=== PATIENT | female | born 1995 | race Two or more races ===

== ENCOUNTER 2023-03-25 12:54 | Outpatient (OUT) | payer OTHER, SELFPAY ==
--- NOTE | 2023-03-25 | US_ITS ---
[address] [address] Patient Name: ALYSSA ROCHA MRN: [id number] date: 1995 Sex: F Assigned Patient Location: US Current Patient Location: US Accession/Order Number: [id number] Exam Date: 03/25/2023 12:57 Report Date: 03/25/2023 16:43 At the request of: TESSA BAUER Procedure: US OB transvaginal EXAMINATION: US OB transvaginal HISTORY: MISSED MENSES COMPARISON: No relevant comparison available. FINDINGS: Transvaginal images Garibay intrauterine gestation Gestational sac: 4.25 cm, 9 weeks 5 days CRL: 3.1 cm, 10 weeks 0 days Yolk sac: 5.1 mm Heart rate: 168 bpm The uterus is normal, anteverted, anteflexed The ovaries are normal. No ovarian corpus luteal cyst Cervix: Closed, 5.3 cm. Clinical age: 9 weeks 4 days Clinical AUDRA: 10/24/2023 Ultrasound age: 10 weeks 0 days Ultrasound AUDRA: 10/21/2023 US/US OB transvaginal IMPRESSION: Viable garibay intrauterine gestation measuring 10 weeks 0 days Electronically authenticated by: MALINDA COLLAZO Date: 03/25/2023 16:43
== END 2023-03-25 12:55 | disposition home or self-care (01) ==
LOC: US 12:54
PROVIDERS: Visit Provider Obstetrics & Gynecology
DX: Z34.91 Encounter for supervision of normal pregnancy, unspecified, first trimester (principal); N92.6 Irregular menstruation, unspecified
CPT/HCPCS: 76817

== ENCOUNTER 2023-04-01 09:34 | Outpatient (OUT) | payer OTHER, SELFPAY ==
[2023-04-01 10:16] LABS: Basophils Absolute Auto 0.1 10^3/uL (0.0-0.1); Basophils Percent Auto 0.8 % (0.2-2.0); Eosinophils Absolute Auto 0.1 10^3/uL (0.0-0.7); Hematocrit 34.6 % (36.0-48.0); Hemoglobin 12.3 g/dL (12.0-16.0); Immature Granulocytes Abs Auto 0.01 10^3/uL (0.00-0.03); Immature Granulocytes Pct Auto 0.2 % (0.0-0.5); Lymphocytes Absolute Auto 1.6 10^3/uL (1.2-3.8); Lymphocytes Percent Auto 25.7 % (20.5-60.0); Mean Corpuscular HGB Conc 35.5 g/dL (29.9-35.2); Mean Corpuscular Hemoglobin 31.9 pg (26.7-34.0); Mean Corpuscular Volume 89.6 fL (81.0-99.0); Mean Platelet Volume 9.4 fL (9.5-13.5); Monocytes Absolute Auto 0.5 10^3/uL (0.3-0.8); Monocytes Percent Auto 8.7 % (1.7-12.0); Neutrophils Absolute Auto 3.8 10^3/uL (1.4-6.5); Neutrophils Percent Auto 62.6 % (43.0-75.0); Platelet Count 247 10^3/uL (150-450); Red Blood Count 3.86 10^6/uL (4.20-5.40); Red Cell Distribution Width 11.8 % (11.0-15.0); White Blood Count 6.1 10^3/uL (4.0-11.0)
[2023-04-01 10:41] LABS: Estimated Average Glucose 103 mg/dL; Glycohemoglobin A1C 5.2 % (4.5-6.2)
[2023-04-01 11:39] LABS: Thyroid Stimulating Hormone 2.009 uIU/mL (0.358-3.740)
[2023-04-01 12:53] LABS: BOX Test Sent Out Y
[2023-04-02 04:11] LABS: HBsAg Screen Negative (Negative); HCV Ab Non Reactive (Non Reactive)
[2023-04-02 06:11] LABS: HIV Ab/p24 Ag Screen Non Reactive (Non Reactive); Rubella Antibodies, IgG 2.01 index (Immune >0.99)
[2023-04-02 10:08] LABS: Rapid Plasma Reagin, Quant Non Reactive titer (NonRea<1:1)
== END 2023-04-01 09:35 | disposition home or self-care (01) ==
LOC: LAB 09:37
PROVIDERS: Visit Provider Obstetrics & Gynecology
DX: Z34.80 Encounter for supervision of other normal pregnancy, unspecified trimester (principal)
CPT/HCPCS: 36415; 83036; 84443; 85025; 86592; 86762; 86803; 86850; 86900; 86901; 87086; 87340; 87389

== ENCOUNTER 2023-05-19 19:13 | Outpatient (REF) | payer OTHER, SELFPAY ==
[2023-05-25 12:08] LABS: Age Gdln ACOG Testing Note (.); IGP, rfx Aptima HPV ASCU Note (.)
== END 2023-05-19 19:14 | disposition home or self-care (01) ==
LOC: LAB 19:13
PROVIDERS: Visit Provider Obstetrics & Gynecology
DX: Z01.419 Encounter for gynecological examination (general) (routine) without abnormal findings (principal)
CPT/HCPCS: G0145

== ENCOUNTER 2023-06-16 13:42 | Outpatient (OUT) | payer OTHER, SELFPAY ==
--- NOTE | 2023-06-16 13:45 | US_ITS ---
[address] [address] Patient Name: ALYSSA ROCHA MRN: [id number] date: 1995 Sex: F Assigned Patient Location: US Current Patient Location: US Accession/Order Number: [id number] Exam Date: 06/16/2023 13:45 Report Date: 06/16/2023 15:32 At the request of: TESSA BAUER Procedure: US OB anatomy EXAMINATION: US OB anatomy, US OB cervical length HISTORY: ANATOMY COMPARISON: Ultrasound OB transvaginal 03/25/2023 TECHNIQUE: Transabdominal sonographic examination was performed for obstetrical and evaluation. FINDINGS: Number: 1 Heart Rate: 145.0 bpm H.B. /min Amniotic Fluid Volume: Subjectively normal Placental Location: ANT/FUNDAL with lower margin 6.1 cm from internal os. Cervix Length: 5.5 cm; closed. ANATOMY: Normal Structures -cerebellum, choroid plexus, cisterna magna, lateral cerebral ventricles, orbits, midline falx, hard palate, four-chamber heart, RVOT, LVOT, stomach, kidneys, bladder, umbilical cord insertion into abdomen, three-vessel cord, cervical spine, thoracic spine, lumbar spine, sacral spine, right upper extremity, left upper extremity, right lower extremity, left lower extremity. SUBOPTIMALLY SEEN: None ABNORMALITIES: None BIOMETRY: BPD: 5.6 cm 23 weeks 0 days ; 94% HC: 20.9 cm 23 weeks 0 days; 92% AC: 17.8 cm 22 weeks 5 days; 81% FL: 3.8 cm 22 weeks 2 days ; 71% EFW:516.1 grams; 94% FL/AC: 21.6 FL/BPD: 68.8 HC/AC: 1.2 GESTATIONAL AGE: Age by EDC: 21 weeks 3 days AUDRA by EDC: 10/24/2023 Age by current US: 22 weeks 5 days AUDRA by current US: 09/25/2023 US/US OB anatomy IMPRESSION: 1. Single live intrauterine with growth detailed above. Electronically authenticated by: GENESIS VILLANUEVA Date: 06/16/2023 15:32
--- NOTE | 2023-06-16 13:45 | US_ITS ---
[address] [address] Patient Name: ALYSSA ROCHA MRN: [id number] date: 1995 Sex: F Assigned Patient Location: US Current Patient Location: US Accession/Order Number: [id number] Exam Date: 06/16/2023 13:45 Report Date: 06/16/2023 15:32 At the request of: TESSA BAUER Procedure: US OB cervical length EXAMINATION: US OB anatomy, US OB cervical length HISTORY: ANATOMY COMPARISON: Ultrasound OB transvaginal 03/25/2023 TECHNIQUE: Transabdominal sonographic examination was performed for obstetrical and evaluation. FINDINGS: Number: 1 Heart Rate: 145.0 bpm H.B. /min Amniotic Fluid Volume: Subjectively normal Placental Location: ANT/FUNDAL with lower margin 6.1 cm from internal os. Cervix Length: 5.5 cm; closed. ANATOMY: Normal Structures -cerebellum, choroid plexus, cisterna magna, lateral cerebral ventricles, orbits, midline falx, hard palate, four-chamber heart, RVOT, LVOT, stomach, kidneys, bladder, umbilical cord insertion into abdomen, three-vessel cord, cervical spine, thoracic spine, lumbar spine, sacral spine, right upper extremity, left upper extremity, right lower extremity, left lower extremity. SUBOPTIMALLY SEEN: None ABNORMALITIES: None BIOMETRY: BPD: 5.6 cm 23 weeks 0 days ; 94% HC: 20.9 cm 23 weeks 0 days; 92% AC: 17.8 cm 22 weeks 5 days; 81% FL: 3.8 cm 22 weeks 2 days ; 71% EFW:516.1 grams; 94% FL/AC: 21.6 FL/BPD: 68.8 HC/AC: 1.2 GESTATIONAL AGE: Age by EDC: 21 weeks 3 days AUDRA by EDC: 10/24/2023 Age by current US: 22 weeks 5 days AUDRA by current US: 09/25/2023 US/US OB cervical length IMPRESSION: 1. Single live intrauterine with growth detailed above. Electronically authenticated by: GENESIS VILLANUEVA Date: 06/16/2023 15:32
== END 2023-06-16 13:43 | disposition home or self-care (01) ==
LOC: US 13:43
PROVIDERS: Visit Provider Obstetrics & Gynecology
DX: Z34.92 Encounter for supervision of normal pregnancy, unspecified, second trimester (principal); Z3A.21 21 weeks gestation of pregnancy
CPT/HCPCS: 76805; 76817

== ENCOUNTER 2023-07-01 11:20 | Emergency (ER) | payer OTHER, SELFPAY ==
[2023-07-01 11:33] VITALS: BP 107/69; PULSE 95; RESP 18; TEMP 36.7; O2SAT 98; BMI 25.3
[2023-07-01 12:00] VITALS: RESP 16; O2SAT 95
--- NOTE | 2023-07-01 12:02 | XR_ITS ---
The [address] [address] Patient Name: ALYSSA ROCHA MRN: [id number] date: 1995 Sex: F Assigned Patient Location: ER Current Patient Location: ER Accession/Order Number: [id number] Exam Date: 07/01/2023 12:05 Report Date: 07/01/2023 12:38 At the request of: WADE MCNAIR Procedure: XR chest 1V EXAM: XR chest 1V at 1222 hours HISTORY: cough with blood for 3 days. COMPARISON: None. TECHNIQUE: AP upright portable chest x-ray FINDINGS: The heart is not enlarged and the vasculature is not distended. No acute infiltrate, effusion or pneumothorax is identified. Nipple jewelry is present. The osseous structures are grossly intact. XR/XR chest 1V IMPRESSION: No acute infiltrate or evidence of cardiac decompensation. Direct comparison with a previous study may be helpful in determining the chronicity of these findings. Electronically authenticated by: TEVIN BAILON Date: 07/01/2023 12:38
--- NOTE | 2023-07-01 12:09 | ED_ITS ---
HPI - URI/Sore Throat General Chief Complaint: Nausea/Vomiting/Diarrhea Stated Complaint: COUGHING UP BLOOD Time Seen by Provider: 07/01/23 12:01 Source: patient Limitations: no limitations History of Present Illness HPI Narrative: this patient is here with upper respiratory type symptoms. She's had it for three days. She said another family member was here last week and tested for a viral infection. She is down the smoking one cigarette a day. She is twenty- three weeks . She's not had any vaginal bleeding or spotting or lower abdominal discomfort today. She has been vaccinated in the past for Covid but not influenza or respiratory syncytial virus. She has used an inhaler in the past when she had bronchitis but she does not have a history of asthma or ongoing use of bronchodilators. She has had running a low-grade fever. She said she just today no slow bit of blood-tinged sputum. Related Data Home Medications Medication Instructions Recorded Confirmed sertraline 25 mg tablet 25 mg PO Q24H 07/01/23 07/01/23 Allergies Allergy/AdvReac Type Severity Reaction Status Date / Time No Known Drug Allergies Allergy Verified 07/01/23 11:33 PFSH [facility] Social History Smoking status: Current every day smoker Exam Narrative Exam Narrative: awake alert pleasant. Vital signs are stable afebrile pulse oximetry is normal there is no respiratory distress. Her voice is normal she's very pleasant hydration status is normal. She does not have a abdominal or pelvic complaints today. Chest examination shows her lungs to be clear with no wheezes rales or rhonchi even with forced exhalation there is minimal wheezing. Skin integument showed normal hydration status with no pallor or evidence of anemia or scleral icterus. Neurological examination she has no neurologic complaints or findings. Chest x-ray was done with the abdomen shielded and is normal Constitutional Vital Signs, click to edit/add: Last Vital Signs Temp 98.0 F 07/01/23 11:33 Pulse 95 H 07/01/23 11:33 Resp 18 07/01/23 11:33 BP 107/69 07/01/23 11:33 Pulse Ox 98 07/01/23 11:33 Course Vital Signs Vital signs: Vital Signs Temperature 98.0 F 07/01/23 11:33 Pulse Rate 95 H 07/01/23 11:33 Respiratory Rate 18 07/01/23 11:33 Blood Pressure 107/69 07/01/23 11:33 Pulse Oximetry 98 07/01/23 11:33 Temperature 98.0 F 07/01/23 11:33 Pulse Rate 95 H 07/01/23 11:33 Respiratory Rate 18 07/01/23 11:33 Blood Pressure 107/69 07/01/23 11:33 Pulse Oximetry 98 07/01/23 11:33 MDM - URI/Sore Throat MDM Narrative Medical decision making narrative: this patient has a respiratory infection after one of her family members had the same. She is otherwise healthy. She's down to one cigarette a day. Chest x-ray and pulse oximetry clinical examination suggests bronchospastic disease. She's not struggling or laboring. I think should be fine as an outpatient. She'll be given albuterol inhaler. And with a holiday coming up she was told that if she doesn't have improvement in symptoms in about four days, she can start an antibiotic Discharge Plan Discharge Chief Complaint: Nausea/Vomiting/Diarrhea Clinical Impression: Acute upper respiratory infection Patient Disposition: Home, Self-Care Time of Disposition Decision: 13:16 Prescriptions / Home Meds: No Action sertraline 25 mg tablet 25 mg PO Q24H Additional Instructions: albuterol inhaler/start Z-Rosendo if symptoms don't improve in four days. Gait is much rest as possible return for any problems Stand Alone Forms: Portal Instructions Referrals: Physician,Non-Staff, MD [Primary Care Provider] - 1 week
[2023-07-01] MEDS: IPRATROPIUM/ALBUTEROL SULFATE 3 ML AMPUL.NEB IH (12:39)
[2023-07-01 12:41] VITALS: O2SAT 99
== END 2023-07-01 14:00 | disposition home or self-care (01) ==
PROVIDERS: Emergency Provider Emergency Medicine Emergency Medical Services
DX: O99.512 Diseases of the respiratory system complicating pregnancy, second trimester (principal); J06.9 Acute upper respiratory infection, unspecified; O99.332 Smoking (tobacco) complicating pregnancy, second trimester; F17.210 Nicotine dependence, cigarettes, uncomplicated; Z3A.23 23 weeks gestation of pregnancy
CPT/HCPCS: 71045; 94640; 99283

== ENCOUNTER 2023-07-08 10:28 | Outpatient (OUT) | payer OTHER, SELFPAY ==
--- OUTSIDE RECORDS SUMMARY | 2023-07-08 10:42 | XMS_ITS | CCD ---
Author Name Unknown Address [address] [place] [address] Organization [facility] Care Team Providers Care Dean Of Admissions Name Role Phone JUANCARLOS, TESSA Admitting Unavailable JUANCARLOS, TESSA Attending Unavailable JUANCARLOS, TESSA Consulting Unavailable REI CALLES Consulting Unavailable JUANCARLOS, TESSA Admitting Unavailable JUANCARLOS, TESSA Attending Unavailable MISC, DOCTOR Referring Unavailable JUANCARLOS, TESSA Consulting Unavailable JUANCARLOS, TESSA Admitting Unavailable JUANCARLOS, TESSA Attending Unavailable JUANCARLOS, TESSA Consulting Unavailable JUANCARLOS, TESSA Admitting Unavailable JUANCARLOS, TESSA Attending Unavailable REQUEST, NONE LISTED Primary Care Unavailable JUANCARLOS, TESSA Consulting Unavailable REI CALLES Consulting Unavailable JUANCARLOS, TESSA Admitting Unavailable JUANCARLOS, TESSA Attending Unavailable JUANCARLOS, TESSA Admitting Unavailable JUANCARLOS, TESSA Attending Unavailable ZOLTAN YUSUF Primary Care Unavailable JUANCARLOS, TESSA Consulting Unavailable JUANCARLOS, TESSA Admitting Unavailable JUANCARLOS, TESSA Attending Unavailable PAM TURNER Consulting Unavailable JUANCARLOS, TESSA Admitting Unavailable JUANCARLOS, TESSA Attending Unavailable REQUEST, NONE LISTED Primary Care Unavailable JUANCARLOS, TESSA Consulting Unavailable JUANCARLOS, TESSA Admitting Unavailable JUANCARLOS, TESSA Attending Unavailable JUANCARLOS, TESSA Consulting Unavailable JUANCARLOS, TESSA Admitting Unavailable JUANCARLOS, TESSA Attending Unavailable PAM TURNER Admitting Unavailable PAM TURNER Attending Unavailable PAM TURNER Consulting Unavailable PAM TURNER Procedure Practitioner Unavailab EVELINE Portillo Consulting Unavailable COLT TREVINO Consulting Unavailable JUANCARLOS, TESSA Admitting Unavailable JUANCARLOS, TESSA Attending Unavailable MELONY HANDLEY Attending Unavailable Problems Active Problems Problem Classification Problem Date Documented Date Episodic/Chronic Diabetes or abnormal glucose tolerance complicating ; childbirth; or the puerperium (1 source) Gestational diabetes mellitus in , unspecified control; Translations: [GESTATIONAL DM PREG UNS CONTROL] Onset: 09-19-2019 Episodic Early or threatened labor (4 sources) False labor before 37 completed weeks of gestation, third trimester; Translations: [FALSE LABR BEFOR 37 WK GEST 3RD TRI] Onset: 09-15-2019 Episodic Mood disorders (1 source) Major depressive disorder, single episode, unspecified; Translations: [MANUELA DEPRESS D/O SINGLE EPIS UNS] Onset: 10-16-2019 Other complications of ; puerperium affecting management of mother (1 source) Onset (spontaneous) of labor after 37 completed weeks of gestation but before 39 completed weeks gestation, with delivery by (planned) section; Translations: [ONSET SPNT LBR 37WK<39WK DEL C SEC] Onset: 10-16-2019 Episodic Other complications of ; puerperium affecting management of mother (1 source) Other mental disorders complicating childbirth; Translations: [OTH MENTAL D/O COMP CHILDBIRTH] Onset: 10-16-2019 Episodic Other and delivery including normal (9 sources) Single live ; Translations: [Encounter for test, result positive] Onset: 03-08-2019 Episodic Other screening for suspected conditions (not mental disorders or infectious disease) (9 sources) Encounter for screening for malignant neoplasm of cervix; Translations: [Encounter for screening for diabetes mellitus] Onset: 05-03-2019 Episodic Other screening for suspected conditions (not mental disorders or infectious disease) (8 sources) Encounter for screening for Streptococcus B; Translations: [Encounter for other specified screening] Onset: 05-30-2019 Previous (3 sources) Maternal care for low transverse scar from previous delivery; Translations: [MAT CARE LW TRANS SCAR PREV C/S DEL] Onset: 10-08-2019 Residual codes; unclassified (1 source) 38 weeks gestation of ; Translations: [38 WEEKS GESTATION OF ] Onset: 10-16-2019 Residual codes; unclassified (1 source) 35 weeks gestation of ; Translations: [35 WEEKS GESTATION OF ] Onset: 09-19-2019 Residual codes; unclassified (1 source) 34 weeks gestation of ; Translations: [34 WEEKS GESTATION OF ] Onset: 09-01-2019 Screening and history of mental health and substance abuse codes (1 source) Personal history of nicotine dependence; Translations: [PERSONAL HISTORY OF NICOTINE DEPEND] Onset: 10-16-2019 Episodic Past or Other Problems Problem Classification Problem Date Documented Date Episodic/Chronic Immunizations and screening for infectious disease (1 source) Encounter for screening for human papillomavirus (HPV); Translations: [ENC SCREENING HUMAN PAPILLOMAVIRUS] Onset: 06-02-2019 Episodic Other complications of (1 source) Other specified related conditions, unspecified trimester; Translations: [OTH SPEC PREG RELATED COND UNS TRI] Onset: 06-02-2019 Episodic Other female genital disorders (1 source) Other specified noninflammatory disorders of vagina; Translations: [OTH SPEC NONINFLAMMATORY D/O VAGINA] Onset: 06-02-2019 Episodic Results Test Name Value Interpretation Reference Range Facility Coding Summaryon 03-05-2021 Coding Summary HTMLBase 64 DgeflvczMHf1iCx+PGhlY WQ+IF7YMTOaJ80lzHSbyL 2TU3tXMH9EIQFPJAONJX8 GFP0btNE5PYvjP5YcopWb HwqzyNIwRH40EPi4POP2d TwbVLfseE2mxUUbW1c3Bc WkZI90uE83XKopTBCxRiG 3LjZpbjsgbWFy P4phKqXfcTBaZmw+PHRhY mxlIHdpZHRoPScxMDAlJy PoeCeaIT3pNu5iCIDaZDF vbGxhcHNlOiBj h6owXJShDPvgEM4mkVdsG 1YamBJ0RBBmb9w5Pv22aI I+BZKrPZD5zWcuSErkf49 3CiGnz0htGQF0 rFQcPPjwJPT4H58yb9G2X JPuKTPuYAD5bIW1jD1lpB rgrfgdM5FbhSLpTiO9JRY 3pFQhqV4vgVyp nuoygG1aEcy+T74HYH8AP SNPNZ1JYte4X6UiFrmijU I+VE37EFEdIK81oMWbbAZ hl7qzrJv9RrHs EVFtSCB1aXenNCwmu2GaW NPtM94bkFZqh7C8CCEscP owoRRtScOeaMC8pI3tOPi vhzsas2syjkia Byfhw6dtpy60rQ51Y98kZ CviMXIgSKK2SSJiBDCqrS xuur1eaQ6eHa6+NQpkv4p xm3awqPk2OoOe YDYbjnBykNmlOTD9z9VtG q84I0BolQnvc3XxGel9yr 53fEBoh1Y3hQG3XEsuNRN xqZ4oCJnbHhE0 GPPwWvUzpR45cOAgUBtvM u2dzEdyjHjkJE5rBYVwiq fyNAPnsE0nWPJvkVGgxTm yRD8sXCZizlna f374CpOaWNQ4GTXocLNjM 2CehU7yNqBlQHEbVBCaG8 RjjGOtDSdbZ382VUmgHmK 7SHHukkZoP9Ob PZPrfGooDkE4w2K1Es3Fc 3JdsjbfHNE8OZhsORN3Pv Q3WzOkKfA3C0JuMgk8DQS fsLybVN8zH3Rg PWBljiziyddrrZC1FLUxC UZoyC30tLDsKExsSy0cn2 W3p706XMQlJCTevL67Kb7 udDogMTBwdCBU rU5uhapld6akcmrlRzTlS TAoVZj9KBz6EJEoxUmyBw YfBZP5LbC4GFC6kDIkjL4 nwDbptyrksZ4c Oyc+Q45mwI5mCSV2SCM2q rtjNYAqdhNtBO72WA57X2 RyPjwvdGFibGU+PGRpdiB boQncQW0fJlYv b7hxw2CfGWskV0RtHRZaQ VxcTva1ZICsMGL1pKB2oO 3vNSAaKYghe6H6uCC5E2G cpmOcxs6cn0wr HBPjAIinU11arQZep8I7K HSpgPA5MMEvfBxtCtCnoA 93Oyc+CHWpkZmgh5YyRyl vm3lgw6kykNf6 MaHyWTRyieYjlGtmFCQ5t 8JoGj48U15wNDfjOPNgMW MvAINdHTFlmExzet3xoT3 wIi8+PGNvbCB3 wBE0eI9eSUHpCiX1RQmkK 337HoZdvRSkUbjas0dsx7 eesSo9ObCuLWRqzaYlhKt oFUL9g4VdXe92 Z70uIBacTPCyTKEkMEVuA SFxfJxtqp1hcY9gXe9+PC 8sv5xtgu08zL57bXJ+PHR qHHE2cLzaCUdp CAJxdD0kNPixUaX9SXZlF aExcO86hDWlZFflKf5saZ jnkFfbAO2uOCBauznij12 7BjVot7jlCAQe nEYiHQgeSWA6Z87ja1I6A KLwFMHyETG5rEY5zJ9oaD lnbjogbGVmdDsgdmVydGl qYFdmCOlnQ851 IHRvcDsnPlBhdGllbnQgT hKmAEe9H7SrHya0DDZqrQ omIO0efLEtWOsqKm3rtYx uyHrxCO6hUTNx pavvv410HbPbi8lyWZXzq ELtVAhjOTQ8N86bq5U6ES JmXIJaAZA0iTW5jB0wnYa nbjogbGVmdDsg arFcbFztNOszWOcnJ469C HRvcDsnPkJpcnRoIERhdG L1PA20EZ07mWPby0S9nSX 3P2BtOMSzjcfc mvdboTC5LXWvQINwdJ58U s3luPghZw7kHCLhMTN6WD MtaRIzR3CbzZ6jRjBlLTY gAOOlM0JhaPKu FXbwX315TWkkZpX2OQTwo oPzK2YgKEHgxXjvSeD7d7 Q9Ay2BO5R3FD65WR90dVM ug0K9mBX4K8Wr YNDnwmysbbktaNI1PMJlM KNghA76Ac0nwBbvXo2dXL LoVHE8ZCWfkSEhD9XcjZ6 yOiAjMDAwMDAw B7VtjUKgOHkxF763HPprT vO5AVWwngZjL3DyPFKdiS raGnF9p0S9Wb1VQPh4LL2 3NJ24hMVki1G7 vFP2V4DdWPSvrnfsgwhup EH9OGIhEKOlsF93Yn0auJ ziUx6gVUDhBUP3HXIoiPF sX7YipL3oVsYt VACuLIBhD9BqwCZmJNljW 949PDfuCaM7ILOivrVwT1 RbJXVpeTuiItX7s7L3Wk4 LDNYwIL30BKI2 aGE3OM21WE31Q9VjIyeze GFibGU+PHRhYmxlIHdpZH RoPScxMDAlJyBzdHlsZT0 lPu3wEBYeTZCi yXzbnBOgNhDjc1dqEHXbT XtaTG5cwGweA2IldZK6IE Pdk0h0Kk02J10sZ5NukGJ +NWTggXY8vUP1 gI0fRaSsYnP2VBudV550K sNcaBTrXntep3akh4hxfI o5DjP9YHLqoxGiqZjgDIQ 5o7OnXa45U04w IHdpZHRoPSIxNSUiIHZhb Zoskb0oxT3pDi7+PGNvbC R5sKC4cP6uPdDpAgT2MRu lW827KdFwdCJs Fltyg2xvy8ohpXj1FhAbJ LAzgxYbnIzxVUD7g1XwBq 26S6VghTgxm6HwQvc7le1 6pLFml4E5bKT8 W3YfUTMtogsyaZIibXkbM O9aJVGkjuboFUMzrK4fZR TdL8v9CzVcFwP8RYomT8T vprT1BESulZIm EQgiPVU3U30hp6A4ZINgX ZZhCHL2dOE6lM4gmCcnmg ogbGVmdDsgdmVydGljYWw bIYpoX223OVCn dHebVFRwxS3qLMUajMWwv WgsRE8oNLXofhqfFu3CRX xTLCBEQVNIQVkgTUFSSUU 8A8IuNxr1QPZl gLeoHJ8izPYpBLopSl4at DwdeHpuGR4cWZIoksoyJB BanC4oMIAchPQliEbgIN5 iZGWaptauv887 PdFeSEP6OWBftUNmH4Hlb J7hAbEuAGIaUCCkV3EajS ZoOAxtP888YUwuXjB8OTR pfdKdF4OuLVXl vJwrJfK8i6R4Gu9mHV8nN X3pIJj1SG19WU50sADup8 P2fIK6U8YtBHEvxrcpqfg faWK0XWPgPBIy eJ40dQYtDCneNv5ct9A4x 553RVKpNFRppE76Aw2scQ lxLRHapOVBxA8jpvwey8h vcjogIzAwMDAw NBb4DMa5PBYbxJlvPsKzJ IY6EhV8MHJ2kKCkqO9alD afznefcT3kHks+MjcgWWV ugnO7Y8KrNpr6 ECOhyEubFY6ktWKzRCzhB k1pbPzzeGitBC0nGSNymu jwTPVihQ4qNZJrpEZyhBo pPR4tWQDzetrc y447UjWtMTH7OYWwrFPgC 9ErmF0nKhEwWGAhBIZsN9 GqpKOgFLrzR531PAfkEwR 2TWJiznCyG8Rr ATQghQolLcJ8h2V3Ee1FS X9MXKX6G1DnTqr2FICyjX ugYG7ehRVlQRzpJq7flBx edJyoPB9xDNNm yditHACsbA2uTFNzxNPll BsxWV9xHFGhzxssc027Is OqPVY1KLWggIRzM2PstE7 yOiAjMDAwMDAw L4GhvLMxCTqeU760QOcjF mW3HYSuuqYnP4BdUEOspL uzMgG6v9N1Sp8CVAdtvJA +MO16wl93A9Ab XabnBci4BQZtVFC3aCD8w M0eTHXyJScux4J5vCJ7I5 QwgiGkeh6je3goZUJkOMx lA41diITul4T4 PFFdfQQ9VDEtdHyqKdJoa G93Oyc+ANKdeVomb5NyNx muu9pcs8xcxPf1KvCyDHQ gdmFsaWduPSJ0 w7KzHs73B23hKZhrMJZsI XSaBBPqMXTnpKghka1ifF 9wIi8+QSMcoJK8hXT8kG0 vPuOeObR5VOfe R869XaLcaYGoZmupc4pzn 2fjfIp1ObRbWQPgsbVnaD kyVJH4m0XbCh62P6TdrXo pn9XuIah2vs39 zVYxk7N6uFP4K2BzBRJgy wrdlYVxrEjfHM3jCYYbne fsLYQctX8oDRFaW5i7YqJ xPmP5AArdC6Zw rxW2FMSasGHuQDVfdMFKi Z2tgkjbq8thekgfTsGvTC StDYf5WBs8PBZcaIezOtW eSYG9IrT2OVT3 oAZqgC1oqQebapbxeY9xY yc+USb4j2haoXEmKF3fzJ Z6QN78EJ47sQJqh9V1sIC 9E2DbNXPfwwfx hzqwxOY6YUHbAPKchB26F l3bgVmlWp8qUIWqQDZ3DM SqwDOtF2JdaZ4nAzLaMNZ bYJUeP7KaeEKv ZYjeX132QUvzWnN9LKFop bJnE6JnLGFakUhsHpP5m0 C7Tm7RTN10QH16HY30hEP bu8I0fYH8A3Eq ZOUsmopifqteeWD5UJQfU LLqhA67Bw5jqKvdRh1rQG LxSUB8LQYvzEUtV4VclH8 yOiAjMDAwMDAw T0CsiESfMYtvX564FDchK bB8KANvcsRvT2DmGUOejF ieEpD0m2H2Wp3FFk06PC8 0EJ82uDZvr8P0 sSG1C6KtOHDxzewigrulo ZE3FDFuOVKywE98Mx0czI fcDq2zVYRaTQB4CBGakRI aQ3IriW6pPfIp BPRrLYBnG4LrzBLqJOslV 609IFhmNuT5TBDcglRbT5 FbOEWjmRxyCuN0y3W4Ai5 IDFnxhhg1D1Wk PjwvdHI+PX42UUPmZM18p QTtgRKqt0xvyZf7MiWgJS FmCTI7lCxaELuhh9NmHDC dE95gqTHax6I8 IGN (more content not included)... [facility] Coding Summary HTMLBase 64 FvkcryenRYl6xUi+PGhlY WQ+RU4PMIMfT56fmZGzcM 2GX4uFIH6LSGJWVTSEUB4 BCS7kaEB6BIpqL9UaynTz HrqqiKFfKD36CRk9XPB0w ZinALbhyH5ycWVqT2d2Mm HwKU44jS50ILnrCIVsPwH 3LjZpbjsgbWFy K8vpYmNmpTZbXsq+PHRhY mxlIHdpZHRoPScxMDAlJy MicNyfOR7kTq3zHOHbNYZ vbGxhcHNlOiBj c9ceJHSzAMvlXO4chGqtU 5QvjGY8OCKpl3v5Lz44yW I+TEJkSVE2rJggQZbke77 9BhVqg5gvBEJ1 oPPrEFliSZR4Q40uj2V3K LGrYUDtEHK4lGI9yZ5deY mwodhkB1RrlNArMkC0PNU 0wDTcrW1nvDqi omhlkV3sIrk+P83NJW5PL JAUYU6UJkx5E8TnPqnjfT I+OS81PASwBA23jYJynUI ew7puuQx6RmFg ZFUbVRT6tEjzPZoyn0PxW FIdS16qvWTbb8I9GCScoJ xkrBQbRfMbbWC7fS0tVVl azaepo2eqxxfg Nkeuy7bpvt88kY85Z41fJ NiqOYZwTPK9VFWuQRCsgY uzay4ivV2yDq5+DAzen6v wo6khcVc4LxIg WOUkrcJgsKxvNTM7o9VxJ r17F5NxaVyri3RkPel5ge 41gAUvd2S5bIB9DQcnFPD smK7oPNcbIcD1 DBRdZuLjeW35mYEcVDcvE c6noBamlDelGX1vHPQzqs goNLYpaS3qYEBhvMHpjOt eIZ2iCDKrxirp w740XnRoOPJ6EEIfhLNmH 3WpoA8hQeJnAEBaNPNkD1 OgqKKuTLeuF366FZrfRlF 0PBPmkfTbV7Kf JCZgrQkqPrF4d6P0Go9Yb 3SfpplgECP9NDtbKTS4Wy S2AcViFeN8C3AuHsc1XBI fnNokRN1dH5Va UPHjkrykqxjtvPL0QGSuH UDivV58dOHiUVgeQl4pg4 J0n481DJOhNKCooM55Hs2 udDogMTBwdCBU fJ1xwtztc4lqwgwpQmOvJ SBgAJw8PIj9XGJncNzkZm XoLUA2HzR2SGQ9uBNswY0 xbJdvcbiclW5s Oyc+Q90nqC7nEFL2ISX9p zvoXOJhoqLlZT03CM59O4 RyPjwvdGFibGU+PGRpdiB fyGkeDR9vUzFb h6fve7EbJJopF5YqSSVpK IkhHpx3AVNvBUO8gPH2sL 5bYAZxXGgcj6W9yXX5I4O jqwDsyx5if9vq BUSrFJbfN25mzDKqx7S4I LDjsIH0UQSlkOmkLiRiaL 93Oyc+KMUqxGanh9JqRwl ki7jxo6mrwKu4 RxMqIVPvfyTgeYhrQNH9k 0YpOn97A40yXEbiJTAzXC DuDIZkQPTpwXgggk7pjX5 wIi8+PGNvbCB3 hTG9sW5hGQZgGdS2EVwvM 152LkWroFNtGfzaf5izh3 kwrSo7PtYtLSXtwqLwkPd gHRW2r2YkVa35 D34eTGziFVCuZRRiNCHsV BIrxNtnsn3cjU3pYz7+PC 7so0ewmr90wM13zBW+PHR tLXS6lLljTUws IJJpjJ7lRIjfWuZ7XFRnF lIzoB75xJFnSMglEb6tvY yqgEohVT8hVNZqfakpq44 1HtYry4odXORx kCEmPPwxRPP6T21lz4U0H GBpBJLzDBZ9wPZ1wC5slA lnbjogbGVmdDsgdmVydGl eHFdbVLtdE558 IHRvcDsnPlBhdGllbnQgT pThDZj1N5MpJbk5AYOrsT moZM3blOGfDJlqNs5kxNn apIxnLA4zOORg oubub740MiDbr1ihPPJdv GRlGTjfYNL2Z97rb0J9ZP MkAHEiSZV5aBV7uJ6ojJb nbjogbGVmdDsg noResVvhKCqmDQqbI683O HRvcDsnPkJpcnRoIERhdG G5LS88QY04lOTaa6R1oZZ 1E1PgSNNiriqo odxlhYX8KGUiRXGfjD59A a1hiMefCt2gOCGcMKX2TL JcyAWgX7UfdN0uEpLuSHX gQUHfH8TgiTJu BSsgK085GVfnUkO1FHPxw mZqT4JbTILkqQfzXkY7g8 L0Mo9BZ6A1UR34KA50lUA se1P1nAH6O9St XAUssxbpejkgyYD8BVGvY RZreE34Sw3plFxpOp3aLV VmRPS2FBPdjFOrE7XqpI6 yOiAjMDAwMDAw J6PvtQOfDKxcN657NBcjJ wT0MXJpqtTdN9XyWCXonC srUpS0t4V0Ws6XFXt3QR6 4FI08nXFaq5L3 kTB8T2JpNMEwkwzerfymn EN4IOLsOJJurL88Dq2otR zcCo7gFLTfEEI5QDLcaHY qZ8FtgK6yQeMh IPIvHHCeI0WkjCTaHWpvV 304RUjfLlV7GDEkzuXrI3 RjNRLdqTsbRoS8d6N2Mr8 LBXSqUP54VKE1 mVM3DA64FK27I4CpTbwof GFibGU+PHRhYmxlIHdpZH RoPScxMDAlJyBzdHlsZT0 fOi1gOBDmMVHl pYzkqZLaOxMii4gwGOBaD RnyMG9anFmiQ4NooDM0RL Fcv1h7Yk84C88lR3PysIO +JUDajVG8uDD9 zO0lRgUoBxB8MVvkQ874M gIivPNvCenjg9sdx1ecnW q8ZfO5EETogtArlIkeXGC 2e0TlZs42H26h IHdpZHRoPSIxNSUiIHZhb Wlxxz0kbC5lJc7+PGNvbC Q1aTD5aN6oBkFpVpK7FQi uR241YiJlbBSa Ppuvv4ggv2jheNg4DsBfO SOipfJznFwkAVF7p8CxCl 99M3DenBvjv4EuDfh1sl7 6uZUyl6X4sQS4 F8UySRRonbwmvXIlzMcfT X4qJCXnhritIIYfjS2lUU IcL0i1KuUeZiS3ZZheI2T bfnL3SYMzwHBf OQjfWTZ1R36ab1S9NAUvW FGkXPX7rEG1tM6zwHbelb ogbGVmdDsgdmVydGljYWw jDDqfN487OWCc aPwjGSOwbQ7aROKnqNWye AtjBE3iSBZdpelsCg6LNH xTLCBEQVNIQVkgTUFSSUU 8H0EfOlj5HXFx cVwkYM7cySCgQUoxRh4ok UnihZziPV2fYVQpxfouYC YqlW3kHYTzvUYiiLsbDV4 iXUZvhfqlg976 UcJvPIC4CVJgaUZzO6Evi A0xWuCcYSLaQZIyT2EzaX KxDQhrQ039UJtyYzL9VKD kluHcD1GfXUAa eUsnFtE3d9R4Ne0cVY1rO L1jHVz7GV31TF19gEUhr7 M3qET3B4XlWPNvyeongtw wtOD4UXRwBSFf wS65kATaFHkzWf8gf4N9c 412UPIfFYWkvN64Ix9agG etKWIhqYQVyF6tzblxu1c vcjogIzAwMDAw BTt0YMd1MTMhhEuaRuZuE NR9DnI4YFW4kLOscP6unX zubzmewC2cZwo+MjcgWWV ppsG1H2RiHwa6 AYZiyWdpCJ2ncPAxQVuuP r8lyFqscOqqMJ4iKWTcsc raERCkgC3sJRJpmDLqwDd vCB1rDXAfocal f271SbYvPRQ9PEVkkJIsF 7IcvB1fVuRnCXOpBDXpB7 PqwJXqFVsfS753YWboZvD 5ENUwjaYiX2Gw GWMmxMbxNuX6m3H3Om0SA D3SYPM3H4EfXzw6PIXyyD phKC3ynDVvYHnrXw7kzBe wkEflYW1xOOKz kfyrDVOqcH6bBSDjuGZdx HmsWL7tFOPzvimhe074Vh PpLEE8ZHFflEXkE3OyzS8 yOiAjMDAwMDAw X9YuiEJvVZoiQ101VUvvU nZ6HIGntaDcM0SzPKEnaF fhEpN2t5O5Zd1RpZXbU3G pQ0c5O9WgLuxi dHI+RA32GRAxQW01dGLdv AOvw1nzaJo9ShPvSNRvHB H6qHqeYWxtr2VmNNHaB33 ggGCwo4Z7SZLe zTyneJAgKzMfxAX4lH6dI Hqtevcun6ihmdayXkpip8 pvms05qH57D71yGZkpUFA oPSIzMCUiIHZh gUknlp1wnW6tXg1+PGNvb JP2tIU1pC2zTjHfMzP3FL slS063RnOpxTTtVhszd8p zy9mlgRc1AtAu MWYmyfBvfYwbLKD2q0ZeZ b45Q30yUSvrHGVaVRQzUF KlNWUngRipwh5kgL0lXq8 +KY2gm5scmo67 eZ27vDX+AQWbVVU5cYpcH FsyCFFzwJ1qXDuuIuO4NC QsDxUjaW99hUMpQTmgZg7 nfOhtqRgmDN5x OOIcedecc721LnTry5goG BAfkRHuMEgcDLR8Y21uu6 I2GLWmZWJdJQS6mCM3zY5 hbGlnbjogbGVm dDsgdmVydGljYWwtYWxpZ 909FPAhrYkiVbQykHDpW4 ualtYALY1xMgxomEP+PHR eTBX9qQmjYNgp ECXbfN3iEUEqM2a4SmJmU uT1ODfwW7RzweF1JCDnfL HyTGOjaEJRmC4rjfxfv9w vcjogIzAwMDAw LHa4IFz8XOQumUimQxEzY KS4XoV4BFU8nDTphR7szN uytmvprS4xZud+RklOOjw vdGQ+PHRkIHN0 fPhoTYjwVGWuxX3wBISkT 8k7QkVzUsB6TMfuX6Itbl V1ZDAgcKTjUIOlyBUMuY6 tghauq6wrxtwk YsAhJXBeZMd9ETk7VUOrw ZihImUmEPC4XiM9ISV8dS KlsI8qwWazvpxojB5lZqa +TVJOOjwvdGQ+ ZGFeFLF4tLvwAUnpIGWrr B0pTNTnW5d2CaOtKcA8ST bfQ3QqpgO1YVUzcTYpOUY svFHWiC0khomo g0mnlnawMaFbIAWiKHi0L Kt4FALogHbeSgRfBUL7Sa S7QJL1nJWdxO6vbZetgil zbX8pTdi+UGF5 NZL0YW06DF38S2NcUzhtk GFibGU+PHRhYmxlIHdpZH RoPScxMDAlJyBzdHlsZT0 bBn0tDWGjMOUh bGx (more content not included)... Normal [facility] ED Clinical Summaryon 2020 ED Clinical Summary [facility] - Emergency Department [address] [place], [place] [id number] ED Clinical Summary PERSON INFORMATION Name: ALYSSA ROCHA Age: 25 Years Sex: FEMALE : 1995 MRN: Acct#: Visit Reason: Skin rash; RASH Arrival: 02/22/2021 08:23:33 Discharge: 02/22/2021 09:27:00 LOS: 000 01:04 Check In: 02/22/2021 08:23:33 Checkout:02/22/2021 09:27:00 Address: [address] [facility] [address] PCP: ZOLTAN YUSUF MD PROVIDER INFORMATION Provider Role Assigned Unassigned Oscar Haley DO ED Provider 02/22/2021 08:26:37 Lisa RN, Cherri ED Nurse 02/22/2021 08:34:22 VITALS INFORMATION Vital Sign Triage Latest Temperature Tympanic Temperature Temporal Artery Pulse Rate 91 bpm 91 bpm O2 Sat 100 % 100 % Respiratory Rate 16 br/min 16 br/min Blood Pressure /69 mmHg /69 mmHg MEDICAL INFORMATION Medications Given: Allergy Information: No Known Medication Allergies PHYSICIAN DOCUMENTATION Patient: ALYSSA ROCHA Age: 25 years Sex: FEMALE : 1995 Associated Diagnoses: Contact dermatitis Author: Oscar Haley DO Basic Information Additional information: Chief Complaint from Nursing Triage Note : Chief Complaint 02/22/2021 8:24 EDT Chief Complaint I have a rash on my neck that is itchy. . History of Present Illness 25-year-old female to the emergency department chief complaint of a rash. Patient states that it began the anterior aspect of her neck. Now spreading to her back of her neck and her ear. Patient states began 2 days ago. No fever no chills no nausea no vomiting. Patient states that she has sensitive skin and she has had an allergic reaction in the past to tide. Patient states that she used a new lotion prior to onset. No throat swelling or tightness no difficulty breathing. No fever no chills no nausea no vomiting. No drainage Review of Systems Constitutional symptoms: Negative except as documented in HPI. Skin symptoms: Rash, pruritus. Eye symptoms: Negative except as documented in HPI. ENMT symptoms: Negative except as documented in HPI. Respiratory symptoms: Negative except as documented in HPI. Cardiovascular symptoms: Negative except as documented in HPI. Gastrointestinal symptoms Genitourinary symptoms: Negative except as documented in HPI. Musculoskeletal symptoms: Negative except as documented in HPI. Neurologic symptoms: Negative except as documented in HPI. Psychiatric symptoms: Negative except as documented in HPI. Health Status Allergies: Allergic Reactions (Selected) No Known Medication Allergies. Medications: (Selected) Prescriptions Prescribed Lidoderm 5% topical film: 1 patch(es), TOP, Daily, 30 patch(es), 0 Refill(s) Documented Medications Documented Zoloft 50 mg oral tablet: 50 mg, 1 tab(s), PO, Daily, 0 Refill(s). Past Medical/ Family/ Social History Medical history: No active or resolved past medical history items have been selected or recorded.. Surgical history: No active procedure history items have been selected or recorded.. Family history: No family history items have been selected or recorded.. Social history: Social & Psychosocial Habits Alcohol 02/22/2021 Alcohol Use: Current Comment: Denies - 02/22/2021 08:Giana Gonzalez RN, Cherri Substance Abuse 02/22/2021 Substance use: Current Type: Marijuana Frequency: 1-2 times per year Tobacco 02/22/2021 Smoking tobacco use: 10 or more cigarettes (1/ Comment: States smokes 1/2 pack per week - 02/22/2021 08:Cherri Duong RN Electronic Cigarette/Vaping 02/22/2021 Electronic Cigarette Use: Use, within last 90 days Type: Nicotine infused Use per Day: States vapes just once in a while, when I don't have cigarettes . . Problem list: Active Problems (1) No Chronic Problems . Physical Examination Vital Signs Vital Signs 02/22/2021 8:24 EDT Temperature Temporal 37.0 DegC Peripheral Pulse Rate 91 bpm Respiratory Rate 16 br/min Systolic Blood Pressure 107 mmHg Diastolic Blood Pressure 69 mmHg SpO2 100 % Oxygen Therapy Room air . Measurements 02/22/2021 8:40 EDT Height/Length Dosing 157.480 cm Weight Dosing 65.770 kg 02/22/2021 8:24 EDT Height/Length Estimated 157.480 cm Weight Estimated 65.770 kg . General: Alert, no acute distress. Skin: Warm, dry, Patient with erythematous slightly raised rash anterior aspect of neck and also behind the left ear. No vesicles no pustules no warmth noted. No drainage no lymphadenopathy or lymphangitis. There is no fluctuance. Head: Normocephalic, atraumatic. Neck: Supple. Eye: Pupils are equal, round and reactive to light, normal conjunctiva. Ears, nose, mouth and throat: Oral mucosa moist. Cardiovascular: Regular rate and rhythm. Respiratory: Lungs are clear to auscultation, respirations are non-labored. Musculoskeletal: No swelling. Neurological: Normal speech observed. Lymphatics: No lymphadenopathy. Reexamin (more content not included)... Normal [facility] ED Note - Physicianon 2020 ED Note - Physician Patient: ALYSSA ROCHA Age: 25 years Sex: FEMALE : 1995 Associated Diagnoses: Contact dermatitis Author: Oscar Haley DO Basic Information Additional information: Chief Complaint from Nursing Triage Note : Chief Complaint 02/22/2021 8:24 EDT Chief Complaint I have a rash on my neck that is itchy. . History of Present Illness 25-year-old female to the emergency department chief complaint of a rash. Patient states that it began the anterior aspect of her neck. Now spreading to her back of her neck and her ear. Patient states began 2 days ago. No fever no chills no nausea no vomiting. Patient states that she has sensitive skin and she has had an allergic reaction in the past to tide. Patient states that she used a new lotion prior to onset. No throat swelling or tightness no difficulty breathing. No fever no chills no nausea no vomiting. No drainage Review of Systems Constitutional symptoms: Negative except as documented in HPI. Skin symptoms: Rash, pruritus. Eye symptoms: Negative except as documented in HPI. ENMT symptoms: Negative except as documented in HPI. Respiratory symptoms: Negative except as documented in HPI. Cardiovascular symptoms: Negative except as documented in HPI. Gastrointestinal symptoms Genitourinary symptoms: Negative except as documented in HPI. Musculoskeletal symptoms: Negative except as documented in HPI. Neurologic symptoms: Negative except as documented in HPI. Psychiatric symptoms: Negative except as documented in HPI. Health Status Allergies: Allergic Reactions (Selected) No Known Medication Allergies. Medications: (Selected) Prescriptions Prescribed Lidoderm 5% topical film: 1 patch(es), TOP, Daily, 30 patch(es), 0 Refill(s) Documented Medications Documented Zoloft 50 mg oral tablet: 50 mg, 1 tab(s), PO, Daily, 0 Refill(s). Past Medical/ Family/ Social History Medical history: No active or resolved past medical history items have been selected or recorded.. Surgical history: No active procedure history items have been selected or recorded.. Family history: No family history items have been selected or recorded.. Social history: Social & Psychosocial Habits Alcohol 02/22/2021 Alcohol Use: Current Comment: Denies - 02/22/2021 08:38 Suzie Gonzalez RN, Cherri Substance Abuse 02/22/2021 Substance use: Current Type: Marijuana Frequency: 1-2 times per year Tobacco 02/22/2021 Smoking tobacco use: 10 or more cigarettes (1/ Comment: States smokes 1/2 pack per week - 02/22/2021 08:38 Cherri Woodall RN Electronic Cigarette/Vaping 02/22/2021 Electronic Cigarette Use: Use, within last 90 days Type: Nicotine infused Use per Day: States vapes just once in a while, when I don't have cigarettes . . Problem list: Active Problems (1) No Chronic Problems . Physical Examination Vital Signs Vital Signs 02/22/2021 8:24 EDT Temperature Temporal 37.0 DegC Peripheral Pulse Rate 91 bpm Respiratory Rate 16 br/min Systolic Blood Pressure 107 mmHg Diastolic Blood Pressure 69 mmHg SpO2 100 % Oxygen Therapy Room air . Measurements 02/22/2021 8:40 EDT Height/Length Dosing 157.480 cm Weight Dosing 65.770 kg 02/22/2021 8:24 EDT Height/Length Estimated 157.480 cm Weight Estimated 65.770 kg . General: Alert, no acute distress. Skin: Warm, dry, Patient with erythematous slightly raised rash anterior aspect of neck and also behind the left ear. No vesicles no pustules no warmth noted. No drainage no lymphadenopathy or lymphangitis. There is no fluctuance. Head: Normocephalic, atraumatic. Neck: Supple. Eye: Pupils are equal, round and reactive to light, normal conjunctiva. Ears, nose, mouth and throat: Oral mucosa moist. Cardiovascular: Regular rate and rhythm. Respiratory: Lungs are clear to auscultation, respirations are non-labored. Musculoskeletal: No swelling. Neurological: Normal speech observed. Lymphatics: No lymphadenopathy. Reexamination/ Reevaluation Discussed with patient rash appears to be secondary to contact dermatitis. Discussed will treat with steroids it does not appear that she needs a shot at this time oral should be adequate. Encouraged also you to use [id number] hydrocortisone and/or Benadryl cream. Patient encouraged to return for any worsening or changes or persistence to symptoms. Impression and Plan Diagnosis Contact dermatitis ([id number] L25.9, Discharge, Medical) Plan Condition: Stable. Disposition: Discharged: Time 02/22/2021 09:03:00, to home. Prescriptions: Launch prescriptions Pharmacy: Medrol 4 mg oral tablet (Prescribe): 1 packet(s), PO, Once, as directed on package labeling, 21 tab(s), 0 Refill(s). Patient was given the following educational materials: Contact Dermatitis, Contact Dermatitis. Follow up with: ZOLTAN YUSUF Within 3 to 5 days Call for follow up appointment Return if symptoms worsen. Counseled: Patient, Regarding diagnosi (more content not included)... [facility] ED Note-Nursingon 02-22-2021 ED Note-Nursing Ambulates to room 7 with steady gait. AAO x3. BARAJAS. Skin warm,dry ,pink. Respirations regular, even. States started having itching around her right nipple and that it spread to her anterior neck and up to her left ear. Denies pain, cough, SOB, lip or tongue swelling. Patchy area over her Erasmo's apple, neck that is slightly reddish, raised. No vesicles seen. Small area behind left ear and outer ear. Awaiting exam. Normal [facility] ED Patient Summaryon 021 ED Patient Summary [facility] - Emergency Department [address] [place] [address] PATIENT DISCHARGE INSTRUCTIONS Patient Information Name: ALYSSA ROCHA Age: 25 Years Date of : 1995 Reason For Visit: Skin rash; RASH Arrival Time: 02/22/2021 08:23:33 Primary Care Physician: PARAMJIT HSU, ZOLTAN Cooley Attending Physician: Oscar Haley DO Comment: Visit Diagnosis: Diagnoses This Visit Contact dermatitis (L25.9) Skin rash ([id number]) Prescription Information: If you have been given a prescription for narcotics, seek immediate medical attention if you have any difficulty breathing or any sudden status changes such as confusion and sleepiness. If you or anyone you know is experiencing suicidal thoughts, mental health, alcohol and/or drug addiction problems; contact the [facility] [place] 08/02 Crisis Hotline -Text 4HMHS as 023679. If you received any narcotics, sedation, or any other medication that causes drowsiness for the next 24 hours, unless otherwise directed: ? Do not drive a car. ? Do not operate machinery such as power tools, lawn mowers, drills, sewing machines, or stoves ? Avoid alcoholic beverages and drugs for allergies, nerves, or sleep ? Do not make important personal or business decisions or sign any legal documents With: Address: When: ZOLTAN YUSUF [address] [place] [id number] Business (1) Within 3 to 5 days Comments: Call for follow up appointment Return if symptoms worsen Medication Information: The exam and treatment you received today in the [facility] Emergency Department were for an urgent problem and are not intended as complete care. It is important for you to follow up with a doctor, nurse practitioner, or physician?s marketing operations assistant for ongoing care. If your symptoms become worse or you do not improve as expected and you are unable to reach your usual health care provider, you should return to the Emergency Department, we are available 24 hours a day. For those patients who have received Radiology results, the interpretation of your X-ray as given to you by our Emergency Department physician is only a preliminary report. The Radiologist will review your films and if there is a change in the diagnosis you will be notified by phone. Please make sure you have provided a working phone number so we can reach you if necessary. In the event that you had a lab culture while you were a patient in the Emergency Department, you will be notified by phone if there is a need to change your antibiotic. Please make sure you have provided a working phone number so we can reach you if necessary. [facility] Emergency Department has provided you with a complete list of medications post discharge. Please inform your field artillery targeting technician/provider of your visit and for further instruction on these medications. Any specific questions regarding your chronic medications and dosages should be discussed with your primary care physician(s) and/or pharmacist. New Medications Printed Prescriptions methylPREDNISolone (Medrol 4 mg oral tablet) 1 packet(s) Oral once. as directed on package labeling. Refills: 0. Medications to Continue That Have Not Changed Other Medications lidocaine topical (Lidoderm 5% topical film) 1 patch(es) Topical every day. Refills: 0. sertraline (Zoloft 50 mg oral tablet) 1 tab(s) Oral every day. Visit Information Allergies: Substance Reaction Symptoms Type Comments No Known Medication Allergies Drug Vital Signs: Vitals and Measurements this Visit (last charted value for your 02/22/2021 visit) Vital Signs This Visit Temperature Temporal: 37.0 DegC Peripheral Pulse Rate: 91 bpm Respiratory Rate: 16 br/min Systolic Blood Pressure: 107 mmHg Diastolic Blood Pressure: 69 mmHg SpO2: 100 % Oxygen Therapy: Room air Measurements This Visit Height/Length Dosin.480 cm Height/Length Estimated: 157.480 cm Weight Dosin.770 kg Weight Estimated: 65.770 kg Problems List: Problem Onset Comments No Problems found Patient Education Contact Dermatitis Dermatitis is redness, soreness, and swelling (inflammation) of the skin. Contact dermatitis is a reaction to certain substances that touch the skin. Many different substances can cause contact dermatitis. There are two types of contact dermatitis: ? Irritant contact dermatitis. This type is caused by something that irritates your skin, such as having dry hands from washing them too often with soap. This type does not require previous exposure to the substance for a reaction to occur. This is the most common type. ? Allergic contact dermatitis. This type is caused by a substance that you are allergic to, such as poison theo. This type occurs when you have been exposed to the substance (allergen) and develop a sensitivity to it. Dermatitis may devel (more content not included)... Normal [facility] CBC AUTO DIFFon 10-09-2019 Basophils (Bld) [#/Vol] 0.1 103/ul Normal 0.0-0.1 [facility] Comment on above: Performed By: #### C BC #### [facility] [address] [place], [place] [address] Ana Paula Emily Basophils/100 WBC (Bld) 0.9 % Normal 0.2-2.0 [facility] Comment on above: Performed By: #### C BC #### [facility] [address] [place], [place] [address] Ana Paula Emily Eosinophils (Bld) [#/Vol] 0.1 103/ul Normal 0.0-0.7 [facility] Comment on above: Performed By: #### C BC #### [facility] [address] [place] [id number] Ana Paula Emily Eosinophils/100 WBC (Bld) 1.4 % Normal 0.9-7.0 [facility] Comment on above: Performed By: #### C BC #### [facility] [address] [place], [place] [phone] Ana Paula Emily Erythrocyte distribution width (RBC) [Ratio] 12.7 % Normal 11.0-15.0 [facility] Comment on above: Performed By: #### C BC #### [facility] [address] [place], [place] [phone] Ana Paula Emily Hematocrit (Bld) [Volume fraction] 31.4 % Critically low 36.0-48.0 [facility] Comment on above: Performed By: #### C BC #### [facility] [address] [place], [place] [phone] Ana Paula Emily Hemoglobin (Bld) [Mass/Vol] 10.1 g/dL Critically low 12.0-16.0 [facility] Comment on above: Performed By: #### C BC #### [facility] [address] [place], [place] [phone] Ana Paula Emily IG # 0.05 10e3/ul Critically high 0.00-0.03 [facility] Comment on above: Performed By: #### C BC #### [facility] [address] [place], [place] [phone] Ana Paula Emily IG % 0.5 % Normal 0.0-0.5 [facility] Comment on above: Performed By: #### C BC #### [facility] [address] [place], [place] [phone] Ana Paula Emily Lymphocytes (Bld) [#/Vol] 2.1 103/ul Normal 1.2-3.8 [facility] Comment on above: Performed By: #### C BC #### [facility] [address] [place] [address] Ana Paula Emily Lymphocytes/100 WBC (Bld) 22.6 % Normal 20.5-60.0 [facility] Comment on above: Performed By: #### C BC #### [facility] [address] [place], [place] [address] Ana Paula Emily MANUAL DIFF REQ NO Normal [facility] Comment on above: Performed By: #### C BC #### [facility] [address] [place], [place] [address] Ana Paula Emily MCH (RBC) [Entitic mass] 29.4 pg Normal 26.7-34.0 [facility] Comment on above: Performed By: #### C BC #### [facility] [address] [place] [id number] Ana Paula Emily MCHC (RBC) [Mass/Vol] 32.2 g/dL Normal 29.9-35.2 [facility] Comment on above: Performed By: #### C BC #### [facility] [address] [place], [place] [phone] Ana Paula Emily MCV (RBC) [Entitic vol] 91.3 fL Normal 81.0-99.0 [facility] Comment on above: Performed By: #### C BC #### [facility] [address] [place] [address] Ana Paula Emily Monocytes (Bld) [#/Vol] 0.8 103/ul Normal 0.3-0.8 [facility] Comment on above: Performed By: #### C BC #### [facility] [address] [place] [address] Ana Paula Emily Monocytes/100 WBC (Bld) 8.4 % Normal 1.7-12.0 [facility] Comment on above: Performed By: #### C BC #### [facility] [address] [place] [phone] Ana Paula Emily Neutrophils (Bld) [#/Vol] 6.1 103/ul Normal 1.4-6.5 [facility] Comment on above: Performed By: #### C BC #### [facility] [address] [place] [address] Ana Paula Emily Neutrophils/100 WBC (Bld) 66.2 % Normal 43.0-75.0 [facility] Comment on above: Performed By: #### C BC #### [facility] [address] [place] [phone] Ana Paula Emily Platelet mean volume (Bld) [Entitic vol] 10.8 fL Normal 9.5-13.5 [facility] Comment on above: Performed By: #### C BC #### [facility] [address] [place] [id number] Ana Paula Emily Platelets (Bld) [#/Vol] 167 103/ul Normal 150-450 [facility] Comment on above: Performed By: #### C BC #### [facility] [address] [place] [address] Ana Paula Emily RBC (Bld) [#/Vol] 3.44 106/ul Critically low 4.20-5.40 Th e [facility] Comment on above: Performed By: #### C BC #### [facility] [address] [place], [place] [phone] Ana Paula Emily WBC (Bld) [#/Vol] 9.2 103/ul Normal 4.0-11.0 The [facility] Comment on above: Performed By: #### C BC #### [facility] [address] [place], [place] [phone] Ana Paula Emily CBC AUTO DIFFon 10-08-2019 Basophils (Bld) [#/Vol] 0.1 103/ul Normal 0.0-0.1 [facility] Comment on above: Performed By: #### C BC #### [facility] [address] [place], [place] [phone] Ana Paula Emily Basophils/100 WBC (Bld) 0.7 % Normal 0.2-2.0 [facility] Comment on above: Performed By: #### C BC #### [facility] [address] [place], [place] [phone] Ana Paula Emily Eosinophils (Bld) [#/Vol] 0.1 103/ul Normal 0.0-0.7 [facility] Comment on above: Performed By: #### C BC #### [facility] [address] [place], [place] [phone] Ana Paula Emily Eosinophils/100 WBC (Bld) 1.3 % Normal 0.9-7.0 [facility] Comment on above: Performed By: #### C BC #### [facility] [address] [place] [address] Ana Paula Emily Erythrocyte distribution width (RBC) [Ratio] 12.5 % Normal 11.0-15.0 [facility] Comment on above: Performed By: #### C BC #### [facility] [address] [place] [address] Ana Paula Emily Hematocrit (Bld) [Volume fraction] 34.8 % Critically low 36.0-48.0 [facility] Comment on above: Performed By: #### C BC #### [facility] [address] [place] [address] Ana Paula Emily Hemoglobin (Bld) [Mass/Vol] 11.2 g/dL Critically low 12.0-16.0 [facility] Comment on above: Performed By: #### C BC #### [facility] [address] [place] [address] Ana Paula Emily IG # 0.06 10e3/ul Critically high 0.00-0.03 [facility] Comment on above: Performed By: #### C BC #### [facility] [address] [place] [address] Ana Paula Emily IG % 0.7 % Critically high 0.0-0.5 [facility] Comment on above: Performed By: #### C BC #### [facility] [address] [place] [address] Ana Paula Emily Lymphocytes (Bld) [#/Vol] 2.0 103/ul Normal 1.2-3.8 [facility] Comment on above: Performed By: #### C BC #### [facility] [address] [place] [address] Ana Paula Emily Lymphocytes/100 WBC (Bld) 23.6 % Normal 20.5-60.0 [facility] Comment on above: Performed By: #### C BC #### [facility] [address] [place] [address] Ana Paulaterry Olsonen MANUAL DIFF REQ NO Normal [facility] Comment on above: Performed By: #### C BC #### [facility] [address] [place] [address] Ana Paula Diaz MCH (RBC) [Entitic mass] 28.7 pg Normal 26.7-34.0 [facility] Comment on above: Performed By: #### C BC #### [facility] [address] [place], [place] [phone] Ana Paula Diaz MCHC (RBC) [Mass/Vol] 32.2 g/dL Normal 29.9-35.2 [facility] Comment on above: Performed By: #### C BC #### [facility] [address] [place], [place] [phone] Ana Paula Diaz MCV (RBC) [Entitic vol] 89.2 fL Normal 81.0-99.0 [facility] Comment on above: Performed By: #### C BC #### [facility] [address] [place], [place] [phone] Ana Paula Emily Monocytes (Bld) [#/Vol] 0.8 103/ul Normal 0.3-0.8 [facility] Comment on above: Performed By: #### C BC #### [facility] [address] [place], [place] [phone] Ana Paula Emily Monocytes/100 WBC (Bld) 8.7 % Normal 1.7-12.0 [facility] Comment on above: Performed By: #### C BC #### [facility] [address] [place], [place] [phone] Ana Paula Emily Neutrophils (Bld) [#/Vol] 5.6 103/ul Normal 1.4-6.5 [facility] Comment on above: Performed By: #### C BC #### [facility] [address] [place], [place] [phone] Ana Paula Emily Neutrophils/100 WBC (Bld) 65.0 % Normal 43.0-75.0 [facility] Comment on above: Performed By: #### C BC #### [facility] [address] [place], [place] [phone] Ana Paula Emily Platelet mean volume (Bld) [Entitic vol] 10.9 fL Normal 9.5-13.5 [facility] Comment on above: Performed By: #### C BC #### [facility] [address] [place] [address] Ana Paula Diaz Platelets (Bld) [#/Vol] 217 103/ul Normal 150-450 [facility] Comment on above: Performed By: #### C BC #### [facility] [address] [place] [address] Ana Paulaterry Diaz RBC (Bld) [#/Vol] 3.90 106/ul Critically low 4.20-5.40 Th e [facility] Comment on above: Performed By: #### C BC #### [facility] [address] [place] [address] Ana Paulaterry Diaz WBC (Bld) [#/Vol] 8.7 103/ul Normal 4.0-11.0 [facility] Comment on above: Performed By: #### C BC #### [facility] [address] [place] [address] Ana Paulaterry Diaz DRUG SCREEN RAPID (URINE)on 10-08-2019 AMP Negative Normal NEGATIVE [facility] Comment on above: Performed By: #### C BC #### [facility] [address] [place] [address] Ana Paula Emily BAR Negative Normal NEGATIVE [facility] Comment on above: Performed By: #### C BC #### [facility] [address] [place] [address] Ana Paula Emily BUP Negative Normal NEGATIVE [facility] Comment on above: Performed By: #### C BC #### [facility] [address] [place] [address] Ana Paula Emily BZO Negative Normal NEGATIVE [facility] Comment on above: Performed By: #### C BC #### [facility] [address] [place] [address] Ana Paula Emily KAY Negative Normal NEGATIVE [facility] Comment on above: Performed By: #### C BC #### [facility] [address] [place] [address] Ana Paula Emily CUT-OFFS SEE BELOW Normal [facility] Comment on above: Result Comment: AMP (Amphetamine): 500ng/mL, BAR (Barbituates): 200 ng/mL, BZO (Benzodiazepines): 150 ng/mL, BUP (Buprenorphine): 10 ng/mL, KAY (Cocaine): 150 ng/mL, mAMP (Methamphetamine): 500 ng/mL, MTD (Methadone): 200 ng/mL, OPI (Opiates): 100 ng/mL or 2000 ng/mL, OXY (Oxycodone): 100 ng/mL, PCP (Phencyclidine): 25 ng/mL, PPX (Propoxyphene): 300 ng/mL, THC (Cannabinoids): 50 ng/mL, TCA (Trycyclic Antidepressants): 300 ng/mL Performed By: #### C BC #### [facility] [address] [place] [address] DRUG CUT HEADER DRUG CLASS TEST SYSTEM CUT-OFF CONCENTRATIONS ARE FOLLOWS: Normal [facility] Comment on above: Performed By: #### C BC #### [facility] [address] [place] [address] Ana Paula Emily mAMP Negative Normal NEGATIVE [facility] Comment on above: Performed By: #### C BC #### [facility] [address] [place] [address] Ana Paula Emily MTD Negative Normal NEGATIVE [facility] Comment on above: Performed By: #### C BC #### [facility] [address] [place] [address] Ana Paula Emily OPI Negative Normal NEGATIVE [facility] Comment on above: Performed By: #### C BC #### [facility] [address] [place] [address] Ana Paula Emily OXY Negative Normal NEGATIVE [facility] Comment on above: Performed By: #### C BC #### [facility] [address] [place] [address] Ana Paula Emily PCP Negative Normal NEGATIVE [facility] Comment on above: Performed By: #### C BC #### [facility] [address] [place] [address] Ana Paula Emily PPX Negative Normal NEGATIVE [facility] Comment on above: Performed By: #### C BC #### [facility] [address] [place] [address] Ana Paula Emily TCA Negative Normal NEGATIVE [facility] Comment on above: Performed By: #### C BC #### [facility] [address] [place] [address] Ana Paula Emily THC Negative Normal NEGATIVE [facility] Comment on above: Performed By: #### C BC #### [facility] [address] [place] [address] Ana Paula Emily TYPE AND SCREENon 10-08-2019 TYPE AND SCREEN Negative Normal [facility] Comment on above: Performed By: #### C BC #### [facility] [address] [place] [address] Ana Paula Emily UA (CLEAN/CATCH) MATURITY CHECKER/MICRO I F IND.on 10-08-2019 Bilirubin [Mass/Vol] Negative Normal NEGATIVE [facility] Comment on above: Performed By: #### C BC #### [facility] [address] [place] [address] Ana Paula Emily BLOOD Negative Normal NEGATIVE [facility] Comment on above: Performed By: #### C BC #### [facility] [address] [place] [address] Ana Paula Emily Clarity (U) CLEAR Normal [facility] Comment on above: Performed By: #### C BC #### [facility] [address] [place] [address] Ana Paula Emily Color (U) LT. YELLOW Normal YELLOW [facility] Comment on above: Performed By: #### C BC #### [facility] [address] [place] [address] Ana Paula Emily Glucose [Mass/Vol] Negative Normal NEGATIVE [facility] Comment on above: Performed By: #### C BC #### [facility] [address] [place] [address] Ana Paula Emily Ketones Ql (U) Negative Normal NEGATIVE [facility] Comment on above: Performed By: #### C BC #### [facility] [address] [place] [address] Ana Paula Emily Nitrite Ql (U) Negative Normal NEGATIVE [facility] Comment on above: Performed By: #### C BC #### [facility] [address] [place] [address] Ana Paulaterry Diaz pH (Bld) 6.5 Normal 5-9 [facility] Comment on above: Performed By: #### C BC #### [facility] [address] [place] [address] Ana Paula Emily Protein [Mass/Vol] Negative Normal [facility] Comment on above: Performed By: #### C BC #### [facility] [address] [place] [address] Ana Paulaterry Diaz SPEC GRAVITY 1.025 Normal 1.005-<=1.025 [facility] Comment on above: Performed By: #### C BC #### [facility] [address] [place] [address] Ana Paula Diaz UR MICRO IND NOT INDICATED Normal [facility] Comment on above: Performed By: #### C BC #### [facility] [address] [place] [address] Ana Paula Diaz Urobilinogen Qn (U) 1.0 EU/dl Normal [facility] Comment on above: Performed By: #### C BC #### [facility] [address] [place] [address] Ana Paulaterry Diaz WBC (Bld) [#/Vol] Negative Normal NEGATIVE [facility] Comment on above: Performed By: #### C BC #### [facility] [address] [place] [address] Ana Paula Diaz GROUP B STREP CULTUREon S. agalactiae Ag Ql (Unsp spec) Culture Observations: Negative for Group B Streptococcus Normal [facility] Comment on above: Performed By: #### C BC #### [facility] [address] [place], [place] [id number] Ana Paula Diaz UA (CLEAN/CATCH) MATURITY CHECKER/MICRO I F IND.on 09-15-2019 Bilirubin [Mass/Vol] Negative Normal NEGATIVE [facility] Comment on above: Performed By: #### C BC #### [facility] [address] [place] [address] Ana Paula Emily BLOOD Negative Normal NEGATIVE [facility] Comment on above: Performed By: #### C BC #### [facility] [address] [place] [address] Ana Paula Emily Clarity (U) SL CLOUDY Normal [facility] Comment on above: Performed By: #### C BC #### [facility] [address] [place] [address] Ana Paula Emily Color (U) YELLOW Normal YELLOW [facility] Comment on above: Performed By: #### C BC #### [facility] [address] [place] [address] Ana Paula Emily Glucose [Mass/Vol] Negative Normal NEGATIVE [facility] Comment on above: Performed By: #### C BC #### [facility] [address] [place] [address] Ana Paula Emily Ketones Ql (U) TRACE Normal NEGATIVE The [facility] Comment on above: Performed By: #### C BC #### [facility] [address] [place] [address] Ana Paula Emily Nitrite Ql (U) Negative Normal NEGATIVE [facility] Comment on above: Performed By: #### C BC #### [facility] [address] [place] [address] Ana Paula Emily pH (Bld) 6.0 Normal 5-9 [facility] Comment on above: Performed By: #### C BC #### [facility] [address] [place] [address] Ana Paula Emily Protein [Mass/Vol] Negative Normal [facility] Comment on above: Performed By: #### C BC #### [facility] [address] [place] [address] Ana Paula Emily SPEC GRAVITY 1.025 Normal 1.005-<=1.025 The [facility] Comment on above: Performed By: #### C BC #### [facility] [address] [place] [address] Ana Paula Emily UR MICRO IND NOT INDICATED Normal [facility] Comment on above: Performed By: #### C BC #### [facility] [address] [place] [address] Ana Paula Emily Urobilinogen Qn (U) 1.0 EU/dl Normal The [facility] Comment on above: Performed By: #### C BC #### [facility] [address] [place] [address] Ana Paula Emily WBC (Bld) [#/Vol] Negative Normal NEGATIVE [facility] Comment on above: Performed By: #### C BC #### [facility] [address] [place] [address] Ana Paula Emily CULTURE URINEon 08-30-2019 CULTURE URINE Culture Observations : No growth Normal [facility] Comment on above: Performed By: #### N BOX #### [facility] [address] [place] [address] Ana Paula Emily UA (CLEAN/CATCH) MATURITY CHECKER/MICRO I F IND.on 08-30-2019 Bilirubin [Mass/Vol] Negative Normal NEGATIVE [facility] Comment on above: Performed By: #### N BOX #### [facility] [address] [place] [address] Ana Paula Emily BLOOD Negative Normal NEGATIVE [facility] Comment on above: Performed By: #### N BOX #### [facility] [address] [place] [address] Ana Paula Emily Clarity (U) CLEAR Normal [facility] Comment on above: Performed By: #### N BOX #### [facility] [address] [place] [address] Ana Paula Emily Color (U) LT. YELLOW Normal YELLOW [facility] Comment on above: Performed By: #### N BOX #### [facility] [address] [place] [address] Ana Paula Emily Glucose [Mass/Vol] Negative Normal NEGATIVE [facility] Comment on above: Performed By: #### N BOX #### [facility] [address] [place] [address] Ana Paula Emily Ketones Ql (U) Negative Normal NEGATIVE The [facility] Comment on above: Performed By: #### N BOX #### [facility] [address] [address] Ana Paula Emily Nitrite Ql (U) Negative Normal NEGATIVE [facility] Comment on above: Performed By: #### N BOX #### [facility] [address] [address] Ana Paula Emily pH (Bld) 6.5 Normal 5-9 [facility] Comment on above: Performed By: #### N BOX #### [facility] [address] [place] [address] Ana Paula Emily Protein [Mass/Vol] Negative Normal [facility] Comment on above: Performed By: #### N BOX #### [facility] [address] [place] [address] Ana Paula Emily SPEC GRAVITY 1.020 Normal 1.005-<=1.025 [facility] Comment on above: Performed By: #### N BOX #### [facility] [address] [place] [address] Ana Paula Emily UR MICRO IND INDICATED Normal [facility] Comment on above: Performed By: #### N BOX #### [facility] [address] [place] [address] Ana Paulaterry Diaz Urobilinogen Qn (U) 1.0 EU/dl Normal [facility] Comment on above: Performed By: #### N BOX #### [facility] [address] [place] [address] Ana Paulaterry Diaz WBC (Bld) [#/Vol] TRACE Normal NEGATIVE [facility] Comment on above: Performed By: #### N BOX #### [facility] [address] [place] [address] Ana Paula Emily URINE MICROSCOPIC ONLYon Bacteria LM.HPF (Urine sed) [#/Area] LARGE Normal NONE SEEN The [facility] Comment on above: Performed By: #### N BOX #### [facility] [address] [place] [address] Ana Paula Emily CAST NONE SEEN Normal NONE SEEN [facility] Comment on above: Performed By: #### N BOX #### [facility] [address] [address] Ana Paula Emily Crystals LM Nom (Urine sed) NONE SEEN Normal NONE SEEN [facility] Comment on above: Performed By: #### N BOX #### [facility] [address] [address] Ana Paula Emily CULTURE INDICATED Normal [facility] Comment on above: Performed By: #### N BOX #### [facility] [address] [address] Ana Paula Emily Epithelial cells LM.HPF (Urine sed) [#/Area] MODERATE Normal [facility] Comment on above: Performed By: #### N BOX #### [facility] [address] [address] Ana Paula Emily MUCOUS NONE SEEN Normal NONE SEEN [facility] Comment on above: Performed By: #### N BOX #### [facility] [address] [address] Ana Paula Emily RBC (U) [#/Vol] NONE SEEN Normal 0-2 [facility] Comment on above: Performed By: #### N BOX #### [facility] [address] [address] Ana Paula Emily WBC (Bld) [#/Vol] 5-10 Normal NONE SEEN The [facility] Comment on above: Performed By: #### N BOX #### [facility] [address] [address] Ana Paula Emily GTT 3 HR PREGon 07-22-2019 Glucose [Mass/Vol] 120 mg/dL Normal [facility] Comment on above: Performed By: #### N BOX #### [facility] [address] [place] [address] Ana Paula Emily Glucose [Mass/Vol] 107 mg/dL Normal [facility] Comment on above: Performed By: #### N BOX #### [facility] [address] [address] Ana Paula Emily Glucose [Mass/Vol] 87 mg/dL Normal 74-106 [facility] Comment on above: Performed By: #### N BOX #### [facility] [address] [place], [place] [address] Ana Paula Diaz Glucose [Mass/Vol] 144 mg/dL Normal [facility] Comment on above: Performed By: #### N BOX #### [facility] [address] [place], [place] [address] Ana Paula Diaz US PREG ANATOMY SINGLEon US PREG ANATOMY SINGLE Patient: ALYSSA ROCHA Exam Date: 05/30/2019 : 1995 Gender:F Ordering : DR TESSA BAUER . Admission #: [id number] Family : Order #: [id number] CLICK HERE TO VIEW EXAM RADIOLOGY REPORT PROCEDURE: ULTRASOUND > 14 WEEKS COMPARISON: None. INDICATIONS: anatomy study Z36.89; 20 weeks TECHNIQUE: Transabdominal sonographic examination for obstetrical and evaluation. Transvaginal sonographic examination for obstetrical and evaluation. FINDINGS: FLUID / PLACENTA: Amniotic fluid volume: Subjectively normal for gestational age. Placental location: Anterior. No previa. Cervix Length: 4.3 cm, closed Heart Rate: 143 H.B./min Number: One ANATOMY: Normal structures: Cerebellum. Choroid plexus. Cisterna magna. Lateral cerebral ventricles. Orbits. Midline falx. Hard palate. 4-chamber heart. RVOT. LVOT. Stomach. Kidneys. Bladder. Umbilical cord insertion into abdomen. 3 vessel cord. Cervical spine. Thoracic spine. Lumbar spine. Sacral spine. Right upper extremity. Left upper extremity. Right lower extremity. Left lower extremity. Suboptimally seen: None. Abnormalities/Other: None. BIOMETRY: BPD: 4.74 cm 20 weeks, 2 days FL/AC: 0.19 1 HC: 18.80 cm 21 weeks, 0 days FL/BPD: 0.72 1 AC: 17.50 cm 22 weeks, 2 days HC/AC: 1.07 1 FL: 3.39 cm 20 weeks, 4 days EFW: 430 g 73% by AUA; 96% by EDC GESTATIONAL AGE: Age by EDC: 20 weeks, 2 days AUDRA by EDC: 2019-10-15 Age by current US: 21 weeks, 0 days AUDRA by current US: 2019-10-10 *Reference: [facility] Practice Guideline for the performance of Obstetric Ultrasound Examinations, April 18, 2007. CONCLUSION: 1. Single live intrauterine with growth detailed above. Dictated by: Rei Calles M.D. on 05/30/2019 at 13:09 Approved by: Rei Calles M.D. on 05/30/2019 at 13:14 [facility] PAP ACOG PANEL 2: 21 to 29on 05-08-2019 Age Gdln ACOG Testing - Normal [facility] Comment on above: Performed By: #### N BOX #### [facility] [address] [address] Ana Paula Diaz COMMENT Comment Normal [facility] Comment on above: Result Comment: Z01. 419 Z11.51 Performed By: #### N BOX #### [facility] [address] [address] Ana Paula Diaz DIAGNOSIS: Comment Normal [facility] Comment on above: Result Comment: NEGA TIVE FOR INTRAEPITHELIAL LESION OR MALIGNANCY. Performed By: #### N BOX #### [facility] [address] [address] Ana Paula Diaz Methodology: Comment [facility] Comment on above: Result Comment: This liquid based SurePath(R) pap test was screened with the assistance of an image guided system. Performed By: #### N BOX #### [facility] [address] [address] Ana Paula Diaz Note: Comment [facility] Comment on above: Result Comment: The Pap smear is a screening test designed to aid in the detection of premalignant and malignant conditions of the uterine cervix. It is not a diagnostic procedure and should not be used as the sole means of detecting cervical cancer. Both false-positive and false-negative reports do occur. . Performed By: #### N BOX #### [facility] [address] [address] Ana Paula Diaz Performed by: Comment Normal [facility] Comment on above: Result Comment: [employer] (ASCP) Performed By: #### N BOX #### [facility] [address] [place] [address] Ana Paula Diaz Reflex Criteria: Comment Normal [facility] Comment on above: Result Comment: The HPV DNA reflex criteria were not met with this specimen result therefore, no HPV testing was performed. . Performed By: #### N BOX #### [facility] [address] [place] [address] Ana Paulaterry Diaz Specimen adequacy: Comment Normal [facility] Comment on above: Result Comment: Sati sfactory for evaluation. Endocervical and/or squamous metaplastic cells (endocervical component) are present. Performed By: #### N BOX #### [facility] [address] [place] [address] Ana Paulaterry Diaz . . Normal [facility] Comment on above: Performed By: #### N BOX #### [facility] [address] [place] [address] Ana Paula Emily CHLAMYDIA/GONOCOCCUS MICHAEL (SW AB/URINE/PAPon 05-05-2019 Chlamydia trachomatis, MICHAEL Negative Normal Negative [facility] Comment on above: Performed By: #### N BOX #### [facility] [address] [place] [address] Ana Paulaterry Diaz Neisseria gonorrhoeae, MICHAEL Negative Normal Negative [facility] Comment on above: Performed By: #### N BOX #### [facility] [address] [place] [address] Ana Paula Diaz VAGINITIS/VAGINOSIS DNA PROB Julito 05-05-2019 Samantha species Negative Normal Negative [facility] Comment on above: Performed By: #### N BOX #### [facility] [address] [place] [address] Ana Paulaterry Diaz Gardnerella vaginalis Negative Normal Negative [facility] Comment on above: Performed By: #### N BOX #### [facility] [address] [place] [address] Ana Paulaterry Diaz Trichomonas vaginalis Negative Normal Negative [facility] Comment on above: Performed By: #### N BOX #### [facility] [address] [place] [address] Ana Paulaterry Diaz HEP B SURFACE ANTIGEN SCREEN on 03-28-2019 HBsAg Screen Negative Normal Negative [facility] Comment on above: Performed By: #### H BSANS #### [facility] [address] [place] [address] Ana Paula Diaz HEPATITIS C VIRUS AB W/ REFL EX QUANTon 03-28-2019 HCV AB <0.1 Normal 0.0-0.9 [facility] Comment on above: Performed By: #### H CVPCRR #### [facility] [address] [place] [address] Ana Paula Diaz Interpretation: Comment Normal [facility] Comment on above: Result Comment: Nega tive Not infected with HCV, unless recent infection is suspected or other evidence exists to indicate HCV infection. Performed By: #### H CVPCRR #### [facility] [address] [place] [address] Ana Paula Diaz HIV 1 AND 2 WITH REFLEXon HIV Screen 4th Generation wRfx Non Reactive Normal Non Reactive [facility] Comment on above: Performed By: #### H IV12 #### [facility] [address] [place] [address] Ana Paula Diaz RPR QUANTon 03-28-2019 Rapid Plasma Reagin, Quant Non Reactive Normal NonRea<1:1 [facility] Comment on above: Performed By: #### R PRQ #### [facility] [address] [place] [address] Ana Paula Diaz RUBELLA AB IGGon 03-28-2019 Rubella Antibodies, IgG 3.01 index Normal Immune >0.99 [facility] Comment on above: Result Comment: Non- immune <0.90 Equivocal 0.90 - 0.99 Immune >0.99 Performed By: #### N BOX #### [facility] [address] [place] [address] Ana Paula Diaz CBC AUTO DIFFon 03-27-2019 Basophils (Bld) [#/Vol] 0.1 103/ul Normal 0.0-0.1 [facility] Comment on above: Performed By: #### C BC #### [facility] [address] [place] [address] Ana Paula Diaz Basophils/100 WBC (Bld) 0.9 % Normal 0.2-2.0 [facility] Comment on above: Performed By: #### C BC #### [facility] [address] [id number] Ana Paula Emily Eosinophils (Bld) [#/Vol] 0.4 103/ul Normal 0.0-0.7 [facility] Comment on above: Performed By: #### C BC #### [facility] [address] [place], [place] [id number] Ana Paula Emily Eosinophils/100 WBC (Bld) 5.8 % Normal 0.9-7.0 [facility] Comment on above: Performed By: #### C BC #### [facility] [address] [place], [place] [phone] Ana Paula Emily Erythrocyte distribution width (RBC) [Ratio] 12.2 % Normal 11.0-15.0 [facility] Comment on above: Performed By: #### C BC #### [facility] [address] [place] [address] Ana Paula Emily Hematocrit (Bld) [Volume fraction] 35.9 % Critically low 36.0-48.0 [facility] Comment on above: Performed By: #### C BC #### [facility] [address] [place], [place] [phone] Ana Paula Emily Hemoglobin (Bld) [Mass/Vol] 12.5 g/dL Normal 12.0-16.0 [facility] Comment on above: Performed By: #### C BC #### [facility] [address] [place] [address] Ana Paula Emily IG # 0.02 10e3/ul Normal 0.00-0.03 [facility] Comment on above: Performed By: #### C BC #### [facility] [address] [place], [place] [phone] Ana Paula Emily IG % 0.3 % Normal 0.0-0.5 [facility] Comment on above: Performed By: #### C BC #### [facility] [address] [place], [place] [phone] Ana Paula Emily Lymphocytes (Bld) [#/Vol] 1.5 103/ul Normal 1.2-3.8 [facility] Comment on above: Performed By: #### C BC #### [facility] [address] [place], [place] [address] Ana Paula Emily Lymphocytes/100 WBC (Bld) 21.6 % Normal 20.5-60.0 [facility] Comment on above: Performed By: #### C BC #### [facility] [address] [place], [place] [address] Ana Paula Emily MANUAL DIFF REQ NO Normal [facility] Comment on above: Performed By: #### C BC #### [facility] [address] [place], [place] [address] Ana Paula Emily MCH (RBC) [Entitic mass] 31.2 pg Normal 26.7-34.0 [facility] Comment on above: Performed By: #### C BC #### [facility] [address] [place] [address] Ana Paula Emily MCHC (RBC) [Mass/Vol] 34.8 g/dL Normal 29.9-35.2 [facility] Comment on above: Performed By: #### C BC #### [facility] [address] [place] [address] Ana Paula Emily MCV (RBC) [Entitic vol] 89.5 fL Normal 81.0-99.0 [facility] Comment on above: Performed By: #### C BC #### [facility] [address] [place] [address] Ana Paula Emily Monocytes (Bld) [#/Vol] 0.5 103/ul Normal 0.3-0.8 [facility] Comment on above: Performed By: #### C BC #### [facility] [address] [place] [address] Ana Paula Emily Monocytes/100 WBC (Bld) 7.5 % Normal 1.7-12.0 [facility] Comment on above: Performed By: #### C BC #### [facility] [address] [place], [place] [address] Ana Paula Emily Neutrophils (Bld) [#/Vol] 4.5 103/ul Normal 1.4-6.5 [facility] Comment on above: Performed By: #### C BC #### [facility] [address] [place], [place] [address] Ana Paulaetrry Diaz Neutrophils/100 WBC (Bld) 63.9 % Normal 43.0-75.0 [facility] Comment on above: Performed By: #### C BC #### [facility] [address] [place] [address] Ana Paulaterry Diaz Platelet mean volume (Bld) [Entitic vol] 9.6 fL Normal 9.5-13.5 [facility] Comment on above: Performed By: #### C BC #### [facility] [address] [place] [phone] Ana Paula Emily Platelets (Bld) [#/Vol] 231 103/ul Normal 150-450 [facility] Comment on above: Performed By: #### C BC #### [facility] [address] [place], [place] [phone] Ana Paula Emily RBC (Bld) [#/Vol] 4.01 106/ul Critically low 4.20-5.40 [facility] Comment on above: Performed By: #### C BC #### [facility] [address] [place] [address] Ana Paula Emily WBC (Bld) [#/Vol] 7.0 103/ul Normal 4.0-11.0 [facility] Comment on above: Performed By: #### C BC #### [facility] [address] [place] [address] Ana Paulaterry Diaz CULTURE URINEon 03-27-2019 CULTURE URINE Culture Observations : Heavy growth of mixed genital leann.No potential pathogens seen. Normal [facility] Comment on above: Performed By: #### N BOX #### [facility] [address] [place] [id number] Ana Paulaterry Diaz GLYCOHEMOGLOBIN A1Con 2018 Glucose [Mass/Vol] 105 mg/dL Normal [facility] Comment on above: Performed By: #### A 1C #### [facility] [address] [place] [address] Ana Paula Emily HbA1c (Bld) [Mass fraction] 5.3 % Normal <=6.0 [facility] Comment on above: Performed By: #### A 1C #### [facility] [address] [place] [address] Ana Paulaterry Diaz POLY BOX TEST PT SEND OUTo n 03-27-2019 SENT TO REF LAB 03/27/19 Normal [facility] Comment on above: Performed By: #### N BOX #### [facility] [address] [place] [address] Aan Paula Emily TYPE AND SCREENon 03-27-2019 TYPE AND SCREEN Negative Normal [facility] Comment on above: Performed By: #### T NS #### [facility] [address] [place] [address] Ana Paula Emily UA RANDOM W/MICROSCOPICon Bacteria LM.HPF (Urine sed) [#/Area] TRACE Normal NONE SEEN [facility] Comment on above: Performed By: #### U AMIC #### [facility] [address] [place] [address] Ana Paula Emily Bilirubin [Mass/Vol] Negative Normal NEGATIVE [facility] Comment on above: Performed By: #### U AMIC #### [facility] [address] [place] [address] Ana Paula Emily BLOOD Negative Normal NEGATIVE [facility] Comment on above: Performed By: #### U AMIC #### [facility] [address] [place] [address] Ana Paula Emily CAST NONE SEEN Normal NONE SEEN [facility] Comment on above: Performed By: #### U AMIC #### [facility] [address] [place] [address] Ana Paula Emily Clarity (U) CLEAR Normal [facility] Comment on above: Performed By: #### U AMIC #### [facility] [address] [place] [address] Ana Paula Emily Color (U) LT. YELLOW Normal YELLOW [facility] Comment on above: Performed By: #### U AMIC #### [facility] [address] [place] [address] Ana Paula Emily Crystals LM Nom (Urine sed) NONE SEEN Normal NONE SEEN [facility] Comment on above: Performed By: #### U AMIC #### [facility] [address] [phone] Ana Paula Emily Epithelial cells LM.HPF (Urine sed) [#/Area] FEW Normal [facility] Comment on above: Performed By: #### U AMIC #### [facility] [address] [phone] Ana Paula Emily Glucose [Mass/Vol] Negative Normal NEGATIVE [facility] Comment on above: Performed By: #### U AMIC #### [facility] [address] [address] Ana Paula Emily Ketones Ql (U) Negative Normal NEGATIVE [facility] [facility] Comment on above: Performed By: #### U AMIC #### [facility] [address] [place] [address] Ana Paula Emily MUCOUS TRACE Normal NONE SEEN The [facility] Comment on above: Performed By: #### U AMIC #### [facility] [address] [place] [address] Ana Paula Emily Nitrite Ql (U) Negative Normal NEGATIVE The [facility] Comment on above: Performed By: #### U AMIC #### [facility] [address] [place], [place] [id number] Ana Paula Emily pH (Bld) 6.0 Normal 5-9 The [facility] Comment on above: Performed By: #### U AMIC #### [facility] [address] [address] Ana Paula Emily Protein [Mass/Vol] Negative Normal The [facility] Comment on above: Performed By: #### U AMIC #### [facility] [address] [id number] Ana Paula Emily RBC (Bld) [#/Vol] NONE SEEN Normal 0-2 The [facility] Comment on above: Performed By: #### U AMIC #### [facility] [address] [id number] Ana Paula Emily SPEC GRAVITY 1.025 Normal 1.005-<=1.025 The [facility] Comment on above: Performed By: #### U AMIC #### [facility] [address] [place], [place] [address] Ana Paula Diaz Urobilinogen Qn (U) 0.2 EU/dl Normal [facility] Comment on above: Performed By: #### U AMIC #### [facility] [address] [place], [place] [address] Ana Paulaterry Olsonen WBC (Bld) [#/Vol] Negative Normal NEGATIVE [facility] Comment on above: Performed By: #### U AMIC #### [facility] [address] [place], [place] [address] Ana Paula Emily WBC (Bld) [#/Vol] 0-2 Normal NONE SEEN The [facility] Comment on above: Performed By: #### U AMIC #### [facility] [address] [place], [place] [address] Ana Paula Diaz US PREG TVon 03-08-2019 US PREG TV Patient: ALYSSA ROCHA Exam Date: 03/08/2019 : 1995 Gender:F Ordering : DR TESSA BAUER . Admission #: [id number] Family : Order #: [id number] CLICK HERE TO VIEW EXAM RADIOLOGY REPORT PROCEDURE: ULTRASOUND TRANSVAGINAL COMPARISON: None. INDICATIONS: Routine care Z34; 8 weeks, 3 days TECHNIQUE: Transvaginal sonographic examination for obstetrical and evaluation. FINDINGS: GESTATIONAL SAC: Present and normal appearing. POLE: Present and normal appearing. YOLK SAC: Present. CARDIAC ACTIVITY: Present. UTERUS: Normal. OVARIES: Right: Normal. Left: Not seen. CERVIX: 4.3 cm in length. Closed. CUL-DE-SAC: Normal. OTHER: None. AGE BY LMP: 8 weeks, 3 days AUDRA BY LMP: October 15, 2019 AGE BY US CRL: 8 weeks, 3 days AUDRA BY US CRL: October 15, 2019 CONCLUSION: 1. Single live intrauterine . Dictated by: Rei Calles M.D. on 03/08/2019 at 09:41 Approved by: Rei Calles M.D. on 03/08/2019 at 09:42 Normal [facility] Encounters Encounter Date Encounter Type Care Provider Facility Start: 06-16-2023 End: 06-16-2023 ambulatory MELONY HANDLEY Not Available Start: 10-13-2019 Patient encounter procedure TESSA FA ZIO Facility:[facility] Start: 10-09-2019 Evaluation and management of inpatie nt TESSA JUANCARLOS Facility:[facility] Start: 10-08-2019 End: 10-10-2019 Evaluation and management of inpatient PAM Anne acility:[facility] Start: 09-19-2019 End: 09-19-2019 Patient encounter procedure TESSA JUANCARLOS Facility:[facility] Start: 09-15-2019 End: 09-15-2019 Patient encounter procedure TESSA JUANCARLOS Facility:[facility] Start: 08-30-2019 End: 08-30-2019 Patient encounter procedure TESSA JUANCARLOS Facility:[facility] Start: 07-22-2019 End: 07-23-2019 Patient encounter procedure TESSA JUANCARLOS Facility:[facility] Start: 06-27-2019 Patient encounter procedure TESSA FA ZIO Facility:[facility] Start: 05-30-2019 End: 05-31-2019 Patient encounter procedure TESSA JUANCARLOS Facility:[facility] Start: 05-03-2019 End: 05-03-2019 Patient encounter procedure TESSA JUANCARLOS Facility:[facility] Start: 03-27-2019 End: 03-28-2019 Patient encounter procedure TESSA JUANCARLOS Facility:[facility] Start: 03-08-2019 End: 03-09-2019 Patient encounter procedure TESSA JUANCARLOS Facility:[facility] Procedures Date Procedure Procedure Detail Performing Clinician Start: 10-08-2019 Extraction of Produc ts of Conception, Low Cervical, Open Approach TESSA JUANCARLOS Payers Date Payer Category Payer Unknown [id number] 2.16.84 [id number] 1995 Unknown [id number] 2.16.84 [id number] 1995 Unknown [id number] 2.16.84 [id number] 1995 Unknown [id number] 2.16.84 [id number] 1995 Unknown [id number] 2.16.84 [id number] 1995 Unknown [id number] 2.16.84 [id number] 1995 Unknown [id number] 2.16.84 [id number] 1995 Unknown [id number] 2.16.84 [id number] 1995 Unknown [id number] 2.16.84 [id number] 1994 Unknown [id number] 2.16.84 [id number] 1994 Unknown [id number] 2.16.84 [id number] 1994 Unknown [id number] 2.16.84 [id number] 1994 Unknown [id number] 2.16.840 .[id number] 1960 Self-pay 1960 Unknown [id number] 1960 Unknown [id number] Clinical Note 02-22-2021 Note Date & Type Note Facility 02-22-2021 Note [employer] Dermatology Contact Dermatitis Dermatitis is redness, soreness, and swelling (inflammation) of the skin. Contact dermatitis is a reaction to certain substances that touch the skin. Many different substances can cause contact dermatitis. There are two types of contact dermatitis: ? Irritant contact dermatitis. This type is caused by something that irritates your skin, such as having dry hands from washing them too often with soap. This type does not require previous exposure to the substance for a reaction to occur. This is the most common type. ? Allergic contact dermatitis. This type is caused by a substance that you are allergic to, such as poison theo. This type occurs when you have been exposed to the substance (allergen) and develop a sensitivity to it. Dermatitis may develop soon after your first exposure to the allergen, or it may not develop until the next time you are exposed and every time thereafter. What are the causes? Irritant contact dermatitis is most commonly caused by exposure to: ? Makeup. ? Soaps. ? Detergents. ? Bleaches. ? Acids. ? Metal salts, such as nickel. Allergic contact dermatitis is most commonly caused by exposure to: ? Poisonous plants. ? Chemicals. ? Jewelry. ? Latex. ? Medicines. ? Preservatives in products, such as clothing. What increases the risk? You are more likely to develop this condition if you have: ? A job that exposes you to irritants or allergens. ? Certain medical conditions, such as asthma or eczema. What are the signs or symptoms? Symptoms of this condition may occur on your body anywhere the irritant has touched you or is touched by you. ? Symptoms include: ? Dryness or flaking. ? Redness. ? Cracks. ? Itching. ? Pain or a burning feeling. ? Blisters. ? Drainage of small amounts of blood or clear fluid from skin cracks. With allergic contact dermatitis, there may also be swelling in areas such as the eyelids, mouth, or genitals. How is this diagnosed? This condition is diagnosed with a medical history and physical exam. ? A patch skin test may be performed to help determine the cause. ? If the condition is related to your job, you may need to see an animal care specialist. How is this treated? This condition is treated by checking for the cause of the reaction and protecting your skin from further contact. Treatment may also include: ? Steroid creams or ointments. Oral steroid medicines may be needed in more severe cases. ? Antibiotic medicines or antibacterial ointments, if a skin infection is present. ? Antihistamine lotion or an antihistamine taken by mouth to ease itching. ? A bandage (dressing). Follow these instructions at home: Skin care ? Moisturize your skin as needed. ? Apply cool compresses to the affected areas. ? Try applying baking soda paste to your skin. Stir water into baking soda until it reaches a paste-like consistency. ? Do not scratch your skin, and avoid friction to the affected area. ? Avoid the use of soaps, perfumes, and dyes. Medicines ? Take or apply ayug-lsq-lfrquty and prescription medicines only as told by your health care provider. ? If you were prescribed an antibiotic medicine, take or apply the antibiotic as told by your health care provider. Do not stop using the antibiotic even if your condition improves. Bathing ? Try taking a bath with: ? Epsom salts. Follow the instructions on the packaging. You can get these at your local pharmacy or grocery store. ? Baking soda. Pour a small amount into the bath as directed by your health care provider. ? Colloidal oatmeal. Follow the instructions on the packaging. You can get this at your local pharmacy or grocery store. ? Bathe less frequently, such as every other day. ? Bathe in lukewarm water. Avoid using hot water. Bandage care ? If you were given a bandage (dressing), change it as told by your health care provider. ? Wash your hands with soap and water before and after you change your dressing. If soap and water are not available, use hand logistics assistant. General instructions ? Avoid the substance that caused your reaction. If you do not know what caused it, keep a journal to try to track what caused it. Write down: ? What you eat. ? What cosmetic products you use. ? What you drink. ? What you wear in the affected area. This includes jewelry. ? Check the affected areas every day for signs of infection. Check for: ? More redness, swelling, or pain. ? More fluid or blood. ? Warmth. ? Pus or a bad smell. ? Keep all follow-up visits as told by your health care provider. This is important. Contact a health care provider if: ? Your condition does not improve with treatment. ? Your condition gets worse. ? You have signs of infection such as swelling, tenderness, redness, soreness, or warmth in the affected area. ? You have a fever. ? You have new symptoms. Get (more content not included)... [facility] Summary Purpose Family History No Family History Records FoundNo Family History Records FoundNo Family History Records Found Advance Directives No Advanced Directives Records FoundNo Advanced Directives Records FoundNo Advanced Directives Records Found Additional Source Comments INFORMATION SOURCE (unrecogn ized section and content) DATE CREATED AUTHOR 10/16/2019 Asia blas DATE CREATED AUTHOR AUTHOR'S ORGANIZ ATION 03/06/2021 [facility] DATE CREATED AUTHOR AUTHOR'S ORGANIZ ATION 06/18/2023 [facility] EPIC FOR RECORDS PERTAINING TO PATIENTS WHO ARE OR HAVE BEEN ENROLLED IN A CHEMICAL DEPENDENCY/SUBSTANCEABUSE PROGRAM, SOME INFORMATION MAY BE OMITTED. This clinical summary was aggregated from multiple sources. Caution should be exercised in using it in the provision of clinical care. This summary normalizes information from multiple sources, and as a consequence, information in this document may materially change the coding, format and clinical context of patient data. In addition, data may be omitted in some cases. CLINICAL DECISIONS SHOULD BE BASED ON THE PRIMARY CLINICAL RECORDS. [facility] provides no warranty or guarantee of the accuracy or completeness of information in this document.
[2023-07-08 11:41] LABS: Basophils Percent Auto 0.3 % (0.2-2.0); Eosinophils Percent Auto 0.3 % (0.9-7.0); Hematocrit 34.3 % (36.0-48.0); Hemoglobin 11.3 g/dL (12.0-16.0); Immature Granulocytes Abs Auto 0.02 10^3/uL (0.00-0.03); Immature Granulocytes Pct Auto 0.3 % (0.0-0.5); Lymphocytes Percent Auto 16.6 % (20.5-60.0); Mean Corpuscular HGB Conc 32.9 g/dL (29.9-35.2); Mean Corpuscular Hemoglobin 31.1 pg (26.7-34.0); Mean Corpuscular Volume 94.5 fL (81.0-99.0); Mean Platelet Volume 9.5 fL (9.5-13.5); Monocytes Absolute Auto 0.3 10^3/uL (0.3-0.8); Monocytes Percent Auto 4.5 % (1.7-12.0); Neutrophils Absolute Auto 4.9 10^3/uL (1.4-6.5); Platelet Count 241 10^3/uL (150-450); Red Blood Count 3.63 10^6/uL (4.20-5.40); Red Cell Distribution Width 12.3 % (11.0-15.0); White Blood Count 6.3 10^3/uL (4.0-11.0)
[2023-07-08 11:49] LABS: Glucose 1 Hour 160 mg/dL
== END 2023-07-08 10:29 | disposition home or self-care (01) ==
LOC: LAB 10:28
PROVIDERS: Visit Provider Obstetrics & Gynecology
DX: Z13.1 Encounter for screening for diabetes mellitus (principal)
CPT/HCPCS: 36415; 82950; 85025

== ENCOUNTER 2023-08-11 09:00 | Observation (INO) | payer OTHER, SELFPAY ==
--- OUTSIDE RECORDS SUMMARY | 2023-08-11 09:06 | XMS_ITS | CCD ---
Author Name Unknown Address [address] [place] [address] Organization [facility] Care Team Providers Care Bicycle Fitter Name Role Phone JUANCARLOS, TESSA Admitting Unavailable [...] TESSA Attending Unavailable PAM TURNER Admitting Unavailable PMA TURNER Attending Unavailable PAM TURNER Consulting Unavailable [...] Coding Summaryon 03-05-2021 Coding Summary HTMLBase 64 WimxnqhwPDr6fFb+PGhlY WQ+DF5CQWKsQ03grIChnV 8AW3kOWQ8LTZJXCOQUMY5 SLE5fsQU0KHcwV4GhcoJn QdxlfXGsUY31BPe3HLA6d UacLGwwcY5rhYOgC2r3Gq OxWP79hW04QSoaJSGbUhA 3LjZpbjsgbWFy X8ntTmHbmPEvDkx+PHRhY mxlIHdpZHRoPScxMDAlJy SkwZaiXW2jMd0oJEOfEJY vbGxhcHNlOiBj y7tcRWCmCPebKR8tgTriX 0ZaqVK9EPOcu3u3Ah25cR I+SYAoVER1rExuASbxw35 5AgCdw0bsHRF9 fNLfDClvEOA4W25vg3F9J NIwJJIiGDN3fZR5wM7cmJ ajozxeZ1TdiMTmKdA5RWP 9jUElmF9tjEvo okbeaD4hRmi+O32TGK4VB PWIBJ5HKmp4Z6KjVdbxhH I+OR71AQJuDS66uXXbtPY bz8nqdZs9ZnTb BTSnCIJ9oGdmBYjwt1XkE IQxX45uzFWsz4X1IAEugR bpyOPcAsLjyON3pH2eFBi jxuxoa0rkcpcy Plcop8picb50kA06S96sF JqoLQClHMI1VZRxFITvfY ykus4ijC5vBr7+NTptk6f gj8dbhSl2JjZz EJFkpcAomJksNVZ5z6GzA w01W2ZqvDqgx7LcHki1hi 06xTWco4B1wIE7IZiqQNX wbW9iSOaeFpU0 JMEuFxHhiM10jQZlICifZ j0djFoxoArpOW1lKYHzhk usBNTczT4aFBCoiIClwTa vQY7yQYZzbbyi i660HiRbLUO4XCUeqRGnK 9LbyH7uNiNrGFWaXZReQ4 AlmTOpNXgcP771FUlkOgD 1WMQlqwSwQ3Wd PDFlgLdhQrV7x6P5Wu0Le 1WfzfifCKJ9VDxhHHT0Yq L1UvNiPfO3A7VbGel0AFR lrNylUL3bE3Yq UAHzxcsideyziYE6KIRsJ MZffA18mAZpZQbvTm4zi9 A9d267TOZoJMHbnP15Px6 udDogMTBwdCBU cD9smhuyz5blfyqzVjYhK WUkLZs1QAi2ARMyjWaaPq PhCIX2YqY1TGM0jKVumO2 fpYumshbyxW5x Oyc+M51vdO0nPLJ6GWL6o fdkELWidoVaOB72LU18K5 RyPjwvdGFibGU+PGRpdiB btInzIY8lNsFt r8bbd9VpUMbqD4PkKGJaL CeyCau1XKRvNSM4oEE5oG 9eJPCgMRgcc3R6hZA3L7B kodZjau6gc7cv MSLyNEjmF65vcDRyf3Y8W CZsmCA5UTCjqIhpTeOnxB 93Oyc+TAVjsEqvx8CkYzy bd7qry7tnsDp9 SxJwPAMpgcFasUqtAUK3b 3CfGn04U16oRYfyNMHwEM QdQCZbTLJakDjnfu0ryE0 wIi8+PGNvbCB3 lPP4nZ4vLPIjGjL0RCkeO 709TySxkMYpUhbtk4lcf2 xfiGa4PkRtWZRofcDujFb yJNX9v1XpHq46 E76iLQkpUSEsVCApSGQoJ UBncMexrr8keL8hLy9+PC 8xr7oywv16dS22fII+PHR iUJW9fFqtJOxr CIUjrU8eWEssCiO0JALnV pAzyS15eETpIGagYs6hiO pqcYhiSP1mQTFxcwgiy45 8MpGic1wqBXHu oYDdHYftAPK3G53ej7C6C NCfSDTlNNX3hQS4iW8jrW lnbjogbGVmdDsgdmVydGl hSJikQAkyP841 IHRvcDsnPlBhdGllbnQgT bLfDVk5C6YgQsg4JXZseP efJY0cfBUoFOqeXh8mcLp ojAlvVV6lYVJx wtxec239ExOqk6jsQWSgy XXyOTmxWTL3U17nr7L2QX VkCPKcIDV2lTR2tC5idVd nbjogbGVmdDsg gyRluPbbXTwnNGpyI805C HRvcDsnPkJpcnRoIERhdG H4HU88AY03qWQja7P4xWE 4E6CnEKKxhegr eqjtzAP7NLQwJEBxmO56K c9ocHteUm2nXWAvOWA1UI QndTDgI1EpyA0xUtQiONM tUXOaW8NtyDOs ZSbzK489IOdlJxZ1DIZhn tLuR7LzILQhbKoqDmS5y5 L0Aq7TB2C4QZ03WQ17mJA xy7T0nBV9N2Il CMZzrjcldpsuiBS0WPKdL OReaS35Il3xkRsxQe0nBU XlOES1SABliEPmG4LpmR4 yOiAjMDAwMDAw Y3GfbPCjLFhmL139XUlsO zC0YYYmdaWnD1LcRJZgkE pzOyN1q2H0Uf4PVFo5TT6 1CN40fVUsh9U3 bOD5T5SdWKDeydhuxhvxy OD1SEAoBSTnrK52Ws0abO phLf3oTMJrBOG5RMXjxHG oW4KehR0zFkQm FLVzBFDwX2AimEStFIaiT 420IPuhXaO4WZIkcvPwW5 LgFULgjNwzIlE7z8P4Ys8 BOLZjZA44GZZ3 fEJ3MH02AY75E3PePieac GFibGU+PHRhYmxlIHdpZH RoPScxMDAlJyBzdHlsZT0 hTt2qGGBrXDOu lXvdjLFeDmWcv5niJDBcD ZcfOI7rkPdcY8YpyNH0GY Hfu3n7Fv32P46fT0HpkVD +YFXhwBD4xLY3 nI2xPlBiSxK8BYzyY621R pWywJGeDtezf9izc8ckxL m5MoA1BHTajeDhgNjpBSR 7o6QpOn57B29a IHdpZHRoPSIxNSUiIHZhb Rnrde1dsF4qUt6+PGNvbC U6uIM5pT5rJgZuDzV9LMf xE206PfDhrDOr Gczvc0upn8ronZy8PyDgN MSlceJlqPwfZOB0b1AxUt 38L5TevQfvl6HnSan4ff9 8eIDwf7Z7aEN3 X0KaJPLzfvdzjBNuvZplV Q1bJQSvvohvYKMegE9lVX CkV7v7ZeRbJfY1WPtlH6S lxgF6QHUmdETy GAliNII9R77yj6W4BFPaB ARrIML4fIQ4qS6zuTlkdp ogbGVmdDsgdmVydGljYWw vNXitP757EIAl eZhpOCXlkQ9zUDBgmUJzl XqfOH2gTFPudiguWf8QIJ xTLCBEQVNIQVkgTUFSSUU 5R3WyMwv5LTYw rGllTX8tgIErMFknTa6ud UmjcVssGA5fDDIaqsmiHX BncP7iMRHdjNOmdBfrCN1 eAHViavnsp286 NaZoROH3VBLdfLDfU2Kmt P1zQgKxJJOiQFNpH2ErbH WbWNlgV380ODhlEcF3FXC sfnOkZ5XpOIBw kKrcYaZ3v2X2Mi6lSA7lI S2sGHm1UH20MT12sCVkq4 J9sHB9M1OlBRIxguhzcso giDD4OGMxMABg bL20dOEqBFgqUz7xj0P5p 959AGQyPTKefL97Ur4xcD zmDMKnmAGMyS6ewjclv7h vcjogIzAwMDAw HMk7GHy0HNXchJmlVqTcS HX9SiI1YZJ3lYTryF1quV gkebejiT5fFbh+MjcgWWV jeeR9N6KgYwk5 RJJdjKepJF4xdPZqQNrsK c7kfVkncWqfWQ0xIFVnip wwFYVlbR4mWFGnkECgcOy xTU0sPQIqvjtc m353VnUmYFA8AWEtnSNeP 2MudZ6iEbPbLGRmBCWbT1 QofFDlUUcoZ412KBwgIzW 4ILUlncLwB4Dc KOBobSnrNfT2w3H4Wy0HG I3FMSY7X1EtOtf4SOIemY lvKG8nkXQjCNkdJo5zxNc idAgxUB9iSCPz zjrtQSUjlT4nUPGsvYLxu CccTJ1rMKZfljxbk809Gp YfJKM1OXEbuMOzJ3UsqA6 yOiAjMDAwMDAw H1TidQCaRVxeU712BSwsM tC1IWPxmbBkK1WgURZqbO itFkX4v9A0Px9YFRnkpJB +GG97qj28V4Wy TbdeGjh7FCSwKDW0bDL8n A2kTLZyYIind1I5uOK8A3 NeoaYghx8ik1jvCAQqKHb lY61mbFMuk6P4 HCNyvWH3HMKqtPgvZgAcp G93Oyc+MNFiiOqwb4PgJi hly1okt8mrfTc9UbPoABP gdmFsaWduPSJ0 n0VmOe25J97rGTaqNJWoA HKtSSUbKNKtsGadgc2lpP 9wIi8+SWDwnQG4tUQ5pX6 mVoRaKjQ1LOuh J366FiYlePQpRarih5fku 9pagSy5QyZwYEQlqdGuxQ mvTJB7k5WkJf02X8KtfOk ea7YhWbk3af55 tFAmz1Z1pGM2I9XgWSDrk uzqlDIktVqoVJ9nGSObhi uqEDZrzW8eIQXqH6a8LbA wXkS6GExdI2Ds knJ3OUZaeGUnEGNitQAUf X0mchymg8kgedaqSkGdPT BzBAd7XCx8ISSqtVfdTxT rUMX0TrR4JRR0 qTOcoE8saLqbihcpgW0dW yc+CCj9a5tyjTRwPT6atL S1GQ09ZR02cILva0Z3wAI 8J5DnWRHceago zlquqBA0EZLiSLAmkP94D t2lvVvvIl9uWMJjYDU6SU EobYTqG3HpeT3vLrPoCDN mUPAfH9BeqTCw FFlpL960ITxnNuC4KVGaz eWrZ5VbNFLpiUkbArP0c3 M0Hf7KEK58ZY22UV80wIH hf1X6vWM4Q3Av AGDxarkonqalhGN8SPWpM RTwuO19Oh7yiYkpRl0rBG AaAJR8HTMrxGLjK5UzaD5 yOiAjMDAwMDAw A6PlrCFlFGvdL414MRrpK aP2MJTtuwYsL1MmNYLdoZ clWhV7z1V8Wj6GSn49BS5 3GU21xSItb6O2 jXX2O5WcURKzdiwfduhnq HH7LSMrLAZzdI94Lx6iuQ lwKd8qBVDaCUZ5KDLnxVP oA7HdaJ8lUjAr NSMzVBJvN1NbmVIbKSdxX 922LPkoWsP6TDVavuDyE7 MyPLMdbNejChO8i4P6Bk9 VRBnsrxh5E6Do PjwvdHI+LY05HBQaZC65v TXgkHRkj3hbjDg7VuOgQI CjGSD1qIwqKMtfm1ZrIMC eU13iqBErh6S0 IGN (more content not included)... [facility] Coding Summary HTMLBase 64 YphkmczrNWi7zGz+PGhlY WQ+CZ0YUEImM20qvFGzgK 7NL9uDOG1CTJPYPWRWBS3 OAQ9uzDT6CPihM3PmmdJi JabqwGDgCI02YAl6CVS3b FjxSOjloU1noYPbU8f0So JaAS96eL57JTxnTVLcRxA 3LjZpbjsgbWFy G7vcFlAjaHZuDwc+PHRhY mxlIHdpZHRoPScxMDAlJy UphRzjGU4bBg7hSHMpZJF vbGxhcHNlOiBj o3vqYEYdZBomKP0rjNznR 3KxrKT5QRWca7f5Pp65sK I+BHIkYAH0bNcrPVucf02 2SbGlf2ulWVY4 dRSvWDjxQWI9P31pa2S6V BHnPFQsIMP7qFW8nG2kaM uhobxnB2GllGYlBvN1OWS 5yYNpdD6vmGzn bodpfH8mFak+K89EOK7KT GIJEA9WXdg0Q7VpNcpsdA I+JF00PNTfSJ65pRNctZY ty2omfBn3FfCg AAZtPGN7uZpvUEcbf9OhO ASdC99ckUCmw3E0DTChbO hbbDOpNfFydWA6pK1dOPk jejvwj1octqkd Snxcg5tupq03tZ46E53oU HeqAKRfVWF7CPYqLFOwoC kaxm9cbV0rEc3+AFqnz5l od5bopAi8AcWo RFKkoyVarXwqNSE3h8HwO a32H6VikHrzm2IpAbs2mz 88hORie3W0eGK9CFaiRGF hlE8vBJajVaY3 YLUpYcHzqY07eDTmAWvyT g0qpZgbiHnpHR4uKOBsvt aqIQPnsV7kOYYqaQZnrZm jIF1rTTNtnjcr q811JoDoBUG9KHFwxIKzS 9OwyW0yIuUbZCTqDGLiV0 BfuJSwSEucI141WNivCsI 7WULtvcXhU2Vc CRXpuLykDfG1q5T4Oy9Bm 2BtthtkBZZ4BHllDWU4Nf J4WvEzTtN5Z4HcEhu0VJV qjUsvXC3rH8Bn QDWdbvrnhaiyzGQ9KNNiM BBmsO93eHFbNWakXd6ug6 D0h159PCAlSVTbpR22Wp7 udDogMTBwdCBU xI0tuwhwo2tjewxgOwUjO BKiPFv0HLi8INIfpPliBh BzXZP0OxU5GWG0wQRhtH2 qzXtcxbmlpG5y Oyc+H03dsN3zBEW7MXQ3v cnwQCGnioPeTL26ZN11B4 RyPjwvdGFibGU+PGRpdiB zwYzxCB8rYvKx j0hmv2LqMUsjW8BzGHJsN PdoRaq3PZAcFUN7vVV7lZ 3eBFJwZKvsh2L2zUQ1P4G fuyJcud8oe1ht WCTnBKmdA99quADzp9P2E BOwwYA3FZMcgAbcDjSpkV 93Oyc+JFWkgBvwg4NiCda rt8dqc6uvtMk8 DkSoWPDsrtJloYleDXA1m 7SoZq05V02xXZhwICTmAL VpOMXhZFZggBtkxp2qtU5 wIi8+PGNvbCB3 lZW4zS9tKLVzBgY5QZyqV 940XtLymOMzSgtja8yyw9 cpuMf8AwFrMHGgijLhnHa nUUP4w7MqQi61 L41zUPjvALMkOGMgKPEoE FYbuWoftn1sbY6zGe5+PC 6hx3lnzm06dL30kYF+PHR nZJY7mZrgOFua ZBSzqQ9eNClxGaW4OZExQ oMtyW84yNCtIYopXw9jvF vvePerCU4gEGKwmwbcq71 5TlOvp3bfEIQd eJAnVLcqVKY7F49ea5Z9N AAjYANfKGA2jPX7xZ0geZ lnbjogbGVmdDsgdmVydGl iNXyrMUyoL982 IHRvcDsnPlBhdGllbnQgT nJsKKe7V1GoZiw2FBBdsU ysAK1ofNIpHYfmJc5lpHs yvZipSU0kUMBk igbip258TlJyf8mbDFMbx QRcKVtjCGO1Y10qd2N3BE OaNDJxCJT1gBL6qO9ksGl nbjogbGVmdDsg myOfoIqdWFbhLQctH688T HRvcDsnPkJpcnRoIERhdG B6WL33LR25kWTtq7Q5kGU 7O2UqMNDrvnqc swvzfFA5QTLaQTJmfQ61J j8ryWddJe1jCTYgZDA5VP NwuKOsQ4IxfY7yGlDcUPI wRARcY6BfaAKl JFkmS607DNnlIeG9VVQjc iNnP2YuHLOdkSwfIeT5i8 M6Pf5IP6P4KM54TG81fUO bc1G2oFG8M4Bz WPGxngtzeqgjtTZ1EHWpR SBbzR62Hh9vjKsgIl1zRC ViVPV2SKPteVGrG5CwpI4 yOiAjMDAwMDAw A1LbwJUhEVlmC675GHatK qH7PVWadyBrX4HuNLHljA xuEvV2x5I9Ji5OMZc1NX2 2WI27zYKxj2M4 zMK3Y9XzYZBdejkqstvjc QK9HJHmHKNwyO07Ec5aoJ ffIo4uWMMeBOV8WIOlaPH gP9RvaN9lHrBy LULeMZSzG1AdkAHeRGwiT 849YVdsRxM5TFLcfcZtM3 YdHQJybLnpJsP3c3Q8Nc8 PIUVdUU01VHV7 fHU4GT97IA88H4FtXxzyg GFibGU+PHRhYmxlIHdpZH RoPScxMDAlJyBzdHlsZT0 uNl9hGRRlGXIt yWlauNIfByYzz0frAZEbR GovFT3clZewU1ZkwUA6RZ Fvz6a9Lt80E11bA7OqsNQ +DAChdJW4mYU7 jJ5bCcWqTnO2RQycC972P cSnsYAcVjyzv1rpr0wkgQ m9KzI2PPXhkcBlyXitQHW 9j4BnYc39L72n IHdpZHRoPSIxNSUiIHZhb Xlhfx1xjY3wTp9+PGNvbC I6rDN9pA4vQgPuEhN8AGv aP425SlJleEQp Qqmqk8ieu3brwSh9PmYzV KFxkvIowJnwFJA9z6JdSt 22R7WphHvlr2TpMil0fi4 8tJSai9A6pEO1 M8FbNCTqavksqFCgzWteE A3mQQQonygxPOLctI3oWC VqO3z9NtYxPrC5FRhbL5P wyaR8CLMvnYGf ANdsHBW3N38fw0W9UHDlW YYjLPX1zHL2sY6wfZvutw ogbGVmdDsgdmVydGljYWw eMHtvQ538HBVp qBkjDQQpfR7oXFPajKUsb LkhJM0vQYTjjrikFj5YSK xTLCBEQVNIQVkgTUFSSUU 4Q4OmJfm1MOLs lQqvWZ4zsMKkBLhtKn0qm StyxFqsDH9fXXKlwgpzJW KkoZ9pEFZcpOOmoOtjFP9 fRKKhbrmbg978 FsVrNQX8OFBwrOKyA1Ycy O4yOmAzUMYjYQHbK4CguH TbJZkaB309IKvcJaS3EDI vboMgT0YxEUSi pGwzUoP8s3X5Yg9uWL8aT Y0xWSe1BA93TX46uTPjw9 Q5zNE1G4VlRPLyouhvglr grDO1TEOlSYFe oG16aOObKQxqRn8cj0P5k 271AYPtCUFptX40Mg8tkL wwIZFwdYEJxO5ltatdi4g vcjogIzAwMDAw POo9KUj0DGJehSwqYiOiR QC4GaU6EDW7iIOssJ3zbH bmuvprcM6kNbh+MjcgWWV bekR9H5TiBjp3 DDVkeWtcEY3bgQWyXAehH u9nkCwnjWhtQW8wUEEhqt kcSTHeoE9uZETpxVOrhIv fEJ9xBYKkcckc c594KdJyCYV6OALbwVRgU 0QllD0qZrCkTRMsHEKaA7 PgsREhCAhtI175BBguMxC 4VNLhzlWdW4Hr QJNcqXtvIaS6d7P7Oi8BL C8UOVJ5X2OkQjo5HZCiaC jpET9hwFZpOMiuRm8thUw fiOpdQF6yDDOv vuqkYEHtgZ4tPYNlnSGix BayQC8pUZUudtlxy073Xk KnLOE5MBOpsKCyM3WuwR9 yOiAjMDAwMDAw E7UqxXTcEOtoV416XGvaU fL6FICnxsBvR1WqKMIpaR mmKbG4g9I2Pb5BsADwV8K wA5q7D0MuJemc dHI+NF80LAJjOT62iNBod GEzz2xleJn8TfVqVDIdCP Q3mWucCDcjm8KcMHAuE90 hhQJtn5S3FMUe sGpyhZGxDmIfgES9vS6gR Epsbbiwr1igcgdpQkkqa8 azyd44xI53P44uZSgdRIQ oPSIzMCUiIHZh bDjdcs6chF5yRl7+PGNvb AZ4tPB8hQ1ePyBhSfQ2ZU utT001UwAgmUYhQxuyw1n ax4ckfNx8QkSd HAJficVdmGznPJM7c8JcF o34Q52xMPejHQBnXKIwOP KwICQufScqtg6foP5wFp0 +FM7lp7nszx25 qH52wGC+KRSkXDO8wOdmP FrfKQQguJ0ePClvVoO4GQ DrPpSfoY34kDImRTlrYt0 cvFfuaCsaJN0k YBTgdmyug859QrSol8jzW AGqpCQoRUayQLN2R12yr0 T6MGQoNMJxHZE3tSK2xI9 hbGlnbjogbGVm dDsgdmVydGljYWwtYWxpZ 534SVDjyZzoXjCkaAAnT8 fzakKFGZ3pXejfaNR+PHR tVKB1bCkoNRpp DUOcsX2rUQJcD2s0AwPhP yS9ZIyxP7RgxeB7MNYgpP PbJKMkuYJUmH8soskdi9o vcjogIzAwMDAw WNx0TRs1FOUmbQbkDqYqW ZU5GrF9QLC6zHPmvU1fbN cvteqabX3pYpm+RklOOjw vdGQ+PHRkIHN0 xGsxFQvtQTTeiV3mSXTkR 4m5KdYkYlI4BXviD6Ksqh M2INGofBHsEZZsiRJQgL7 hyxxcb2csujmt EwRtYOYkNLu7TOc2GDPnp KikKzQbRRL2MmE0INE8sN DowS3pmNqvjjhlnO8gQoz +TVJOOjwvdGQ+ DFHsQVT3qTshYGopGTOfj R6xVVEsM3e4UpGdLuU7HT efS5LrhqI3SASjbRBlOXH yrLPBpT4xdjdj l1zxxtegPdQcPGAtDLo0Z Xk8FLQnrLdvZwJsLPG0Bo P6UWP5lDQzfX3fpOgwptc bjW0vDip+UGF5 KJP8FD76ZU80B2JeGfhil GFibGU+PHRhYmxlIHdpZH RoPScxMDAlJyBzdHlsZT0 [id number] bGx (more content not included)... Normal [facility] ED Clinical Summaryon 2020 ED Clinical Summary [facility] - Emergency Department [address] [place], [place] [id number] ED Clinical Summary PERSON INFORMATION Name: ALYSSA ROCHA Age: 25 Years Sex: FEMALE : 1995 MRN: Acct#: Visit Reason: Skin rash; RASH Arrival: 02/22/2021 08:23:33 Discharge: 02/22/2021 09:27:00 LOS: 000 01:04 Check In: 02/22/2021 08:23:33 Checkout:02/22/2021 09:27:00 Address: [address] [facility] [address] PCP: ZOLTAN YUSUF MD PROVIDER INFORMATION Provider [...] lymphadenopathy. Reexamin (more content not included)... Normal [facility] ED Note - Physicianon 2020 ED Note [...] be adequate. Encouraged also you to use [id number] hydrocortisone and/or Benadryl cream. Patient encouraged to return for any worsening or changes or persistence to symptoms. Impression and Plan Diagnosis Contact dermatitis (ZSP66-PT L25.9, Discharge, Medical) Plan Condition: Stable. Disposition: [...] Patient, Regarding diagnosi (more content not included)... [facility] ED Note-Nursingon 02-22-2021 ED Note-Nursing Ambulates to [...] ear and outer ear. Awaiting exam. Normal [facility] ED Patient Summaryon 021 ED Patient Summary [facility] - Emergency Department [address] [place] [address] PATIENT DISCHARGE INSTRUCTIONS Patient Information Name: ALYSSA ROCHA Age: 25 Years Date of : 1995 Reason For Visit: Skin rash; RASH Arrival Time: 02/22/2021 08:23:33 Primary Care Physician: PARAMJIT HSU, ZOLTAN Cooley Attending Physician: Oscar Haley DO Comment: Visit Diagnosis: Diagnoses This Visit Contact dermatitis (L25.9) Skin rash ([id number]) Prescription Information: If you have been given a prescription for narcotics, seek immediate medical attention if you have any difficulty breathing or any sudden status changes such as confusion and sleepiness. If you or anyone you know is experiencing suicidal thoughts, mental health, alcohol and/or drug addiction problems; contact the [facility] [place] 08/02 Crisis Hotline -Text 4HXED ym 231432. If you received any narcotics, sedation, or [...] legal documents With: Address: When: ZOLTAN YUSUF [address] [place] [id number] Business (1) Within 3 to 5 days Comments: Call for follow up appointment Return if symptoms worsen Medication Information: The exam and treatment you received today in the [facility] Emergency Department were for an urgent problem and are not intended as complete care. It is important for you to follow up with a doctor, nurse practitioner, or physician?s employee relations assistant for ongoing care. If your symptoms [...] so we can reach you if necessary. [facility] Emergency Department has provided you with a complete list of medications post discharge. Please inform your breakfast server/provider of your visit and for further instruction [...] may devel (more content not included)... Normal [facility] CBC AUTO DIFFon 10-09-2019 Basophils (Bld) [#/Vol] 0.1 103/ul Normal 0.0-0.1 [facility] Comment on above: Performed By: #### C BC #### [facility] [address], [place] [address] Ana Paula Emily Basophils/100 WBC (Bld) 0.9 % Normal 0.2-2.0 [facility] Comment on above: Performed By: #### C BC #### [facility] [address], [place] [address] Ana Paula Emily Eosinophils (Bld) [#/Vol] 0.1 103/ul Normal 0.0-0.7 [facility] Comment on above: Performed By: #### C BC #### [facility] [address] [place] [id number] Ana Paula Emily Eosinophils/100 WBC (Bld) 1.4 % Normal 0.9-7.0 [facility] Comment on above: Performed By: #### C BC #### [facility] [address] [place], [place] [phone] Ana Paula Emily Erythrocyte distribution width (RBC) [Ratio] 12.7 % Normal 11.0-15.0 [facility] Comment on above: Performed By: #### C BC #### [facility] [address] [place], [place] [phone] Ana Paula Emily Hematocrit (Bld) [Volume fraction] 31.4 % Critically low 36.0-48.0 [facility] Comment on above: Performed By: #### C BC #### [facility] [address] [place], [place] [phone] Ana Paula Emily Hemoglobin (Bld) [Mass/Vol] 10.1 g/dL Critically low 12.0-16.0 [facility] Comment on above: Performed By: #### C BC #### [facility] [address] [place], [place] [phone] Ana Paula Emily IG # 0.05 10e3/ul Critically high 0.00-0.03 [facility] Comment on above: Performed By: #### C BC #### [facility] [address] [place], [place] [phone] Ana Paula Emily IG % 0.5 % Normal 0.0-0.5 [facility] Comment on above: Performed By: #### C BC #### [facility] [address] [place], [place] [phone] Ana Paula Emily Lymphocytes (Bld) [#/Vol] 2.1 103/ul Normal 1.2-3.8 [facility] Comment on above: Performed By: #### C BC #### [facility] [address] [place] [address] Ana Paula Emily Lymphocytes/100 WBC (Bld) 22.6 % Normal 20.5-60.0 [facility] Comment on above: Performed By: #### C BC #### [facility] [address], [place] [address] Ana Paula Emily MANUAL DIFF REQ NO Normal [facility] Comment on above: Performed By: #### C BC #### [facility] [address], [place] [address] Ana Paula Emily MCH (RBC) [Entitic mass] 29.4 pg Normal 26.7-34.0 [facility] Comment on above: Performed By: #### C BC #### [facility] [address] [place] [phone] Ana Paula Emily MCHC (RBC) [Mass/Vol] 32.2 g/dL Normal 29.9-35.2 [facility] Comment on above: Performed By: #### C BC #### [facility] [address] [place], [place] [phone] Ana Paula Emily MCV (RBC) [Entitic vol] 91.3 fL Normal 81.0-99.0 [facility] Comment on above: Performed By: #### C BC #### [facility] [address] [place] [address] Ana Paula Emily Monocytes (Bld) [#/Vol] 0.8 103/ul Normal 0.3-0.8 [facility] Comment on above: Performed By: #### C BC #### [facility] [address] [place] [address] Ana Paula Emily Monocytes/100 WBC (Bld) 8.4 % Normal 1.7-12.0 [facility] Comment on above: Performed By: #### C BC #### [facility] [address] [place] [phone] Ana Paula Emily Neutrophils (Bld) [#/Vol] 6.1 103/ul Normal 1.4-6.5 [facility] Comment on above: Performed By: #### C BC #### [facility] [address] [place] [address] Ana Paula Emily Neutrophils/100 WBC (Bld) 66.2 % Normal 43.0-75.0 [facility] Comment on above: Performed By: #### C BC #### [facility] [address] [place] [phone] Ana Paula Emily Platelet mean volume (Bld) [Entitic vol] 10.8 fL Normal 9.5-13.5 [facility] Comment on above: Performed By: #### C BC #### [facility] [address] [place] [phone] Ana Paula Emily Platelets (Bld) [#/Vol] 167 103/ul Normal 150-450 [facility] Comment on above: Performed By: #### C BC #### [facility] [address] [place] [phone] Ana Paula Emily RBC (Bld) [#/Vol] 3.44 106/ul Critically low 4.20-5.40 [facility] e [facility] Comment on above: Performed By: #### C BC #### [facility] [address] [place], [place] [phone] Ana Paula Emily WBC (Bld) [#/Vol] 9.2 103/ul Normal 4.0-11.0 [facility] Comment on above: Performed By: #### C BC #### [facility] [address] [place], [place] [phone] Ana Paula Emily CBC AUTO DIFFon 10-08-2019 Basophils (Bld) [#/Vol] 0.1 103/ul Normal 0.0-0.1 [facility] Comment on above: Performed By: #### C BC #### [facility] [address] [place], [place] [phone] Ana Paula Emily Basophils/100 WBC (Bld) 0.7 % Normal 0.2-2.0 [facility] Comment on above: Performed By: #### C BC #### [facility] [address] [place], [place] [phone] Ana Paula Emily Eosinophils (Bld) [#/Vol] 0.1 103/ul Normal 0.0-0.7 [facility] Comment on above: Performed By: #### C BC #### [facility] [address] [place], [place] [phone] Ana Paula Emily Eosinophils/100 WBC (Bld) 1.3 % Normal 0.9-7.0 [facility] Comment on above: Performed By: #### C BC #### [facility] [address] [place] [address] Ana Paula Emily Erythrocyte distribution width (RBC) [Ratio] 12.5 % Normal 11.0-15.0 [facility] Comment on above: Performed By: #### C BC #### [facility] [address] [place] [address] Ana Paula Emily Hematocrit (Bld) [Volume fraction] 34.8 % Critically low 36.0-48.0 [facility] Comment on above: Performed By: #### C BC #### [facility] [address] [place] [address] Ana Paula Emily Hemoglobin (Bld) [Mass/Vol] 11.2 g/dL Critically low 12.0-16.0 [facility] Comment on above: Performed By: #### C BC #### [facility] [address] [place] [address] Ana Paula Emily IG # 0.06 10e3/ul Critically high 0.00-0.03 [facility] Comment on above: Performed By: #### C BC #### [facility] [address] [place] [address] Ana Paula Emily IG % 0.7 % Critically high 0.0-0.5 [facility] Comment on above: Performed By: #### C BC #### [facility] [address] [place] [address] Ana Paula Emily Lymphocytes (Bld) [#/Vol] 2.0 103/ul Normal 1.2-3.8 [facility] Comment on above: Performed By: #### C BC #### [facility] [address] [place] [address] Ana Paula Emily Lymphocytes/100 WBC (Bld) 23.6 % Normal 20.5-60.0 [facility] Comment on above: Performed By: #### C BC #### [facility] [address] [place] [address] Ana Paulaterry Olsonen MANUAL DIFF REQ NO Normal [facility] Comment on above: Performed By: #### C BC #### [facility] [address] [place] [phone] Ana Paula Diaz MCH (RBC) [Entitic mass] 28.7 pg Normal 26.7-34.0 [facility] Comment on above: Performed By: #### C BC #### [facility] [address] [place], [place] [phone] Ana Paula Diaz MCHC (RBC) [Mass/Vol] 32.2 g/dL Normal 29.9-35.2 [facility] Comment on above: Performed By: #### C BC #### [facility] [address] [place], [place] [phone] Ana Paula Diaz MCV (RBC) [Entitic vol] 89.2 fL Normal 81.0-99.0 [facility] Comment on above: Performed By: #### C BC #### [facility] [address] [place], [place] [phone] Ana Paula Emily Monocytes (Bld) [#/Vol] 0.8 103/ul Normal 0.3-0.8 [facility] Comment on above: Performed By: #### C BC #### [facility] [address] [place], [place] [phone] Ana Paula Emily Monocytes/100 WBC (Bld) 8.7 % Normal 1.7-12.0 [facility] Comment on above: Performed By: #### C BC #### [facility] [address] [place], [place] [phone] Ana Paula Emily Neutrophils (Bld) [#/Vol] 5.6 103/ul Normal 1.4-6.5 [facility] Comment on above: Performed By: #### C BC #### [facility] [address] [place], [place] [phone] Ana Paula Emily Neutrophils/100 WBC (Bld) 65.0 % Normal 43.0-75.0 [facility] Comment on above: Performed By: #### C BC #### [facility] [address] [place], [place] [phone] Ana Paula Emily Platelet mean volume (Bld) [Entitic vol] 10.9 fL Normal 9.5-13.5 [facility] Comment on above: Performed By: #### C BC #### [facility] [address] [place] [address] Ana Paula Diaz Platelets (Bld) [#/Vol] 217 103/ul Normal 150-450 [facility] Comment on above: Performed By: #### C BC #### [facility] [address] [place] [address] Ana Paulaterry Diaz RBC (Bld) [#/Vol] 3.90 106/ul Critically low 4.20-5.40 Th e [facility] Comment on above: Performed By: #### C BC #### [facility] [address] [place] [address] Ana Paulaterry Diaz WBC (Bld) [#/Vol] 8.7 103/ul Normal 4.0-11.0 [facility] Comment on above: Performed By: #### C BC #### [facility] [address] [place] [address] Ana Paulaterry Diaz DRUG SCREEN RAPID (URINE)on 10-08-2019 AMP Negative Normal NEGATIVE [facility] Comment on above: Performed By: #### C BC #### [facility] [address] [place] [address] Ana Paula Emily BAR Negative Normal NEGATIVE [facility] Comment on above: Performed By: #### C BC #### [facility] [address] [place] [address] Ana Paula Emily BUP Negative Normal NEGATIVE [facility] Comment on above: Performed By: #### C BC #### [facility] [address] [place] [address] Ana Paula Emily BZO Negative Normal NEGATIVE [facility] Comment on above: Performed By: #### C BC #### [facility] [address] [place] [address] Ana Paula Emily KAY Negative Normal NEGATIVE [facility] Comment on above: Performed By: #### C BC #### [facility] [address] [place] [address] Ana Paula Emily CUT-OFFS SEE BELOW Normal [facility] Comment on above: Result Comment: AMP [...] ng/mL Performed By: #### C BC #### [facility] [address] [place] [address] DRUG CUT HEADER DRUG CLASS TEST SYSTEM CUT-OFF CONCENTRATIONS ARE FOLLOWS: Normal [facility] Comment on above: Performed By: #### C BC #### [facility] [address] [place] [address] Ana Paula Emily mAMP Negative Normal NEGATIVE [facility] Comment on above: Performed By: #### C BC #### [facility] [address] [place] [address] Ana Paula Emily MTD Negative Normal NEGATIVE [facility] Comment on above: Performed By: #### C BC #### [facility] [address] [place] [address] Ana Paula Emily OPI Negative Normal NEGATIVE [facility] Comment on above: Performed By: #### C BC #### [facility] [address] [place] [address] Ana Paula Emily OXY Negative Normal NEGATIVE [facility] Comment on above: Performed By: #### C BC #### [facility] [address] [place] [address] Ana Paula Emily PCP Negative Normal NEGATIVE [facility] Comment on above: Performed By: #### C BC #### [facility] [address] [place] [address] Ana Paula Emily PPX Negative Normal NEGATIVE [facility] Comment on above: Performed By: #### C BC #### [facility] [address] [place] [address] Ana Paula Emily TCA Negative Normal NEGATIVE [facility] Comment on above: Performed By: #### C BC #### [facility] [address] [place] [address] Ana Paula Emily THC Negative Normal NEGATIVE [facility] Comment on above: Performed By: #### C BC #### [facility] [address] [place] [address] Ana Paula Emily TYPE AND SCREENon 10-08-2019 TYPE AND SCREEN Negative Normal [facility] Comment on above: Performed By: #### C BC #### [facility] [address] [place] [address] Ana Paula Emily UA (CLEAN/CATCH) WHEAT AND OATS FLAKE MILLER/MICRO I F IND.on 10-08-2019 Bilirubin [Mass/Vol] Negative Normal NEGATIVE [facility] Comment on above: Performed By: #### C BC #### [facility] [address] [place] [address] Ana Paula Emily BLOOD Negative Normal NEGATIVE [facility] Comment on above: Performed By: #### C BC #### [facility] [address] [place] [address] Ana Paula Emily Clarity (U) CLEAR Normal [facility] Comment on above: Performed By: #### C BC #### [facility] [address] [place] [address] Ana Paula Emily Color (U) LT. YELLOW Normal YELLOW [facility] Comment on above: Performed By: #### C BC #### [facility] [address] [place] [address] Ana Paula Emily Glucose [Mass/Vol] Negative Normal NEGATIVE [facility] Comment on above: Performed By: #### C BC #### [facility] [address] [place] [address] Ana Paula Emily Ketones Ql (U) Negative Normal NEGATIVE [facility] Comment on above: Performed By: #### C BC #### [facility] [address] [place] [address] Ana Paula Emily Nitrite Ql (U) Negative Normal NEGATIVE [facility] Comment on above: Performed By: #### C BC #### [facility] [address] [place] [address] Ana Paulaterry Diaz pH (Bld) 6.5 Normal 5-9 [facility] Comment on above: Performed By: #### C BC #### [facility] [address] [place] [address] Ana Paula Emily Protein [Mass/Vol] Negative Normal [facility] Comment on above: Performed By: #### C BC #### [facility] [address] [place] [address] Ana Paulaterry Diaz SPEC GRAVITY 1.025 Normal 1.005-<=1.025 [facility] Comment on above: Performed By: #### C BC #### [facility] [address] [place] [address] Ana Paula Diaz UR MICRO IND NOT INDICATED Normal [facility] Comment on above: Performed By: #### C BC #### [facility] [address] [place] [address] Ana Paula Diaz Urobilinogen Qn (U) 1.0 EU/dl Normal [facility] Comment on above: Performed By: #### C BC #### [facility] [address] [place] [address] Ana Paulaterry Diaz WBC (Bld) [#/Vol] Negative Normal NEGATIVE [facility] Comment on above: Performed By: #### C BC #### [facility] [address] [place] [address] Ana Paula Diaz GROUP B STREP CULTUREon S. agalactiae Ag Ql (Unsp spec) Culture Observations: Negative for Group B Streptococcus Normal [facility] Comment on above: Performed By: #### C BC #### [facility] [address] [place], [place] [id number] Ana Paula Diaz UA (CLEAN/CATCH) WHEAT AND OATS FLAKE MILLER/MICRO I F IND.on 09-15-2019 Bilirubin [Mass/Vol] Negative Normal NEGATIVE [facility] Comment on above: Performed By: #### C BC #### [facility] [address] [place] [address] Ana Paula Emily BLOOD Negative Normal NEGATIVE [facility] Comment on above: Performed By: #### C BC #### [facility] [address] [place] [address] Ana Paula Emily Clarity (U) SL CLOUDY Normal [facility] Comment on above: Performed By: #### C BC #### [facility] [address] [place] [address] Ana Paula Emily Color (U) YELLOW Normal YELLOW [facility] Comment on above: Performed By: #### C BC #### [facility] [address] [place] [address] Ana Paula Emily Glucose [Mass/Vol] Negative Normal NEGATIVE [facility] Comment on above: Performed By: #### C BC #### [facility] [address] [place] [address] Ana Paula Emily Ketones Ql (U) TRACE Normal NEGATIVE [facility] Comment on above: Performed By: #### C BC #### [facility] [address] [place] [address] Ana Paula Emily Nitrite Ql (U) Negative Normal NEGATIVE [facility] Comment on above: Performed By: #### C BC #### [facility] [address] [place] [address] Ana Paula Emily pH (Bld) 6.0 Normal 5-9 [facility] Comment on above: Performed By: #### C BC #### [facility] [address] [place] [address] Ana Paula Emily Protein [Mass/Vol] Negative Normal [facility] Comment on above: Performed By: #### C BC #### [facility] [address] [place] [address] Ana Paula Emily SPEC GRAVITY 1.025 Normal 1.005-<=1.025 [facility] Comment on above: Performed By: #### C BC #### [facility] [address] [place] [address] Ana Paula Emily UR MICRO IND NOT INDICATED Normal [facility] Comment on above: Performed By: #### C BC #### [facility] [address] [place] [address] Ana Paula Emily Urobilinogen Qn (U) 1.0 EU/dl Normal [facility] Comment on above: Performed By: #### C BC #### [facility] [address] [place] [address] Ana Paula Emily WBC (Bld) [#/Vol] Negative Normal NEGATIVE [facility] Comment on above: Performed By: #### C BC #### [facility] [address] [place] [address] Ana Paula Emily CULTURE URINEon 08-30-2019 CULTURE URINE Culture Observations : No growth Normal [facility] Comment on above: Performed By: #### N BOX #### [facility] [address] [place] [address] Ana Paula Emily UA (CLEAN/CATCH) WHEAT AND OATS FLAKE MILLER/MICRO I F IND.on 08-30-2019 Bilirubin [Mass/Vol] Negative Normal NEGATIVE [facility] Comment on above: Performed By: #### N BOX #### [facility] [address] [place] [address] Ana Paula Emily BLOOD Negative Normal NEGATIVE [facility] Comment on above: Performed By: #### N BOX #### [facility] [address] [place] [address] Ana Paula Emily Clarity (U) CLEAR Normal [facility] Comment on above: Performed By: #### N BOX #### [facility] [address] [place] [address] Ana Paula Emily Color (U) LT. YELLOW Normal YELLOW [facility] Comment on above: Performed By: #### N BOX #### [facility] [address] [place] [address] Ana Paula Emily Glucose [Mass/Vol] Negative Normal NEGATIVE [facility] Comment on above: Performed By: #### N BOX #### [facility] [address] [place] [address] Ana Paula Emily Ketones Ql (U) Negative Normal NEGATIVE [facility] Comment on above: Performed By: #### N BOX #### [facility] [address] [address] Ana Paula Emily Nitrite Ql (U) Negative Normal NEGATIVE [facility] Comment on above: Performed By: #### N BOX #### [facility] [address] [address] Ana Paula Emily pH (Bld) 6.5 Normal 5-9 [facility] Comment on above: Performed By: #### N BOX #### [facility] [address] [place] [address] Ana Paula Emily Protein [Mass/Vol] Negative Normal [facility] Comment on above: Performed By: #### N BOX #### [facility] [address] [place] [address] Ana Paula Emily SPEC GRAVITY 1.020 Normal 1.005-<=1.025 [facility] Comment on above: Performed By: #### N BOX #### [facility] [address] [place] [address] Ana Paula Emily UR MICRO IND INDICATED Normal [facility] Comment on above: Performed By: #### N BOX #### [facility] [address] [place] [address] Ana Paulaterry Diaz Urobilinogen Qn (U) 1.0 EU/dl Normal [facility] Comment on above: Performed By: #### N BOX #### [facility] [address] [place] [address] Ana Paulaterry Diaz WBC (Bld) [#/Vol] TRACE Normal NEGATIVE [facility] Comment on above: Performed By: #### N BOX #### [facility] [address] [place] [address] Ana Paula Emily URINE MICROSCOPIC ONLYon Bacteria LM.HPF (Urine sed) [#/Area] LARGE Normal NONE SEEN [facility] Comment on above: Performed By: #### N BOX #### [facility] [address] [place] [address] Ana Paula Emily CAST NONE SEEN Normal NONE SEEN [facility] Comment on above: Performed By: #### N BOX #### [facility] [address] [address] Ana Paula Emily Crystals LM Nom (Urine sed) NONE SEEN Normal NONE SEEN [facility] Comment on above: Performed By: #### N BOX #### [facility] [address] [address] Ana Paula Emily CULTURE INDICATED Normal [facility] Comment on above: Performed By: #### N BOX #### [facility] [address] [address] Aan Paula Emily Epithelial cells LM.HPF (Urine sed) [#/Area] MODERATE Normal [facility] Comment on above: Performed By: #### N BOX #### [facility] [address] [address] Ana Paula Emily MUCOUS NONE SEEN Normal NONE SEEN [facility] Comment on above: Performed By: #### N BOX #### [facility] [address] [address] Ana Paula Emily RBC (U) [#/Vol] NONE SEEN Normal 0-2 [facility] Comment on above: Performed By: #### N BOX #### [facility] [address] [address] Ana Paula Emily WBC (Bld) [#/Vol] 5-10 Normal NONE SEEN [facility] Comment on above: Performed By: #### N BOX #### [facility] [address] [address] Ana Paula Emily GTT 3 HR PREGon 07-22-2019 Glucose [Mass/Vol] 120 mg/dL Normal [facility] Comment on above: Performed By: #### N BOX #### [facility] [address] [place] [address] Ana Paula Emily Glucose [Mass/Vol] 107 mg/dL Normal [facility] Comment on above: Performed By: #### N BOX #### [facility] [address] [address] Ana Paula Emily Glucose [Mass/Vol] 87 mg/dL Normal 74-106 [facility] Comment on above: Performed By: #### N BOX #### [facility] [address] [place], [place] [address] Ana Paula Diaz Glucose [Mass/Vol] 144 mg/dL Normal [facility] Comment on above: Performed By: #### N BOX #### [facility] [address] [place], [place] [address] Ana Paula Diaz US PREG ANATOMY SINGLEon US PREG ANATOMY SINGLE Patient: ALYSSA ROCHA Exam Date: 05/30/2019 : 1995 Gender:F Ordering : DR TESSA BAUER . Admission #: [id number] Family : Order #: [id number] CLICK HERE TO VIEW EXAM RADIOLOGY REPORT [...] Rei Calles M.D. on 05/30/2019 at 13:14 [facility] PAP ACOG PANEL 2: 21 to 29on 05-08-2019 Age Gdln ACOG Testing - Normal [facility] Comment on above: Performed By: #### N BOX #### [facility] [address] [address] Ana Paula Diaz COMMENT Comment Normal [facility] Comment on above: Result Comment: Z01. 419 Z11.51 Performed By: #### N BOX #### [facility] [address] [address] Ana Paula Diaz DIAGNOSIS: Comment Normal [facility] Comment on above: Result Comment: NEGA TIVE FOR INTRAEPITHELIAL LESION OR MALIGNANCY. Performed By: #### N BOX #### [facility] [address] [address] Ana Paula Diaz Methodology: Comment [facility] Comment on above: Result Comment: This liquid based SurePath(R) pap test was screened with the assistance of an image guided system. Performed By: #### N BOX #### [facility] [address] [address] Ana Paula Diaz Note: Comment [facility] Comment on above: Result Comment: The Pap smear is a screening test designed to aid in the detection of premalignant and malignant conditions of the uterine cervix. It is not a diagnostic procedure and should not be used as the sole means of detecting cervical cancer. Both false-positive and false-negative reports do occur. . Performed By: #### N BOX #### [facility] [address] [address] Ana Paula Diaz Performed by: Comment Normal [facility] Comment on above: Result Comment: Enoc Mariee, Icing Machine Operator (ASCP) Performed By: #### N BOX #### [facility] [address] [place] [address] Ana Paula Diaz Reflex Criteria: Comment Normal [facility] Comment on above: Result Comment: The HPV DNA reflex criteria were not met with this specimen result therefore, no HPV testing was performed. . Performed By: #### N BOX #### [facility] [address] [place] [address] Ana Paulaterry Diaz Specimen adequacy: Comment Normal [facility] Comment on above: Result Comment: Sati sfactory for evaluation. Endocervical and/or squamous metaplastic cells (endocervical component) are present. Performed By: #### N BOX #### [facility] [address] [place] [address] Ana Paulaterry Diaz . . Normal [facility] Comment on above: Performed By: #### N BOX #### [facility] [address] [place] [address] Ana Paula Emily CHLAMYDIA/GONOCOCCUS MICHAEL (SW AB/URINE/PAPon 05-05-2019 Chlamydia trachomatis, MICHAEL Negative Normal Negative [facility] Comment on above: Performed By: #### N BOX #### [facility] [address] [place] [address] Ana Paulaterry Diaz Neisseria gonorrhoeae, MICHAEL Negative Normal Negative [facility] Comment on above: Performed By: #### N BOX #### [facility] [address] [place] [address] Ana Paula Diaz VAGINITIS/VAGINOSIS DNA PROB Julito 05-05-2019 Samantha species Negative Normal Negative [facility] Comment on above: Performed By: #### N BOX #### [facility] [address] [place] [address] Ana Paulaterry Diaz Gardnerella vaginalis Negative Normal Negative [facility] Comment on above: Performed By: #### N BOX #### [facility] [address] [place] [address] Ana Paulaterry Diaz Trichomonas vaginalis Negative Normal Negative [facility] Comment on above: Performed By: #### N BOX #### [facility] [address] [place] [address] Ana Paulaterry Diaz HEP B SURFACE ANTIGEN SCREEN on 03-28-2019 HBsAg Screen Negative Normal Negative [facility] Comment on above: Performed By: #### H BSANS #### [facility] [address] [place] [address] Ana Paula Diaz HEPATITIS C VIRUS AB W/ REFL EX QUANTon 03-28-2019 HCV AB <0.1 Normal 0.0-0.9 [facility] Comment on above: Performed By: #### H CVPCRR #### [facility] [address] [place] [address] Ana Paula Diaz Interpretation: Comment Normal [facility] Comment on above: Result Comment: Nega tive Not infected with HCV, unless recent infection is suspected or other evidence exists to indicate HCV infection. Performed By: #### H CVPCRR #### [facility] [address] [place] [address] Ana Paula Diaz HIV 1 AND 2 WITH REFLEXon HIV Screen 4th Generation wRfx Non Reactive Normal Non Reactive [facility] Comment on above: Performed By: #### H IV12 #### [facility] [address] [place] [address] Ana Paula Diaz RPR QUANTon 03-28-2019 Rapid Plasma Reagin, Quant Non Reactive Normal NonRea<1:1 [facility] Comment on above: Performed By: #### R PRQ #### [facility] [address] [place] [address] Ana Paula Diaz RUBELLA AB IGGon 03-28-2019 Rubella Antibodies, IgG 3.01 index Normal Immune >0.99 [facility] Comment on above: Result Comment: Non- immune <0.90 Equivocal 0.90 - 0.99 Immune >0.99 Performed By: #### N BOX #### [facility] [address] [place] [address] Ana Paula Diaz CBC AUTO DIFFon 03-27-2019 Basophils (Bld) [#/Vol] 0.1 103/ul Normal 0.0-0.1 [facility] Comment on above: Performed By: #### C BC #### [facility] [address] [place] [address] Ana Paula Diaz Basophils/100 WBC (Bld) 0.9 % Normal 0.2-2.0 [facility] Comment on above: Performed By: #### C BC #### [facility] [address] [id number] Ana Paula Emily Eosinophils (Bld) [#/Vol] 0.4 103/ul Normal 0.0-0.7 [facility] Comment on above: Performed By: #### C BC #### [facility] [address] [place], [place] [id number] Ana Paula Emily Eosinophils/100 WBC (Bld) 5.8 % Normal 0.9-7.0 [facility] Comment on above: Performed By: #### C BC #### [facility] [address] [place], [place] [id number] Ana Paula Emily Erythrocyte distribution width (RBC) [Ratio] 12.2 % Normal 11.0-15.0 [facility] Comment on above: Performed By: #### C BC #### [facility] [address] [place] [address] Ana Paula Emily Hematocrit (Bld) [Volume fraction] 35.9 % Critically low 36.0-48.0 [facility] Comment on above: Performed By: #### C BC #### [facility] [address] [place], [place] [id number] Ana Paula Emily Hemoglobin (Bld) [Mass/Vol] 12.5 g/dL Normal 12.0-16.0 [facility] Comment on above: Performed By: #### C BC #### [facility] [address] [place] [address] Ana Paula Emily IG # 0.02 10e3/ul Normal 0.00-0.03 [facility] Comment on above: Performed By: #### C BC #### [facility] [address] [place], [place] [id number] Ana Paula Emily IG % 0.3 % Normal 0.0-0.5 [facility] Comment on above: Performed By: #### C BC #### [facility] [address] [place], [place] [id number] Ana Paula Emily Lymphocytes (Bld) [#/Vol] 1.5 103/ul Normal 1.2-3.8 [facility] Comment on above: Performed By: #### C BC #### [facility] [address], [place] [address] Ana Paula Emily Lymphocytes/100 WBC (Bld) 21.6 % Normal 20.5-60.0 [facility] Comment on above: Performed By: #### C BC #### [facility] [address], [place] [address] Ana Paula Emily MANUAL DIFF REQ NO Normal [facility] Comment on above: Performed By: #### C BC #### [facility] [address], [place] [address] Ana Paula Emily MCH (RBC) [Entitic mass] 31.2 pg Normal 26.7-34.0 [facility] Comment on above: Performed By: #### C BC #### [facility] [address] [place] [phone] Ana Paula Emily MCHC (RBC) [Mass/Vol] 34.8 g/dL Normal 29.9-35.2 [facility] Comment on above: Performed By: #### C BC #### [facility] [address] [place] [address] Ana Paula Emily MCV (RBC) [Entitic vol] 89.5 fL Normal 81.0-99.0 [facility] Comment on above: Performed By: #### C BC #### [facility] [address] [place] [address] Ana Paula Emily Monocytes (Bld) [#/Vol] 0.5 103/ul Normal 0.3-0.8 [facility] Comment on above: Performed By: #### C BC #### [facility] [address] [place] [address] Ana Paula Emily Monocytes/100 WBC (Bld) 7.5 % Normal 1.7-12.0 [facility] Comment on above: Performed By: #### C BC #### [facility] [address], [place] [address] Ana Paula Emily Neutrophils (Bld) [#/Vol] 4.5 103/ul Normal 1.4-6.5 [facility] Comment on above: Performed By: #### C BC #### [facility] [address], [place] [address] Ana Paulaterry Diaz Neutrophils/100 WBC (Bld) 63.9 % Normal 43.0-75.0 [facility] Comment on above: Performed By: #### C BC #### [facility] [address] [place] [address] Ana Paulaterry Diaz Platelet mean volume (Bld) [Entitic vol] 9.6 fL Normal 9.5-13.5 [facility] Comment on above: Performed By: #### C BC #### [facility] [address] [place] [address] Ana Paula Emily Platelets (Bld) [#/Vol] 231 103/ul Normal 150-450 [facility] Comment on above: Performed By: #### C BC #### [facility] [address] [place], [place] [phone] Ana Paula Emily RBC (Bld) [#/Vol] 4.01 106/ul Critically low 4.20-5.40 [facility] Comment on above: Performed By: #### C BC #### [facility] [address] [place] [address] Ana Paula Emily WBC (Bld) [#/Vol] 7.0 103/ul Normal 4.0-11.0 [facility] Comment on above: Performed By: #### C BC #### [facility] [address] [place] [phone] Ana Paulaterry Diaz CULTURE URINEon 03-27-2019 CULTURE URINE Culture Observations : Heavy growth of mixed genital leann.No potential pathogens seen. Normal [facility] Comment on above: Performed By: #### N BOX #### [facility] [address] [place] [address] Ana Paulaterry Diaz GLYCOHEMOGLOBIN A1Con 2018 Glucose [Mass/Vol] 105 mg/dL Normal [facility] Comment on above: Performed By: #### A 1C #### [facility] [address] [place] [address] Ana Paula Emily HbA1c (Bld) [Mass fraction] 5.3 % Normal <=6.0 [facility] Comment on above: Performed By: #### A 1C #### [facility] [address] [place] [address] Ana Paulaterry Diaz POLY BOX TEST PT SEND OUTo n 03-27-2019 SENT TO REF LAB 03/27/19 Normal [facility] Comment on above: Performed By: #### N BOX #### [facility] [address] [place] [address] Ana Paula Emily TYPE AND SCREENon 03-27-2019 TYPE AND SCREEN Negative Normal [facility] Comment on above: Performed By: #### T NS #### [facility] [address] [place] [address] Ana Paula Emily UA RANDOM W/MICROSCOPICon Bacteria LM.HPF (Urine sed) [#/Area] TRACE Normal NONE SEEN [facility] Comment on above: Performed By: #### U AMIC #### [facility] [address] [place] [address] Ana Paula Emily Bilirubin [Mass/Vol] Negative Normal NEGATIVE [facility] Comment on above: Performed By: #### U AMIC #### [facility] [address] [place] [address] Ana Paula Emily BLOOD Negative Normal NEGATIVE [facility] Comment on above: Performed By: #### U AMIC #### [facility] [address] [place] [address] Ana Paula Emily CAST NONE SEEN Normal NONE SEEN [facility] Comment on above: Performed By: #### U AMIC #### [facility] [address] [place] [address] Ana Paula Emily Clarity (U) CLEAR Normal [facility] Comment on above: Performed By: #### U AMIC #### [facility] [address] [place] [address] Ana Paula Emily Color (U) LT. YELLOW Normal YELLOW [facility] Comment on above: Performed By: #### U AMIC #### [facility] [address] [place] [address] Ana Paula Emily Crystals LM Nom (Urine sed) NONE SEEN Normal NONE SEEN [facility] Comment on above: Performed By: #### U AMIC #### [facility] [address] [place] [phone] Ana Paula Emily Epithelial cells LM.HPF (Urine sed) [#/Area] FEW Normal [facility] Comment on above: Performed By: #### U AMIC #### [facility] [address] [place] [phone] Ana Paula Emily Glucose [Mass/Vol] Negative Normal NEGATIVE [facility] Comment on above: Performed By: #### U AMIC #### [facility] [address] [place] [address] Ana Paula Emily Ketones Ql (U) Negative Normal NEGATIVE [facility] Comment on above: Performed By: #### U AMIC #### [facility] [address] [place] [address] Ana Paula Emily MUCOUS TRACE Normal NONE SEEN [facility] Comment on above: Performed By: #### U AMIC #### [facility] [address] [place] [address] Ana Paula Emily Nitrite Ql (U) Negative Normal NEGATIVE [facility] Comment on above: Performed By: #### U AMIC #### [facility] [address] [place], [place] [phone] Ana Paula Emily pH (Bld) 6.0 Normal 5-9 [facility] Comment on above: Performed By: #### U AMIC #### [facility] [address] [place] [address] Ana Paula Emily Protein [Mass/Vol] Negative Normal [facility] Comment on above: Performed By: #### U AMIC #### [facility] [address] [place] [phone] Ana Paula Emily RBC (Bld) [#/Vol] NONE SEEN Normal 0-2 [facility] Comment on above: Performed By: #### U AMIC #### [facility] [address] [place] [phone] Ana Paula Emily SPEC GRAVITY 1.025 Normal 1.005-<=1.025 [facility] Comment on above: Performed By: #### U AMIC #### [facility] [address], [place] [address] Ana Paula Diaz Urobilinogen Qn (U) 0.2 EU/dl Normal [facility] Comment on above: Performed By: #### U AMIC #### [facility] [address], [place] [address] Ana Paulaterry Olsonen WBC (Bld) [#/Vol] Negative Normal NEGATIVE [facility] Comment on above: Performed By: #### U AMIC #### [facility] [address], [place] [address] Ana Paula Emily WBC (Bld) [#/Vol] 0-2 Normal NONE SEEN [facility] Comment on above: Performed By: #### U AMIC #### [facility] [address], [place] [address] Ana Paula Diaz US PREG TVon 03-08-2019 US PREG TV Patient: ALYSSA ROCHA Exam Date: 03/08/2019 : 1995 Gender:F Ordering : DR TESSA BAUER . Admission #: [id number] Family : Order #: [id number] CLICK HERE TO VIEW EXAM RADIOLOGY REPORT [...] M.D. on 03/08/2019 at 09:42 Normal [facility] Encounters Encounter Date Encounter Type Care Provider Facility Start: 06-16-2023 End: 06-16-2023 ambulatory MELONY HANDLEY Not Available Start: 10-13-2019 Patient encounter procedure TESSA FA ZIO Facility:[facility] Start: 10-09-2019 Evaluation and management of inpatie nt TESSA JUANCARLOS Facility:[facility] Start: 10-08-2019 End: 10-10-2019 Evaluation and management of inpatient PAM Anne acility:[facility] Start: 09-19-2019 End: 09-19-2019 Patient encounter procedure TSESA JUANCARLOS Facility:[facility] Start: 09-15-2019 End: 09-15-2019 Patient [...] JUANCARLOS Payers Date Payer Category Payer Unknown [id number] 2.16.84 [id number] 1995 Unknown [id number] 2.16.84 [id number] 1995 Unknown [id number] 2.16.84 [id number] 1995 Unknown [id number] 2.16.84 [id number] 1994 Unknown [id number] 2.16.84 [id number] 1994 Unknown [id number] 2.16.84 [id number] 1994 Unknown [id number] 2.16.84 [id number] 1994 Unknown [id number] 2.16.84 [id number] 1994 Unknown [id number] 2.16.84 [id number] 1994 Unknown [id number] 2.16.84 0.1.654079.3.579.2.593 1994 Unknown [id number] 2.16.84 [id number] 1994 Unknown [id number] 2.16.84 [id number] 1994 Unknown [id number] 2.16.840 .[id number] 1960 Self-pay 1960 Unknown [id number] 1960 Unknown [id number] Clinical Note 02-22-2021 Note Date & Type [...] job, you may need to see an mapping specialist. How is this treated? This condition [...] and dyes. Medicines ? Take or apply rase-aqf-rhbhvbe and prescription medicines only as told by [...] and water are not available, use hand natural sciences manager. General instructions ? Avoid the substance that [...] new symptoms. Get (more content not included)... [facility] Summary Purpose Family History No Family History Records FoundNo Family History Records FoundNo Family History Records Found Advance Directives No Advanced Directives Records FoundNo Advanced Directives Records FoundNo Advanced Directives Records Found Additional Source Comments INFORMATION SOURCE (unrecogn ized section and content) DATE CREATED AUTHOR 10/16/2019 Asia blas DATE CREATED AUTHOR AUTHOR'S ORGANIZ ATION 03/06/2021 [facility] DATE CREATED AUTHOR AUTHOR'S ORGANIZ ATION 06/18/2023 [facility] EPIC FOR RECORDS PERTAINING TO [...] BE BASED ON THE PRIMARY CLINICAL RECORDS. [employer] [facility]. provides no warranty or guarantee of the accuracy or completeness of information in this document.
[2023-08-11 09:26] VITALS: BP 110/59; PULSE 93; TEMP 36.5
--- NOTE | 2023-08-11 09:39 | US_ITS ---
[address] [address] Patient Name: ALYSSA ROCHA MRN: [id number] date: 1995 Sex: F Assigned Patient Location: [facility] Current Patient Location: [facility] Accession/Order Number: [id number] Exam Date: 08/11/2023 10:05 Report Date: 08/11/2023 10:44 At the request of: TESSA BAUER Procedure: US OB amniotic fluid vol EXAMINATION: US OB amniotic fluid vol HISTORY: Possible ROM COMPARISON: No relevant comparison available. FINDINGS: position: Cephalic Amniotic fluid volume: 17.3 cm. (Normal range 8.3 to 25.6 cm ) Largest fluid pocket: 6 cm Heart rate: 137 bpm Clinical age: 29 weeks 3 days Clinical AUDRA: 10/24/2023 US/US OB amniotic fluid vol IMPRESSION: Normal amniotic fluid volume Electronically authenticated by: MALINDA COLLAZO Date: 08/11/2023 10:44
[2023-08-11 09:46] LABS: Amnisure NEGATIVE (NEGATIVE)
[2023-08-11 09:49] LABS: Bilirubin Urine NEGATIVE (NEGATIVE); Blood Urine NEGATIVE (NEGATIVE); Clarity Urine CLEAR (CLEAR); Color Urine LT. YELLOW (YELLOW); Glucose Urine UA NEGATIVE (NEGATIVE); Ketones Urine NEGATIVE (NEGATIVE); Leukocyte Esterase Urine LARGE (NEGATIVE); Nitrite Urine NEGATIVE (NEGATIVE); Protein Urine NEGATIVE (NEG/TRACE); Specific Gravity Urine 1.015 (1.005-1.025); Urobilinogen Urine 0.2 EU/dL (0.2-1.0)
[2023-08-11 09:54] LABS: Urine Microscopic Indicated YES
[2023-08-11 09:59] LABS: Bacteria Urine MODERATE #/HPF (NONE SEEN); Mucus Urine MODERATE (NONE SEEN); RBC Urine NONE SEEN #/HPF (0-2); Squamous Epithelial Cell Urine MODERATE #/LPF (NONE/RARE)
[2023-08-11 10:00] LABS: Urine Culture Indicated YES
== END 2023-08-11 11:57 | disposition home or self-care (01) ==
LOC: FBC 09:01
PROVIDERS: Admitting Provider Obstetrics & Gynecology; Visit Provider Obstetrics & Gynecology
DX: Z03.71 Encounter for suspected problem with amniotic cavity and membrane ruled out (principal); Z3A.29 29 weeks gestation of pregnancy
CPT/HCPCS: 59025; 76815; 81001; 84112; 87086; G0378; G0379

== ENCOUNTER 2023-09-20 15:17 | Observation (INO) | payer OTHER, SELFPAY ==
[2023-09-20 15:30] VITALS: BP 110/71; PULSE 111
[2023-09-20 16:09] LABS: Bilirubin Urine NEGATIVE (NEGATIVE); Blood Urine NEGATIVE (NEGATIVE); Clarity Urine CLEAR (CLEAR); Color Urine LT. YELLOW (YELLOW); Glucose Urine UA NEGATIVE (NEGATIVE); Ketones Urine TRACE mg/dL (NEGATIVE); Leukocyte Esterase Urine SMALL (NEGATIVE); Nitrite Urine NEGATIVE (NEGATIVE); Protein Urine NEGATIVE (NEG/TRACE); Specific Gravity Urine 1.015 (1.005-1.025); Urobilinogen Urine 0.2 EU/dL (0.2-1.0)
[2023-09-20 16:18] LABS: Amnisure NEGATIVE (NEGATIVE)
[2023-09-20 16:43] LABS: Urine Microscopic Indicated YES
[2023-09-20 16:51] LABS: Bacteria Urine TRACE #/HPF (NONE SEEN); Cast Seen? NONE SEEN #/LPF (NONE SEEN); Crystals Seen? None Seen #/HPF (None Seen); Mucus Urine NONE SEEN (NONE SEEN); RBC Urine 0-2 #/HPF (0-2); Squamous Epithelial Cell Urine FEW #/LPF (NONE/RARE)
[2023-09-20 16:52] LABS: Urine Culture Indicated YES
[2023-09-20] MEDS: FLUCONAZOLE 150 MG TABLET PO (17:08)
--- OUTSIDE RECORDS SUMMARY | 2023-09-20 17:52 | XMS_ITS | CCD ---
Author Name Unknown Address [address] [place] [address] Organization [facility] Care Team Providers Care Dry Sander Name Role Phone ANA, TESSA Admitting Unavailable ANA, TESSA Attending Unavailable ANA, TESSA Consulting Unavailable REI CALLES Consulting Unavailable ANA, TESSA Admitting Unavailable ANA, TESSA Attending Unavailable MISC, DOCTOR Referring Unavailable ANA, TESSA Consulting Unavailable ANA, TESSA Admitting Unavailable ANA, TESSA Attending Unavailable ANA, TESSA Consulting Unavailable ANA, TESSA Admitting Unavailable ANA, TESSA Attending Unavailable REQUEST, NONE LISTED Primary Care Unavailable ANA, TESSA Consulting Unavailable REI CALLES Consulting Unavailable ANA, TESSA Admitting Unavailable ANA, TESSA Attending Unavailable NAA, TESSA Admitting Unavailable ANA, TESSA Attending Unavailable ZOLTAN COLE Primary Care Unavailable ANA, TESSA Consulting Unavailable ANA, TESSA Admitting Unavailable ANA, TESSA Attending Unavailable PAM TURNER Consulting Unavailable ANA, TESSA Admitting Unavailable ANA, TESSA Attending Unavailable REQUEST, NONE LISTED Primary Care Unavailable ANA, TESSA Consulting Unavailable ANA, TESSA Admitting Unavailable ANA, TESSA Attending Unavailable ANA, TESSA Consulting Unavailable ANA, TESSA Admitting Unavailable ANA, TESSA Attending Unavailable PAM TURNER Admitting Unavailable PAM TURNER Attending Unavailable PAM TURNER Consulting Unavailable PAM TURNER Procedure Practitioner Unavailab EVELINE Portillo Consulting Unavailable COLT TREVINO Consulting Unavailable ANA, TESSA Admitting Unavailable TESSA PEREZ Attending Unavailable Zoltan Cole MD Unavailable [phone] MELONY HANDLEY Attending Unavailable TESSA PEREZ Attending Unavailable MELONY HANDLEY Attending Unavailable Medications Current Medications Medication Drug Class(es) Dates Sig (Normalized) Sig (Original) [id number] 200 actuat albuterol 0.09 mg/actuat metered dose inhaler (2 sources) beta2-Adrenergic Agonist Start: 07-01-2023 take 2-3 puff(s) by mouth every four to six hours albuterol HFA 90 mcg/act inhaler inhale 2 TO 3 puffs by mouth and INTO THE LUNGS every 4 to 6 hours 0 07/01/2023 Active Blood Glucose Monitoring Suppl (D-Care Glucometer) w/Device kit (2 sources) Start: 08-31-2023 End: 08-30-2024 Blood Glucose Monitoring Suppl (D-Care Glucometer) w/Device kit Indications: Gestational diabetes mellitus (GDM), antepartum, gestational diabetes method of control unspecified , Elevated glucose tolerance test 1 kit in the morning. Use four times daily to check FSBS. In the morning prior to breakfast & 1 hour after each meal for a total of 4times daily.. 1 kit 0 08/31/2023 08/30/2024 Active isopropyl alcohol 0.7 ml/ml medicated pad (2 sources) Start: 08-31-2023 Alcohol Swabs (Alcohol Prep Pad) 70 % pads Indications: Gestational diabetes mellitus (GDM), antepartum, gestational diabetes method of control unspecified , Elevated glucose tolerance test Apply 1 Pad topically in the morning. Use four times daily to check FSBS.. 150 each 3 08/31/2023 Active Start: 08-31-2023 Alcohol Swabs (Alcohol Prep Pad) 70 % pads Indications: Gestational diabetes mellitus (GDM), antepartum, gestational diabetes method of control unspecified , Elevated glucose tolerance test Apply 1 Pad topically in the morning. Use four times daily to check FSBS.. 150 each 3 08/31/2023 Active MV & Min w/FA-DHA ( Adult Gummy/DHA/FA) 0.4-25 MG chewable tablet (2 sources) Start: 02-16-2023 MV & Min w/FA-DHA ( Adult Gummy/DHA/FA) 0.4-25 MG chewable tablet 1 (one) time each day at the same time. 0 02/16/2023 Active sertraline 25 mg oral tablet (2 sources) Serotonin Reuptake Inhibitor Start: 02-16-2023 sertraline (Zoloft) 25 MG tablet 1 tablet Orally MORNING for 30 days 0 02/16/2023 Active Problems Active Problems Problem Classification Problem Date Documented Date Episodic/Chronic Adjustment disorders (2 sources) Adjustment disorder with anxious mood; Translations: [Adjustment disorder with anxiety] Onset: 04-17-2021 04-22-2023 Chronic Diabetes mellitus without complication (2 sources) Abnormal glucose tolerance test; Translations: [Other abnormal glucose] 08-31-2023 Episodic Diabetes or abnormal glucose tolerance complicating ; childbirth; or the puerperium (3 sources) Gestational diabetes mellitus in , unspecified control; Translations: [Gestational diabetes mellitus] Onset: 09-19-2019 08-31-2023 Episodic Early or threatened labor (4 sources) [...] 10-16-2019 Episodic Other and delivery including normal (11 sources) Single live ; Translations: [Encounter for test, result positive] Onset: 03-08-2019 08-26-2023 Episodic Other screening for suspected conditions (not [...] Test Name Value Interpretation Reference Range Facility Urinalysis macro (dipstick) panel (U)Ordered By: Shilpa Munoz on 08-31-2023 Bilirubin, UA Negative Negative - 4(70) +++ mg/dL [facility] Work Phone: Blood, UA Negative Negative - 50 Eladio/mcL [facility] Work Phone: Clarity, UA Clear [facility] Work Phone: Color, UA Yellow [facility] Work Phone: Glucose, UA Negative Negative - 2000(110) ++++ mg/dL [facility] Work Phone: Interpretation and review of laboratory results Abnormal [facility] Work Phone: Ketones, UA Negative Negative - 160(16) ++++ mg/dL [facility] Work Phone: Leukocytes, UA Positive Negative - 500+++ Jean/mcL [facility] Work Phone: Nitrite, UA Negative Negative - Positive [facility] Work Phone: pH, UA 5.5 5 - 9 [facility] Work Phone: Protein, UA Negative Negative - 2000(20) ++++ mg/dL [facility] Work Phone: Spec Grav, UA 1.020 1 - 1.03 [facility] Work Phone: Urobilinogen, UA 1.0 0.2 - 12 mg/dL [facility] Work Phone: [facility] Work Phone: Coding Summaryon 03-05-2021 Coding Summary HTMLBase 64 OattbwwlAHy0tMe+PGhlY WQ+FZ7WGNHpM23azSHtgJ 4NM6yVBC1BPBJVQRUYCK4 LXA6fqHH7COwoY9BmudLg AuavjMZbQE68MOp4HLA2x HesBQkrcW8knPMcK6d6Ko JmZA11eS64YZolRTSwXuI 3LjZpbjsgbWFy M0avVuMeoMMgYxp+PHRhY mxlIHdpZHRoPScxMDAlJy EtdCpoSW2kHm2bFVAeMXQ vbGxhcHNlOiBj y1uiQJIvDWuoQD7fuZafL 6JyqKX2DISzy1e9Gx79iV I+FKPrZUG1nDsfDAvft96 4OlShp9ikNOX3 pKWmKJxrZEH5I76id2F5X IYxSIIiQDP7kXS6rE1uoH xuxmubV4HzrABqNoV9GME 5uNQsqD0vrBhc qumfjB4eFog+P52VWC1AW JZFTU7BQwa8S8TuLflqiO I+TF58RDZcBJ16zXJavFD hh1kgsQn6ZsFu NQBqLRC0wJxsHZcgy4YiM HVjW35oeXNzv9V2IFQbbH vrtIPvLrBswOX1gV1ySQk wvjkzz4rmxura Gjwhy3yeie46rX89E66tY MixXVRoAYF3UWYyBTQsmS dpdh7uqS1sFx8+EPvym6w tj4osnXv2NnDa RUWyqiJbrDqqBGB7s3BkQ j92Q4YvzGill7IlDbh5oo 85wTLrg0Y3jPZ4ANizHBU tbM7sWNqgZvR1 RDMrPwNfgS94vRHqXNmbI m2gjKxknVguZR3iHWVajr ddWMApuM4cMHWxyWEveWy jRB2eVEJchxfx u375UxMwLIQ1PRZnzBUaB 0VguM6wOcTxLHYaMJGoZ4 WojAZqJOaaO707VOerQpW 8ESHvsgPeC9Gh ZXDbtDqdCqY0e8U7Uf6Tk 0VeaghdXQO4TGcpFSJ2Nq T4ZzSyDkL7N9GvQrq6YOQ npYimQN4lZ3Ex EXSsgnyuyeqavQF5OPQlV AZmwA20sSLlHArpVh0nf8 J6q312LWTxXSTyeY02Es7 udDogMTBwdCBU jY9sjtqwa4uixgyeYkShD SMkTLt6IAf7JOJzeQzoQl KcPJQ9UmD3VXP1eERpnF5 fsHptylabzA2y Oyc+O60vvL9kGGV0AUA6i awzGBQqijQcUA93XR39D9 RyPjwvdGFibGU+PGRpdiB ycJgpDT5rFpZt t7cmz0RdMNnpC5PfESKeN YgrLtt9MXPjWDT8jCW2qR 4wXHFxWJawb1A8uMF0X6J gaiWbld9md1yv LDMkCEryB90zkOVtc5L5J UScuWU7FHPocXnvCpAayT 93Oyc+BORrpOysx4ZxWdx kk2ijb1dymRv3 XjLuJVVqawBueOgbKUL7j 9SrJs31T80jFRchIDPeVK PkMCPpYRBjgNnspb0eyX7 wIi8+PGNvbCB3 kCR2xJ9xLUZdJsW2IWkuF 916MqOgyTOcItojc0zmx7 wqkLe0ZlYzSIDqbtVrzYn zPQT3x8CoBy64 D15eSAsaOROnXOOhUGMsM CIduZhmpa3jfF2dVd5+PC 1yq2euqq27qG58yGF+PHR rTWS3cOciHLms PIKlsY9oADqqFnB1ZGIyH yPktZ65fASmCPanIf5evZ ilgVilUJ5sOCIefboiy52 2NaNpg7bkYJNv eFVcHRrsRJM8S53ky3W8R OQrEGJxWWU8uWZ0uT4vaJ lnbjogbGVmdDsgdmVydGl dOMfmQNhkO872 IHRvcDsnPlBhdGllbnQgT bAkBDn8H6UqIek7KMGcwI vrIS7luNAhKWcfGw4dnVu mmOsoLT9mKPPl vzjys383CnOzr6fbAWQew TQiNSupQAG3O32fp6W8PD PiWPJuQXT2uXJ2iG0roUh nbjogbGVmdDsg zdQnsHxwHWerYHxuO414G HRvcDsnPkJpcnRoIERhdG E2NI28DO44tHOew5C2nLH 8Z4KfFKFbmpbg hsvzoPI7KCGcUFFpbW68O z0wfUpcWo3yXBAlXOB4YI DusRPvB0LfuM8wOjVkWII yMLIdJ0NlyDSh JRdnR292UVqbUxU1EYBmt fNqG5YmJFHcyOfvWpT4q5 D8Nh8JE4L8XI38MB10oER wo0M2gWC0B7Sd PKGdqwccytsilNI8JXEsC KGwdR18Bg1ynZtzAd0rCB LqPJK4CZSebQWtT4KpdL7 yOiAjMDAwMDAw U8AneBWiXTfxB052AOwvG rY0XKTjvrGvC8WvTZWgzT bjPsN7k5C5Cs2SQLz9ZL2 9XO13iLXtp6L4 gXZ8X8EpOGXvnjozowxsq GN6NZQoGNOxxM03Zu3jqP ouJa9oFFLbANS6DVHjwTG rC0ZqxR1dOmCz MMGeXEKbI2XonWVnSVjcU 915GZjvHtS5SBXwhoRnG7 ZkFDKdwIczHzK8n0G6Wq3 FQXVsTR05QJA3 iJG8WN06IA21F1JoQcwdj GFibGU+PHRhYmxlIHdpZH RoPScxMDAlJyBzdHlsZT0 rYn4hBATnSUDg zLuduKPsCdLpf7rnZUZvO UifAA3erFuiY4YhuLT6UB Onh7k3To65L20xB8EiwKR +ATZweUR5hKU4 lT9jPiVrVwB1SXzzZ365C aUzfKTmOqxhz0wse4jwrT u4BcU7CUWresYrwYtbTJG 0f8DzZn28W88o IHdpZHRoPSIxNSUiIHZhb Onnoc0mbP3vYy2+PGNvbC W2hRA6lC0lIfLvEeQ2BBh tI073AsTeoEVi Czjio8viv0wqzCo3XqWsO SIcqtJvhIayRVU8o0MtLj 66G6ZjwTuar6MqPgh0pq3 7oHDrk7R0iQZ4 Z7YhRCUsbvvszHLbtRusX A1tSDNorqbjMAYgpE4xBK JgC3g7HlYmVqT8WHcyK0C hfuF1NPBjlVGz LMdwRLW2J86wi8T3YGGtM VDlHYV4tHC1bE6jsPsxpp ogbGVmdDsgdmVydGljYWw wMFrsB425DGIv hEowMAXrhQ2rPULlyJBkc ChmGD3wREPsizpkGc3VHX xTLCBEQVNIQVkgTUFSSUU 9T8QqUsy4UKEy pAwqOG4xjLFxERreHk0yq HjwyAfeKH3wYBBofnabXZ XdoP5cUTMzuFYrcUveSG4 uEWRxflonc641 LlMoGEY6KPSyaLEuH9Eao V2xCmCoFIWiYXJjI2KbvT TnHDpqH618SIegPjX5WFL bpcWxV2JcKUVk tFzjDrM2b2W5Yv8jVG6hX D2uDKt5BQ58HR07bEHmd3 O5uPV0U2ShIAHbjnnkwgf zwKD7JVUxHIZk kN09dUShRDtbRv5an1I7l 418LEUfEXInoW20De9avH miNYGmrXNMjQ1grcwwd8q vcjogIzAwMDAw UUw9OMe8OUKhcYhoNtOsS UW1GeY5CTU3dEIquC3mbB lzoybmaS7xQdg+MjcgWWV qqtX4V8TqMgm2 PPKpgVbiLL1vmUScTVwzZ n0kuIbtfRxpKX1jNDVbcj egUCOljK4qYQTvcSIapXz mLJ4fDAMdlyug u158PeGsZHN0HJSrfEHcB 2PjhO0vIrLvBRVaJEDuO9 OmgWSgYUgcT571CDcpEjM 1SKYrnmQtY2Mg ZQYzrRorStR7z4J1Xe4BA V4VZVX5I5WeHgc7WYDjmW shJI5pxFAxKQpkVn0cpDs emHwmKB3eZLLy xhraOTUfkV4fLWUfrOJtq RlxTB4sRVUjuiqak839Yx JpZCU8KDQvmXRcR6ZjcZ1 yOiAjMDAwMDAw P5WduORfWOeqB073KGkiY tJ7PHNlbrBaT8AlRNBprX jbClO2q6N1Ax4WDCsiuKH +PT61ax26O0Wp EnnwUtk0EFIgCEU7cCY6j Z7hLVMeTFpzp2F0cLL4O2 OwckWjrn1lz9juVIQaKIy vN84yjJHcq1J1 JBYixMW3GSUnuXmyUoZoh G93Oyc+NBOqyGznp6NeQz wow2nfs2ktdFn3PdCtAZJ gdmFsaWduPSJ0 z8KpHv75P00hUJmqYNXnG XMgYSHhXILpdIbwln8wrP 9wIi8+IFBipEK2zPI1uI8 eIzJoHoK4TJlm B445YqCmsLHhLcqny9kmf 9qwgLi2KbQpSNZbjyLvcI snRBL4q6OzEs14Y9VbiVe ye3ZpDaq6oz84 qVVxi3P6lZX4A4LdIUWzc dzttNCgxKkmRP0tSWBzko qaFIFtxF4aIDApH4i9PqO xSwJ6LRtzC6Es jgC0DXVocGRzNJJelJQNt H2nolrxt5cdgfehJhYePN ByMAv7TCp2UOCooTvwBiI kJXJ0LiN0DVU0 gAXelG5owUhwpiinpT6rJ yc+QSg7f4bfhTSlKM8egX I6VI02TL60iRKvr9Y5jWI 3F1XjTVTaampm onywgLN9ESNvAYJbvK11L u6meUkrZi1gJCAnBJJ2XY QxlLMqO2UttN9dMfCsXCW oRNCdR0VljDUi KFksD266VGofMgA2QDRbv bPuS2OjMJQtiAcgMrK0u0 H7Lb8CXI06RF56PV67vVA de8S3vIO8Q5Fy WVNywtzygipuzKT2MFUdM NDrdB79Ba4clWtnKr3wVB SzZYL9NUQarEYpD9IvhW7 yOiAjMDAwMDAw T8HyrBEjUBqbZ280PWyjF pW5KWYjiwUjZ3ShJOIecV jbAqI8g4X7Gm3KUr31EG1 9EG29iVTln0I0 jYO1X9NiEPPwrogmgnbbw QD3JJXhFDMzoA55Dg2ukJ bhVl8qQQDrAIU6VCErwBE xL4RrmM3dIbVz IJOuZYNqL6BqmVZpRHtrY 311WZdfQdE2RVYeaaQwG9 JdVNRsxMbjPfK7i7H2Jd8 TBXeanpd2I4Bg PjwvdHI+OC17QDJjAN35g ESerOWnc2lwfUw4EpRvMN WvNAL5lIhsAZuxa8GqHXC oU03jyVAfh7P4 IGN (more content not included)... [facility] Coding Summary HTMLBase 64 XztvindgWXv0sXp+PGhlY WQ+CD6RWXDwF30pcSFddF 5MC5nKOS6KAUWMODWHKF1 GAR1aeVD5BJnaA4SxksBv BaolbZEjMR80DEo1YMG7e EfoQHiwtB6gmHVqG3a7Zs ByDI98zV26NQsjESJsTjM 3LjZpbjsgbWFy Q1mnHuBpkZOtPno+PHRhY mxlIHdpZHRoPScxMDAlJy ExzUbwZM4iPh7iCCZsHXE vbGxhcHNlOiBj h0opUSXjOQufKI0jvJvyT 9KknZP6KFZfr8c0Em11zD I+QVVfAVX7nGypAXrny09 2JkHln9ltAVC9 lWFnKBueTFG8G30zm9F1C LAyKTOqHGS9jYZ1jK8wyC mvlgykJ8OckMXpVyI3EJC 2qQDdmB7auBtb ndvwiJ3uGeq+C87NAO3CW XSPSO9WOmk3X9DzAjwylN I+UC34GQOeHU42uGWcjRN mg2awvLs1QeDc QUToCZK4bYyyAHgfd0ObT GZvQ05trAItj1U3FGQgaW jzdLZwVoUeiKO3wA4sACt rszlbb8uidcot Vvpgh7okwn58vU13P13zE PxsECRuKBP1OUOkHNAneV xquz5epJ1yMh1+JSbln4c yw2qtzFd4VaFq WZDasmCdnUmqGQP0e6NrV j16D3GqfZjil3RsUdj3na 15tZGdj9I4aUY2CEotPDL qhM7sHPkgDnZ0 QBQoSjJgpD74hUNdZNwzU o5nnXwstCpwHY6kKFNgok nlYSSyrP7mJLRnlVNszZs dTH3oNATgkwpi c441BjKbRHT1GIZvbWPfT 5JgiX1qEuOvNMKkRDBuY3 JjyZJtXMjtR866UJffIfU 8RFDocgByR0Wb TATvvMcfZkM3z6K2Mj0It 6GessbyLJA0IYrtZNH8Hs X7ZqMmLcP7R6YjRqu7MFU paYqmVC1eZ2Sv ANFvrvyniimukYD3EAEmR QRjiQ28mIKuAYbnBx9hc1 Y7o076FBSyJEEhoU11Zk8 udDogMTBwdCBU bJ4rdrzcb5widqdvYiSsP DTlWTy4CCi0QXYeqPlrLr SvFMF9ZwK0HLT2hJLcvQ9 mbVlhfdswxU6k Oyc+Y13ffT0dLVZ9TGR3m oxvPIKflvGzGE03OX10T7 RyPjwvdGFibGU+PGRpdiB ptScmRT5zUzUu r4rhu0BuKFsfN5NmWMWgU DtaIwn7WACpCTL2hDC8bD 7mXFGtPSpty1C9wRV5F6C pfaPiyp8rc9hm OSTsLEgbI40dgMVxt7T3U UKiuZT3VICnuYnwZgCqrD 93Oyc+JMVrwNwaz1XcLhn fq8alh5jpvTe3 XkUwSJXgiiDrnGegKCT2q 0GoCl29J79xRHbeDUTzEV AoVPEqQRVveRhzok5olU0 wIi8+PGNvbCB3 lZB5aG2bRRJwTuH0HQpiD 247RrPddWXyEhnwp3hfj3 umlLk5SdQsDDSykjTwiRr sXVU2u6LxZu72 U67lJFxwXYDnYPNdRSOqV WXksCjlzt5uhT4sZu8+PC 5ds8myad64jO57cTU+PHR xAYJ6fAkiJCyo UMGugL4nKCptZyL4QDNqJ pEcuX02pRXeCHkeYh6spE qwvTfoZV6vHOBajhgul32 0YnTlv8npLMIy jIZtVEkjSJB6M96tw1W9W BXfKFUfYLJ6zKU0dM9gyR lnbjogbGVmdDsgdmVydGl qERbvEGlqE255 IHRvcDsnPlBhdGllbnQgT sXcQMu1I0RxUmg3CXHakL ywKJ7ntBPfMWryEb5wfHh pvIlmWS2nQMJt slmlb742MzGxe1kiZAZmw VLxTEpkZIF5P79tt0T4YQ UeIEVwXWM9oXU8kN0quMn nbjogbGVmdDsg keMvdTnkEKjpINggC375K HRvcDsnPkJpcnRoIERhdG K8TE69ZV04bTEew5C9dAM 4F8YuYEFqbwut wolugTW6HJZeCHRkjN02O u1joPjbVv5eZUXjUHE6IW FqlWQtJ1HldF3wDvSpWFJ wYPFpI8DtjYFl DUmpW917REqiWgH8DGRld mNlF3ZaLHNciPdbTlP0f0 P9Cs1BW7I1MK69KZ26lDU vm4C6eON5J7Vc WOCzxsvqnvqdeVG1VMNtM OWbpO89Pj0wrHteVn6oFN PjAXD0GLGysQWtX1EwpL4 yOiAjMDAwMDAw X4SkhCPgZXujT869DYnqF uP0HPPnbsCpG2RgNOQevV bgTmW3d5K6Vv4MFSv7QW8 0ZT72aJEut1D8 cAX2M2LpWJRcaniwlgrpb WH5UMShOJMarU72Vl4ufL giZd5oUZImVEZ9GKTshAM cW5KiiW6mDvWl YTKdDPFxG2NcfNXmERvsN 134BUbaZhU7XVZoewSwT9 FuCZIvdIkvAtK9c0N6Zg6 TXVBuSA40PPP2 eFP1UH83MJ70U4BiFsdni GFibGU+PHRhYmxlIHdpZH RoPScxMDAlJyBzdHlsZT0 uXg5rAMOxKYSh lPiuzCDnCgVzn6swBVWjU EfuJM8rkVxpA9BrsMI8QQ Irs5j3Hf29C28tQ3CjcVL +TIRjtJE6sJG0 gY6wHdPnBgU4BZkuU583T iKthTZqKqqen9pmw5lvpQ y3ByN3IWEnxfJvlVhyOPQ 4e9FwGt48W74y IHdpZHRoPSIxNSUiIHZhb Jemun6kvW0fQe4+PGNvbC Y4nSB1nZ5lBuZaWxO1VWp yH761SsLxjVEb Drjxt1upb7mtpWf2KgJmS KEgwmYevEfyXCV0a8NrUr 59N4BhyRbma7FiOry0pe7 5aXUqi9E8cIF9 I8HbLGHlllhioPFtvSjfB R9cHZOgsqslPNHkvE0hKX ErM6x8FeVvRfL6QMzhA5S umfZ6GRUxuSVf BDhgSRT7L12bv8G6EYDtC QTkMRM3gYT3cK9cyPonkv ogbGVmdDsgdmVydGljYWw eUCmuO825DQAu yDfoSKPfuW3qNITzlFRxl XbgYM1yQEHojyayBw1SDX xTLCBEQVNIQVkgTUFSSUU 8Q8DgZoa9VOCn hLfxEN2xqGWaFGaePe1wx KuxuSenKC0gDXYjoxyeAT YyjN6sXFPeuQSyaIvtLV7 kVZEkbmkvf293 ZtTmHND8WSBozSLnQ1Tid T7qBoVwZAXyHKIeA5XruS WqBWcwU371CQkyYeC6TPV chmInZ9NtJLVn eNiyGjY6c5H9Ab5nNL8uJ T2pSKk5NR42NE95dDTnt8 S0gWO5H0YkJNCvdcqcaoa drJX1JALeVFGp fB65jZYrBUliGw8vp1M3z 879RDBuQJZktO59Dn8njZ irUNXykEIEtJ8iwlfhz9b vcjogIzAwMDAw TAw4REi6PCBpzHmoKuIfT LB6VzD6EPX5hHCzuP3zgU zpmumaxM1vXbg+MjcgWWV tjcT4Z2TxYjk9 VBKobEjcTN8iiGVfFNrzG s1mrPyieBbiHF0vZLZwmg ilCTOsbB4fNTWvbOXmfXx yVU1aVABucqch i578LmMySLX3RJTjrIXwF 1NyvX5bEqVeSEKyXCMbQ8 NjqIChUHtjX206VDutYjB 0RMSvlaPyG3Yp MUYtsHvePsU9g8P9Fg0GR G6QVXZ6R4ZdRbj4ZEJerS nmBI2ugNHvOWszEs7xxNk pyEoqVY6rAYQm zrinQPRwqU3yQCZmwRUzx SgdJE5jVPAfzrbgb717Dv JqMKS9WSVhfAVhR8DxiP6 yOiAjMDAwMDAw N4IwaXHvXYgsA487QDzgA uE6THHmtxVuJ6MvZAHcnT nbPfH7u4R9Lq8QcCYfI6Y yI4e5X3CdGhkq dHI+JK49JBRbED21fOScw VFsd8eyuNm0RiFmSGHeJF L2yTrlPDney4HxHGNtG12 wzRWix8F7MQJf fLiwlUBuQfSiqGK9aE9lA Cdgudosx2krotpwUngtw8 jkhh31sI37Z04kVYjuDFY oPSIzMCUiIHZh aRkcur3rqQ7sEm2+PGNvb VI7fHH8fX5iGaDxXtQ5TH qsS274VzKuiNLhWqxge8u xs0eerMo4QpAk ECTidpIqyNdwROD8c7YwW f16H55iQKheLJKkVQGcQS McFWXfmIylgs2bdG5fCh9 +JG4ll0witu53 lH00eMY+LJRoJSR4iMzdE DzgOIPisE8aFBobSiU2RU OwRoGgcJ67gCUaDOwwOj2 viLrnvHxnXI2g OMWofrors830BhVgg1umY FNlhXCuBPhiRVB0P35ip6 D5TAJnEOQfDQM8gHB8zK8 hbGlnbjogbGVm dDsgdmVydGljYWwtYWxpZ 813MHUocOodByMhzYOaP1 aqxwWCXF0dIzyzsQP+PHR mKDN9mDgaPYoj ZLIetG0gNLShE0p4XrKcX qV4ZIhqJ7EqzaP1MKNlbJ SoDDSgmTQPgM8iliajm1m vcjogIzAwMDAw IBk9XRq5GBDvzMezPyXuA JC4DgI7ZHV8tCKttQ5rdO rxrpmpfP2wGmf+RklOOjw vdGQ+PHRkIHN0 yYfhSIdfHOJgtR9aJRIiS 7i7EuPpHzQ8IEvdU2Amxw U5GBOhiFCzKQGpkNRLoU9 vuevkc4evlcfs KmVbXMUuALa3IRm6GVDtc HgqWoNvGTY5CbG5TVS9gR JibD9ljJrglnippK8yHrz +TVJOOjwvdGQ+ HGKnTUU3gUknBMlpBMXxp T8wXAUyA7z9CxXjOdN0DN weV2CoduF3HJVsyYQpEAV tqGGHvC7nourl a2usddfcAmPpJRTyWVd7D Oo0AYZpvIkbSqAlVKI0Rv L6THT8qZSqrU6gmQgaahk poF3cFfc+UGF5 UZB5AJ26CV72J6OxBvxiy GFibGU+PHRhYmxlIHdpZH RoPScxMDAlJyBzdHlsZT0 bIm0iJHKfJLNp bGx (more content not included)... [facility] ED Clinical Summaryon 2020 ED Clinical Summary [facility] - [facility] Department [address] [place] [id number] ED Clinical Summary PERSON INFORMATION Name: CARLOS ROCHA Age: 25 Years Sex: FEMALE : 1995 MRN: Acct#: Visit Reason: Skin rash; RASH Arrival: 02/22/2021 08:23:33 Discharge: 02/22/2021 09:27:00 LOS: 000 01:04 Check In: 02/22/2021 08:23:33 Checkout:02/22/2021 09:27:00 Address: [address] [facility] [address] PCP: ZOLTAN COLE MD PROVIDER INFORMATION Provider Role Assigned Unassigned [...] No Known Medication Allergies PHYSICIAN DOCUMENTATION Patient: CARLOS ROCHA Age: 25 years Sex: FEMALE : [...] lymphadenopathy. Reexamin (more content not included)... [facility] ED Note - Physicianon 2020 ED Note - Physician Patient: CARLOS ROCHA Age: 25 years Sex: FEMALE : [...] 1/2 pack per week - 02/22/2021 08:38 Suzie Gonzalez RN, Cherri Electronic Cigarette/Vaping 02/22/2021 Electronic Cigarette Use: Use, [...] be adequate. Encouraged also you to use fkzx-tlb-yvhhnuu hydrocortisone and/or Benadryl cream. Patient encouraged to return for any worsening or changes or persistence to symptoms. Impression and Plan Diagnosis Contact dermatitis ([id number] L25.9, Discharge, Medical) Plan Condition: Stable. Disposition: Discharged: Time 02/22/2021 09:03:00, to home. Prescriptions: Launch prescriptions Pharmacy: [facility] 4 mg oral tablet (Prescribe): 1 packet(s), PO, Once, as directed on package labeling, 21 tab(s), 0 Refill(s). Patient was given the following educational materials: Contact Dermatitis, Contact Dermatitis. Follow up with: ZOLTAN COLE Within 3 to 5 days Call for follow up appointment Return if symptoms worsen. Counseled: Patient, Regarding diagnosi (more content not included)... [facility] ED Note-Nursingon 02-22-2021 ED Note-Nursing Ambulates [...] ear and outer ear. Awaiting exam. [facility] ED Patient Summaryon 021 ED Patient Summary [facility] [address] [place] [address] PATIENT DISCHARGE INSTRUCTIONS Patient Information Name: CARLOS ROCHA Age: 25 Years Date of : 1995 Reason For Visit: Skin rash; RASH Arrival Time: 02/22/2021 08:23:33 Primary Care Physician: PARAMJIT HSU, ZOLTAN Cooley Attending Physician: Oscar Haley DO Comment: Visit Diagnosis: Diagnoses This Visit Contact dermatitis (L25.9) Skin rash ([id number]) Prescription Information: If you have been given a prescription for narcotics, seek immediate medical attention if you have any difficulty breathing or any sudden status changes such as confusion and sleepiness. If you or anyone you know is experiencing suicidal thoughts, mental health, alcohol and/or drug addiction problems; contact the [facility] 08/02 Crisis Hotline -Text 4HPFK ez 728747. If you received any narcotics, sedation, or [...] any legal documents With: Address: When: ZOLTAN COLE [address] [place], [place] [address] Business (1) Within 3 to 5 days Comments: Call for follow up appointment Return if symptoms worsen Medication Information: The exam and treatment you received today in the [facility] were for an urgent problem and are not intended as complete care. It is important for you to follow up with a doctor, nurse practitioner, or physician?s assistant clinical director for ongoing care. If your symptoms become [...] so we can reach you if necessary. [facility] has provided you with a complete list of medications post discharge. Please inform your taping foreman/provider of your visit and for further instruction [...] may devel (more content not included)... [facility] CBC AUTO DIFFon 10-09-2019 Basophils (Bld) [#/Vol] 0.1 103/ul Normal 0.0-0.1 [facility] Comment on above: Performed By: #### C BC #### [facility] [address] [place] [address] Ana Paula Emily Basophils/100 WBC (Bld) 0.9 % Normal 0.2-2.0 [facility] Comment on above: Performed By: #### C BC #### [facility] [address] [place], [place] [address] Ana Paula Emily Eosinophils (Bld) [#/Vol] 0.1 103/ul Normal 0.0-0.7 [facility] Comment on above: Performed By: #### C BC #### [facility] [address] [place] [address] Ana Paula Emily Eosinophils/100 WBC (Bld) 1.4 % Normal 0.9-7.0 [facility] Comment on above: Performed By: #### C BC #### [facility] [address] [place] [address] Ana Paula Emily Erythrocyte distribution width (RBC) [Ratio] 12.7 % Normal 11.0-15.0 [facility] Comment on above: Performed By: #### C BC #### [facility] [address] [place] [address] Ana Paula Emily Hematocrit (Bld) [Volume fraction] 31.4 % Critically low 36.0-48.0 [facility] Comment on above: Performed By: #### C BC #### [facility] [address] [place] [address] Ana Paula Emily Hemoglobin (Bld) [Mass/Vol] 10.1 g/dL Critically low 12.0-16.0 [facility] Comment on above: Performed By: #### C BC #### [facility] [address] [place] [address] Ana Paula Emily IG # 0.05 10e3/ul Critically high 0.00-0.03 [facility] Comment on above: Performed By: #### C BC #### [facility] [address] [place] [address] Ana Paula Emily IG % 0.5 % Normal 0.0-0.5 [facility] Comment on above: Performed By: #### C BC #### [facility] [address] [place] [address] Ana Paula Emily Lymphocytes (Bld) [#/Vol] 2.1 103/ul Normal 1.2-3.8 [facility] Comment on above: Performed By: #### C BC #### [facility] [address] [place] [address] Ana Paula Emily Lymphocytes/100 WBC (Bld) 22.6 % Normal 20.5-60.0 [facility] Comment on above: Performed By: #### C BC #### [facility] [address] [place], [place] [id number] Ana Paula Diaz MANUAL DIFF REQ NO Normal [facility] Comment on above: Performed By: #### C BC #### [facility] [address] [place], [place] [id number] Ana Paula Emily MCH (RBC) [Entitic mass] 29.4 pg Normal 26.7-34.0 [facility] Comment on above: Performed By: #### C BC #### [facility] [address] [place], [place] [id number] Ana Paulaterry Diaz MCHC (RBC) [Mass/Vol] 32.2 g/dL Normal 29.9-35.2 [facility] Comment on above: Performed By: #### C BC #### [facility] [address] [place] [address] Ana Paula Emily MCV (RBC) [Entitic vol] 91.3 fL Normal 81.0-99.0 [facility] Comment on above: Performed By: #### C BC #### [facility] [address] [place], [place] [id number] Ana Paula Emily Monocytes (Bld) [#/Vol] 0.8 103/ul Normal 0.3-0.8 [facility] Comment on above: Performed By: #### C BC #### [facility] [address] [place], [place] [id number] Ana Paula Emily Monocytes/100 WBC (Bld) 8.4 % Normal 1.7-12.0 [facility] Comment on above: Performed By: #### C BC #### [facility] [address] [place], [place] [id number] Ana Paula Emily Neutrophils (Bld) [#/Vol] 6.1 103/ul Normal 1.4-6.5 [facility] Comment on above: Performed By: #### C BC #### [facility] [address] [place], [place] [id number] Ana Paula Emily Neutrophils/100 WBC (Bld) 66.2 % Normal 43.0-75.0 [facility] Comment on above: Performed By: #### C BC #### [facility] [address] [place], [place] [id number] Ana Paula Emily Platelet mean volume (Bld) [Entitic vol] 10.8 fL Normal 9.5-13.5 [facility] Comment on above: Performed By: #### C BC #### [facility] [address] [place], [place] [id number] Ana Paula Emily Platelets (Bld) [#/Vol] 167 103/ul Normal 150-450 [facility] Comment on above: Performed By: #### C BC #### [facility] [address] [place], [place] [id number] Ana Paula Emily RBC (Bld) [#/Vol] 3.44 106/ul Critically low 4.20-5.40 [facility] Comment on above: Performed By: #### C BC #### [facility] [address] [place], [place] [id number] Ana Paula Emily WBC (Bld) [#/Vol] 9.2 103/ul Normal 4.0-11.0 [facility] Comment on above: Performed By: #### C BC #### [facility] [address] [place], [place] [id number] Ana Paula Emily CBC AUTO DIFFon 10-08-2019 Basophils (Bld) [#/Vol] 0.1 103/ul Normal 0.0-0.1 [facility] Comment on above: Performed By: #### C BC #### [facility] [address] [place], [place] [id number] Ana Paula Emily Basophils/100 WBC (Bld) 0.7 % Normal 0.2-2.0 [facility] Comment on above: Performed By: #### C BC #### [facility] [address] [place], [place] [id number] Ana Paula Emily Eosinophils (Bld) [#/Vol] 0.1 103/ul Normal 0.0-0.7 [facility] Comment on above: Performed By: #### C BC #### [facility] [address] [id number] Ana Paula Emily Eosinophils/100 WBC (Bld) 1.3 % Normal 0.9-7.0 [facility] Comment on above: Performed By: #### C BC #### [facility] [address] [id number] Ana Paula Emily Erythrocyte distribution width (RBC) [Ratio] 12.5 % Normal 11.0-15.0 [facility] Comment on above: Performed By: #### C BC #### [facility] [address] [place] [address] Ana Paula Emily Hematocrit (Bld) [Volume fraction] 34.8 % Critically low 36.0-48.0 [facility] Comment on above: Performed By: #### C BC #### [facility] [address] [place] [address] Ana Paula Emily Hemoglobin (Bld) [Mass/Vol] 11.2 g/dL Critically low 12.0-16.0 [facility] Comment on above: Performed By: #### C BC #### [facility] [address] [place], [place] [id number] Ana Paula Emily IG # 0.06 10e3/ul Critically high 0.00-0.03 [facility] Comment on above: Performed By: #### C BC #### [facility] [address] [place], [place] [id number] Ana Paula Emily IG % 0.7 % Critically high 0.0-0.5 [facility] Comment on above: Performed By: #### C BC #### [facility] [address] [place], [place] [id number] Ana Paula Emily Lymphocytes (Bld) [#/Vol] 2.0 103/ul Normal 1.2-3.8 [facility] Comment on above: Performed By: #### C BC #### [facility] [address] [place], [place] [id number] Ana Paula Emily Lymphocytes/100 WBC (Bld) 23.6 % Normal 20.5-60.0 [facility] Comment on above: Performed By: #### C BC #### [facility] [address] [place], [place] [address] Ana Paula Emily MANUAL DIFF REQ NO Normal [facility] Comment on above: Performed By: #### C BC #### [facility] [address] [place], [place] [address] Ana Paula Emily MCH (RBC) [Entitic mass] 28.7 pg Normal 26.7-34.0 [facility] Comment on above: Performed By: #### C BC #### [facility] [address] [place], [place] [id number] Ana Paula Emily MCHC (RBC) [Mass/Vol] 32.2 g/dL Normal 29.9-35.2 [facility] Comment on above: Performed By: #### C BC #### [facility] [address] [place], [place] [address] Ana Paula Emily MCV (RBC) [Entitic vol] 89.2 fL Normal 81.0-99.0 [facility] Comment on above: Performed By: #### C BC #### [facility] [address] [place] [address] Ana Paula Emily Monocytes (Bld) [#/Vol] 0.8 103/ul Normal 0.3-0.8 [facility] Comment on above: Performed By: #### C BC #### [facility] [address] [place] [address] Ana Paula Emily Monocytes/100 WBC (Bld) 8.7 % Normal 1.7-12.0 [facility] Comment on above: Performed By: #### C BC #### [facility] [address] [place] [address] Ana Paula Emily Neutrophils (Bld) [#/Vol] 5.6 103/ul Normal 1.4-6.5 [facility] Comment on above: Performed By: #### C BC #### [facility] [address] [place], [place] [address] Ana Paula Emily Neutrophils/100 WBC (Bld) 65.0 % Normal 43.0-75.0 [facility] Comment on above: Performed By: #### C BC #### [facility] [address] [place], [place] [phone] Ana Paula Emily Platelet mean volume (Bld) [Entitic vol] 10.9 fL Normal 9.5-13.5 [facility] Comment on above: Performed By: #### C BC #### [facility] [address] [id number] Ana Paula Emily Platelets (Bld) [#/Vol] 217 103/ul Normal 150-450 [facility] Comment on above: Performed By: #### C BC #### [facility] [address] [place] [address] Ana Paula Emily RBC (Bld) [#/Vol] 3.90 106/ul Critically low 4.20-5.40 [facility] Comment on above: Performed By: #### C BC #### [facility] [address] [place] [address] Ana Paula Emily WBC (Bld) [#/Vol] 8.7 103/ul Normal 4.0-11.0 [facility] Comment on above: Performed By: #### C BC #### [facility] [address] [place], [place] [phone] Ana Paula Emily DRUG SCREEN RAPID (URINE)on 10-08-2019 AMP Negative Normal NEGATIVE [facility] Comment on above: Performed By: #### C BC #### [facility] [address] [place] [address] Ana Paula Emily BAR Negative Normal NEGATIVE [facility] Comment on above: Performed By: #### C BC #### [facility] [address] [place] [address] Ana Paula Emily BUP Negative Normal NEGATIVE [facility] Comment on above: Performed By: #### C BC #### [facility] [address] [place] [address] Ana Paula Emily BZO Negative Normal NEGATIVE [facility] Comment on above: Performed By: #### C BC #### [facility] [address] [place] [address] Ana Paula Emily KAY Negative Normal NEGATIVE [facility] Comment on above: Performed By: #### C BC #### [facility] [address] [address] Ana Paula Emily CUT-OFFS SEE BELOW Normal [facility] Comment on above: Result Comment: AMP (Amphetamine): [...] ng/mL Performed By: #### C BC #### [facility] [address] [place] [address] DRUG CUT HEADER DRUG CLASS TEST SYSTEM CUT-OFF CONCENTRATIONS ARE FOLLOWS: Normal [facility] Comment on above: Performed By: #### C BC #### [facility] [address] [place] [address] Ana Paula Emily mAMP Negative Normal NEGATIVE [facility] Comment on above: Performed By: #### C BC #### [facility] [address] [address] Ana Paula Emily MTD Negative Normal NEGATIVE [facility] Comment on above: Performed By: #### C BC #### [facility] [address] [address] Ana Paula Emily OPI Negative Normal NEGATIVE [facility] Comment on above: Performed By: #### C BC #### [facility] [address] [place] [address] Ana Paula Emily OXY Negative Normal NEGATIVE [facility] Comment on above: Performed By: #### C BC #### [facility] [address] [address] Ana Paula Emily PCP Negative Normal NEGATIVE [facility] Comment on above: Performed By: #### C BC #### [facility] [address] [place] [address] Ana Paula Emily PPX Negative Normal NEGATIVE [facility] Comment on above: Performed By: #### C BC #### [facility] [address] [place] [address] Ana Paula Emily TCA Negative Normal NEGATIVE [facility] Comment on above: Performed By: #### C BC #### [facility] [address] [place] [address] Ana Paula Emily THC Negative Normal NEGATIVE [facility] Comment on above: Performed By: #### C BC #### [facility] [address] [place] [address] Ana Paula Emily TYPE AND SCREENon 10-08-2019 TYPE AND SCREEN Negative Normal [facility] Comment on above: Performed By: #### C BC #### [facility] [address] [place] [address] Ana Paula Emily UA (CLEAN/CATCH) GLASS FRAME FITTER/MICRO I F IND.on 10-08-2019 Bilirubin [Mass/Vol] Negative Normal NEGATIVE [facility] Comment on above: Performed By: #### C BC #### [facility] [address] [place] [address] Ana Paula Emily BLOOD Negative Normal NEGATIVE [facility] Comment on above: Performed By: #### C BC #### [facility] [address] [place] [address] Ana Paula Emily Clarity (U) CLEAR Normal [facility] Comment on above: Performed By: #### C BC #### [facility] [address] [place] [address] Ana Paula Emily Color (U) LT. YELLOW Normal YELLOW [facility] Comment on above: Performed By: #### C BC #### [facility] [address] [place] [address] Ana Paula Emily Glucose [Mass/Vol] Negative Normal NEGATIVE [facility] Comment on above: Performed By: #### C BC #### [facility] [address] [place] [address] Ana Paula Emily Ketones Ql (U) Negative Normal NEGATIVE [facility] Comment on above: Performed By: #### C BC #### [facility] [address] [place], [place] [address] Ana Paulaterry Diaz Nitrite Ql (U) Negative Normal NEGATIVE [facility] Comment on above: Performed By: #### C BC #### [facility] [address] [place], [place] [phone] Ana Paula Diaz pH (Bld) 6.5 Normal 5-9 [facility] Comment on above: Performed By: #### C BC #### [facility] [address] [place] [address] Ana Paula Diaz Protein [Mass/Vol] Negative Normal [facility] Comment on above: Performed By: #### C BC #### [facility] [address] [place] [address] Ana Paula Diaz SPEC GRAVITY 1.025 Normal 1.005-<=1.025 [facility] Comment on above: Performed By: #### C BC #### [facility] [address] [place] [address] Ana Paula Diaz UR MICRO IND NOT INDICATED Normal [facility] Comment on above: Performed By: #### C BC #### [facility] [address] [place] [address] Ana Paula Diaz Urobilinogen Qn (U) 1.0 EU/dl Normal [facility] Comment on above: Performed By: #### C BC #### [facility] [address] [place] [address] Ana Paula Diaz WBC (Bld) [#/Vol] Negative Normal NEGATIVE [facility] Comment on above: Performed By: #### C BC #### [facility] [address] [place] [address] Ana Paula Diaz GROUP B STREP CULTUREon S. agalactiae Ag Ql (Unsp spec) Culture Observations: Negative for Group B Streptococcus Normal [facility] Comment on above: Performed By: #### C BC #### [facility] [address] [place], [place] [phone] Ana Paulaterry Diaz UA (CLEAN/CATCH) GLASS FRAME FITTER/MICRO I F IND.on 09-15-2019 Bilirubin [Mass/Vol] Negative Normal NEGATIVE [facility] Comment on above: Performed By: #### C BC #### [facility] [address] [place] [address] Ana Paula Emily BLOOD Negative Normal NEGATIVE [facility] Comment on above: Performed By: #### C BC #### [facility] [address] [place] [address] Ana Paula Emily Clarity (U) SL CLOUDY Normal [facility] Comment on above: Performed By: #### C BC #### [facility] [address] [place] [address] Ana Paula Emily Color (U) YELLOW Normal YELLOW [facility] Comment on above: Performed By: #### C BC #### [facility] [address] [place] [address] Ana Paula Emily Glucose [Mass/Vol] Negative Normal NEGATIVE [facility] Comment on above: Performed By: #### C BC #### [facility] [address] [place] [address] Ana Paula Emily Ketones Ql (U) TRACE Normal NEGATIVE [facility] Comment on above: Performed By: #### C BC #### [facility] [address] [place] [address] Ana Paula Emily Nitrite Ql (U) Negative Normal NEGATIVE [facility] Comment on above: Performed By: #### C BC #### [facility] [address] [place] [address] Ana Paula Emily pH (Bld) 6.0 Normal 5-9 [facility] Comment on above: Performed By: #### C BC #### [facility] [address] [place] [address] Ana Paula Emily Protein [Mass/Vol] Negative Normal [facility] Comment on above: Performed By: #### C BC #### [facility] [address] [place] [address] Ana Paula Emily SPEC GRAVITY 1.025 Normal 1.005-<=1.025 [facility] Comment on above: Performed By: #### C BC #### [facility] [address] [place] [address] Ana Paula Emily UR MICRO IND NOT INDICATED Normal [facility] Comment on above: Performed By: #### C BC #### [facility] [address] [place] [address] Ana Paulaterry Diaz Urobilinogen Qn (U) 1.0 EU/dl Normal [facility] Comment on above: Performed By: #### C BC #### [facility] [address] [place] [address] Ana Paula Emily WBC (Bld) [#/Vol] Negative Normal NEGATIVE [facility] Comment on above: Performed By: #### C BC #### [facility] [address] [place] [address] Ana Paulaterry Diaz CULTURE URINEon 08-30-2019 CULTURE URINE Culture Observations : No growth Normal [facility] Comment on above: Performed By: #### N BOX #### [facility] [address] [place] [address] Ana Paula Emily UA (CLEAN/CATCH) GLASS FRAME FITTER/MICRO I F IND.on 08-30-2019 Bilirubin [Mass/Vol] Negative Normal NEGATIVE [facility] Comment on above: Performed By: #### N BOX #### [facility] [address] [place] [address] Ana Paula Emily BLOOD Negative Normal NEGATIVE [facility] Comment on above: Performed By: #### N BOX #### [facility] [address] [place] [address] Ana Paula Emily Clarity (U) CLEAR Normal [facility] Comment on above: Performed By: #### N BOX #### [facility] [address] [place] [address] Ana Paula Emily Color (U) LT. YELLOW Normal YELLOW [facility] Comment on above: Performed By: #### N BOX #### [facility] [address] [place] [address] Ana Paula Emily Glucose [Mass/Vol] Negative Normal NEGATIVE [facility] Comment on above: Performed By: #### N BOX #### [facility] [address] [place] [address] Ana Paula Emily Ketones Ql (U) Negative Normal NEGATIVE [facility] Comment on above: Performed By: #### N BOX #### [facility] [address] [place] [address] Ana Paula Emily Nitrite Ql (U) Negative Normal NEGATIVE [facility] Comment on above: Performed By: #### N BOX #### [facility] [address] [place] [address] Ana Paula Emily pH (Bld) 6.5 Normal 5-9 [facility] Comment on above: Performed By: #### N BOX #### [facility] [address] [place] [address] Ana Paula Emily Protein [Mass/Vol] Negative Normal [facility] Comment on above: Performed By: #### N BOX #### [facility] [address] [place] [address] Ana Paula Emily SPEC GRAVITY 1.020 Normal 1.005-<=1.025 [facility] Comment on above: Performed By: #### N BOX #### [facility] [address] [place] [address] Ana Paula Emily UR MICRO IND INDICATED Normal [facility] Comment on above: Performed By: #### N BOX #### [facility] [address] [place] [address] Ana Paula Emily Urobilinogen Qn (U) 1.0 EU/dl Normal [facility] Comment on above: Performed By: #### N BOX #### [facility] [address] [place] [address] Ana Paula Emily WBC (Bld) [#/Vol] TRACE Normal NEGATIVE [facility] Comment on above: Performed By: #### N BOX #### [facility] [address] [place] [address] Ana Paula Emily URINE MICROSCOPIC ONLYon Bacteria LM.HPF (Urine sed) [#/Area] LARGE Normal NONE SEEN [facility] Comment on above: Performed By: #### N BOX #### [facility] [address] [place] [address] Ana Paula Emily CAST NONE SEEN Normal NONE SEEN [facility] Comment on above: Performed By: #### N BOX #### [facility] [address] [place] [address] Ana Paula Emily Crystals LM Nom (Urine sed) NONE SEEN Normal NONE SEEN [facility] Comment on above: Performed By: #### N BOX #### [facility] [address] [place] [address] Ana Paula Emily CULTURE INDICATED Normal [facility] Comment on above: Performed By: #### N BOX #### [facility] [address] [place] [address] Ana Paula Emily Epithelial cells LM.HPF (Urine sed) [#/Area] MODERATE Normal [facility] Comment on above: Performed By: #### N BOX #### [facility] [address] [place] [address] Ana Paula Emily MUCOUS NONE SEEN Normal NONE SEEN [facility] Comment on above: Performed By: #### N BOX #### [facility] [address] [place] [address] Ana Paula Emily RBC (U) [#/Vol] NONE SEEN Normal 0-2 [facility] Comment on above: Performed By: #### N BOX #### [facility] [address] [place] [address] Ana Paula Emily WBC (Bld) [#/Vol] 5-10 Normal NONE SEEN [facility] Comment on above: Performed By: #### N BOX #### [facility] [address] [place] [address] Ana Paula Emily GTT 3 HR PREGon 07-22-2019 Glucose [Mass/Vol] 120 mg/dL Normal [facility] Comment on above: Performed By: #### N BOX #### [facility] [address] [place] [address] Ana Paula Emily Glucose [Mass/Vol] 107 mg/dL Normal [facility] Comment on above: Performed By: #### N BOX #### [facility] [address] [place] [address] Ana Paula Emily Glucose [Mass/Vol] 87 mg/dL Normal 74-106 [facility] Comment on above: Performed By: #### N BOX #### [facility] [address] [place], [place] [address] Ana Paula Diaz Glucose [Mass/Vol] 144 mg/dL Normal [facility] Comment on above: Performed By: #### N BOX #### [facility] [address] [place], [place] [address] Ana Paula Diaz US PREG ANATOMY SINGLEon US PREG ANATOMY SINGLE Patient: CARLOS ROCHA Exam Date: 05/30/2019 : 1995 Gender:F Ordering : DR TESSA PEREZ . Admission #: [id number] Family : Order #: [id number] CLICK HERE TO VIEW EXAM RADIOLOGY REPORT [...] Rei Calles M.D. on 05/30/2019 at 13:14 [facility] PAP ACOG PANEL 2: 21 to 29on 05-08-2019 Age Gdln ACOG Testing Normal [facility] Comment on above: Performed By: #### N BOX #### [facility] [address] [address] Ana Paula Diaz COMMENT Comment [facility] Comment on above: Result Comment: Z01. [id number] Z11.51 Performed By: #### N BOX #### [facility] [address] [address] Ana Paula Diaz DIAGNOSIS: Comment Normal [facility] Comment on above: Result Comment: NEGA TIVE FOR INTRAEPITHELIAL LESION OR MALIGNANCY. Performed By: #### N BOX #### [facility] [address] [id number] Ana Paula Diaz Methodology: Comment [facility] Comment on above: Result Comment: This liquid based SurePath(R) pap test was screened with the assistance of an image guided system. Performed By: #### N BOX #### [facility] [address] [id number] Ana Paula Diaz Note: Comment Normal [facility] Comment on above: Result Comment: The Pap smear is a screening test designed to aid in the detection of premalignant and malignant conditions of the uterine cervix. It is not a diagnostic procedure and should not be used as the sole means of detecting cervical cancer. Both false-positive and false-negative reports do occur. . Performed By: #### N BOX #### [facility] [address] [address] Ana Paula Diaz Performed by: Comment Normal [facility] Comment on above: Result Comment: Enoc Mariee, Inspector Balance Truing (ASCP) Performed By: #### N BOX #### [facility] [address] [id number] Ana Paula Emily Reflex Criteria: Comment Normal [facility] Comment on above: Result Comment: The HPV DNA reflex criteria were not met with this specimen result therefore, no HPV testing was performed. . Performed By: #### N BOX #### [facility] [address] [place] [address] Ana Paula Emily Specimen adequacy: Comment Normal [facility] Comment on above: Result Comment: Sati sfactory for evaluation. Endocervical and/or squamous metaplastic cells (endocervical component) are present. Performed By: #### N BOX #### [facility] [address] [place], [place] [id number] Ana Paula Emily . . Normal [facility] Comment on above: Performed By: #### N BOX #### [facility] [address] [place] [address] Ana Paula Emily CHLAMYDIA/GONOCOCCUS MICHAEL (SW AB/URINE/PAPon 05-05-2019 Chlamydia trachomatis, MICHAEL Negative Normal Negative [facility] Comment on above: Performed By: #### N BOX #### [facility] [address] [place] [address] Ana Paula Emily Neisseria gonorrhoeae, MICHAEL Negative Normal Negative [facility] Comment on above: Performed By: #### N BOX #### [facility] [address] [place], [place] [address] Ana Paula Emily VAGINITIS/VAGINOSIS DNA PROB Julito 05-05-2019 Samantha species Negative Normal Negative [facility] Comment on above: Performed By: #### N BOX #### [facility] [address] [place] [address] Ana Paula Emily Gardnerella vaginalis Negative Normal Negative [facility] Comment on above: Performed By: #### N BOX #### [facility] [address] [place] [address] Ana Paula Emily Trichomonas vaginalis Negative Normal Negative [facility] Comment on above: Performed By: #### N BOX #### [facility] [address] [place], [place] [address] Ana Paulaterry Diaz HEP B SURFACE ANTIGEN SCREEN on 03-28-2019 HBsAg Screen Negative Normal Negative [facility] Comment on above: Performed By: #### H BSANS #### [facility] [address] [place] [address] Ana Paula Diaz HEPATITIS C VIRUS AB W/ REFL EX QUANTon 03-28-2019 HCV AB <0.1 Normal 0.0-0.9 [facility] Comment on above: Performed By: #### H CVPCRR #### [facility] [address] [place] [address] Ana Paula Diaz Interpretation: Comment Normal [facility] Comment on above: Result Comment: Nega tive Not infected with HCV, unless recent infection is suspected or other evidence exists to indicate HCV infection. Performed By: #### H CVPCRR #### [facility] [address] [place] [address] Ana Paula Diaz HIV 1 AND 2 WITH REFLEXon HIV Screen 4th Generation wRfx Non Reactive Normal Non Reactive [facility] Comment on above: Performed By: #### H IV12 #### [facility] [address] [place] [address] Ana Paula Diaz RPR QUANTon 03-28-2019 Rapid Plasma Reagin, Quant Non Reactive Normal NonRea<1:1 [facility] Comment on above: Performed By: #### R PRQ #### [facility] [address] [place] [address] Ana Paula Diaz RUBELLA AB IGGon 03-28-2019 Rubella Antibodies, IgG 3.01 index Normal Immune >0.99 [facility] Comment on above: Result Comment: Non- immune <0.90 Equivocal 0.90 - 0.99 Immune >0.99 Performed By: #### N BOX #### [facility] [address] [place] [address] Ana Paula Diaz CBC AUTO DIFFon 03-27-2019 Basophils (Bld) [#/Vol] 0.1 103/ul Normal 0.0-0.1 [facility] Comment on above: Performed By: #### C BC #### [facility] [address] [place] [address] Ana Paula Emily Basophils/100 WBC (Bld) 0.9 % Normal 0.2-2.0 [facility] Comment on above: Performed By: #### C BC #### [facility] [address] [place], [place] [id number] Ana Paula Emily Eosinophils (Bld) [#/Vol] 0.4 103/ul Normal 0.0-0.7 [facility] Comment on above: Performed By: #### C BC #### [facility] [address] [place] [address] Ana Paula Emily Eosinophils/100 WBC (Bld) 5.8 % Normal 0.9-7.0 [facility] Comment on above: Performed By: #### C BC #### [facility] [address] [place] [address] Ana Paula Emily Erythrocyte distribution width (RBC) [Ratio] 12.2 % Normal 11.0-15.0 [facility] Comment on above: Performed By: #### C BC #### [facility] [address] [place] [address] Ana Paula Emily Hematocrit (Bld) [Volume fraction] 35.9 % Critically low 36.0-48.0 [facility] Comment on above: Performed By: #### C BC #### [facility] [address] [place], [place] [id number] Ana Paula Emily Hemoglobin (Bld) [Mass/Vol] 12.5 g/dL Normal 12.0-16.0 [facility] Comment on above: Performed By: #### C BC #### [facility] [address] [place] [address] Ana Paula Emily IG # 0.02 10e3/ul Normal 0.00-0.03 [facility] Comment on above: Performed By: #### C BC #### [facility] [address] [place], [place] [id number] Ana Paula Emily IG % 0.3 % Normal 0.0-0.5 [facility] Comment on above: Performed By: #### C BC #### [facility] [address] [place], [place] [id number] Ana Paula Emily Lymphocytes (Bld) [#/Vol] 1.5 103/ul Normal 1.2-3.8 [facility] Comment on above: Performed By: #### C BC #### [facility] [address] [place], [place] [id number] Ana Paula Emily Lymphocytes/100 WBC (Bld) 21.6 % Normal 20.5-60.0 [facility] Comment on above: Performed By: #### C BC #### [facility] [address] [place], [place] [id number] Ana Paulaterry Diaz MANUAL DIFF REQ NO Normal [facility] Comment on above: Performed By: #### C BC #### [facility] [address] [place], [place] [id number] Ana Paulaterry Olsonen MCH (RBC) [Entitic mass] 31.2 pg Normal 26.7-34.0 [facility] Comment on above: Performed By: #### C BC #### [facility] [address] [place], [place] [id number] Ana Paulaterry Olsonen MCHC (RBC) [Mass/Vol] 34.8 g/dL Normal 29.9-35.2 [facility] Comment on above: Performed By: #### C BC #### [facility] [address] [place], [place] [id number] Ana Paulaterry Diaz MCV (RBC) [Entitic vol] 89.5 fL Normal 81.0-99.0 [facility] Comment on above: Performed By: #### C BC #### [facility] [address] [place], [place] [id number] Ana Paula Emily Monocytes (Bld) [#/Vol] 0.5 103/ul Normal 0.3-0.8 [facility] Comment on above: Performed By: #### C BC #### [facility] [address] [place], [place] [address] Ana Paula Emily Monocytes/100 WBC (Bld) 7.5 % Normal 1.7-12.0 [facility] Comment on above: Performed By: #### C BC #### [facility] [address] [place], [place] [id number] Ana Paula Emily Neutrophils (Bld) [#/Vol] 4.5 103/ul Normal 1.4-6.5 [facility] Comment on above: Performed By: #### C BC #### [facility] [address] [id number] Ana Paula Diaz Neutrophils/100 WBC (Bld) 63.9 % Normal 43.0-75.0 [facility] Comment on above: Performed By: #### C BC #### [facility] [address] [place], [place] [id number] Ana Paulaterry Diaz Platelet mean volume (Bld) [Entitic vol] 9.6 fL Normal 9.5-13.5 [facility] Comment on above: Performed By: #### C BC #### [facility] [address] [place], [place] [address] Ana Paulaterry Diaz Platelets (Bld) [#/Vol] 231 103/ul Normal 150-450 [facility] Comment on above: Performed By: #### C BC #### [facility] [address] [place], [place] [address] Ana Paula Diaz RBC (Bld) [#/Vol] 4.01 106/ul Critically low 4.20-5.40 [facility] Comment on above: Performed By: #### C BC #### [facility] [address] [place], [place] [address] Ana Paulaterry Diaz WBC (Bld) [#/Vol] 7.0 103/ul Normal 4.0-11.0 [facility] Comment on above: Performed By: #### C BC #### [facility] [address] [place], [place] [id number] Ana Paula Emily CULTURE URINEon 03-27-2019 CULTURE URINE Culture Observations : Heavy growth of mixed genital leann.No potential pathogens seen. Normal [facility] Comment on above: Performed By: #### N BOX #### [facility] [address] [place], [place] [id number] Ana Paulaterry Diaz GLYCOHEMOGLOBIN A1Con 2018 Glucose [Mass/Vol] 105 mg/dL Normal [facility] Comment on above: Performed By: #### A 1C #### [facility] [address] [place] [address] Ana Paula Emily HbA1c (Bld) [Mass fraction] 5.3 % Normal <=6.0 [facility] Comment on above: Performed By: #### A 1C #### [facility] [address] [place] [address] Ana Paula Emily POLY BOX TEST PT SEND OUTo n 03-27-2019 SENT TO REF LAB 03/27/19 Normal [facility] Comment on above: Performed By: #### N BOX #### [facility] [address] [place] [address] Ana Paula Emily TYPE AND SCREENon 03-27-2019 TYPE AND SCREEN Negative Normal [facility] Comment on above: Performed By: #### T NS #### [facility] [address] [place] [address] Ana Paula Emily UA RANDOM W/MICROSCOPICon Bacteria LM.HPF (Urine sed) [#/Area] TRACE Normal NONE SEEN [facility] Comment on above: Performed By: #### U AMIC #### [facility] [address] [place] [address] Ana Paula Emily Bilirubin [Mass/Vol] Negative Normal NEGATIVE [facility] Comment on above: Performed By: #### U AMIC #### [facility] [address] [place] [address] Ana Paula Emily BLOOD Negative Normal NEGATIVE [facility] Comment on above: Performed By: #### U AMIC #### [facility] [address] [place] [address] Ana Paula Emily CAST NONE SEEN Normal NONE SEEN [facility] Comment on above: Performed By: #### U AMIC #### [facility] [address] [place] [address] Ana Paula Emily Clarity (U) CLEAR Normal [facility] Comment on above: Performed By: #### U AMIC #### [facility] [address] [place] [address] Ana Paula Emily Color (U) LT. YELLOW Normal YELLOW [facility] Comment on above: Performed By: #### U AMIC #### [facility] [address] [id number] Ana Paula Emily Crystals LM Nom (Urine sed) NONE SEEN Normal NONE SEEN [facility] Comment on above: Performed By: #### U AMIC #### [facility] [address] [id number] Ana Paula Emily Epithelial cells LM.HPF (Urine sed) [#/Area] FEW Normal [facility] Comment on above: Performed By: #### U AMIC #### [facility] [address] [address] Ana Paula Emily Glucose [Mass/Vol] Negative Normal NEGATIVE [facility] Comment on above: Performed By: #### U AMIC #### [facility] [address] [address] Ana Paula Emily Ketones Ql (U) Negative Normal NEGATIVE [facility] Comment on above: Performed By: #### U AMIC #### [facility] [address] [id number] Ana Paula Emily MUCOUS TRACE Normal NONE SEEN [facility] Comment on above: Performed By: #### U AMIC #### [facility] [address] [address] Ana Paula Emily Nitrite Ql (U) Negative Normal NEGATIVE [facility] Comment on above: Performed By: #### U AMIC #### [facility] [address] [address] Ana Paula Emily pH (Bld) 6.0 Normal 5-9 [facility] Comment on above: Performed By: #### U AMIC #### [facility] [address] [address] Ana Paula Emily Protein [Mass/Vol] Negative Normal [facility] Comment on above: Performed By: #### U AMIC #### [facility] [address] [id number] Ana Paula Emily RBC (Bld) [#/Vol] NONE SEEN Normal 0-2 [facility] Comment on above: Performed By: #### U AMIC #### [facility] [address] [address] Ana Paula Diaz SPEC GRAVITY 1.025 Normal 1.005-<=1.025 [facility] Comment on above: Performed By: #### U AMIC #### [facility] [address] [place], [place] [address] Ana Paula Diaz Urobilinogen Qn (U) 0.2 EU/dl Normal [facility] Comment on above: Performed By: #### U AMIC #### [facility] [address] [place], [place] [address] Ana Paula Diaz WBC (Bld) [#/Vol] Negative Normal NEGATIVE [facility] Comment on above: Performed By: #### U AMIC #### [facility] [address] [id number] Ana Paula Diaz WBC (Bld) [#/Vol] 0-2 Normal NONE SEEN [facility] Comment on above: Performed By: #### U AMIC #### [facility] [address] [id number] Ana Paula Diaz US PREG TVon 03-08-2019 US PREG TV Patient: CARLOS ROCHA Exam Date: 03/08/2019 : 1995 Gender:F Ordering : DR TESSA PEREZ . Admission #: [id number] Family : Order #: [id number] CLICK HERE TO VIEW EXAM RADIOLOGY REPORT [...] Calles M.D. on 03/08/2019 at 09:42 Normal [facility] Vital Signs Date Time Vital Sign Value Performing Clinician Laura trammell 08-31-2023 10:30-0500 Body mass index (BMI) [Ratio] 29.65 kg/m2 Tessa Ana DO Work Phone: [facility] 08-31-2023 10:30-0500 Body weight 75.93 kg Tessa Ana DO Work Phone: [facility] 08-31-2023 10:30-0500 Diastolic blood pressure 70 mm[Hg] Tessa Ana DO Work Phone: [facility] 08-31-2023 10:30-0500 Systolic blood pressure 114 mm[Hg] Tessa Ana DO Work Phone: [facility] Encounters Encounter Date Encounter Type Care Provider Facility Start: 08-31-2023 End: 08-31-2023 ambulatory TESSA ANA Not Available Start: 08-31-2023 End: 08-31-2023 Office outpatient visit 15 minutes Tessa Ana DO Work Phone: [facility] Comment on above: Third trimester preg julian; Gestational diabetes mellitus (GDM), antepartum, gestational diabetes method of control unspecified; Elevated glucose tolerance test Start: 08-17-2023 End: 08-17-2023 ambulatory MELONY HANDLEY Not Available Start: 06-16-2023 End: 06-16-2023 ambulatory MELONY HANDLEY Not Available Start: 10-13-2019 Patient encounter procedure TESSAGagan MARADIAGAO Facility:[facility] Start: 10-09-2019 Evaluation and manag ement of inpatient TESSA LEONARDO Facility:[facility] Start: 10-08-2019 End: 10-10-2019 Evaluation and management of inpatient PAM TURNER Facility:[facility] Start: 09-19-2019 End: 09-19-2019 Patient encounter procedure TESSA ANA Facility:[facility] Start: 09-15-2019 End: 09-15-2019 Patient encounter procedure TESSA ANA Facility:[facility] Start: 08-30-2019 End: 08-30-2019 Patient encounter procedure TESSA ANA Facility:[facility] Start: 07-22-2019 End: 07-23-2019 Patient encounter procedure TESSA LEONARDO Facility:[facility] Start: 06-27-2019 Patient encounter procedure TESSA FA HIRENO Facility:[facility] Start: 05-30-2019 End: 05-31-2019 Patient encounter procedure TESSAGagan LEONARDO Facility:[facility] Start: 05-03-2019 End: 05-03-2019 Patient encounter procedure TESSA LEONARDO Facility:[facility] Start: 03-27-2019 End: 03-28-2019 Patient encounter procedure TESSA ANA Facility:[facility] Start: 03-08-2019 End: 03-09-2019 Patient encounter procedure TESSA ANA Facility:[facility] Procedures Date Procedure Procedure Detail Performing Clinician Start: 08-31-2023 Urnls dip stick/tabl et rgnt non-auto w/o micrscp Tessa Ana DO Work Phone: Start: 10-08-2019 Extraction of Produc ts of Conception, Low Cervical, Open Approach TESSA ANA Plan of Treatment Date Care Activity Detail Author Start: 09-14-2023 End: 09-14-2023 Patient encounter procedure 09/14/2023 1:40 PM EST Routine [facility] [address] [place] [address] Tessa Perez, DO [address] [place] [address] [facility] Payers Date Payer Category Payer Medicaid [employer] [place] [id number] 2022-Present [address] [address] [place] [address] [id number] 1994 Unknown [id number] [id number] 1994 Unknown [id number] 2.16.840.1.294828.3.579.2.593 1994 Unknown [id number] 2.16.840.1.059895.3.579.2.593 1994 Unknown [id number] 2.16.840.1.465131.3.579.2.593 1994 Unknown [id number] 2.16.840.1.909779.3.579.2.593 1994 Unknown [id number] 2.16.840.1.580517.3.579.2.593 1994 Unknown [id number] 2.16.840.1.929545.3.579.2.593 1994 Unknown [id number] 2.16.840.1.527882.3.579.2.593 1994 Unknown [id number] 2.16.840.1.143054.3.579.2.593 1994 Unknown [id number] 2.16.840.1.355478.3.579.2.593 1994 Unknown [id number] 2.16.840.1.545945.3.579.2.593 1994 Unknown [id number] 2.16.840.1.662171.3.579.2.593 1994 Unknown [id number] 2.16.840.1.108324.3.579.2.1259 1994 Unknown [id number] 2.16.840.1.459198.3.579.2.1259 1994 Unknown [id number] 2.16.840.1.352901.3.579.2.1259 1960 Self-pay 1960 Unknown [id number] 1960 Unknown [id number] Social History Date Type Detail Facility Tobacco smoking stat [facility] Tobacco smoking consumption unknown [facility] Start: 01-31-2023 [facility] Start: 1995 Sex Assigned At Not on file [facility] Gender identity Not on file [facility] Medical Equipment Procedure Code Equipment Code Equipment Origin al Text Equipment Identifier Dates 1 strip by In Vi tro route in the morning. Use in the morning prior to breakfast, 1 hour after each meal for a total of 4times daily.. [id number] Start: 08-31-2023 End: 09-30-2023 1 each by In Vit ro route in the morning. Use to check FSBS four times daily. [id number] Start: 08-31-2023 End: 09-30-2023 History of Present illness Narrative 08-31-2023 Emily Benites, DIRECTOR [facility] - 08/31/2023 10:30 AM EST Note Date & Type Note Facility 08-31-2023 History of Presen t illness Narrative Reason for Appointment: Patient ID: Carlos Rocha is a 28 y.o. female who presents for Routine Visit Patient presents today for Return OB appointment. Current Medications: has a current medication list which includes the following prescription(s): albuterol hfa, alcohol prep pad, d-care glucometer, blood glucose test, lancets ultra thin, adult gummy/dha/fa, and sertraline. Medical History: Active Ambulatory Problems Diagnosis Date Noted Adjustment disorder with anxiety ([facility]) 04/17/2021 Resolved Ambulatory Problems Diagnosis Date Noted No Resolved Ambulatory Problems No Additional Past Medical History No family history on file. Social History Tobacco Use Smoking status: Not on file Smokeless tobacco: Not on file Substance Use Topics Alcohol use: Not on file Drug use: Not on file History reviewed. No pertinent surgical history. No Known Allergies Review of Systems: Review of Systems Constitutional: Negative. HENT: Negative. Eyes: Negative. Respiratory: Negative. Cardiovascular: Negative. Gastrointestinal: Negative. Genitourinary: Negative. Musculoskeletal: Negative. Skin: Negative. Neurological: Negative. All other systems reviewed and are negative. Hematological: Negative. Endocrine: Negative. Allergic/Immunologic: Negative. Objective Physical Exam Constitutional: Appearance: Normal appearance. She is well-developed. Cardiovascular: Rate and Rhythm: Normal rate and regular rhythm. Pulmonary: Effort: Pulmonary effort is normal. Breath sounds: Normal breath sounds. Abdominal: General: Bowel sounds are normal. There is no distension. Palpations: Abdomen is soft. Tenderness: There is no abdominal tenderness. There is no guarding or rebound. Musculoskeletal: General: No swelling. Normal range of motion. Right lower leg: No edema. Left lower leg: No edema. Neurological: Mental Status: She is alert and oriented to person, place, and time. Skin: General: Skin is warm and dry. Psychiatric: Mood and Affect: Mood normal. Behavior: Behavior normal. Vitals and nursing note reviewed. Exam conducted with a ecommerce marketing specialist present. Vitals: Estimated body mass index is 29.65 kg/m as calculated from the following: Height as of 23: 5' 3 . Weight as of this encounter: 167 lb 6.4 oz. BP: 114/70 Patient's last menstrual period was 01/17/2023. Assessment/Plan Encounter Diagnoses Name Primary? Third trimester Gestational diabetes mellitus (GDM), antepartum, gestational diabetes method of control unspecified Elevated glucose tolerance test Patient presents today for a routine obstetrics appointment. Patient is currently 32w2d . Patient states she is doing well but has complaints of being tired due to current . Patient has verbalizes frequent movement. labor precautions was discussed/given and patient was instructed to perform kick counts three times a day. Pt doesn't have time to do 3 hour- diabetic supplies ordered and faxed to pharmacy. Pt to test 4 times a day. Follow Up: Patient is to return to office in 2 week for routine OB appointment. 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 How is this treated? This condition is [...] and dyes. Medicines ? Take or apply [id number] and prescription medicines only as told by [...] and water are not available, use hand inspector and clerk. General instructions ? Avoid the substance that [...] new symptoms. Get (more content not included)... [facility] Note Date & Type Note Facility Evaluation note Diagnosis Third trimester state, incidental Gestational diabetes mellitus (GDM), antepartum, gestational diabetes method of control unspecified Elevated glucose tolerance test Impaired glucose tolerance test documented in this encounter [facility] Summary Purpose Family History No Family History Records FoundNo Family History Records FoundNo Family History Records Found Advance Directives No Advanced Directives Records FoundNo Advanced Directives Records FoundNo Advanced Directives Records Found Reason for Referral Specialty Diagnoses / Procedures Referred By Contac t Referred To Contact Diagnoses Gestational diabetes mellitus (GDM), antepartum, gestational diabetes method of control unspecified Elevated glucose tolerance test Tessa Perez, DO [address] [facility] [address] [place] [address] Referral ID Status Reason Start Date Expiration Date Visits Re quested Visits Authorized [id number] Closed 1 1 Additional Source Comments INFORMATION SOURCE (unrecogn ized section and content) DATE CREATED AUTHOR 10/16/2019 [facility] DATE CREATED AUTHOR AUTHOR'S ORGANIZ ATION 03/06/2021 [facility] DATE CREATED AUTHOR AUTHOR'S ORGANIZ ATION 09/01/2023 [facility] EPIC Reason for Visit (unrecogniz ed section and content) Reason Comments Routine Visit Care Teams (unrecognized sec tion and content) Dry Sander Relationship Specialty Start Date End Date Zoltan Cole MD [address] [place] [address] PCP - External PCP Family Medicine 12/26/22 FOR RECORDS PERTAINING TO PATIENTS WHO ARE [...] BE BASED ON THE PRIMARY CLINICAL RECORDS. [facility] provides no warranty or guarantee of the accuracy or completeness of information in this document.
== END 2023-09-20 17:10 | disposition home or self-care (01) ==
LOC: FBC 17:28
PROVIDERS: Admitting Provider Obstetrics & Gynecology; Visit Provider Obstetrics & Gynecology
DX: O47.9 False labor, unspecified (principal); O26.899 Other specified pregnancy related conditions, unspecified trimester; N89.8 Other specified noninflammatory disorders of vagina; Z3A.00 Weeks of gestation of pregnancy not specified
CPT/HCPCS: 59025; 81001; 84112; 87086; G0378; G0379

== ENCOUNTER 2023-09-28 20:55 | Outpatient (REF) | payer OTHER, SELFPAY ==
--- OUTSIDE RECORDS SUMMARY | 2023-09-28 21:09 | XMS_ITS | CCD ---
Author Name Unknown Address [address] [place] [address] Organization [facility] Care Team Providers Care Quality Compliance Manager Name Role Phone ANA, TESSA Admitting Unavailable [...] Unavailable ANA, TESSA Attending Unavailable ANA, TESSA Admitting Unavailable ANA, TESSA [...] PEREZ Attending Unavailable Zoltan Cole MD Unavailable [phone] MELONY HANDLEY Attending Unavailable TESSA PEREZ Attending Unavailable MELONY HANDLEY Attending Unavailable Medications Current Medications Medication Drug Class(es) Dates Sig (Normalized) Sig (Original) [id number] 200 actuat albuterol 0.09 mg/actuat metered dose [...] Phone: Nitrite, UA Negative Negative - Positive [facility] Work Phone: pH, UA 5.5 5 - 9 [facility] Work Phone: Protein, UA Negative Negative - 2000(20) ++++ mg/dL [facility] Work Phone: Spec Grav, UA 1.020 1 - 1.03 [facility] Work Phone: Urobilinogen, UA 1.0 0.2 - 12 mg/dL [facility] Work Phone: [facility] Work Phone: Coding Summaryon 03-05-2021 Coding Summary HTMLBase 64 LxgxmbvzNTa2gMs+PGhlY WQ+GM0OQMAmS69sxFBrfV 1UA3yCAO3QGXOTUVBAYE0 POV1ayAK3SFkoW3XljdNh VpsmgRJjPH34KIy2FNN4a TgbXUvflW0hdYGkO7h6Xm WaXP37gL71VTsrPKIlBbT 3LjZpbjsgbWFy S7jjBrScmCIaYjn+PHRhY mxlIHdpZHRoPScxMDAlJy CdoKjkOP1qVu5zKDQoIHQ vbGxhcHNlOiBj x4cwXUMwOQdlLU8erQsrM 5PjoSG7BKBwm3s6Vt55gY I+UTVqTES3mYmdINmua98 3JnGfe3pnBLT5 kLQkCAofZSL4T23bl7E6C AUeEIBcCPK0oEE1hW8uxV xmbpeaU5ZezEBeHiM8PXE 5xPTipF9jtTqo tcrwlO4eDxm+R07JNB2QE KWLBP5AXru6C0HyOjqhkK I+VG81FFKkMV45hGMpmTW nj0urxHn2KsUi WMYvFAW0aOqwPHucr6RzA VKtB47fmPNlo4E3RSZwlM kpnJKtEvSvxKD2uO0uRMz jdlxqq3kvbizy Afmur1vecu97zE04C83mH YspMYJcHTJ4ENQySVQbpN udch7nzZ3fRj9+RDoyh7e oc4drwGz0YuKj GNEfpfPleCljZYW5d8UmR l47W7LluAzpq4NlFfd4ul 99sVNcd9K0mYE9PGbaQYX ttC8vSQjsFoF6 FMAeSwOsvI80rZDgIYsxK t3ytFnxwDqqYN1nBJZtmo vpMFXmwX7vWZFblGZecOt wAX8tKIHksntf n606VmJpMGS2QMRliGMxO 6TqyP7eEqVcHYZoPSFzN5 EnnIJxQWmtJ058DSkbMuN 3SZSjtfAmL0Gr PQIxdZsyCtT1d5U8Yr4Oz 9HcvxnuJZP2CMecXAY4Lo J2XnRrKtV2Q9QxVeo3FTJ tkCqxNN2dD6Cq HGMfhiewjodlrBH7YFWqU OWudG66kWDpXMoaMu3iz6 S3s647KZSlSCFasF97Ma3 udDogMTBwdCBU jC0svsijp6bsuuocNaRuX NYdOCs6ZYg2JFItzDvlCk NvECY1CzR1DUP1zHAwaN4 tpOxcpelkrG7h Oyc+R43rxW8zKNL8UQS3o znjDHMbxjOlSZ51XD64O7 RyPjwvdGFibGU+PGRpdiB dgCvwZO4yUyPq a1iax1IsJCkdX0JsDQQkM ZlvKes5GAEdLKH0dAJ6dQ 9kNLFsCFilj0T7kQC0Q8T upiUvjz3am3xf PSHyUTunE86eoJYpz1U1B CMcsLY9PKBuzQxlQsFlqG 93Oyc+XCTyhWiso1QoFvz zg9bav7lgrAr6 XvWtXNHxdaTekKycXFD5z 4NzDm19E06vYBcbRRYiZR BmJNEjOBChoChucw0ceA0 wIi8+PGNvbCB3 lSJ1oA4lTMSbHzC3FPlfQ 187MwExtVLrPybdq1frp6 glvAk9DoRgCWMgfhPoyIh cYXE1i3OmYd02 W41jUIvtQMHbLISkMGKwF ZBcqEofxd4hjB6uHl3+PC 1ff8imyp52mU00vKR+PHR dMHU0dOtaGJhb LTGwkI3oCOkwPkO8ITAwR lTrwI87sEPdCEzaYf1obT oriEwkSN1vSAIionbcz09 6NrAtq6roJKJk vWQaVSbnPEN4J63nf5G6O ACjDANzNUZ3oGU1oD9mfZ lnbjogbGVmdDsgdmVydGl lNOpgETalA307 IHRvcDsnPlBhdGllbnQgT oLkLZx3F6BmYgp3EVNeuG ynQN5dsGEfMPyuEx1yzBm woKtrXE9xGUSc bcewd426GlGox7pfLODyc FKuBByjABF2G84ah5K5VO PeWPIfNPR8zDT1lL1vfNv nbjogbGVmdDsg wzWamUfnKIznMWzpA561K HRvcDsnPkJpcnRoIERhdG U2QY57CI43dTFzg1V7nML 7M7ScAAOspydv iuozpUY4OZQlGZGriO41R s7dsQfpLz1cRERxOXT6XB GqwFWjY5MjfC3nBhIuUDP wSZUoD6OgtRDg YHwnB410ZQonGeM4UYIzw tCmD9NyPRGhgCiqZlS2c3 I0Ag4JY0S1RU68TN37nAO ra0M8zTV8S3Ts MELfjsjdfxxugFO5GIBcL IZbfA63Zl0tcQvpWe5vLL SzTGV7SLJmyEBuQ2ZlnV3 yOiAjMDAwMDAw X9JkcUByCUhxK733NTtkO sM8CRZtqdLyC6TbXKXwjS lpIcJ3h1N9Ln7JTIj0NY1 6FV80dDHyg8S8 uJP1H3EcNXRohrvcqgshz KP1WPGnZGYzjI08Vq7dvP ryWj3tJOUiRVC5KDYneEL oX3ZdbS3fLiYj JKJbRFPlK0DlrAGnLYvvD 959OAjaXjE6PPZuvkErL7 DlYBDlzUdoStI0f3Y9Gj9 DEOOuUL76FVX9 hLI1VB92JV78H2SuAgbhw GFibGU+PHRhYmxlIHdpZH RoPScxMDAlJyBzdHlsZT0 fNc3mOMKbVJTa qTeszWXoYpKfk6gkSCTqP TmkHW5suGewS8MemSM8UD Fbk4k3Lz33W10wN6EalRU +ZAPqvIA3yZB9 kC5xEwYvOsL3OLtkM560E xYgcJUaDahhl8izs2ngrT u3XoL9HZBnjiMudXudFFP 7h9SxBf44F61u IHdpZHRoPSIxNSUiIHZhb Fwltd2tlH1cRn4+PGNvbC D0dLQ5xW1fGjRtXhG2UEj lG649DkCwfXGr Wyqwr2enr0mpoJb5DdBjR MBimxCkfQvvBMV0k3YvZx 51O4TgcMmuk5BhHjh8lk3 3eTJml5C3rLY6 V2WkOPEmghfryCYmmEjaM W9nCKVqtejeTZMmnV8oVZ CrN4b8BrOkPuD3EDhoU0H uzxF0VFVynRWp WQraAZR6Y54ce6Z0MKZsE DTuFBS6iQR4fM4cvXtlac ogbGVmdDsgdmVydGljYWw eHDmrM479YCLg kHmkQBTvxY7uJRKpxBMxe AnfUS5fQRUffnfhSy9USL xTLCBEQVNIQVkgTUFSSUU 4P3PmUau7PACq bKslRW4qeTFgIHbkKa5rt OrhkZijGR4lOVJchavjKS FriN2xLJMqqVJamIrjQL4 mTRTmzozad285 BmHuVGN3FVMoePEuE1Ccz O9oYbInMYHxALGhY7ErwE LkGOjhZ448JWhsIvA2YGB arpJaK1BrZEBi sKxiZrJ9e4M3Rf5zWU4iU D1fSJp3OT41SU94jEFdn4 Y8gHX2S0TtWPFcwgulqxo lzMI0FOWhUZCr tL59gKKiBAruTx5zs3X4j 042EJDzVFMkzP97Ye0eeA oyIQRktQIUfZ8iioari2n vcjogIzAwMDAw JCd4FAs1LFCfcCchOfBuA WC4PcD0JIV5wREytY5pbR nngftkaQ2uXhl+MjcgWWV rrgU5C1SbGii9 CHUksOfvYD7aaARwJScyF f2pkWjeqJxeIK4hYHRsmp rgOXIgvW3bIMZciINnhRd oCX2oDHYlvfjp b625YcAoGAC6BEIrmXJeF 6NzlH9ySjNsZRJxRGPaY0 CipOItQHzlW145EXcjUoU 4OBIwxnTtT1Im UCImrXwpXwV2t0B6Qz5MD W3HUGK6D6SaEls2AXIrqU jfNK7iiGBgHVlnAi5gcJm kuJcnDU3oCDDc wqveNFTzuJ7mJDTmkDLgk UlzXN5aGRVhlypvt780Ov DnSLK8UULrvSKrP3SdmQ4 yOiAjMDAwMDAw Y4NklEJrOZuqV756EKlwF pR1NGSwgkQlI6HfFUUqvX trUcS6i9B6Ul8BXFbdxZF +SK90ke91P6Ss OotgIkn6MASvBWW0kUS7f L5xSDRfUMvtu7Z8rIS4V8 BzecSguv7xr5phOAUtFXj wE63zbSKuk4K5 RXCzdUT5OSJlyUckLrFxp G93Oyc+HMBjmGozp6AqNp xaf7dlf7xufFp9IaWzOGC gdmFsaWduPSJ0 m3KyVr66L31kCUesQYNwC OToRAFeZSKhlCtsqu4bgR 9wIi8+SYSaiNE2uSE6nJ4 xIaVlZlF5EZcw E054IaWyaNKkKcpjn8lfg 1uxlOq9HzWuOGVqnvUlaY gwAFA7g0KtWe99A6PwlMg fg6VaHhw2yv58 sERni4P1yVM0T7LoLMUrb xjyyREtyBicSD6vJFWqzc xcFIHlzF7vLVIsD4z2PwR iDwY4XDodA0Ym fxA7HJAsoEVgSJVktGVTs J6rwikio9qkxxoaJgMpGB XjHUr3MTb5HXFvaHkmLaX aDBZ0EmE8VZR8 xSDiyG5jhSisylahcF6eH yc+MVe5s0fppZUfJA8jhJ L2YW37UP46vSQed1D8zFS 0M0SmEFKdyppc hwjxhOD1JDUsPQIzcS72L w7bnZsuVv2tWOWkPCD7WL EbrEQpG6JknV5xPtJmYXQ iBTGlP2RabTXl YSqaL608BBuvZyW6QAUmv hMkD9OfGYYzkHlvNoH6v4 J6Yo0WKL72MJ17JN19nSK cq7K4lIL1Q3Jr SEXboxknihepfIJ8VNCeG ZMrtS04Sz1yhCiiOq3jGQ LcEYA5HTTclYRsY7BenJ7 yOiAjMDAwMDAw S8VkgBNxJEpvJ534APcsE pB0VKWuqoRwT8OzNFEobC ezYeS9i0S9Ef1RKr55HV3 7HQ79hTApg3B9 kGQ1H9YqVJBhmeafniwqc MA4TKTfRQYlvJ36Pf7mfL tiNo6qGOApPWU4GNYztFX vF5DzbT2aOcYz XMYyZYWoK1XgsBGtGNlgH 921TFbaDvK1LQXjclCbP2 EjLKMeeXtcUqX7g1J0Yi7 QHRrbrzj4R1Ev PjwvdHI+SL36POAvPM73w MVayPTgi5pftSk9EyQiAY VpICU6yEzdQDizo8MpDXL fV05hmUJne7F1 IGN (more content not included)... [facility] Coding Summary HTMLBase 64 OvpugoofLCf3lLn+PGhlY WQ+HK7XABIvH87xqIIliG 5HM6oPVV2FOPKNTTCAHZ6 VJK1eyQC1ZQxlM9FtxhHb EbvrsHVcOT15WAq2LXF6j OfyCLcxdM0fnBJuS9b8Rs HcMZ21xI77LMbjURMiTqX 3LjZpbjsgbWFy V8ceDzZwiLFwZpl+PHRhY mxlIHdpZHRoPScxMDAlJy ZvwUphZQ7fZy1oLYZbJQW vbGxhcHNlOiBj s8xaNPJkNYegMU0ctRqgC 3TyzKF4EETdr9z7Hg57fH I+TRLtXAJ3jDspOUtct37 1MmJlj7rfQRI5 cKRmHEowLUY8A60oj9X7A MBfCRCcLFO3pTP7iE2riU gbcccfE4JmsSOaAsD6MCS 7iIZdfP6sbNsa uelieY1gClv+Y14PEE7MT TAWVY4KBvr4I7VaCssnbE I+VP12FSUaKR10oDQifKS sf9whjAv4XwXs QNRlXFU6kBkaMKbfx3UiC AGaC06qeGWtv4P3RTBgpY tzwURtFpRtzLJ8vG9jLEf cbyjcg1vfubuc Yxpcv6rrli92rS88P43mY PqyTKZnJXG0UQKkXXAqpA yynx1kqF2cSv1+RUqvi7d do5elwQs5KjCx JYNjmwGrqZcfULN3k0LdY c42N3GxdCynu6LmWhk5iy 82gALpc2Y0kPN7QIlmEGP brM8rJXiiLiK3 HBMkEfChxR62sUOoWAyjT l4krDznuFufFL9wKNQcrs tkEWJwoU3vXRIeaPXyeKx wVO8uXFQsjbgy g788IhQuVMQ2UEIrtCObO 3SpzG4qKsRxYMYtIIZkC7 XfeLUfCUezJ134MNfzPjF 2NUQvzaGcK4Xl LVWvxEqjMtR5s2U3Pq2Nl 9UbidalTAR1VAseVFH2Mq Q0OrMzQbR5M1HtOxn1YFS loDbvMS5eF8Rb AWErjqbktefstRL4ZAZmY DFapB97lQBtZVkmFo8zl9 L0h866SUJiRMIxkR34On9 udDogMTBwdCBU cX9tzfbet9xeztkvEiKmW MPcSEe2UFj7WOSuuWhzYp AmWYM0UyF8RZC0sCZnmQ9 yiAvtrysnkT3u Oyc+D13zdI6gKEC5GNY6r zbgWLUlkpVzPX95AB06X9 RyPjwvdGFibGU+PGRpdiB wpTwqWX8lPzMo f7jly7IhEMfjJ3YvNULbF OcdJjw2OPKdYIR0vHY7kB 6oSJNlZPtyd7Y6bLI0E9S vsfGaqx1rj4yx PCCzMYasK16oaQRiz1B5U GKbqEN0IXUehLsvQaBleX 93Oyc+YWCvnFzid2LhTbr za7bpy9ruuIj4 NhAzKHCfqbZzqCkmSRP6x 1FaJr24I55oUUjtHRNuOG MfJVHlFZStxPeaer3zdT0 wIi8+PGNvbCB3 eQL0rX1oOTAhJdH6TDfeB 929FjRimLBpNvoed7ooq0 jvvTu9IyFhTBWkpzTsiPn nDUK2e0BeZq30 V61mJUgrNKSrCFTnHXEjA BMdlQybre9ciR0uNq3+PC 3ld9vwvb64zY37xKL+PHR pDQP2rWfzYVvu YBGqnM2nVPwmDwY8LKSrU aWxxY49oCGjRXblJf9jwJ sqrJvhEA7cRNOahgufe96 0UmNgp8cbUXEq qOFlTMlwYSN4K27mi5K4Z MSkOISrKPJ3tTM9eV3lrN lnbjogbGVmdDsgdmVydGl bOYtwILvjD763 IHRvcDsnPlBhdGllbnQgT mIhZHb1D9SlCtc1EZYjdE xgGR4goBBtRSxyJa3guAb plEerRS8mWKGg ampjw939HlAtd2zzZQIfm SCaQVxjKCE9Z70ut0F5II HhEPLrLEG6pPU6bL0bgXc nbjogbGVmdDsg qvCjdJtkQRulFPjsM296W HRvcDsnPkJpcnRoIERhdG C2GH22FZ91iSJow1G1nBQ 1C9XbYJPpcaih wnrquCV6RLXzIGXceP37L u9brThxQk5zYUPmOWH7NQ FpsEBzU9KnwD2bUvMkTSP bUKWtN5LetSUs CAhgC043USkvCcE5OFIww vKrJ4OiNSRmaJtaVcC6j1 Y4Xe8UW9O3QK80BB44qMQ ij6Q8yTS3H1Iv VCMfofvxawhjiLD5TAUxI RNakO61Up2wvMydFp1qRP EwWYE4FICjlLSpT1BtsS8 yOiAjMDAwMDAw H6VstSWaCHohR859NXgaT uJ0SGXpmdWhS6UyZRVinR osMcW6n3Y8Qa2SWXu2NF9 1OY95kJBhd1U6 rZR4N8BuBQRckokawtzet CL5BUZxTAJugL92Lt8anJ bcSj6nDEJlTGR3FPDydJW sB6YvbG6vAaLt XWYgTVQfK5PdpBDqRByhJ 256YIzaZlK1CHPwpcNdZ0 HoPOZsyQzaExW7p1G7Yl1 WJCFyMQ61RXD5 nNO8MN95IG06M0QyYaevz GFibGU+PHRhYmxlIHdpZH RoPScxMDAlJyBzdHlsZT0 pTc0kTJReWRTs yLxepLZwZgBue8smTYQlC EddMD7vpAieN9IvnGN1UX Nnc5n2Zl38Z08mW1QgjOJ +RSUzgSY7xQQ7 qW6rWwQlJpI8BAchU544R kRfwMBtDecyx1jci4uxoD e0UwF8LMQbarItmQlpXEY 4u0RlOk53S55q IHdpZHRoPSIxNSUiIHZhb Kzfwx2ifY4oDp1+PGNvbC X1kRT7aS2yGnSdRrY7UAx yD176YzXrtVRl Vuvwc7hki0djpLx2ZkUbU LThxwTidSnvNID7l9GfSv 49U7PbhNdnl2VeIfy0pp1 9jIAtb0C8nYL7 N9OzFXTugsvxkIKcdDzkQ J6qFKKqsxcmBOTzcH3nXI BsV9i8XcNeSeA5RGrbE5L cyuM1DPEvaHMt PQurOEO4L73xn8H9AAJmK ZXwAJM3aHL9bK5kbLitsj ogbGVmdDsgdmVydGljYWw wFPwuG498YITz jTkrNHZqfI9oUPYsuCNax NvqEX4wYQUgphjoZy3MKH xTLCBEQVNIQVkgTUFSSUU 8S2JfKyo8SCHs mXlsUQ9bfQOxFDjuQe3fk WmcbIyyLD8yUONankisWG DvcW2vPRZhtIUyhQxfKM9 eHFIpfamha960 OnGoAJG0EKDxvBWpK3Qpa U0wXpUwTMDcWVMyG0NqvL HmQWwpF031NSvxStB3LQF fhiGlD4GpZYBw hNsgIwM4f0T1Yc7rZG8fE K9lYMk4MR62RA53fBFvx9 N9kFR1E6GdWVPilgywbao dgRB8YHXzQXRc zK35kMXuKIuaWs3cy2X5p 967IFWfSVLpcK28Ce0nnZ vyKFPaqAVDiH8ybbzjm3j vcjogIzAwMDAw EHb7EUe7OEHycKexZvRdQ QR2YyM7HQV6hSBomG3hdY wqxejzxN1sOvd+MjcgWWV queJ1O3GeCrl5 LVZqxRyoRD2umQCrLAgyA x8rvUqddSezXT0jSNAkpa qxHWYhkF2jAIZfpRWtbSi aBN1fGFRayrth w078UmSoPIO0HTIfwXTeH 2EvoL5rVbBcZQCoGWOnT7 GvsJKlRLouE410QHiiJrO 1UBRbzaGzE5Tn KQKmtFdbWjA3j8L3Ba3ZB E6BEHE2L3NvZlm4APXouW fcLK7iiHXpIGqvLm2nxKd nkVyeAJ6pYIDo oeirWZTotA6bJYSvlCXda DnlYC5sOFGutdeha356Hy FkJWB5HKMjxPYoW9ZzdI1 yOiAjMDAwMDAw G4UokRWnXEbqX666XQvnT qL2PAJqfyKpR1BlPIGkbS daEyX0h3P4Ki6SnVKeI4C fZ3e3N3JoGohi dHI+TB94KSLqAZ61uWWdm NYbs1llmJz7NvAlMPKuYP S6lCcyMNzju0ZqYRUsO37 jhCOeo1R1IIXo mLrkyXBcYhEdgZW3aJ2yZ Bbilhleh8yihuchUyqsg3 vzko44gV33Z81yUIudHHD oPSIzMCUiIHZh xNnuwi0weP7eAi4+PGNvb SV2hDL5kC4yIeRsRyD4WN ldV258DxPnkQAdKwloy9x ye7ffpDl2DlPn GXWjelCkrZcnACM1k4BrP r84K35vBOryVGZzJIYuCE MqOSDwcRsqxc8wwV1rPl7 +HV5tj3xmrn25 iV61iES+DJGrZFV7zQgvT CveLKDjeM6sMFhiYvZ4ZC ZfCjFulG42fQIlYWhlXa7 jyYyhuHuwSI2a WWLkilyqv565UrQlk5sjO ISeyHZqWRywRBK0M10wp2 R9MIIcMRXsKPZ8fUX7jT2 hbGlnbjogbGVm dDsgdmVydGljYWwtYWxpZ 196HNZyiQbhZmBssFNfS0 grjdAYSA0cTfhoyAQ+PHR wFKR3pVkhLKqf KIYyxR2lWRFuY9s6HwQqZ eS1NIpvN7BhhkX4CUQrwW DfFCKgcVXSpQ0dlfwos2g vcjogIzAwMDAw FNy1AMj3XISusIlbSrGsD UF4AaI6CSX2hLNavM8wsF itztxqvU0uSoq+RklOOjw vdGQ+PHRkIHN0 qMviNNezNXKkhQ6qYMBtU 5n8MxNkBeC4PMqtA6Xnqt D9PLTuaRWlSCGkoFRFaY8 mjinvh4ooezby AdAyUYZiXKv6VNx5WCShj ZbuMsMtLOB3SzZ4QON7yW SmhM8uiZfporuovF8yFpl +TVJOOjwvdGQ+ NTQeCRA3eGgbVRcyQTYpa F9kAQWyU4q5NjCjHqH2EO qkG0IxaaI6BARhdYSiLJT bxKXJjE1iqauh y7hcnwpfRnVoRXIuALj8O Hb9MKTekXwrLwRpDNZ6Nl J5BFJ2mBGguL4qbHrgzql xyI1dWqx+UGF5 CRO1MS87YL42T3IaCpfmt GFibGU+PHRhYmxlIHdpZH RoPScxMDAlJyBzdHlsZT0 nXj2jYDCfYHLk bGx (more content not included)... Normal [facility] ED Clinical Summaryon 2020 ED Clinical Summary [facility] - Emergency Department [address] [place] [id number] ED Clinical Summary PERSON INFORMATION Name: CARLOS ROCHA Age: 25 Years Sex: FEMALE : 1995 MRN: Acct#: Visit Reason: Skin rash; RASH Arrival: 02/22/2021 08:23:33 Discharge: 02/22/2021 09:27:00 LOS: 000 01:04 Check In: 02/22/2021 08:23:33 Checkout:02/22/2021 09:27:00 Address: [address] [facility] [id number] PCP: ZOLTAN COLE MD PROVIDER INFORMATION Provider [...] lymphadenopathy. Reexamin (more content not included)... Normal [facility] ED Note - Physicianon 2020 ED Note [...] Use: Current Comment: Denies - 02/22/2021 08:38 Suzei Gonzalez RN, Cherri Substance Abuse 02/22/2021 Substance [...] be adequate. Encouraged also you to use [id number] hydrocortisone and/or Benadryl cream. Patient encouraged to return for any worsening or changes or persistence to symptoms. Impression and Plan Diagnosis Contact dermatitis ([id number] L25.9, Discharge, Medical) Plan Condition: Stable. Disposition: [...] Regarding diagnosi (more content not included)... Normal [facility] ED Note-Nursingon 02-22-2021 ED Note-Nursing Ambulates to [...] ear and outer ear. Awaiting exam. Normal [facility] ED Patient Summaryon 021 ED Patient Summary [facility] - Emergency Department [address] [place] [address] PATIENT DISCHARGE INSTRUCTIONS Patient Information Name: CARLOS ROCHA Age: 25 Years Date of : 1995 Reason For Visit: Skin rash; RASH Arrival Time: 02/22/2021 08:23:33 Primary Care Physician: PARAMJIT HSU, ZOLTAN Cooley Attending Physician: Oscar Haley DO Comment: Visit Diagnosis: Diagnoses This Visit Contact dermatitis (L25.9) Skin rash ([id number]) Prescription Information: If you have been given a prescription for narcotics, seek immediate medical attention if you have any difficulty breathing or any sudden status changes such as confusion and sleepiness. If you or anyone you know is experiencing suicidal thoughts, mental health, alcohol and/or drug addiction problems; contact the [facility] 08/02 Crisis Hotline -Text 4HASZ qf 450203. If you received any narcotics, sedation, or [...] legal documents With: Address: When: [employer]LE [address] [place], [place] [id number] Business (1) Within 3 to 5 days Comments: Call for follow up appointment Return if symptoms worsen Medication Information: The exam and treatment you received today in the [facility] Emergency Department were for an urgent problem and are not intended as complete care. It is important for you to follow up with a doctor, nurse practitioner, or physician?s registrar assistant for ongoing care. If your symptoms [...] so we can reach you if necessary. [facility] [place] Emergency Department has provided you with a complete list of medications post discharge. Please inform your mission commander/provider of your visit and for further instruction [...] may devel (more content not included)... Normal [facility] [place] CBC AUTO DIFFon 10-09-2019 Basophils (Bld) [#/Vol] 0.1 103/ul Normal 0.0-0.1 [facility] Comment on above: Performed By: #### C BC #### [facility] [address] [place] [id number] Ana Paula Emily Basophils/100 WBC (Bld) 0.9 % Normal 0.2-2.0 [facility] Comment on above: Performed By: #### C BC #### [facility] [address] [place], [place] [address] Ana Paula Emily Eosinophils (Bld) [#/Vol] 0.1 103/ul Normal 0.0-0.7 [facility] Comment on above: Performed By: #### C BC #### [facility] [address] [place] [address] Ana Paula Emily Eosinophils/100 WBC (Bld) 1.4 % Normal 0.9-7.0 [facility] Comment on above: Performed By: #### C BC #### [facility] [address] [place] [address] Ana Paula Emily Erythrocyte distribution width (RBC) [Ratio] 12.7 % Normal 11.0-15.0 [facility] Comment on above: Performed By: #### C BC #### [facility] [address] [place] [address] Ana Paula Emily Hematocrit (Bld) [Volume fraction] 31.4 % Critically low 36.0-48.0 [facility] Comment on above: Performed By: #### C BC #### [facility] [address] [place] [address] Ana Paula Emily Hemoglobin (Bld) [Mass/Vol] 10.1 g/dL Critically low 12.0-16.0 [facility] Comment on above: Performed By: #### C BC #### [facility] [address] [place] [address] Ana Paula Emily IG # 0.05 10e3/ul Critically high 0.00-0.03 [facility] Comment on above: Performed By: #### C BC #### [facility] [address] [place] [address] Ana Paula Emily IG % 0.5 % Normal 0.0-0.5 [facility] Comment on above: Performed By: #### C BC #### [facility] [address] [place] [address] Ana Paula Emily Lymphocytes (Bld) [#/Vol] 2.1 103/ul Normal 1.2-3.8 [facility] Comment on above: Performed By: #### C BC #### [facility] [address] [place] [address] Ana Paula Emily Lymphocytes/100 WBC (Bld) 22.6 % Normal 20.5-60.0 [facility] Comment on above: Performed By: #### C BC #### [facility] [address] [place], [place] [phone] Ana Paula Diaz MANUAL DIFF REQ NO Normal [facility] Comment on above: Performed By: #### C BC #### [facility] [address] [place], [place] [phone] Ana Paula Emily MCH (RBC) [Entitic mass] 29.4 pg Normal 26.7-34.0 [facility] Comment on above: Performed By: #### C BC #### [facility] [address] [place], [place] [phone] Ana Paulaterry Diaz MCHC (RBC) [Mass/Vol] 32.2 g/dL Normal 29.9-35.2 [facility] Comment on above: Performed By: #### C BC #### [facility] [address] [place] [address] Ana Paula Emily MCV (RBC) [Entitic vol] 91.3 fL Normal 81.0-99.0 [facility] Comment on above: Performed By: #### C BC #### [facility] [address] [place], [place] [phone] Ana Paula Emily Monocytes (Bld) [#/Vol] 0.8 103/ul Normal 0.3-0.8 [facility] Comment on above: Performed By: #### C BC #### [facility] [address] [place], [place] [phone] Ana Paula Emily Monocytes/100 WBC (Bld) 8.4 % Normal 1.7-12.0 [facility] Comment on above: Performed By: #### C BC #### [facility] [address] [place], [place] [phone] Ana Paula Emily Neutrophils (Bld) [#/Vol] 6.1 103/ul Normal 1.4-6.5 [facility] Comment on above: Performed By: #### C BC #### [facility] [address] [place], [place] [phone] Ana Paula Emily Neutrophils/100 WBC (Bld) 66.2 % Normal 43.0-75.0 [facility] Comment on above: Performed By: #### C BC #### [facility] [address] [place], [place] [phone] Ana Paula Emily Platelet mean volume (Bld) [Entitic vol] 10.8 fL Normal 9.5-13.5 [facility] Comment on above: Performed By: #### C BC #### [facility] [address] [place], [place] [phone] Ana Paula Emily Platelets (Bld) [#/Vol] 167 103/ul Normal 150-450 [facility] Comment on above: Performed By: #### C BC #### [facility] [address] [place], [place] [phone] Ana Paula Emily RBC (Bld) [#/Vol] 3.44 106/ul Critically low 4.20-5.[address] [facility] Comment on above: Performed By: #### C BC #### [facility] [address] [place], [place] [phone] Ana Paula Emily WBC (Bld) [#/Vol] 9.2 103/ul Normal 4.0-11.0 [facility] Comment on above: Performed By: #### C BC #### [facility] [address] [place], [place] [phone] Ana Paula Emily CBC AUTO DIFFon 10-08-2019 Basophils (Bld) [#/Vol] 0.1 103/ul Normal 0.0-0.1 [facility] Comment on above: Performed By: #### C BC #### [facility] [address] [place], [place] [phone] Ana Paula Emily Basophils/100 WBC (Bld) 0.7 % Normal 0.2-2.0 [facility] Comment on above: Performed By: #### C BC #### [facility] [address] [place], [place] [phone] Ana Paula Emily Eosinophils (Bld) [#/Vol] 0.1 103/ul Normal 0.0-0.7 [facility] Comment on above: Performed By: #### C BC #### [facility] [address] [place] [phone] Ana Paula Emily Eosinophils/100 WBC (Bld) 1.3 % Normal 0.9-7.0 [facility] Comment on above: Performed By: #### C BC #### [facility] [address] [place] [phone] Ana Paula Emily Erythrocyte distribution width (RBC) [Ratio] 12.5 % Normal 11.0-15.0 [facility] Comment on above: Performed By: #### C BC #### [facility] [address] [place] [address] Ana Paula Emily Hematocrit (Bld) [Volume fraction] 34.8 % Critically low 36.0-48.0 [facility] Comment on above: Performed By: #### C BC #### [facility] [address] [place] [address] Ana Paula Emily Hemoglobin (Bld) [Mass/Vol] 11.2 g/dL Critically low 12.0-16.0 [facility] Comment on above: Performed By: #### C BC #### [facility] [address] [place], [place] [phone] Ana Paula Emily IG # 0.06 10e3/ul Critically high 0.00-0.03 [facility] Comment on above: Performed By: #### C BC #### [facility] [address] [place], [place] [phone] Ana Paula Emily IG % 0.7 % Critically high 0.0-0.5 [facility] Comment on above: Performed By: #### C BC #### [facility] [address] [place], [place] [phone] Ana Paula Emily Lymphocytes (Bld) [#/Vol] 2.0 103/ul Normal 1.2-3.8 [facility] Comment on above: Performed By: #### C BC #### [facility] [address] [place], [place] [phone] Ana Paula Emily Lymphocytes/100 WBC (Bld) 23.6 % Normal 20.5-60.0 [facility] Comment on above: Performed By: #### C BC #### [facility] [address] [place], [place] [address] Ana Paula Emily MANUAL DIFF REQ NO Normal [facility] Comment on above: Performed By: #### C BC #### [facility] [address] [place], [place] [address] Ana Paula Emily MCH (RBC) [Entitic mass] 28.7 pg Normal 26.7-34.0 [facility] Comment on above: Performed By: #### C BC #### [facility] [address] [place], [place] [phone] Ana Paula Emily MCHC (RBC) [Mass/Vol] 32.2 g/dL Normal 29.9-35.2 [facility] Comment on above: Performed By: #### C BC #### [facility] [address] [place], [place] [phone] Ana Paula Emily MCV (RBC) [Entitic vol] 89.2 fL Normal 81.0-99.0 [facility] Comment on above: Performed By: #### C BC #### [facility] [address] [place] [id number] Ana Paula Emily Monocytes (Bld) [#/Vol] 0.8 103/ul Normal 0.3-0.8 [facility] Comment on above: Performed By: #### C BC #### [facility] [address] [place] [id number] Ana Paula Emily Monocytes/100 WBC (Bld) 8.7 % Normal 1.7-12.0 [facility] Comment on above: Performed By: #### C BC #### [facility] [address] [place] [id number] Ana Paula Emily Neutrophils (Bld) [#/Vol] 5.6 103/ul Normal 1.4-6.5 [facility] Comment on above: Performed By: #### C BC #### [facility] [address] [place], [place] [phone] Ana Paula Emily Neutrophils/100 WBC (Bld) 65.0 % Normal 43.0-75.0 [facility] Comment on above: Performed By: #### C BC #### [facility] [address] [place], [place] [phone] Ana Paula Emily Platelet mean volume (Bld) [Entitic vol] 10.9 fL Normal 9.5-13.5 [facility] Comment on above: Performed By: #### C BC #### [facility] [address] [phone] Ana Paula Emily Platelets (Bld) [#/Vol] 217 103/ul Normal 150-450 [facility] Comment on above: Performed By: #### C BC #### [facility] [address] [place] [address] Ana Paula Emily RBC (Bld) [#/Vol] 3.90 106/ul Critically low 4.20-5.[address] [facility] Comment on above: Performed By: #### C BC #### [facility] [address] [place] [address] Ana Paula Emily WBC (Bld) [#/Vol] 8.7 103/ul Normal 4.0-11.0 [facility] Comment on above: Performed By: #### C BC #### [facility] [address] [place], [place] [phone] Ana Paula Emily DRUG SCREEN RAPID (URINE)on 10-08-2019 AMP Negative Normal NEGATIVE [facility] Comment on above: Performed By: #### C BC #### [facility] [address] [place] [address] Ana Paula Emily BAR Negative Normal NEGATIVE [facility] Comment on above: Performed By: #### C BC #### [facility] [address] [place] [address] Ana Paula Emily BUP Negative Normal NEGATIVE [facility] Comment on above: Performed By: #### C BC #### [facility] [address] [place] [address] Ana Paula Emily BZO Negative Normal NEGATIVE [facility] Comment on above: Performed By: #### C BC #### [facility] [address] [place] [address] Ana Paula Meily KAY Negative Normal NEGATIVE [facility] Comment on above: Performed By: #### C BC #### [facility] [address] [address] Ana Paula Emily CUT-OFFS SEE BELOW Normal [facility] Comment on above: Result Comment: AMP [...] ng/mL Performed By: #### C BC #### [facility] [address] [place] [address] DRUG CUT HEADER DRUG CLASS TEST SYSTEM CUT-OFF CONCENTRATIONS ARE FOLLOWS: Normal [facility] Comment on above: Performed By: #### C BC #### [facility] [address] [place] [address] Ana Paula Emily mAMP Negative Normal NEGATIVE [facility] Comment on above: Performed By: #### C BC #### [facility] [address] [address] Ana Paula Emily MTD Negative Normal NEGATIVE [facility] Comment on above: Performed By: #### C BC #### [facility] [address] [address] Ana Paula Emily OPI Negative Normal NEGATIVE [facility] Comment on above: Performed By: #### C BC #### [facility] [address] [place] [address] Ana Paula Emily OXY Negative Normal NEGATIVE [facility] Comment on above: Performed By: #### C BC #### [facility] [address] [address] Ana Paula Emily PCP Negative Normal NEGATIVE [facility] Comment on above: Performed By: #### C BC #### [facility] [address] [place] [address] Ana Paula Emily PPX Negative Normal NEGATIVE [facility] Comment on above: Performed By: #### C BC #### [facility] [address] [place] [address] Ana Paula Emily TCA Negative Normal NEGATIVE [facility] Comment on above: Performed By: #### C BC #### [facility] [address] [place] [address] Ana Paula Emily THC Negative Normal NEGATIVE [facility] Comment on above: Performed By: #### C BC #### [facility] [address] [place] [address] Ana Paual Emily TYPE AND SCREENon 10-08-2019 TYPE AND SCREEN Negative Normal [facility] Comment on above: Performed By: #### C BC #### [facility] [address] [place] [address] Ana Paula Emily UA (CLEAN/CATCH) TIRE DESIGN ENGINEER/MICRO I F IND.on 10-08-2019 Bilirubin [Mass/Vol] Negative Normal NEGATIVE [facility] Comment on above: Performed By: #### C BC #### [facility] [address] [place] [address] Ana Paula Emily BLOOD Negative Normal NEGATIVE [facility] Comment on above: Performed By: #### C BC #### [facility] [address] [place] [address] Ana Paula Emily Clarity (U) CLEAR Normal [facility] Comment on above: Performed By: #### C BC #### [facility] [address] [place] [address] Ana Paula Emily Color (U) LT. YELLOW Normal YELLOW [facility] Comment on above: Performed By: #### C BC #### [facility] [address] [place] [address] Ana Paula Emily Glucose [Mass/Vol] Negative Normal NEGATIVE [facility] Comment on above: Performed By: #### C BC #### [facility] [address] [place] [address] Ana Paula Emily Ketones Ql (U) Negative Normal NEGATIVE [facility] Comment on above: Performed By: #### C BC #### [facility] [address] [place], [place] [phone] Ana Paulaterry Diaz Nitrite Ql (U) Negative Normal NEGATIVE [facility] Comment on above: Performed By: #### C BC #### [facility] [address] [place], [place] [phone] Ana Paula Diaz pH (Bld) 6.5 Normal 5-9 [facility] Comment on above: Performed By: #### C BC #### [facility] [address] [place] [address] Ana Paula Diaz Protein [Mass/Vol] Negative Normal [facility] Comment on above: Performed By: #### C BC #### [facility] [address] [place] [address] Ana Paula Diaz SPEC GRAVITY 1.025 Normal 1.005-<=1.025 [facility] Comment on above: Performed By: #### C BC #### [facility] [address] [place] [address] Ana Paula Diaz UR MICRO IND NOT INDICATED Normal [facility] Comment on above: Performed By: #### C BC #### [facility] [address] [place] [address] Ana Paula Diaz Urobilinogen Qn (U) 1.0 EU/dl Normal [facility] Comment on above: Performed By: #### C BC #### [facility] [address] [place] [address] Ana Paula Diaz WBC (Bld) [#/Vol] Negative Normal NEGATIVE [facility] Comment on above: Performed By: #### C BC #### [facility] [address] [place] [address] Ana Paula Diaz GROUP B STREP CULTUREon S. agalactiae Ag Ql (Unsp spec) Culture Observations: Negative for Group B Streptococcus Normal [facility] Comment on above: Performed By: #### C BC #### [facility] [address] [place], [place] [phone] Ana Paulaterry Diaz UA (CLEAN/CATCH) TIRE DESIGN ENGINEER/MICRO I F IND.on 09-15-2019 Bilirubin [Mass/Vol] Negative Normal NEGATIVE [facility] Comment on above: Performed By: #### C BC #### [facility] [address] [place] [address] Ana Paula Emily BLOOD Negative Normal NEGATIVE [facility] Comment on above: Performed By: #### C BC #### [facility] [address] [place] [address] Ana Paula Emily Clarity (U) SL CLOUDY Normal [facility] Comment on above: Performed By: #### C BC #### [facility] [address] [place] [address] Ana Paula Emily Color (U) YELLOW Normal YELLOW [facility] Comment on above: Performed By: #### C BC #### [facility] [address] [place] [address] Ana Paula Emily Glucose [Mass/Vol] Negative Normal NEGATIVE [facility] Comment on above: Performed By: #### C BC #### [facility] [address] [place] [address] Ana Paula Emily Ketones Ql (U) TRACE Normal NEGATIVE [facility] Comment on above: Performed By: #### C BC #### [facility] [address] [place] [address] Ana Paula Emily Nitrite Ql (U) Negative Normal NEGATIVE [facility] Comment on above: Performed By: #### C BC #### [facility] [address] [place] [address] Ana Paula Emily pH (Bld) 6.0 Normal 5-9 [facility] Comment on above: Performed By: #### C BC #### [facility] [address] [place] [address] Ana Paula Emily Protein [Mass/Vol] Negative Normal [facility] Comment on above: Performed By: #### C BC #### [facility] [address] [place] [address] Ana Paula Emily SPEC GRAVITY 1.025 Normal 1.005-<=1.025 [facility] Comment on above: Performed By: #### C BC #### [facility] [address] [place] [address] Ana Paula Emily UR MICRO IND NOT INDICATED Normal [facility] Comment on above: Performed By: #### C BC #### [facility] [address] [place] [address] Ana Paulaterry Diaz Urobilinogen Qn (U) 1.0 EU/dl Normal [facility] Comment on above: Performed By: #### C BC #### [facility] [address] [place] [address] Ana Paula Emily WBC (Bld) [#/Vol] Negative Normal NEGATIVE [facility] Comment on above: Performed By: #### C BC #### [facility] [address] [place] [address] Ana Paulaterry Diaz CULTURE URINEon 08-30-2019 CULTURE URINE Culture Observations : No growth Normal [facility] Comment on above: Performed By: #### N BOX #### [facility] [address] [place] [address] Ana Paula Emily UA (CLEAN/CATCH) TIRE DESIGN ENGINEER/MICRO I F IND.on 08-30-2019 Bilirubin [Mass/Vol] Negative Normal NEGATIVE [facility] Comment on above: Performed By: #### N BOX #### [facility] [address] [place] [address] Ana Paula Emily BLOOD Negative Normal NEGATIVE [facility] Comment on above: Performed By: #### N BOX #### [facility] [address] [place] [address] Ana Paula Emily Clarity (U) CLEAR Normal [facility] Comment on above: Performed By: #### N BOX #### [facility] [address] [place] [address] Ana Paula Emily Color (U) LT. YELLOW Normal YELLOW [facility] Comment on above: Performed By: #### N BOX #### [facility] [address] [place] [address] Ana Paula Emily Glucose [Mass/Vol] Negative Normal NEGATIVE [facility] Comment on above: Performed By: #### N BOX #### [facility] [address] [place] [address] Ana Paula Emily Ketones Ql (U) Negative Normal NEGATIVE [facility] Comment on above: Performed By: #### N BOX #### [facility] [address] [place] [address] Ana Paula Emily Nitrite Ql (U) Negative Normal NEGATIVE [facility] Comment on above: Performed By: #### N BOX #### [facility] [address] [place] [address] Ana Paula Emily pH (Bld) 6.5 Normal 5-9 [facility] Comment on above: Performed By: #### N BOX #### [facility] [address] [place] [address] Ana Paula Emily Protein [Mass/Vol] Negative Normal [facility] Comment on above: Performed By: #### N BOX #### [facility] [address] [place] [address] Ana Paula Emily SPEC GRAVITY 1.020 Normal 1.005-<=1.025 [facility] Comment on above: Performed By: #### N BOX #### [facility] [address] [place] [address] Ana Paula Emily UR MICRO IND INDICATED Normal [facility] Comment on above: Performed By: #### N BOX #### [facility] [address] [place] [address] Ana Paula Emily Urobilinogen Qn (U) 1.0 EU/dl Normal [facility] Comment on above: Performed By: #### N BOX #### [facility] [address] [place] [address] Ana Paula Emily WBC (Bld) [#/Vol] TRACE Normal NEGATIVE [facility] Comment on above: Performed By: #### N BOX #### [facility] [address] [place] [address] Ana Paula Emily URINE MICROSCOPIC ONLYon Bacteria LM.HPF (Urine sed) [#/Area] LARGE Normal NONE SEEN [facility] Comment on above: Performed By: #### N BOX #### [facility] [address] [place] [address] Ana Paula Emily CAST NONE SEEN Normal NONE SEEN [facility] Comment on above: Performed By: #### N BOX #### [facility] [address] [place] [address] Ana Paula Emily Crystals LM Nom (Urine sed) NONE SEEN Normal NONE SEEN [facility] Comment on above: Performed By: #### N BOX #### [facility] [address] [place] [address] Ana Paula Emily CULTURE INDICATED Normal [facility] Comment on above: Performed By: #### N BOX #### [facility] [address] [place] [address] Ana Paula Emily Epithelial cells LM.HPF (Urine sed) [#/Area] MODERATE Normal [facility] Comment on above: Performed By: #### N BOX #### [facility] [address] [place] [address] Ana Paula Emily MUCOUS NONE SEEN Normal NONE SEEN [facility] Comment on above: Performed By: #### N BOX #### [facility] [address] [place] [address] Ana Paula Emily RBC (U) [#/Vol] NONE SEEN Normal 0-2 [facility] Comment on above: Performed By: #### N BOX #### [facility] [address] [place] [address] Ana Paula Emily WBC (Bld) [#/Vol] 5-10 Normal NONE SEEN [facility] Comment on above: Performed By: #### N BOX #### [facility] [address] [place] [address] Ana Paula Emily GTT 3 HR PREGon 07-22-2019 Glucose [Mass/Vol] 120 mg/dL Normal [facility] Comment on above: Performed By: #### N BOX #### [facility] [address] [place] [address] Ana Paula Emily Glucose [Mass/Vol] 107 mg/dL Normal [facility] Comment on above: Performed By: #### N BOX #### [facility] [address] [place] [address] Ana Paula Emily Glucose [Mass/Vol] 87 mg/dL Normal 74-106 [facility] Comment on above: Performed By: #### N BOX #### [facility] [address] [place], [place] [address] Ana Paula Diaz Glucose [Mass/Vol] 144 mg/dL Normal [facility] Comment on above: Performed By: #### N BOX #### [facility] [address] [place], [place] [address] Ana Paula Diaz US PREG ANATOMY SINGLEon US PREG ANATOMY SINGLE Patient: CARLOS ROCHA Exam Date: 05/30/2019 : 1995 Gender:F Ordering : DR TESSA PEREZ . Admission #: [id number] Family : Order #: [id number] CLICK HERE TO VIEW EXAM RADIOLOGY REPORT [...] Rei Calles M.D. on 05/30/2019 at 13:14 [facility] PAP ACOG PANEL 2: 20 to 29on 05-08-2019 Age Gdln ACOG Testing Normal [facility] Comment on above: Performed By: #### N BOX #### [facility] [address] [address] Ana Paula Diaz COMMENT Comment [facility] Comment on above: Result Comment: Z01. 419 Z11.51 Performed By: #### N BOX #### [facility] [address] [address] Ana Paula Diaz DIAGNOSIS: Comment Normal [facility] Comment on above: Result Comment: NEGA TIVE FOR INTRAEPITHELIAL LESION OR MALIGNANCY. Performed By: #### N BOX #### [facility] [address] [phone] Ana Paula Diaz Methodology: Comment [facility] Comment on above: Result Comment: This liquid based SurePath(R) pap test was screened with the assistance of an image guided system. Performed By: #### N BOX #### [facility] [address] [phone] Ana Paula Diaz Note: Comment Normal [facility] Comment on above: Result Comment: The Pap smear is a screening test designed to aid in the detection of premalignant and malignant conditions of the uterine cervix. It is not a diagnostic procedure and should not be used as the sole means of detecting cervical cancer. Both false-positive and false-negative reports do occur. . Performed By: #### N BOX #### [facility] [address] [address] Ana Paula Diaz Performed by: Comment Normal [facility] Comment on above: Result Comment: Enoc Mariee, Budder (ASCP) Performed By: #### N BOX #### [facility] [address] [phone] Ana Paula Emily Reflex Criteria: Comment Normal [facility] Comment on above: Result Comment: The HPV DNA reflex criteria were not met with this specimen result therefore, no HPV testing was performed. . Performed By: #### N BOX #### [facility] [address] [place] [address] Ana Paula Emily Specimen adequacy: Comment Normal [facility] Comment on above: Result Comment: Sati sfactory for evaluation. Endocervical and/or squamous metaplastic cells (endocervical component) are present. Performed By: #### N BOX #### [facility] [address] [place], [place] [phone] Ana Paula Emily . . Normal [facility] Comment on above: Performed By: #### N BOX #### [facility] [address] [place] [address] Ana Paula Emily CHLAMYDIA/GONOCOCCUS MICHAEL (SW AB/URINE/PAPon 05-05-2019 Chlamydia trachomatis, MICHAEL Negative Normal Negative [facility] Comment on above: Performed By: #### N BOX #### [facility] [address] [place] [address] Ana Paula Emily Neisseria gonorrhoeae, MICHAEL Negative Normal Negative [facility] Comment on above: Performed By: #### N BOX #### [facility] [address] [place], [place] [phone] Ana Paula Emily VAGINITIS/VAGINOSIS DNA PROB Julito 05-05-2019 Samantha species Negative Normal Negative [facility] Comment on above: Performed By: #### N BOX #### [facility] [address] [place] [address] Ana Paula Emily Gardnerella vaginalis Negative Normal Negative [facility] Comment on above: Performed By: #### N BOX #### [facility] [address] [place] [address] Ana Paula Emily Trichomonas vaginalis Negative Normal Negative [facility] Comment on above: Performed By: #### N BOX #### [facility] [address] [place], [place] [phone] Ana Paulaterry Diaz HEP B SURFACE ANTIGEN SCREEN on 03-28-2019 HBsAg Screen Negative Normal Negative [facility] Comment on above: Performed By: #### H BSANS #### [facility] [address] [place] [address] Ana Paula Diaz HEPATITIS C VIRUS AB W/ REFL EX QUANTon 03-28-2019 HCV AB <0.1 Normal 0.0-0.9 [facility] Comment on above: Performed By: #### H CVPCRR #### [facility] [address] [place] [address] Ana Paula Diaz Interpretation: Comment Normal [facility] Comment on above: Result Comment: Nega tive Not infected with HCV, unless recent infection is suspected or other evidence exists to indicate HCV infection. Performed By: #### H CVPCRR #### [facility] [address] [place] [address] Ana Paula Diaz HIV 1 AND 2 WITH REFLEXon HIV Screen 4th Generation wRfx Non Reactive Normal Non Reactive [facility] Comment on above: Performed By: #### H IV12 #### [facility] [address] [place] [address] Ana Paula Diaz RPR QUANTon 03-28-2019 Rapid Plasma Reagin, Quant Non Reactive Normal NonRea<1:1 [facility] Comment on above: Performed By: #### R PRQ #### [facility] [address] [place] [address] Ana Paula Diaz RUBELLA AB IGGon 03-28-2019 Rubella Antibodies, IgG 3.01 index Normal Immune >0.99 [facility] Comment on above: Result Comment: Non- immune <0.90 Equivocal 0.90 - 0.99 Immune >0.99 Performed By: #### N BOX #### [facility] [address] [place] [address] Ana Paula Diaz CBC AUTO DIFFon 03-27-2019 Basophils (Bld) [#/Vol] 0.1 103/ul Normal 0.0-0.1 [facility] Comment on above: Performed By: #### C BC #### [facility] [address] [place], [place] [address] Ana Paula Emily Basophils/100 WBC (Bld) 0.9 % Normal 0.2-2.0 [facility] Comment on above: Performed By: #### C BC #### [facility] [address] [place], [place] [phone] Ana Paula Emily Eosinophils (Bld) [#/Vol] 0.4 103/ul Normal 0.0-0.7 [facility] Comment on above: Performed By: #### C BC #### [facility] [address] [place] [address] Ana Paula Emily Eosinophils/100 WBC (Bld) 5.8 % Normal 0.9-7.0 [facility] Comment on above: Performed By: #### C BC #### [facility] [address] [place] [address] Ana Paula Emily Erythrocyte distribution width (RBC) [Ratio] 12.2 % Normal 11.0-15.0 [facility] Comment on above: Performed By: #### C BC #### [facility] [address] [place] [address] Ana Paula Emily Hematocrit (Bld) [Volume fraction] 35.9 % Critically low 36.0-48.0 [facility] Comment on above: Performed By: #### C BC #### [facility] [facility] [address] [place], [place] [phone] Ana Paula Emily Hemoglobin (Bld) [Mass/Vol] 12.5 g/dL Normal 12.0-16.0 [facility] Comment on above: Performed By: #### C BC #### [facility] [address] [place] [address] Ana Paula Emily IG # 0.02 10e3/ul Normal 0.00-0.03 [facility] Comment on above: Performed By: #### C BC #### [facility] [address] [place], [place] [phone] Ana Paula Emily IG % 0.3 % Normal 0.0-0.5 [facility] Comment on above: Performed By: #### C BC #### [facility] [address] [place], [place] [phone] Ana Paula Emily Lymphocytes (Bld) [#/Vol] 1.5 103/ul Normal 1.2-3.8 [facility] Comment on above: Performed By: #### C BC #### [facility] [address] [place], [place] [phone] Ana Paula Emily Lymphocytes/100 WBC (Bld) 21.6 % Normal 20.5-60.0 [facility] Comment on above: Performed By: #### C BC #### [facility] [address] [place], [place] [phone] Ana Paulaterry Diaz MANUAL DIFF REQ NO Normal [facility] Comment on above: Performed By: #### C BC #### [facility] [address] [place], [place] [phone] Ana Paulaterry Olsonen MCH (RBC) [Entitic mass] 31.2 pg Normal 26.7-34.0 [facility] Comment on above: Performed By: #### C BC #### [facility] [address] [place], [place] [phone] Ana Paulaterry Olsonen MCHC (RBC) [Mass/Vol] 34.8 g/dL Normal 29.9-35.2 [facility] Comment on above: Performed By: #### C BC #### [facility] [address] [place], [place] [phone] Ana Paulaterry Diaz MCV (RBC) [Entitic vol] 89.5 fL Normal 81.0-99.0 [facility] Comment on above: Performed By: #### C BC #### [facility] [address] [place], [place] [phone] Ana Paula Emily Monocytes (Bld) [#/Vol] 0.5 103/ul Normal 0.3-0.8 [facility] Comment on above: Performed By: #### C BC #### [facility] [address] [place], [place] [phone] Ana Paula Emily Monocytes/100 WBC (Bld) 7.5 % Normal 1.7-12.0 [facility] Comment on above: Performed By: #### C BC #### [facility] [address] [place], [place] [phone] Ana Paula Emily Neutrophils (Bld) [#/Vol] 4.5 103/ul Normal 1.4-6.5 [facility] Comment on above: Performed By: #### C BC #### [facility] [address] [phone] Ana Paula Diaz Neutrophils/100 WBC (Bld) 63.9 % Normal 43.0-75.0 [facility] Comment on above: Performed By: #### C BC #### [facility] [address] [place], [place] [phone] Ana Paulaterry Diaz Platelet mean volume (Bld) [Entitic vol] 9.6 fL Normal 9.5-13.5 [facility] Comment on above: Performed By: #### C BC #### [facility] [address] [place], [place] [phone] Ana Paulaterry Diaz Platelets (Bld) [#/Vol] 231 103/ul Normal 150-450 [facility] Comment on above: Performed By: #### C BC #### [facility] [address] [place], [place] [phone] Ana Paula Diaz RBC (Bld) [#/Vol] 4.01 106/ul Critically low 4.20-5.[address] [facility] Comment on above: Performed By: #### C BC #### [facility] [address] [place], [place] [phone] Ana Paulaterry Diaz WBC (Bld) [#/Vol] 7.0 103/ul Normal 4.0-11.0 [facility] Comment on above: Performed By: #### C BC #### [facility] [address] [place], [place] [phone] Ana Paula Emily CULTURE URINEon 03-27-2019 CULTURE URINE Culture Observations : Heavy growth of mixed genital leann.No potential pathogens seen. Normal [facility] Comment on above: Performed By: #### N BOX #### [facility] [address] [place], [place] [phone] Ana Paulaterry Diaz GLYCOHEMOGLOBIN A1Con 2018 Glucose [Mass/Vol] 105 mg/dL Normal [facility] Comment on above: Performed By: #### A 1C #### [facility] [address] [place] [address] Ana Paula Emily HbA1c (Bld) [Mass fraction] 5.3 % Normal <=6.0 [facility] Comment on above: Performed By: #### A 1C #### [facility] [address] [place] [address] Ana Paula Emily POLY BOX TEST PT SEND OUTo n 03-27-2019 SENT TO REF LAB 03/27/19 Normal [facility] Comment on above: Performed By: #### N BOX #### [facility] [address] [place] [address] Ana Paula Emily TYPE AND SCREENon 03-27-2019 TYPE AND SCREEN Negative Normal [facility] Comment on above: Performed By: #### T NS #### [facility] [address] [place] [address] Ana Paula Emily UA RANDOM W/MICROSCOPICon Bacteria LM.HPF (Urine sed) [#/Area] TRACE Normal NONE SEEN [facility] Comment on above: Performed By: #### U AMIC #### [facility] [address] [place] [address] Ana Paula Emily Bilirubin [Mass/Vol] Negative Normal NEGATIVE [facility] Comment on above: Performed By: #### U AMIC #### [facility] [address] [place] [address] Ana Paula Emily BLOOD Negative Normal NEGATIVE [facility] Comment on above: Performed By: #### U AMIC #### [facility] [address] [place] [address] Ana Paula Emily CAST NONE SEEN Normal NONE SEEN [facility] Comment on above: Performed By: #### U AMIC #### [facility] [address] [place] [address] Ana Paula Emily Clarity (U) CLEAR Normal [facility] Comment on above: Performed By: #### U AMIC #### [facility] [address] [place] [address] Ana Paula Emily Color (U) LT. YELLOW Normal YELLOW [facility] Comment on above: Performed By: #### U AMIC #### [facility] [address] [phone] Ana Paula Emily Crystals LM Nom (Urine sed) NONE SEEN Normal NONE SEEN [facility] Comment on above: Performed By: #### U AMIC #### [facility] [address] [phone] Ana Paula Emily Epithelial cells LM.HPF (Urine sed) [#/Area] FEW Normal [facility] Comment on above: Performed By: #### U AMIC #### [facility] [address] [address] Ana Paula Emily Glucose [Mass/Vol] Negative Normal NEGATIVE [facility] Comment on above: Performed By: #### U AMIC #### [facility] [address] [address] Ana Paula Emily Ketones Ql (U) Negative Normal NEGATIVE [facility] Comment on above: Performed By: #### U AMIC #### [facility] [address] [phone] Ana Paula Emily MUCOUS TRACE Normal NONE SEEN [facility] Comment on above: Performed By: #### U AMIC #### [facility] [address] [address] Ana Paula Emily Nitrite Ql (U) Negative Normal NEGATIVE [facility] Comment on above: Performed By: #### U AMIC #### [facility] [address] [address] Ana Paula Emily pH (Bld) 6.0 Normal 5-9 [facility] Comment on above: Performed By: #### U AMIC #### [facility] [address] [address] Ana Paula Emily Protein [Mass/Vol] Negative Normal [facility] Comment on above: Performed By: #### U AMIC #### [facility] [address] [phone] Ana Paula Emily RBC (Bld) [#/Vol] NONE SEEN Normal 0-2 [facility] Comment on above: Performed By: #### U AMIC #### [facility] [address] [address] Ana Paula Diaz SPEC GRAVITY 1.025 Normal 1.005-<=1.025 [facility] Comment on above: Performed By: #### U AMIC #### [facility] [address] [place], [place] [address] Ana Paula Diaz Urobilinogen Qn (U) 0.2 EU/dl Normal [facility] Comment on above: Performed By: #### U AMIC #### [facility] [address] [place], [place] [address] Ana Paula Diaz WBC (Bld) [#/Vol] Negative Normal NEGATIVE [facility] Comment on above: Performed By: #### U AMIC #### [facility] [address] [phone] Ana Paula Diaz WBC (Bld) [#/Vol] 0-2 Normal NONE SEEN [facility] Comment on above: Performed By: #### U AMIC #### [facility] [address] [phone] Ana Paula Diaz US PREG TVon 03-08-2019 US PREG TV Patient: CARLOS ROCHA Exam Date: 03/08/2019 : 1995 Gender:F Ordering : DR TESSA PEREZ . Admission #: [id number] Family : Order #: [id number] CLICK HERE TO VIEW EXAM RADIOLOGY REPORT [...] Calles M.D. on 03/08/2019 at 09:42 Normal [facility] Vital Signs Date Time Vital Sign Value Performing Clinician Laura trammell 08-31-2023 10:30-0500 Body mass index (BMI) [Ratio] 29.65 kg/m2 Tessa Ana DO Work Phone: [facility] 08-31-2023 10:30-0500 Body weight 75.93 kg Tessa Ana DO Work Phone: [facility] 08-31-2023 10:30-0500 Diastolic blood pressure 70 mm[Hg] Tessa Ana DO Work Phone: [facility] 08-31-2023 10:30-0500 Systolic blood pressure 114 mm[Hg] Tessa Ana DO Work Phone: [facility] Encounters Encounter Date Encounter Type Care [...] Not Available Start: 10-13-2019 Patient encounter procedure TESSAGgaan MARADIAGAO Facility:[facility] Start: 10-09-2019 Evaluation and manag [...] Routine [facility] [address] [place] [address] Tessa Perez, DO [address] [place] [address] [facility] Payers Date Payer Category Payer Medicaid [employer] [facility] [place] [id number] 2022-Present [address] [address] [place] [address] [id number] 1995 Unknown [id number] 2..[id number] 1994 Unknown [id number] 2.16.840.1.730503.3.579.2.593 1994 Unknown [id number] 2.16.840.1.310514.3.579.2.593 1994 Unknown [id number] 2.16.840.1.560285.3.579.2.593 1994 Unknown [id number] 2.16.840.1.464773.3.579.2.593 1994 Unknown [id number] 2.16.840.1.037276.3.579.2.593 1994 Unknown [id number] 2.16.840.1.318406.3.579.2.593 1994 Unknown [id number] 2.16.840.1.263992.3.579.2.593 1994 Unknown [id number] 2.16.840.1.535208.3.579.2.593 1994 Unknown [id number] 2.16.840.1.333806.3.579.2.593 1994 Unknown [id number] 2.16.840.1.576953.3.579.2.593 1994 Unknown [id number] 2.16.840.1.195137.3.579.2.593 1994 Unknown [id number] 2.16.840.1.037223.3.579.2.1259 1994 Unknown [id number] 2.16.840.1.376019.3.579.2.1259 1994 Unknown [id number] 2.16.840.1.999147.3.579.2.1259 1959 Self-pay 1960 Unknown [id number] 1960 Unknown [id number] Social History Date Type Detail Facility Tobacco smoking stat [facility] Tobacco smoking consumption unknown [facility] [...] meal for a total of 4times daily.. [id number] Start: 08-31-2023 End: 09-30-2023 1 each by In Vit ro route in the morning. Use to check FSBS four times daily. [id number] Start: 08-31-2023 End: 09-30-2023 History of Present illness Narrative 08-31-2023 Emily Benites, YOUTH LIAISON OFFICER - 08/31/2023 10:30 AM EST Note Date [...] Diagnosis Date Noted Adjustment disorder with anxiety ([facility]) 04/17/2021 Resolved Ambulatory Problems Diagnosis Date Noted [...] nursing note reviewed. Exam conducted with a ag service manager present. Vitals: Estimated body mass index is [...] Tessa Perez DO documented in this encounter [facility] Clinical Note 02-22-2021 Note Date & Type [...] job, you may need to see an child protective services specialist. How is this treated? This condition [...] and dyes. Medicines ? Take or apply [id number] and prescription medicines only as told by [...] and water are not available, use hand surgery teacher. General instructions ? Avoid the substance that [...] new symptoms. Get (more content not included)... [facility] [place] Evaluation note Note Date & Type Note [...] glucose tolerance test Tessa Perez, DO [address] [place] [address] Referral ID Status Reason Start Date Expiration Date Visits Re quested Visits Authorized [id number] Closed 1 1 Additional Source Comments INFORMATION SOURCE (unrecogn ized section and content) DATE CREATED AUTHOR 10/16/2019 [facility] DATE CREATED AUTHOR AUTHOR'S ORGANIZ ATION 03/06/2021 [facility] DATE CREATED AUTHOR AUTHOR'S ORGANIZ ATION 09/01/2023 [facility] EPIC Reason for Visit (unrecogniz ed section and content) Reason Comments Routine Visit Care Teams (unrecognized sec tion and content) Quality Compliance Manager Relationship Specialty Start Date End Date Zoltan Cole MD [address] [place] [address] PCP - External PCP Family Medicine 12/26/22 [...] BE BASED ON THE PRIMARY CLINICAL RECORDS. [facility] [employer] provides no warranty or guarantee of the accuracy or completeness of information in this document.
== END 2023-09-28 20:56 | disposition home or self-care (01) ==
LOC: LAB 20:55
PROVIDERS: Visit Provider Obstetrics & Gynecology
DX: Z34.93 Encounter for supervision of normal pregnancy, unspecified, third trimester (principal)
CPT/HCPCS: 87081

== ENCOUNTER 2023-10-04 21:02 | Observation (INO) | payer OTHER, SELFPAY ==
--- OUTSIDE RECORDS SUMMARY | 2023-10-04 21:09 | XMS_ITS | CCD ---
Author Name Unknown Address [address] [place] [address] Organization [facility] Care Team Providers Care Grape Cutter Name Role Phone ANA, TESSA Admitting Unavailable [...] TURNER Admitting Unavailable PAM TURNER Attending Unavailable PMA TURNER Consulting Unavailable PAM TURNER Procedure Practitioner Unavailab EVELINE Portillo Consulting Unavailable COLT TREVINO Consulting Unavailable ANA, TESSA Admitting Unavailable TESSA PEREZ Attending Unavailable Zoltan Cole MD Unavailable [phone] MELONY HANDLEY Attending Unavailable TESSA PEREZ Attending Unavailable MELONY HANDLEY Attending Unavailable TESSA PEREZ Attending Unavailable TESSA PEREZ Attending Unavailable Medications Current Medications Medication Drug Class(es) Dates Sig (Normalized) Sig (Original) [id number] 200 actuat albuterol 0.09 mg/actuat metered dose [...] Work Phone: Glucose, UA Negative Negative - 1999(110) ++++ mg/dL [facility] Work Phone: Interpretation and review of laboratory results Abnormal [facility] Work Phone: Ketones, UA Negative Negative - 160(16) ++++ mg/dL [facility] Work Phone: Leukocytes, UA Positive Negative - 500+++ Jean/mcL [facility] Work Phone: Nitrite, UA Negative Negative - Positive [facility] Work Phone: pH, UA 5.5 5 - 9 [facility] Work Phone: Protein, UA Negative Negative - 1999(20) ++++ mg/dL [facility] Work Phone: Spec Grav, UA 1.020 1 - 1.03 [facility] Work Phone: Urobilinogen, UA 1.0 0.2 - 12 mg/dL [facility] Work Phone: [facility] Work Phone: Coding Summaryon 03-05-2021 Coding Summary HTMLBase 64 EapurhovOLr3hEe+PGhlY WQ+QP7NMRYhQ93bpYKgkI 9XB4zJDU5ENHEMHOXDEW1 OQG3xlOJ3PVmgO5HhyhKo NafozBFoZD06CHw6GKL2f FhzSEixfJ6mdGDlN8h0Nj KnRA64hW77JRolHOWgYmV 3LjZpbjsgbWFy G4ljDePyjLJbWtn+PHRhY mxlIHdpZHRoPScxMDAlJy LmnEnlLV0lGz0sANEoHMO vbGxhcHNlOiBj e8liIPGwCUreFN2pzDksL 9QlvYV2MVQbw1r3Dv40jD I+BATuWBV6fGbwBWpfy01 1AwXik5rkUKS2 nUDqXXnzVCN9Y98kt6Y6H NEtHPRvEOB9xZQ4jS3xvR fqwgkxU4VsfJYsTcE1VRP 6mMKudB3wqYfr izlseK8jOtk+H93YSU2IK ABKRC9TEhs6C9YrTczmxR I+TW16UETyEP78oHMsoDK mm8rpmLk8PkLy BGWiIZS6iIotXNfab9BtJ RKdW30qaBAch9D8OJRssC opqFZfTaPrqAP7iB7oPYw clvcub7whqvdz Dozku3oepi83xY07H10xF WicYRKvFMT6SBLeMJWoyV bfuj3ipV8dDn9+QTbpb3f bx0xlySn3XuNk TYXsbaPhbGabYJW6r2WsR d22W3PjzPuma0UfNcs4fw 29zSRnv0T9pHG4XIgfPGB xgZ3pXLcrWqQ9 XRXuVmFakP27aNTjEAjjR g5tcBkamMfmGU5xUVUkxv saDWVfrL2nWNEwsOVrdQe rOB3vRKXlexyj c433HlBvQZL5TMAduYLdR 4KfrQ7eWoIwGNNaOHBbM8 QyxYAaMCitD396IAuvZyH 4KHQgeqIiQ2Vz QEHgcBpbDxU0s5W4Qe2Vq 4QlhjznMAK4OPwvYSF8Gv A2ViOwUgM0U5MqQhp4FYU frGorJH7hY6Oz XFXfeuiwyongeDS8FSPvF BRvvH24lSLhXRnzMt9fr1 O7v683WMLmTWTsbD70Hg2 udDogMTBwdCBU xO0szykib6loqilrZeYhK UFrMYv8IHc3VYVuyBwfBk CpGFU1KeD3HBU0vLMvyJ1 wlMcivleflX1y Oyc+Q62cdI9aHQC8XLM9c pwbTPDvnnAaRP11HT23R1 RyPjwvdGFibGU+PGRpdiB gbJinEM9oXwFj z1pep6GyMQyrS0VsUUXuK SiqAzg2LOPcNYE9tGC6mZ 9uODWyFFdch7Q3fVX3C9H ploBrbk7py6fr XXNiYHzfI00wfHApb4M4B SDmrAE2CJBupHizZfKsiY 93Oyc+BDPqpQols5JoQbz lh8iwj9xniHq2 BmBoNLItzxJbvSxzMUI7v 4PkXq85W66mFDkkZYOaLM YhSCMaSPLfpRyhai8gdS9 wIi8+PGNvbCB3 rSP6oP8wRBOyInO9OZfaT 112VrGebXCmOfhdf5ujy7 uklJn0WhYcZAEmokZsqZo wYJB1a4WaZe75 Y30bZWyzTYGxJTGwRYZdA PUzgUfrje7pdS1fGm6+PC 7sp0yjlw81gA60lTL+PHR wOQO0vZdeNXxj EBZcnE3fTDypUaC5CJNvN pMnzV62iWYoYDvyJd3eqX laaBktAV8uTXXumsxvj81 9FyYey6xbDLFc hWAlMEusWIR0T44rk9E2D LXwVFKlOME2xLL5kW4zwB lnbjogbGVmdDsgdmVydGl yMErmSVfbO795 IHRvcDsnPlBhdGllbnQgT iUiKTa6E3LnHtr5USErdG gsCD7inXWyBKeuKf7eoTa xhRklJF2dHYSs fpyku121XfLgp2emGRXqd MHdXFpxKAJ2C74ma0K1MX JxBSAvJPT6kFB3aC4riGc nbjogbGVmdDsg yeGisOsqZVttPUikC707B HRvcDsnPkJpcnRoIERhdG G2NJ81EG58sJKtv5Q1aOQ 2Y9UzZHDahmyo afmidMD6RYByRMUupB89H j2fdXclEa9yOOEcLWH9TW NdfNPrU6PbxO6uJfWoVKE vFTZnW9IzsXFs RBcmA597SXuyIxT5HDYsk mZmQ9WuNEEwsPtoJzT3i0 I5Ln8UG5R1XG81NZ57nDR ba7O0tVM7K7Xk VXAhencxkaykpCQ2LXMuQ IAuiO04Iv4fiDedBk9zYN RoMWD9UQFwgHDbQ4QhfC8 yOiAjMDAwMDAw L5FgsZVbMRnaU928RFfkY sA0OMBajtVoJ0OrDQCenZ pyFiI7i4N6Na3JWVx4VO2 0ZF48dUKxa2H2 bEZ4P2WmSLMeifztbczlc PY1WDIdZSZvaU21Mu3dwE lfMz3bCYYjIDC9UZBlrUW qJ0KbcE6zIgNf ZNBaBDDsL3QnbZNxUHljJ 111BShzEbC5AHYuaqItL1 WsVVVksMcnDjM7t1F4Tp0 ZYEMkLI92WXK3 dJQ5OL03IX52N5YqWckkp GFibGU+PHRhYmxlIHdpZH RoPScxMDAlJyBzdHlsZT0 pQg4mYBYdWYHs fVhwcHHxYlUeg1jaSTYmH QwnHX0kyFxeN0ZqaVH9DB Sht5s5Jz30Z76iF3VxpGV +TKYhqBO3nKD4 oB2tHuKtQfZ7BEmxD186B fAlsCYcJeopl6yka0ahtG z9XjS2DLDemrMaqYdmONZ 6b4IhSj99X37f IHdpZHRoPSIxNSUiIHZhb Xzyhj4kiS8tSz8+PGNvbC L6fOI0pH5pCgQrKpV6SIa yG920XtBocAKw Rlxft0aai7iltXh6IcMrE UUfbqMtyUhtASA5k9IoMy 81D6CfrThvd6FkEcy5rw5 9yQMik1J1gPO0 C8NnXRJskhgjgSFtlKfmI D9wYVNojcwnVZHdzP5aKC YsV3s6VdCyZwO5DBdrR0H tcmX4NNNobKHi NDjmPWM5M30cd1L7CMZeS YYeYUM0bXK3pS7kcUofus ogbGVmdDsgdmVydGljYWw pYWuqL377DRLd aKkxIURkdR6vGKHcyDUkj NioOP4uAZLluakyDg9PCG xTLCBEQVNIQVkgTUFSSUU 8G8FwKkt8MXNh kBhtDS5wnIEuWWydHi1ae HgimNljYH6nARVsqacaRZ BenA0jPYChyDNsiKdtPQ9 oHBLiwbvtv289 OpFcMES1FNMqnUNiV3Clm O2nHcSpPRJeBTQqD0DvqR DzLTzaX711DUsfPqZ3FHY lzaOdC0LkXZSs jJgfBjK1k4O2Xz6cXX4aP E1lQVr9GH58VC56rGAto3 V6tYG4R0GpLXJmwfwecvg wuGO9OUVcMOJo aO63hEByOYzkZp7qk9C0d 841JOJbPQLuuQ69Ad2erQ fnUBEpiKYAgA5pnczdd0j vcjogIzAwMDAw HFg4GQa8INEjyMvrOnDyU AV8VnK1OGH3oWKddS8vxY jneutrhS4uPll+MjcgWWV dkiY6C5NgRfe8 VJHqdPjyDP8mcXBiWNakT p9aeMawmYwxSK8eTSPyxi inNAZtuS8cUWFqmUNnnRy yXB1gUDDvoowj k025QeQsQPN5QWIfrPQfH 5YgwC2nJjQvNFApZBXcC8 XlkBAzSYulI637AVikKfE 2ROCmknOpU9Je LRBnnChdLkX2k7J7Qx8NH G4SGZB8R6RaDdv7RHYjcW viQG9wjFDgROzsZc9bmQh pmHobTJ6nJCZs bqfrTLAzgS2qABHpwUHef UhePO4eIQBooppoi556Pw BmYFU1ZHOczELsA5XqlF5 yOiAjMDAwMDAw N1EtcDOeOArlC647QHgiV kG0PYGuvpWtK9IaVJVirR ciPhM2g8Z5Qn6MHNezzFD +RD95pw26T6Io JycwCzw1NSAiAMN3tOR6x K8oTSExKOuvj8N9yIP4Z9 YtpmHbas6jy2qpMZGmFAg iA16gtWEql9F5 TXGbzMU9QNQapOtdQbGbp G93Oyc+BFGlgStkh6PzEq dls5xgl9lnoHf2SbYzAJY gdmFsaWduPSJ0 j5QaMr40X55gMGnwDLLuN GOyBWLpCMKtoXcjie8vcU 9wIi8+HYHtrIP3tFC0yO5 gQbFaJmR2WEwt K762PsQtmTFiXalwp0yle 3tazKu2OvIpWRScmjUzjY hrTLW3j6PyTd19P3XokXk gn7NcXbu7fd02 wRKmn8C7aMW6B5UzEDEfh tckzNIgzOmdKH3bVMXbah quLBRprV7xJDNdJ6v9SuI iMdS1QMdxK7Kx kuK2GLOqzHBsPYZscMNBe X4kftwgn4yzwvevKaKgDK OuCSb4RGy0VHUucHttBfM mKXA9SgA0IYX7 jVLrkW8yrPjxdlmcnR2nG yc+YZh8w4ugsTNxPA8oiV P5IL05TE89xIAjt0B6kLP 0T4KoPEWyhomz lxqukMV5KXNyTSAcvC77G z2feJmmCe4dPMSfGIM0AG GxpIYgA3DilA6aQxXyOWQ nHFLzL2JbdMHj IImaP687BKnuHaG8BJKgz jVbO0YaUQDkoXmjGxM1r4 B8Jf8ZCJ45KY45UU61qOR ji7F6kLI5M4Fk TADkfsuyavxnvSD0RIHeB QQwtB80Mq4juGgjCa7sCJ XsQPU0YRTouUGfX3OxiM9 yOiAjMDAwMDAw T2JmzVBiAWsnO588LMaaU mY8MHHkazDjN6McCFQkzM dyXaU6f2F0Zm8RAx30OM3 0NS27tNSaw8Z0 yJW5Q0LoRFGpdpqjgmgtv KC5WNZcYWCrpU51Us5igG rhGl4oTIVmDJP1LKDtsWL sH6CbqA4cPlEp EEOqQYAnU3HtrPZyMWfaT 306PRioMsQ5NMEikmZuN1 FzQHNtaHmdRdB8r6G0Hs0 BGAqpace3Y2Ym PjwvdHI+QR36OXXmGY72r ADdnNHql4usxCo7SvZaCC ZtJPB4hDnpYXrez3VtCRQ lK39heLRpm8P4 IGN (more content not included)... [facility] Coding Summary HTMLBase 64 VfvketocYQo5dOo+PGhlY WQ+WM2LLFQoB64muBFamS 5NE0lYRN0GTOCZCXEGCC5 LUE5qzNE7XUviI0WztzMx JtrhcPCaOE01TVu0PJC4p FjbTCfpnR2yaKKcR3j1Xv UrSU20qV87ECzpFBAeNhI 3LjZpbjsgbWFy W4ggNwMviKGwDfe+PHRhY mxlIHdpZHRoPScxMDAlJy JzdBmdGT5sEq0aAZPqCFK vbGxhcHNlOiBj e5zyBPWxGVjxBV3zbRqvX 9QdzBE3UWWjk1l2Rw78sY I+XVFcSNE3tZapLYjqw52 0OlJyc1uxZJK9 yGUrGKdfWFO3M90dl2Q2H DLzZQKpOER0xKQ5yE6kqQ rkwmdtM8PocAAmZuH0VIO 1vQLfmD2vkWsc afxqpY9tTqb+K25RIS7RP EMQNK6EUsq6Y4UoMzrhfC I+HV75FLDlQD79hRRepEQ pq0bfkLz1PdXp SIRhBTD3hVqcJRqcj8OdS TKmD33hqNYtu7B4XOWscJ fkdAVdVrTdeVO8tM2uLHp dzpwwl8mpnycd Eajmg0yual95yN17Z07kC YgyDUIbQKQ6NIMrEZPhxG bjbh6ozW7sHa6+DMnzn3y lo7zxfQi5MrJg LHGytlGftPwyZWQ9j1PeM t69O7PjpGbvk7TfFuc6fv 12mIDtz7A1cGK7COfzJRB ooD1gCValSfE4 CYLzAaLqzR46xVTtVXdnP q9wqHdeyGomWC1vCMMogh cpDBBacT9dEJFluWLshZo iYA4qFLRuwswl r340TyEjLOU4HDOedMXhX 1QinI2cOyKjTFWcAIEuG4 QfpUCmXSjzS415ODpyXpT 3DZNubpBoV3Yg XKWawOtpRuU0o3H7Vp0Nb 0TaozozJGZ4ZIgtFKB5Ds S3EkWlKeQ8I2DhGqh3OTH vtMwbCO2iM5Xu WFCjsuvyuheksIR3HWXcC PTshO17oUZnIMpxGv8lm4 O7i530DZEqFCXbmE58Qc6 udDogMTBwdCBU iL0btjvka4jzmxigPxAeG HDxNPz1RTg6YFAjtFzeLk DhTOI2UdJ8EQZ3rFYazO1 ebHqoiylscA9r Oyc+W52euZ2sTZX4UVN8q lxbFPOhnnInHL71EN31E9 RyPjwvdGFibGU+PGRpdiB jdGnnPU2oOuNz k2ioa2LmERyyJ5GbJRYoE HrnQsx6SLHfOII4zWG9rO 2uSCLpVGphx8H6cBY9X0N znvBmpw3qy3zt MWOvRBavT43bdGEue2V7U YRaiXW5MTIslVsyBsYikS 93Oyc+RHHclAgvc3ImFoc dg7sva9szeYy9 YgEyLJGenkTseWznTIB5t 9MtYw44S50xQWlaOZDeAA StTEAkHCYjaCqzdr0ybK7 wIi8+PGNvbCB3 kNS9bK1sWAJzIjJ2QStbK 309BeXrpWDfWsiut4kvk0 iaiKq4RrBpOKGbhgLhzUq zBES3o9BdAh84 K16iMWxuLLJvXAXlBBKpG STbaMpbwh0ecC5lPx5+PC 8je1clwr24aY66yER+PHR eUKZ6xVlxINbc TUEgzL4rISqsKlG8KDMdG qWlsT25eMLuRAkgZj6orC vllXojFD7tYDWoypjjx49 6DrZoq6bxUOQf jPKwSCllUMT5L28ek4D5I MXqCSWgGGI9eHM2pC8ytW lnbjogbGVmdDsgdmVydGl kPHkiBQayV533 IHRvcDsnPlBhdGllbnQgT dCqTCq8Y9QyYeq2WZSmsK anXG2sbPJgXIemWo0ciRu heUbnOF6gPIOp uqbtb381VePxa0jlKGMfn INtSLbpDIL3E98hq4A9RI RiUPXhSPL3nOP9oQ1ekZz nbjogbGVmdDsg raFfvPsjQRxoABfoW632Q HRvcDsnPkJpcnRoIERhdG Y4RX77BQ45zANwc9B3iNX 5G5QyIXQwwysu iulccRY1JJLzNZGywT23Q h5atZonGb6uXZOeKFC9JK ZnjXJjK6IlmG7xVyGhTAW nPUTvJ1NreNCe IJejT671TIcuNyI3GZFrd zSxU8MkWOVhaJqwRvP0u0 S0Es7GP0S2KY21VL75hCT ei3Y8gWQ1M5Zy NCDaehlxossvcFG7HGGyA JNlsI51Ku9vlYimSs4lLL TjVOW7QUKhnCEoM8BerM0 yOiAjMDAwMDAw Y2ZmgOSjTIefV961LGfiV mZ0VOGmanQwW2JmUECsmK azHeN8d6R6Aj8ZEDy6UQ3 3GG88qKDyn4P8 eDB0C1RePRSzpgqigcpbd UB0AJJeURJvxT45Wi6ecB twQd3qYORhENJ3RZKyqZB pW6NgcY2bXdRv SMFpREPaF6UbrBLgVUhdT 125FUahRwJ2ZGAuknIzQ9 LqQZQbjPltLfJ7f3H7Wi2 NTWAkUS44PSL7 pUD3XD65JD63X4FcSrtto GFibGU+PHRhYmxlIHdpZH RoPScxMDAlJyBzdHlsZT0 nAg4xCJAaHLMh zZjcvTAxSnDbn1ufMWCeO AqaPB1geWtnM3CmcCU2VT Ect7s6Vg40A00wE4MmzCZ +CMQazNF8hRX7 tH5rPiUyXxC9DRitD416H vXxcXMmCtxdb1div6zzsC w5LqA2CNIrmtVwmDmaHPI 2a8DtNh99R14x IHdpZHRoPSIxNSUiIHZhb Pmdxi5dwR9yJc4+PGNvbC H5jVB8jT5mYaCcNdI2UQe fL452IaBjpVKw Ccwdb6qsy8oyrQr5CuCbV ZQoepSaoJnqLJE5i8DkBf 84W8JomFova0ZrBcv4rn8 1eBJld1A6gEX5 L1AcQOZxzpzksUJnfYklD Q7rOGTeuwmtUUElsZ4fUI JmO8y1DgRoZgG7OZwtK7Z pxoR4JOLbjNIk KZivMXO3J69ak7C9TQGmK BQrNEQ6xNG8bO0wuHgsue ogbGVmdDsgdmVydGljYWw lBAcqU957PXFd vInzTQWwmJ7cLGTnyAZmm NuiTG4kBLLtnsbdBf0HEB xTLCBEQVNIQVkgTUFSSUU 4H5OtKdc2DSEv aJgfJX4xcPOcFUkxXs9zh WaknRcyRH5tTGPrvqpmUV VokD9pXDHwlFHunOgpSK9 rBVIcgtjje797 TiQhNFE5HZCriDDaS0Bvc D7cLpPtUSWcBJFmJ6MtdB SdHXcxC474HHtdHcA3CIL wzxXrM1LsWYKj eRolWjL0z7Z4Zo1xKX1mM F5gFWh0HS22UF27qFLne3 R4pLQ8R9YiBNKvnalzfah oxYX4GCFgKNWy jX21dVViDNblTa2gt1F7o 047RHBoTAOunZ01Ws3ioX mqRJNrrMNDrF2xybpkw5z vcjogIzAwMDAw HTe8CAj0UDResEueSlJcZ QN6TnT2UXW6vKXbcZ4jiR qxizgatK7hBdm+MjcgWWV lmuD8M6SbFtb1 OTFrnYeoAR8hrYAgXGnpC m5gsGrngAmwIE5wSBYksw twNFLmaR8rIUBhwJLfeHz cNQ0hXODaxgnr g117NsVcDIV4FCOxgENvS 7TraY7uZsCgKLSuTUGfF0 AiaBDyYCwvC660LZbfUwD 7UHAuioWuF0Eg CBHqdZoyVmL0g8O1Yl0IA V1IDYO1S9LiQkk3PZFvwG clZG1rrHWySCvyWn3ujLx knHacHW8oESGi vftgKHUalC8pVSOjcLRnb WscDD4eSULikmhjx928Kq HfSZO0UPLsxNYtG9KvbC6 yOiAjMDAwMDAw H8UvcVArEKzlR908FTqzZ rC2IJRgpzJoN3MlFMAovW bvNzX7p7V6Au4HhEFoV3J mI4c6X3SdOnqs dHI+CA66SDXnZJ19hYGgi WLyr5sxxOb8XtFzEYIpHC E7jLmnPGbgh3SsSFEtI63 rlSIyb3F1COYz xMgqfAYsAgKdpZJ2rX3aE Bldngesx3ypcwjuSjccr5 crom13nX72E46nSJzvHSB oPSIzMCUiIHZh lSawff5ykM1rNt2+PGNvb SI9kXN4sY6yUrIsXxO7OX pyJ665PeFcaRYcUmiso2g rg7pnjOw2NoMd DEJyhiBvoLchHMP6v0FkF e43L74wNVesBVJcMWBsEH HkQVVldJfypn2fwV3nUv0 +VE7iu0rqci89 eP40jNL+OUNuZGT6jTjuG PxmWREjgO2dHWwmKtC3RR QiJmHqaK35hDSiPGmkCn0 caAjgqJlpGH0w DGKulybhw107KbZsn3msP HRcfOOtODmkCNO8M69ht2 P2WLKsNYVzBIK2yJG3uJ0 hbGlnbjogbGVm dDsgdmVydGljYWwtYWxpZ 993CDMelYjwNyBvhTJiO0 uhxxOTTU7pQsdqkVG+PHR fRQQ6qFjsBQye PSAjzY0ePCMtA1x5WhDeS hR9MOofV0IrjsO6FSLvyS MtIJTmrNJFgU4rnjbek0p vcjogIzAwMDAw SMz6KWk2XRNhsIbxPmMtM LG2EoK2HPA1sNQfwD1bqS ttawukzA6uGcm+RklOOjw vdGQ+PHRkIHN0 dMuvNJznNWSljF6wIONyG 7q0GuCaTsV0DOgaE3Apir F9EWBxuXZnDUGpcQGWnJ0 axcilh5ekejbb OeXySUXgKEo4CRl3POQib MprDpQeYDH3DkW9QCB5aU IgaI2gwElwmeeozP0xLrx +TVJOOjwvdGQ+ NQYlOEL0sQesJZftCQRzw M6pNNJtM1v2DxUhWcZ7IO oeT6FgwmG0XKBmbTHeXYE wfGKZvW1fmbjf n1ytxymoNhWsBUIpYBh5J Zp5KVIntMziRcKxTMX3Ao Q3VCV4qOShpB6jjUlvlxm hfA9lSxq+UGF5 YTD9FS05WM94W6UjFjnki GFibGU+PHRhYmxlIHdpZH RoPScxMDAlJyBzdHlsZT0 rWu4wHZLgRVWt bGx (more content not included)... Normal [facility] ED Clinical Summaryon 2020 ED Clinical Summary [facility] - Emergency Department [address] [place], [place] [id number] ED Clinical Summary PERSON INFORMATION Name: CARLOS ROCHA Age: 25 Years Sex: FEMALE : 1995 MRN: Acct#: Visit Reason: Skin rash; RASH Arrival: 02/22/2021 08:23:33 Discharge: 02/22/2021 09:27:00 LOS: 000 01:04 Check In: 02/22/2021 08:23:33 Checkout:02/22/2021 09:27:00 Address: [address] [facility] [id number] PCP: ZOLTAN COLE MD PROVIDER INFORMATION Provider [...] lymphadenopathy. Reexamin (more content not included)... Normal [facility] ED Note - Physicianon 2020 ED Note [...] be adequate. Encouraged also you to use [id number] hydrocortisone and/or Benadryl cream. Patient encouraged to return for any worsening or changes or persistence to symptoms. Impression and Plan Diagnosis Contact dermatitis (WET54-JC L25.9, Discharge, Medical) Plan Condition: Stable. Disposition: [...] Regarding diagnosi (more content not included)... Normal [facility] ED Note-Nursingon 02-22-2021 ED Note-Nursing [...] ear and outer ear. Awaiting exam. Normal [facility] ED Patient Summaryon 021 ED Patient Summary [facility] - Emergency Department [address] [place] [address] PATIENT DISCHARGE INSTRUCTIONS Patient Information Name: CARLOS ROCHA Age: 25 Years Date of : 1995 Reason For Visit: Skin rash; RASH Arrival Time: 02/22/2021 08:23:33 Primary Care Physician: ZOLTAN COLE MD Attending Physician: Oscar Haley DO Comment: Visit Diagnosis: Diagnoses This Visit Contact dermatitis (L25.9) Skin rash ([id number]) Prescription Information: If you have been given a prescription for narcotics, seek immediate medical attention if you have any difficulty breathing or any sudden status changes such as confusion and sleepiness. If you or anyone you know is experiencing suicidal thoughts, mental health, alcohol and/or drug addiction problems; contact the [facility] 08/02 Crisis Hotline -Text 8TOGU gp [phone]. If you received any narcotics, sedation, or [...] legal documents With: Address: When: ZOLTAN COLE [address] [place] [address] [phone] Business (1) Within 3 to 5 days Comments: Call for follow up appointment Return if symptoms worsen Medication Information: The exam and treatment you received today in the [facility] Emergency Department were for an urgent problem and are not intended as complete care. It is important for you to follow up with a doctor, nurse practitioner, or physician?s stylist assistant for ongoing care. If your symptoms [...] so we can reach you if necessary. [facility] Emergency Department has provided you with a complete list of medications post discharge. Please inform your layout man/provider of your visit and for further instruction [...] may devel (more content not included)... Normal [facility] CBC AUTO DIFFon 10-09-2019 Basophils (Bld) [#/Vol] 0.1 103/ul Normal 0.0-0.1 [facility] Comment on above: Performed By: #### C BC #### [facility] [address] [place], [place] [address] Ana Paula Diaz Basophils/100 WBC (Bld) 0.9 % Normal 0.2-2.0 [facility] Comment on above: Performed By: #### C BC #### [facility] [address] [place] [address] Ana Paula Emily Eosinophils (Bld) [#/Vol] 0.1 103/ul Normal 0.0-0.7 [facility] Comment on above: Performed By: #### C BC #### [facility] [address] [place], [place] [id number] Ana Paula Emily Eosinophils/100 WBC (Bld) 1.4 % Normal 0.9-7.0 [facility] Comment on above: Performed By: #### C BC #### [facility] [address] [place], [place] [id number] Ana Paula Emily Erythrocyte distribution width (RBC) [Ratio] 12.7 % Normal 11.0-15.0 [facility] Comment on above: Performed By: #### C BC #### [facility] [address] [place], [place] [phone] Ana Paula Emily Hematocrit (Bld) [Volume fraction] 31.4 % Critically low 36.0-48.0 [facility] Comment on above: Performed By: #### C BC #### [facility] [address] [place], [place] [phone] Ana Paula Emily Hemoglobin (Bld) [Mass/Vol] 10.1 g/dL Critically low 12.0-16.0 [facility] Comment on above: Performed By: #### C BC #### [facility] [address] [place], [place] [phone] Ana Paula Emily IG # 0.05 10e3/ul Critically high 0.00-0.[address] [facility] Comment on above: Performed By: #### C BC #### [facility] [address] [place], [place] [phone] Ana Paula Emily IG % 0.5 % Normal 0.0-0.5 [facility] Comment on above: Performed By: #### C BC #### [facility] [address] [place], [place] [phone] Ana Paula Emily Lymphocytes (Bld) [#/Vol] 2.1 103/ul Normal 1.2-3.8 [facility] Comment on above: Performed By: #### C BC #### [facility] [address] [place] [id number] Ana Paula Emily Lymphocytes/100 WBC (Bld) 22.6 % Normal 20.5-60.0 [facility] Comment on above: Performed By: #### C BC #### [facility] [address] [place] [id number] Ana Paula Emily MANUAL DIFF REQ NO Normal [facility] Comment on above: Performed By: #### C BC #### [facility] [address] [place] [id number] Ana Paula Emily MCH (RBC) [Entitic mass] 29.4 pg Normal 26.7-34.0 [facility] Comment on above: Performed By: #### C BC #### [facility] [address] [place], [place] [phone] Ana Paula Emily MCHC (RBC) [Mass/Vol] 32.2 g/dL Normal 29.9-35.2 [facility] Comment on above: Performed By: #### C BC #### [facility] [address] [place], [place] [phone] Ana Paula Emily MCV (RBC) [Entitic vol] 91.3 fL Normal 81.0-99.0 [facility] Comment on above: Performed By: #### C BC #### [facility] [address] [place], [place] [phone] Ana Paula Emily Monocytes (Bld) [#/Vol] 0.8 103/ul Normal 0.3-0.8 [facility] Comment on above: Performed By: #### C BC #### [facility] [address] [place], [place] [phone] Ana Paula Emily Monocytes/100 WBC (Bld) 8.4 % Normal 1.7-12.0 [facility] Comment on above: Performed By: #### C BC #### [facility] [address] [place], [place] [phone] Ana Paula Emily Neutrophils (Bld) [#/Vol] 6.1 103/ul Normal 1.4-6.5 [facility] Comment on above: Performed By: #### C BC #### [facility] [address] [place], [place] [address] Ana Paula Emily Neutrophils/100 WBC (Bld) 66.2 % Normal 43.0-75.0 [facility] Comment on above: Performed By: #### C BC #### [facility] [address] [place] [phone] Ana Paula Emily Platelet mean volume (Bld) [Entitic vol] 10.8 fL Normal 9.5-13.5 [facility] Comment on above: Performed By: #### C BC #### [facility] [address] [place] [address] Ana Paula Emily Platelets (Bld) [#/Vol] 167 103/ul Normal 150-450 [facility] Comment on above: Performed By: #### C BC #### [facility] [address] [place] [address] Ana Paula Emily RBC (Bld) [#/Vol] 3.44 106/ul Critically low 4.20-5.40 [facility] [place] Comment on above: Performed By: #### C BC #### [facility] [address] [place] [address] Ana Paula Emily WBC (Bld) [#/Vol] 9.2 103/ul Normal 4.0-11.[address] [facility] Comment on above: Performed By: #### C BC #### [facility] [address] [place] [address] Ana Paula Emily CBC AUTO DIFFon 10-08-2019 Basophils (Bld) [#/Vol] 0.1 103/ul Normal 0.0-0.1 [facility] Comment on above: Performed By: #### C BC #### [facility] [address] [place] [address] Ana Paula Emily Basophils/100 WBC (Bld) 0.7 % Normal 0.2-2.0 [facility] Comment on above: Performed By: #### C BC #### [facility] [address] [place] [address] Ana Paula Emily Eosinophils (Bld) [#/Vol] 0.1 103/ul Normal 0.0-0.7 [facility] Comment on above: Performed By: #### C BC #### [facility] [address] [place] [phone] Ana Paula Emily Eosinophils/100 WBC (Bld) 1.3 % Normal 0.9-7.0 [facility] Comment on above: Performed By: #### C BC #### [facility] [address] [place] [phone] Ana Paula Emily Erythrocyte distribution width (RBC) [Ratio] 12.5 % Normal 11.0-15.0 [facility] Comment on above: Performed By: #### C BC #### [facility] [address] [place] [phone] Ana Paula Emily Hematocrit (Bld) [Volume fraction] 34.8 % Critically low 36.0-48.0 [facility] Comment on above: Performed By: #### C BC #### [facility] [address] [place], [place] [phone] Ana Paula Emily Hemoglobin (Bld) [Mass/Vol] 11.2 g/dL Critically low 12.0-16.0 [facility] Comment on above: Performed By: #### C BC #### [facility] [address] [place], [place] [phone] Ana Paula Emily IG # 0.06 10e3/ul Critically high 0.00-0.03 [facility] Comment on above: Performed By: #### C BC #### [facility] [address] [place], [place] [phone] Ana Paula Emily IG % 0.7 % Critically high 0.0-0.5 [facility] Comment on above: Performed By: #### C BC #### [facility] [address] [place] [phone] Ana Paula Emily Lymphocytes (Bld) [#/Vol] 2.0 103/ul Normal 1.2-3.8 [facility] Comment on above: Performed By: #### C BC #### [facility] [address] [place] [phone] Ana Paula Emily Lymphocytes/100 WBC (Bld) 23.6 % Normal 20.5-60.0 [facility] Comment on above: Performed By: #### C BC #### [facility] [address] [place], [place] [address] Ana Paula Emily MANUAL DIFF REQ NO Normal [facility] Comment on above: Performed By: #### C BC #### [facility] [address] [place], [place] [address] Ana Paula Emily MCH (RBC) [Entitic mass] 28.7 pg Normal 26.7-34.0 [facility] Comment on above: Performed By: #### C BC #### [facility] [address] [place], [place] [address] Ana Paula Emily MCHC (RBC) [Mass/Vol] 32.2 g/dL Normal 29.9-35.2 [facility] Comment on above: Performed By: #### C BC #### [facility] [address] [place], [place] [phone] Ana Paula Emily MCV (RBC) [Entitic vol] 89.2 fL Normal 81.0-99.0 [facility] Comment on above: Performed By: #### C BC #### [facility] [address] [place] [address] Ana Paula Emily Monocytes (Bld) [#/Vol] 0.8 103/ul Normal 0.3-0.8 [facility] Comment on above: Performed By: #### C BC #### [facility] [address] [place] [address] Ana Paula Emily Monocytes/100 WBC (Bld) 8.7 % Normal 1.7-12.0 [facility] Comment on above: Performed By: #### C BC #### [facility] [address] [place], [place] [address] Ana Paula Emily Neutrophils (Bld) [#/Vol] 5.6 103/ul Normal 1.4-6.5 [facility] Comment on above: Performed By: #### C BC #### [facility] [address] [place], [place] [address] Ana Paula Emily Neutrophils/100 WBC (Bld) 65.0 % Normal 43.0-75.0 [facility] Comment on above: Performed By: #### C BC #### [facility] [address] [id number] Ana Paula Emily Platelet mean volume (Bld) [Entitic vol] 10.9 fL Normal 9.5-13.5 [facility] Comment on above: Performed By: #### C BC #### [facility] [address] [id number] Ana Paula Emily Platelets (Bld) [#/Vol] 217 103/ul Normal 150-450 [facility] Comment on above: Performed By: #### C BC #### [facility] [address] [place], [place] [id number] Ana Paula Emily RBC (Bld) [#/Vol] 3.90 106/ul Critically low 4.20-5.40 [facility] Comment on above: Performed By: #### C BC #### [facility] [address] [place], [place] [id number] Ana Paula Emily WBC (Bld) [#/Vol] 8.7 103/ul Normal 4.0-11.0 [facility] Comment on above: Performed By: #### C BC #### [facility] [address] [place], [place] [id number] Ana Paulaterry Diaz DRUG SCREEN RAPID (URINE)on 10-08-2019 AMP Negative Normal NEGATIVE [facility] Comment on above: Performed By: #### C BC #### [facility] [address] [place] [address] Anap Aula Emily BAR Negative Normal NEGATIVE [facility] Comment on above: Performed By: #### C BC #### [facility] [address] [place] [address] Ana Paula Emily BUP Negative Normal NEGATIVE [facility] Comment on above: Performed By: #### C BC #### [facility] [address] [place], [place] [id number] Ana Paula Emily BZO Negative Normal NEGATIVE [facility] Comment on above: Performed By: #### C BC #### [facility] [address] [place] [address] Ana Paula Emily KAY Negative Normal NEGATIVE [facility] Comment on above: Performed By: #### C BC #### [facility] [address] [place] [address] Ana Paula Emily CUT-OFFS SEE BELOW Normal [facility] Comment on above: Result Comment: AMP (Amphetamine): [...] ng/mL Performed By: #### C BC #### [facility] [address] [place] [address] DRUG CUT HEADER DRUG CLASS TEST SYSTEM CUT-OFF CONCENTRATIONS ARE FOLLOWS: Normal [facility] Comment on above: Performed By: #### C BC #### [facility] [address] [place] [address] Ana Paula Emily mAMP Negative Normal NEGATIVE [facility] Comment on above: Performed By: #### C BC #### [facility] [address] [place] [address] Ana Paula Emily MTD Negative Normal NEGATIVE [facility] Comment on above: Performed By: #### C BC #### [facility] [address] [place] [address] Ana Paula Emily OPI Negative Normal NEGATIVE [facility] Comment on above: Performed By: #### C BC #### [facility] [address] [place] [address] Ana Paula Emily OXY Negative Normal NEGATIVE [facility] Comment on above: Performed By: #### C BC #### [facility] [address] [place] [address] Ana Paula Emily PCP Negative Normal NEGATIVE [facility] Comment on above: Performed By: #### C BC #### [facility] [address] [place] [address] Ana Paula Emily PPX Negative Normal NEGATIVE [facility] Comment on above: Performed By: #### C BC #### [facility] [address] [place] [address] Ana Paula Meily TCA Negative Normal NEGATIVE [facility] Comment on above: Performed By: #### C BC #### [facility] [address] [place] [address] Ana Paula Emily THC Negative Normal NEGATIVE [facility] Comment on above: Performed By: #### C BC #### [facility] [address] [place] [address] Ana Paula Emily TYPE AND SCREENon 10-08-2019 TYPE AND SCREEN Negative Normal [facility] Comment on above: Performed By: #### C BC #### [facility] [address] [place] [address] Ana Paula Emily UA (CLEAN/CATCH) CAR REFINISHER/MICRO I F IND.on 10-08-2019 Bilirubin [Mass/Vol] Negative Normal NEGATIVE [facility] Comment on above: Performed By: #### C BC #### [facility] [address] [place] [address] Ana Paula Emily BLOOD Negative Normal NEGATIVE [facility] Comment on above: Performed By: #### C BC #### [facility] [address] [place] [address] Ana Paula Emily Clarity (U) CLEAR Normal [facility] Comment on above: Performed By: #### C BC #### [facility] [address] [place] [address] Ana Paula Emily Color (U) LT. YELLOW Normal YELLOW [facility] Comment on above: Performed By: #### C BC #### [facility] [address] [place] [address] Ana Paula Emily Glucose [Mass/Vol] Negative Normal NEGATIVE [facility] Comment on above: Performed By: #### C BC #### [facility] [address] [place] [address] Ana Paula Emily Ketones Ql (U) Negative Normal NEGATIVE [facility] Comment on above: Performed By: #### C BC #### [facility] [address] [place] [address] Ana Paula Emily Nitrite Ql (U) Negative Normal NEGATIVE [facility] Comment on above: Performed By: #### C BC #### [facility] [address] [place], [place] [phone] Ana Paula Emily pH (Bld) 6.5 Normal 5-9 [facility] Comment on above: Performed By: #### C BC #### [facility] [address] [place] [address] Ana Paula Emily Protein [Mass/Vol] Negative Normal [facility] Comment on above: Performed By: #### C BC #### [facility] [address] [place] [address] Ana Paula Emily SPEC GRAVITY 1.025 Normal 1.005-<=1.025 [facility] Comment on above: Performed By: #### C BC #### [facility] [address] [place] [address] Ana Paula Emily UR MICRO IND NOT INDICATED Normal [facility] Comment on above: Performed By: #### C BC #### [facility] [address] [place] [address] Ana Paulaterry Diaz Urobilinogen Qn (U) 1.0 EU/dl Normal [facility] Comment on above: Performed By: #### C BC #### [facility] [address] [place] [address] Ana Paula Emily WBC (Bld) [#/Vol] Negative Normal NEGATIVE [facility] Comment on above: Performed By: #### C BC #### [facility] [address] [place], [place] [phone] Ana Paulaterry Olsonen GROUP B STREP CULTUREon S. agalactiae Ag Ql (Unsp spec) Culture Observations: Negative for Group B Streptococcus Normal [facility] Comment on above: Performed By: #### C BC #### [facility] [address] [place] [address] Ana Paula Emily UA (CLEAN/CATCH) CAR REFINISHER/MICRO I F IND.on 09-15-2019 Bilirubin [Mass/Vol] Negative Normal NEGATIVE [facility] Comment on above: Performed By: #### C BC #### [facility] [address] [place] [address] Ana Paula Emily BLOOD Negative Normal NEGATIVE [facility] Comment on above: Performed By: #### C BC #### [facility] [address] [place] [address] Ana Paula Emily Clarity (U) SL CLOUDY Normal [facility] Comment on above: Performed By: #### C BC #### [facility] [address] [place] [address] Ana Paula Emily Color (U) YELLOW Normal YELLOW [facility] Comment on above: Performed By: #### C BC #### [facility] [address] [place] [address] Ana Paula Emily Glucose [Mass/Vol] Negative Normal NEGATIVE [facility] Comment on above: Performed By: #### C BC #### [facility] [address] [place] [address] Ana Paula Emily Ketones Ql (U) TRACE Normal NEGATIVE [facility] Comment on above: Performed By: #### C BC #### [facility] [address] [place] [address] Ana Paula Emily Nitrite Ql (U) Negative Normal NEGATIVE [facility] Comment on above: Performed By: #### C BC #### [facility] [address] [place] [address] Ana Paula Emily pH (Bld) 6.0 Normal 5-9 [facility] Comment on above: Performed By: #### C BC #### [facility] [address] [place] [address] Ana Paula Emily Protein [Mass/Vol] Negative Normal [facility] Comment on above: Performed By: #### C BC #### [facility] [address] [place] [address] Ana Paula Emily SPEC GRAVITY 1.025 Normal 1.005-<=1.025 [facility] Comment on above: Performed By: #### C BC #### [facility] [address] [place] [address] Ana Paula Emily UR MICRO IND NOT INDICATED Normal [facility] Comment on above: Performed By: #### C BC #### [facility] [address] [place] [address] Ana Paula Emily Urobilinogen Qn (U) 1.0 EU/dl Normal [facility] Comment on above: Performed By: #### C BC #### [facility] [address] [place] [address] Ana Paula Emily WBC (Bld) [#/Vol] Negative Normal NEGATIVE [facility] Comment on above: Performed By: #### C BC #### [facility] [address] [place] [address] Ana Paula Emily CULTURE URINEon 08-30-2019 CULTURE URINE Culture Observations : No growth Normal [facility] Comment on above: Performed By: #### N BOX #### [facility] [address] [place] [address] Ana Paula Emily UA (CLEAN/CATCH) CAR REFINISHER/MICRO I F IND.on 08-30-2019 Bilirubin [Mass/Vol] Negative Normal NEGATIVE [facility] Comment on above: Performed By: #### N BOX #### [facility] [address] [place] [address] Ana Paula Emily BLOOD Negative Normal NEGATIVE [facility] Comment on above: Performed By: #### N BOX #### [facility] [address] [place] [address] Ana Paula Emily Clarity (U) CLEAR Normal [facility] Comment on above: Performed By: #### N BOX #### [facility] [address] [place] [address] Ana Paula Emily Color (U) LT. YELLOW Normal YELLOW [facility] Comment on above: Performed By: #### N BOX #### [facility] [address] [place] [address] Ana Paula Emily Glucose [Mass/Vol] Negative Normal NEGATIVE [facility] Comment on above: Performed By: #### N BOX #### [facility] [address] [address] Ana Paula Emily Ketones Ql (U) Negative Normal NEGATIVE [facility] Comment on above: Performed By: #### N BOX #### [facility] [address] [address] Ana Paula Emily Nitrite Ql (U) Negative Normal NEGATIVE [facility] Comment on above: Performed By: #### N BOX #### [facility] [address] [address] Ana Paula Emily pH (Bld) 6.5 Normal 5-9 [facility] Comment on above: Performed By: #### N BOX #### [facility] [address] [place] [address] Ana Paula Emily Protein [Mass/Vol] Negative Normal [facility] Comment on above: Performed By: #### N BOX #### [facility] [address] [place] [address] Ana Paula Diaz SPEC GRAVITY 1.020 Normal 1.005-<=1.025 [facility] Comment on above: Performed By: #### N BOX #### [facility] [address] [place] [address] Ana Paulaterry Diaz UR MICRO IND INDICATED Normal [facility] Comment on above: Performed By: #### N BOX #### [facility] [address] [place] [address] Ana Paulaterry Diaz Urobilinogen Qn (U) 1.0 EU/dl Normal [facility] Comment on above: Performed By: #### N BOX #### [facility] [address] [place] [address] Ana Paulaterry Diaz WBC (Bld) [#/Vol] TRACE Normal NEGATIVE [facility] Comment on above: Performed By: #### N BOX #### [facility] [address] [place], [place] [phone] Ana Paula Emily URINE MICROSCOPIC ONLYon Bacteria LM.HPF (Urine sed) [#/Area] LARGE Normal NONE SEEN [facility] Comment on above: Performed By: #### N BOX #### [facility] [address] [id number] Ana Paula Emily CAST NONE SEEN Normal NONE SEEN [facility] Comment on above: Performed By: #### N BOX #### [facility] [address] [id number] Ana Paula Emily Crystals LM Nom (Urine sed) NONE SEEN Normal NONE SEEN [facility] Comment on above: Performed By: #### N BOX #### [facility] [address] [address] Ana Paula Emily CULTURE INDICATED Normal [facility] Comment on above: Performed By: #### N BOX #### [facility] [address] [id number] Ana Paula Emily Epithelial cells LM.HPF (Urine sed) [#/Area] MODERATE Normal [facility] Comment on above: Performed By: #### N BOX #### [facility] [address] [id number] Ana Paula Emily MUCOUS NONE SEEN Normal NONE SEEN [facility] Comment on above: Performed By: #### N BOX #### [facility] [address] [place] [address] Ana Paula Emily RBC (U) [#/Vol] NONE SEEN Normal 0-2 [facility] Comment on above: Performed By: #### N BOX #### [facility] [address] [place], [place] [phone] Ana Paula Emily WBC (Bld) [#/Vol] 5-10 Normal NONE SEEN [facility] Comment on above: Performed By: #### N BOX #### [facility] [address] [place] [address] Ana Paula Emily GTT 3 HR PREGon 07-22-2019 Glucose [Mass/Vol] 120 mg/dL Normal [facility] Comment on above: Performed By: #### N BOX #### [facility] [address] [place] [address] Ana Paula Emily Glucose [Mass/Vol] 107 mg/dL Normal [facility] Comment on above: Performed By: #### N BOX #### [facility] [address] [place] [address] Ana Paula Diaz Glucose [Mass/Vol] 87 mg/dL Normal 74-106 [facility] Comment on above: Performed By: #### N BOX #### [facility] [address] [place], [place] [address] Ana Paula Diaz Glucose [Mass/Vol] 144 mg/dL Normal [facility] Comment on above: Performed By: #### N BOX #### [facility] [address] [place], [place] [address] Ana Paula Diaz US PREG ANATOMY SINGLEon US PREG ANATOMY SINGLE Patient: CARLOS ROCHA Exam Date: 05/30/2019 : 1995 Gender:F Ordering : DR TESSA PEREZ . Admission #: [id number] Family : Order #: [id number] CLICK HERE TO VIEW EXAM RADIOLOGY REPORT [...] Rei Calles M.D. on 05/30/2019 at 13:14 [facility] PAP ACOG PANEL 2: 20 to 28on 05-08-2019 Age Gdln ACOG Testing [facility] Comment on above: Performed By: #### N BOX #### [facility] [address] [place] [address] Ana Paula Diaz COMMENT Comment [facility] Comment on above: Result Comment: Z01. [id number] Z11.51 Performed By: #### N BOX #### [facility] [address] [place] [address] Ana Paula Diaz DIAGNOSIS: Comment [facility] Comment on above: Result Comment: NEGA TIVE FOR INTRAEPITHELIAL LESION OR MALIGNANCY. Performed By: #### N BOX #### [facility] [address] [address] Ana Paula Diaz Methodology: Comment [facility] Comment on above: Result Comment: This liquid based SurePath(R) pap test was screened with the assistance of an image guided system. Performed By: #### N BOX #### [facility] [address] [place] [address] Ana Paula Diaz Note: Comment Normal [facility] Comment on above: Result Comment: The Pap smear is a screening test designed to aid in the detection of premalignant and malignant conditions of the uterine cervix. It is not a diagnostic procedure and should not be used as the sole means of detecting cervical cancer. Both false-positive and false-negative reports do occur. . Performed By: #### N BOX #### [facility] [address] [place] [address] Ana Paula Diaz Performed by: Comment Normal [facility] Comment on above: Result Comment: Enoc Mariee, Bit Tripoler (ASCP) Performed By: #### N BOX #### [facility] [address] [place] [address] Ana Paula Emily Reflex Criteria: Comment Normal [facility] Comment on above: Result Comment: The HPV DNA reflex criteria were not met with this specimen result therefore, no HPV testing was performed. . Performed By: #### N BOX #### [facility] [address] [place], [place] [id number] Ana Paula Emily Specimen adequacy: Comment Normal [facility] Comment on above: Result Comment: Sati sfactory for evaluation. Endocervical and/or squamous metaplastic cells (endocervical component) are present. Performed By: #### N BOX #### [facility] [address] [place] [address] Ana Paula Emily . . Normal [facility] Comment on above: Performed By: #### N BOX #### [facility] [address] [place] [address] Ana Paula Emily CHLAMYDIA/GONOCOCCUS MICHAEL (SW AB/URINE/PAPon 05-05-2019 Chlamydia trachomatis, MICHAEL Negative Normal Negative [facility] Comment on above: Performed By: #### N BOX #### [facility] [address] [place] [address] Ana Paula Emily Neisseria gonorrhoeae, MICHAEL Negative Normal Negative [facility] Comment on above: Performed By: #### N BOX #### [facility] [address] [place], [place] [phone] Ana Paula Emily VAGINITIS/VAGINOSIS DNA PROB Julito 05-05-2019 Samantha species Negative Normal Negative [facility] Comment on above: Performed By: #### N BOX #### [facility] [address] [place] [address] Ana Paula Emily Gardnerella vaginalis Negative Normal Negative [facility] Comment on above: Performed By: #### N BOX #### [facility] [address] [place] [address] Ana Paula Emily Trichomonas vaginalis Negative Normal Negative [facility] Comment on above: Performed By: #### N BOX #### [facility] [address] [place] [address] Ana Paula Diaz HEP B SURFACE ANTIGEN SCREEN on 03-28-2019 HBsAg Screen Negative Normal Negative [facility] Comment on above: Performed By: #### H BSANS #### [facility] [address] [place] [address] Ana Paula Diaz HEPATITIS C VIRUS AB W/ REFL EX QUANTon 03-28-2019 HCV AB <0.1 Normal 0.0-0.9 [facility] Comment on above: Performed By: #### H CVPCRR #### [facility] [address] [place] [address] Ana Paula Diaz Interpretation: Comment Normal [facility] Comment on above: Result Comment: Nega tive Not infected with HCV, unless recent infection is suspected or other evidence exists to indicate HCV infection. Performed By: #### H CVPCRR #### [facility] [address] [place] [address] Ana Paula Diaz HIV 1 AND 2 WITH REFLEXon HIV Screen 4th Generation wRfx Non Reactive Normal Non Reactive [facility] Comment on above: Performed By: #### H IV12 #### [facility] [address] [place] [address] Ana Paula Diaz RPR QUANTon 03-28-2019 Rapid Plasma Reagin, Quant Non Reactive Normal NonRea<1:1 [facility] Comment on above: Performed By: #### R PRQ #### [facility] [address] [place] [address] Ana Paula Diaz RUBELLA AB IGGon 03-28-2019 Rubella Antibodies, IgG 3.01 index Normal Immune >0.99 [facility] Comment on above: Result Comment: Non- immune <0.90 Equivocal 0.90 - 0.99 Immune >0.99 Performed By: #### N BOX #### [facility] [address] [place] [address] Ana Paula Diaz CBC AUTO DIFFon 03-27-2019 Basophils (Bld) [#/Vol] 0.1 103/ul Normal 0.0-0.1 [facility] Comment on above: Performed By: #### C BC #### [facility] [address] [place], [place] [id number] Ana Paula Emily Basophils/100 WBC (Bld) 0.9 % Normal 0.2-2.0 [facility] Comment on above: Performed By: #### C BC #### [facility] [address] [place], [place] [address] Ana Paula Emily Eosinophils (Bld) [#/Vol] 0.4 103/ul Normal 0.0-0.7 [facility] Comment on above: Performed By: #### C BC #### [facility] [address] [place], [place] [address] Ana Paula Emily Eosinophils/100 WBC (Bld) 5.8 % Normal 0.9-7.0 [facility] Comment on above: Performed By: #### C BC #### [facility] [address] [place] [address] Ana Paula Emily Erythrocyte distribution width (RBC) [Ratio] 12.2 % Normal 11.0-15.0 [facility] Comment on above: Performed By: #### C BC #### [facility] [address] [place] [address] Ana Paula Emily Hematocrit (Bld) [Volume fraction] 35.9 % Critically low 36.0-48.0 [facility] Comment on above: Performed By: #### C BC #### [facility] [address] [place], [place] [address] Ana Paula Emily Hemoglobin (Bld) [Mass/Vol] 12.5 g/dL Normal 12.0-16.0 [facility] Comment on above: Performed By: #### C BC #### [facility] [address] [place] [address] Ana Paula Emily IG # 0.02 10e3/ul Normal 0.00-0.03 [facility] Comment on above: Performed By: #### C BC #### [facility] [address] [place] [address] Ana Paula Emily IG % 0.3 % Normal 0.0-0.5 [facility] Comment on above: Performed By: #### C BC #### [facility] [address] [id number] Ana Paula Emily Lymphocytes (Bld) [#/Vol] 1.5 103/ul Normal 1.2-3.8 [facility] Comment on above: Performed By: #### C BC #### [facility] [address] [id number] Ana Paula Emily Lymphocytes/100 WBC (Bld) 21.6 % Normal 20.5-60.0 [facility] Comment on above: Performed By: #### C BC #### [facility] [address] [place], [place] [id number] Ana Paula Emily MANUAL DIFF REQ NO Normal [facility] Comment on above: Performed By: #### C BC #### [facility] [address] [place], [place] [id number] Ana Paula Emily MCH (RBC) [Entitic mass] 31.2 pg Normal 26.7-34.0 [facility] Comment on above: Performed By: #### C BC #### [facility] [address] [place], [place] [phone] Ana Paula Emily MCHC (RBC) [Mass/Vol] 34.8 g/dL Normal 29.9-35.2 [facility] Comment on above: Performed By: #### C BC #### [facility] [address] [place], [place] [phone] Ana Paula Emily MCV (RBC) [Entitic vol] 89.5 fL Normal 81.0-99.0 [facility] Comment on above: Performed By: #### C BC #### [facility] [address] [place], [place] [phone] Ana Paula Meily Monocytes (Bld) [#/Vol] 0.5 103/ul Normal 0.3-0.8 [facility] Comment on above: Performed By: #### C BC #### [facility] [address] [place], [place] [phone] Ana Paula Emily Monocytes/100 WBC (Bld) 7.5 % Normal 1.7-12.0 [facility] Comment on above: Performed By: #### C BC #### [facility] [address] [place], [place] [address] Ana Paula Emily Neutrophils (Bld) [#/Vol] 4.5 103/ul Normal 1.4-6.5 [facility] Comment on above: Performed By: #### C BC #### [facility] [address], [place] [address] Ana Paula Emily Neutrophils/100 WBC (Bld) 63.9 % Normal 43.0-75.0 [facility] Comment on above: Performed By: #### C BC #### [facility] [address] [place] [address] Ana Paula Emily Platelet mean volume (Bld) [Entitic vol] 9.6 fL Normal 9.5-13.5 [facility] Comment on above: Performed By: #### C BC #### [facility] [address] [place] [address] Ana Paula Emily Platelets (Bld) [#/Vol] 231 103/ul Normal 150-450 [facility] Comment on above: Performed By: #### C BC #### [facility] [address] [place] [address] Ana Paula Emily RBC (Bld) [#/Vol] 4.01 106/ul Critically low 4.20-5.40 [facility] [place] Comment on above: Performed By: #### C BC #### [facility] [address] [place] [address] Ana Paula Emily WBC (Bld) [#/Vol] 7.0 103/ul Normal 4.0-11.0 [facility] Comment on above: Performed By: #### C BC #### [facility] [address] [place] [address] Ana Paula Emily CULTURE URINEon 03-27-2019 CULTURE URINE Culture Observations : Heavy growth of mixed genital leann.No potential pathogens seen. Normal [facility] Comment on above: Performed By: #### N BOX #### [facility] [address] [place] [address] Ana Paula Emily GLYCOHEMOGLOBIN A1Con 2018 Glucose [Mass/Vol] 105 mg/dL Normal [facility] Comment on above: Performed By: #### A 1C #### [facility] [address] [place] [address] Ana Paula Emily HbA1c (Bld) [Mass fraction] 5.3 % Normal <=6.0 [facility] Comment on above: Performed By: #### A 1C #### [facility] [address] [place] [address] Ana Paula Emily POLY BOX TEST PT SEND OUTo n 03-27-2019 SENT TO REF LAB 03/27/19 Normal [facility] Comment on above: Performed By: #### N BOX #### [facility] [address] [place] [address] Ana Paula Emily TYPE AND SCREENon 03-27-2019 TYPE AND SCREEN Negative Normal [facility] Comment on above: Performed By: #### T NS #### [facility] [address] [place] [address] Ana Paula Emily UA RANDOM W/MICROSCOPICon Bacteria LM.HPF (Urine sed) [#/Area] TRACE Normal NONE SEEN [facility] Comment on above: Performed By: #### U AMIC #### [facility] [address] [place] [address] Ana Paula Emily Bilirubin [Mass/Vol] Negative Normal NEGATIVE [facility] Comment on above: Performed By: #### U AMIC #### [facility] [address] [place] [address] Ana Paula Emily BLOOD Negative Normal NEGATIVE [facility] Comment on above: Performed By: #### U AMIC #### [facility] [address] [place] [address] Ana Paula Emily CAST NONE SEEN Normal NONE SEEN [facility] Comment on above: Performed By: #### U AMIC #### [facility] [address] [place] [address] Ana Paula Emily Clarity (U) CLEAR Normal [facility] Comment on above: Performed By: #### U AMIC #### [facility] [address] [place] [address] Ana Paula Emily Color (U) LT. YELLOW Normal YELLOW [facility] Comment on above: Performed By: #### U AMIC #### [facility] [address], [place] [address] Ana Paula Emily Crystals LM Nom (Urine sed) NONE SEEN Normal NONE SEEN [facility] Comment on above: Performed By: #### U AMIC #### [facility] [address], [place] [address] Ana Paula Emily Epithelial cells LM.HPF (Urine sed) [#/Area] FEW Normal [facility] Comment on above: Performed By: #### U AMIC #### [facility] [address] [place] [phone] Ana Paula Emily Glucose [Mass/Vol] Negative Normal NEGATIVE [facility] Comment on above: Performed By: #### U AMIC #### [facility] [address] [place] [phone] Ana Paula Emily Ketones Ql (U) Negative Normal NEGATIVE [facility] Comment on above: Performed By: #### U AMIC #### [facility] [address] [place] [phone] Ana Paula Emily MUCOUS TRACE Normal NONE SEEN [facility] Comment on above: Performed By: #### U AMIC #### [facility] [address] [place] [phone] Ana Paula Emily Nitrite Ql (U) Negative Normal NEGATIVE [facility] Comment on above: Performed By: #### U AMIC #### [facility] [address] [place] [phone] Ana Paula Emily pH (Bld) 6.0 Normal 5-9 [facility] Comment on above: Performed By: #### U AMIC #### [facility] [address] [place] [phone] Ana Paula Emily Protein [Mass/Vol] Negative Normal [facility] Comment on above: Performed By: #### U AMIC #### [facility] [address] [place] [id number] Ana Paula Emily RBC (Bld) [#/Vol] NONE SEEN Normal 0-[address] [facility] Comment on above: Performed By: #### U AMIC #### [facility] [address] [place], [place] [address] Ana Paula Diaz SPEC GRAVITY 1.025 Normal 1.005-<=1.025 [facility] Comment on above: Performed By: #### U AMIC #### [facility] [address] [place], [place] [address] Ana Paula Diaz Urobilinogen Qn (U) 0.2 EU/dl Normal [facility] Comment on above: Performed By: #### U AMIC #### [facility] [address] [place], [place] [address] Ana Paula Emily WBC (Bld) [#/Vol] Negative Normal NEGATIVE [facility] Comment on above: Performed By: #### U AMIC #### [facility] [address] [place], [place] [address] Ana Paula Emily WBC (Bld) [#/Vol] 0-2 Normal NONE SEEN [facility] Comment on above: Performed By: #### U AMIC #### [facility] [address] [place], [place] [address] Ana Paula Diaz US PREG TVon 03-08-2019 US PREG TV Patient: CARLOS ROCHA Exam Date: 03/08/2019 : 1995 Gender:F Ordering : DR TESSA PEREZ . Admission #: [id number] Family : Order #: [id number] CLICK HERE TO VIEW EXAM RADIOLOGY REPORT [...] Calles M.D. on 03/08/2019 at 09:42 Normal [facility] Vital Signs Date Time Vital Sign Value Performing Clinician Laura del angely 08-31-2023 10:30-0500 Body mass index (BMI) [Ratio] 29.65 kg/m2 Tessa Ana DO Work Phone: [facility] 08-31-2023 10:30-0500 Body weight 75.93 kg Tessa Ana DO Work Phone: [facility] 08-31-2023 10:30-0500 Diastolic blood pressure 70 mm[Hg] Tessa Ana DO Work Phone: [facility] 08-31-2023 10:30-0500 Systolic blood pressure 114 mm[Hg] Tessa Ana DO Work Phone: [facility] Encounters Encounter Date Encounter Type Care Provider Facility Start: 09-28-2023 End: 09-28-2023 ambulatory TESSA ANA Not Available Start: 09-14-2023 End: 09-14-2023 ambulatory TESSA ANA Not Available Start: 08-31-2023 End: 08-31-2023 ambulatory TESSA ANA Not Available Start: 08-31-2023 End: 08-31-2023 Office outpatient visit 15 minutes Tessa Ana DO Work Phone: [facility] Comment on above: Third trimester preg julian; Gestational diabetes mellitus (GDM), antepartum, gestational diabetes method of control unspecified; Elevated glucose tolerance test Start: 08-17-2023 End: 08-17-2023 ambulatory MELONY HANDLEY Not Available Start: 06-16-2023 End: 06-16-2023 ambulatory MELONY ENDER Not Available Start: 10-13-2019 Patient encounter procedure TESSA FA HIRENO Facility:[facility] Start: 10-09-2019 Evaluation and manag ement of inpatient TESSA ANA Facility:[facility] Start: 10-08-2019 End: 10-10-2019 Evaluation and management of inpatient PAM TURNER Facility:[facility] Start: 09-19-2019 End: 09-19-2019 Patient encounter procedure TESSA ANA Facility:[facility] Start: 09-15-2019 End: 09-15-2019 Patient encounter procedure TESSA ANA Facility:[facility] Start: 08-30-2019 End: 08-30-2019 Patient encounter procedure TESSA ANA Facility:[facility] Start: 07-22-2019 End: 07-23-2019 Patient encounter procedure TESSA ANA Facility:[facility] Start: 06-27-2019 Patient encounter procedure TESSA FA ZIO Facility:[facility] Start: 05-30-2019 End: 05-31-2019 Patient encounter procedure TESSA ANA Facility:[facility] Start: 05-03-2019 End: 05-03-2019 Patient encounter procedure TESSA ANA Facility:[facility] Start: 03-27-2019 End: 03-28-2019 Patient encounter [...] Routine [facility] [address] [place] [address] Tessa Perez, DO [address] [place] [address] [facility] Payers Date Payer Category Payer Medicaid [employer] [facility] [place] [id number] 2022-Present [address] [address] [place] [address] [id number] 1995 Unknown [id number] [id number]3 1994 Unknown [id number] 2.16.840.1.479574.3.579.2.593 1994 Unknown [id number] 2.16.840.1.542439.3.579.2.593 1994 Unknown [id number] 2.16.840.1.357903.3.579.2.593 1994 Unknown [id number] 2.16.840.1.596916.3.579.2.593 1994 Unknown [id number] 2.16.840.1.714784.3.579.2.593 1994 Unknown [id number] 2.16.840.1.068103.3.579.2.593 1994 Unknown [id number] 2.16.840.1.681232.3.579.2.593 1994 Unknown [id number] 2.16.840.1.292241.3.579.2.593 1994 Unknown [id number] 2.16.840.1.230368.3.579.2.593 1994 Unknown [id number] 2.16.840.1.142049.3.579.2.593 1994 Unknown [id number] 2.16.840.1.664933.3.579.2.593 1994 Unknown [id number] 2.16.840.1.276647.3.579.2.1259 1994 Unknown [id number] 2.16.840.1.650783.3.579.2.1259 1994 Unknown [id number] 2.16.840.1.737275.3.579.2.1259 1994 Unknown [id number] 2.16.840.1.418648.3.579.2.1259 1994 Unknown [id number] 2.16.840.1.411878.3.579.2.1259 1960 Self-pay 1960 Unknown [id number] 1960 Unknown [id number] Social History Date Type [facility]ail [facility] Start: 01-31-2023 [facility] Start: 1995 Sex Assigned At Not on file [facility] Gender identity Not [facility] file [facility] Medical Equipment Procedure Code Equipment Code Equipment Origin al Text Equipment Identifier Dates 1 strip by In Vi tro route in the morning. Use in the morning prior to breakfast, 1 hour after each meal for a total of 4times daily.. [id number] Start: 08-31-2023 End: 09-30-2023 1 each by In Vit ro route in the morning. Use to check FSBS four times daily. [id number] Start: 08-31-2023 End: 09-30-2023 History of Present illness Narrative 08-31-2023 Emily Benites LPN - 08/31/2023 10:30 AM EST Note Date [...] Diagnosis Date Noted Adjustment disorder with anxiety ([facility]/HCC) 04/17/2021 Resolved Ambulatory Problems Diagnosis Date Noted [...] nursing note reviewed. Exam conducted with a spike machine feeder present. Vitals: Estimated body mass index is [...] Tessa Perez DO documented in this encounter [facility] Clinical Note 02-22-2021 Note Date & Type [...] job, you may need to see an cash management specialist. How is this treated? This condition [...] and dyes. Medicines ? Take or apply [id number] and prescription medicines only as told by [...] and water are not available, use hand medical billing and coding instructor. General instructions ? Avoid the substance that [...] new symptoms. Get (more content not included)... [facility] Evaluation note Note Date & Type Note [...] Elevated glucose tolerance test Tessa Perez, DO [address] [place] [address] [place] [address] Referral ID Status Reason Start Date Expiration Date Visits Re quested Visits Authorized [id number] Closed 1 1 Additional Source Comments INFORMATION SOURCE (unrecogn ized section and content) DATE CREATED AUTHOR 10/16/2019 [facility] DATE CREATED AUTHOR AUTHOR'S ORGANIZ ATION 03/06/2021 [facility] DATE CREATED AUTHOR AUTHOR'S ORGANIZ ATION 09/29/2023 [facility] EPIC Reason for Visit (unrecogniz ed section and content) Reason Comments Routine Visit Care Teams (unrecognized sec tion and content) Grape Cutter Relationship Specialty Start Date End Date Zoltan Cole MD [address] [place] [address] PCP - External PCP Family Medicine 12/26/22 [...] BE BASED ON THE PRIMARY CLINICAL RECORDS. [employer] provides no warranty or guarantee of the accuracy or completeness of information in this document.
[2023-10-04 21:18] VITALS: BP 119/71; PULSE 78
[2023-10-04 21:26] VITALS: RESP 16; TEMP 37.1
[2023-10-04 21:38] LABS: Bilirubin Urine NEGATIVE (NEGATIVE); Blood Urine NEGATIVE (NEGATIVE); Clarity Urine CLEAR (CLEAR); Color Urine YELLOW (YELLOW); Glucose Urine UA NEGATIVE (NEGATIVE); Ketones Urine NEGATIVE (NEGATIVE); Leukocyte Esterase Urine NEGATIVE (NEGATIVE); Nitrite Urine NEGATIVE (NEGATIVE); Protein Urine NEGATIVE (NEG/TRACE); Specific Gravity Urine 1.015 (1.005-1.025); Urine Microscopic Indicated NO; Urobilinogen Urine 0.2 EU/dL (0.2-1.0)
[2023-10-04 22:48] LABS: Influenza Virus A Antigen Negative; Influenza Virus B Antigen Negative; Internal Control Within Normal Limits; SARS-CoV-2 Ag NEGATIVE (NEGATIVE)
[2023-10-04] MEDS: 0.9 % SODIUM CHLORIDE 500 ML IV (23:05)
[2023-10-04 23:07] VITALS: PULSE 65; RESP 16; O2SAT 97
[2023-10-04] MEDS: ALBUTEROL SULFATE 2.5 MG/3 ML VIAL NEB IH (23:07)
[2023-10-04 23:09] LABS: Basophils Percent Auto 0.5 % (0.2-2.0); Eosinophils Absolute Auto 0.1 10^3/uL (0.0-0.7); Eosinophils Percent Auto 0.9 % (0.9-7.0); Hematocrit 31.9 % (36.0-48.0); Hemoglobin 10.5 g/dL (12.0-16.0); Immature Granulocytes Abs Auto 0.03 10^3/uL (0.00-0.03); Immature Granulocytes Pct Auto 0.4 % (0.0-0.5); Mean Corpuscular HGB Conc 32.9 g/dL (29.9-35.2); Mean Corpuscular Hemoglobin 29.2 pg (26.7-34.0); Mean Corpuscular Volume 88.6 fL (81.0-99.0); Monocytes Absolute Auto 0.6 10^3/uL (0.3-0.8); Monocytes Percent Auto 7.4 % (1.7-12.0); Neutrophils Absolute Auto 4.8 10^3/uL (1.4-6.5); Neutrophils Percent Auto 63.8 % (43.0-75.0); Platelet Count 257 10^3/uL (150-450); Red Cell Distribution Width 13.3 % (11.0-15.0); White Blood Count 7.5 10^3/uL (4.0-11.0)
--- NOTE | 2023-10-04 23:10 | XR_ITS ---
[address] [address] Patient Name: ALYSSA ROCHA MRN: [id number] date: 1995 Sex: F Assigned Patient Location: [facility] Current Patient Location: [facility] Accession/Order Number: [id number] Exam Date: 10/04/2023 23:10 Report Date: 10/04/2023 23:47 At the request of: TESSA BAUER Procedure: XR chest 1V XR chest 1V 10/04/2023 10:10 PM CDT: History: r/o pneumonia Comparison: 07/01/2023 Technique: 1 view chest Findings: The cardiomediastinal silhouette is normal. The lungs are clear without infiltrate, effusion, or pneumothorax. The bones are intact. XR/XR chest 1V Impression: No acute cardiopulmonary process. Electronically authenticated by: CHARLIE NUNO Date: 10/04/2023 23:47
[2023-10-04 23:13] VITALS: PULSE 78; RESP 18; O2SAT 98
[2023-10-04] MEDS: 0.9 % SODIUM CHLORIDE 1,000 ML 125 ML IV (23:40)
[2023-10-04] MEDS: AZITHROMYCIN 500 MG in 0.9 % SODIUM CHLORIDE 250 ML 250 MG IV (23:41)
[2023-10-04 23:44] VITALS: TEMP 36.2
[2023-10-04 23:45] VITALS: BP 104/56; PULSE 80
[2023-10-05] MEDS: CALCIUM CARBONATE 500 MG (200MG ELEMENTAL) TAB CHEW PO (00:22)
[2023-10-05 04:34] VITALS: BP 115/63; PULSE 73; TEMP 36.7
[2023-10-05 04:40] VITALS: PULSE 89; RESP 18; O2SAT 96
[2023-10-05] MEDS: ALBUTEROL SULFATE 2.5 MG/3 ML VIAL NEB IH (04:40)
[2023-10-05 04:47] VITALS: PULSE 78; RESP 16; O2SAT 99
[2023-10-05 08:57] VITALS: BP 105/72; PULSE 85
[2023-10-05 09:00] VITALS: RESP 18; TEMP 36.8; O2SAT 98
[2023-10-05] MEDS: 0.9 % SODIUM CHLORIDE 1,000 ML 125 ML IV (09:00)
[2023-10-05 09:02] VITALS: RESP 18; O2SAT 98
--- NOTE | 2023-10-05 09:16 | CT_ITS ---
[address] [address] Patient Name: ALYSSA ROCHA MRN: [id number] date: 1995 Sex: F Assigned Patient Location: [facility] Current Patient Location: [facility] Accession/Order Number: [id number] Exam Date: 10/05/2023 09:45 Report Date: 10/05/2023 10:12 At the request of: TESSA BAEUR Procedure: CT angio chest EXAM: CT angio chest HISTORY: Shortness of breath COMPARISON: None. TECHNIQUE: Following intravenous administration of 97 cc of Omnipaque 350, axial soft tissue and lung windows of the chest were performed with coronal and sagittal reformats. 3-D MIPS reconstructions were created and reviewed. CT dose reduction technique was used including Automated Exposure Control. Findings: The heart is not significantly enlarged. No pericardial effusion. The thoracic aorta is normal caliber. There is adequate opacification of the pulmonary arteries. No pulmonary embolism. The central airways are patent. No pneumothorax. No pleural effusion. No focal consolidation. Minimal dependent atelectasis. No enlarged mediastinal, hilar, axillary or supraclavicular lymph nodes. No aggressive sclerotic or lytic osseous lesions. CT/CT angio chest IMPRESSION: 1. No evidence of pulmonary embolism. Electronically authenticated by: JARAD BAIG Date: 10/05/2023 10:12
== END 2023-10-05 11:20 | disposition home or self-care (01) ==
PROVIDERS: Admitting Provider Obstetrics & Gynecology; Visit Provider Obstetrics & Gynecology
DX: O47.1 False labor at or after 37 completed weeks of gestation (principal); O26.893 Other specified pregnancy related conditions, third trimester; R11.0 Nausea; R06.02 Shortness of breath; Z3A.37 37 weeks gestation of pregnancy; Z20.822 Contact with and (suspected) exposure to COVID-19
CPT/HCPCS: 36415; 59025; 71045; 71275; 81003; 85025; 87804; 87811; 94640; 94667; 96365; 96366; G0378; G0379; J0456; Q9967

== ENCOUNTER 2023-10-18 05:25 | Inpatient (IN) | payer OTHER, SELFPAY ==
[2023-10-18] VITALS (25 sets, daily range): BP systolic 99–122; BP diastolic 53–85; PULSE 63–92; TEMP 35.6–36.8; O2SAT 97–98
--- OUTSIDE RECORDS SUMMARY | 2023-10-18 05:28 | XMS_ITS | CCD ---
Author Organization [facility] Care Team Providers Care Cane Cutter Name Role Phone ANA, TESSA Admitting [...] TREVINO Consulting Unavailable ANA, TESSA Admitting Unavailable ANA, TESSA Attending Unavailable Zoltan Cole MD Unavailable [phone] MELONY HANDLEY Attending Unavailable TESSA PEREZ Attending Unavailable TESSA PEREZ Attending Unavailable TESSA PEREZ Attending Unavailable TESSA PEREZ Attending Unavailable TESSA PEREZ Attending Unavailable MELONY HANDLEY Attending Unavailable Medications Current Medications Medication Drug Class(es) Dates Sig (Normalized) Sig (Original) [id number] 200 actuat albuterol 0.09 mg/actuat metered dose [...] Interpretation and review of laboratory results Abnormal [facility] Healthcare Work Phone: Ketones, UA Negative Negative - 160(16) ++++ mg/dL [facility] Healthcare Work Phone: Leukocytes, UA Positive Negative - 500+++ Jean/mcL [facility] Healthcare Work Phone: Nitrite, UA Negative Negative - Positive [facility] Healthcare Work Phone: pH, UA 5.5 5 - 9 [facility] Healthcare Work Phone: Protein, UA Negative Negative - 2000(20) ++++ mg/dL [facility] Healthcare Work Phone: Spec Grav, UA 1.020 1 - 1.03 [facility] Healthcare Work Phone: Urobilinogen, UA 1.0 0.2 - 12 mg/dL [facility] Healthcare Work Phone: [facility] Healthcare Work Phone: Coding Summaryon 03-05-2021 Coding Summary HTMLBase 64 CkfjvvxxICb1aNk+PGhlY WQ+UZ0XGBFyN27qiSDfmD 8VJ4mEFD6LYJNSDUXSFW8 POY7zwOM3GNysA7CcwyPe VillxISkNO04PSi5FSS4u EnvZDasvF2jtHHqN4z3Yl NqRY81tW20LFlqZVTtQkD 3LjZpbjsgbWFy J0slTlTxwNIdErx+PHRhY mxlIHdpZHRoPScxMDAlJy TpeVbhUE5uJf7yLRFuQCT vbGxhcHNlOiBj g7dwDWJgEXdiLU3vxLomB 9SmtFV0BHNtd8s6Tb41hT I+WXVlOZG2zAgtVYnqe82 8AdTtv7vjEKL9 xERgGHwjGNR7B27xa5P8S IVsCMSyNSS0vCL2yQ5osX qtqkfjM9UdlEVsAsK0RBD 6rZWgyZ8hsGtm korfqW8hKou+E17TDP3TL KATYT3WOag9K3UrQypgqG I+ES53XFMgOD03iJMwjPV ro3wgkGq6WzPv XXCgUIO1kHcyXHecq5FrF HOoU45ghPYlc8Q4PRScdQ evzHDkBhGueAB6cT6zAHn vscpqg5rysxts Xcgie5rwmz82iT02F80aA BvgRMYuCXW3CNXlENOfxC mfmp5ycT3aIu1+ATktv3k kb6hjiDx9OrZn QTIuutAblBqhVTJ6v3DxZ t34L2KltEyab0FvXqm6bm 26zNXsm1K1fIW1RRpyMDF zeJ3pBJvsLlO1 EKOcKrBzrX17sSPtHVbrF p3czLgdjTttWD4vQCLpsc mdZRGsaQ7xIYQusKBmkYp rTW3oJALcxadi o007UmXcCQO6MCZlpRYeZ 9YwqW1iJkGjGUTmKQBbQ9 TpbNGhEIdzV863RBgnXuQ 1CZWutfSwJ6Ay JSXprKktLqO4q3O6Np1Nt 1MbjdhcVWE8ZWsaNCI6Mt Z7QuGvBoW8P1XvOvk0ZRY fiDgtFY1kE7Rq RZRcyxnnnwwivJZ7BHHlT UOweZ88fECjAOoiXt3rc1 Q2q462NAVpVOBcyB54Uw6 udDogMTBwdCBU tR8lqgnpi5ctjhogBzVcW EZlEUg8LLt5EOItkRfjPm EaOAZ1MbV3WSJ1cPWvfX9 yyZahchucjM5x Oyc+C96fvA6lQFD3YCH8c zqdHHUmwdVbEE25UC83K6 RyPjwvdGFibGU+PGRpdiB xzOjaLP9mUgRn d4rqa3HyAZrnQ2SfAZLeK RsqVwl6ZVLvYUG6tYL1pO 3oXFGjLOkjk3G8cJH9V8V ppqPuqg8ry7nk FRYlLDhrH05soFJez0E7M KKtfEX6FYGuuBeuWkRuoR 93Oyc+JQDnmNhdy5XoWla me0xwo6hiyZu8 WeFxZPGrduQkvQepBYX3o 7VnXc60N39fTNfnNVUdFX IvJEOkTSCyqCkkya8roB8 wIi8+PGNvbCB3 jXV3eV8rOBQhUrD7MMruG 998FoApjAOiUitqq2dge2 drmPr9QaQxCFIbxqDvaRu cNOH7o6YmZk53 V15xDAbeXQToSJJfRZBaC DPjxXyojs9zaU8jFa7+PC 4ks2cvhj41yO67iUE+PHR aXSH1bIuxCGvk TAZkuL1bYJfbVvK5ZAVmV zHbaW39wYOeWUxxNc1ssY qpwEuzYX2iBGVsljxua63 0UmLqw0kdYMYf sBQkGDjhFCU2M40qo5W5X COzOKLuMFO6bNK3lB8atC lnbjogbGVmdDsgdmVydGl eCOcrRKynQ778 IHRvcDsnPlBhdGllbnQgT mDaJVq7X9PcOyv6VTDkbP wyBK4tlYFkSKhpCj5hmXv vvTlkIN0hSAJr lijef365ZxSmn4nvVBQct RPlZEgoKWY3N18am8D4IP PtPMFrWBQ4oRL8hA1yiPd nbjogbGVmdDsg zhMakAutMEicCXjwB626R HRvcDsnPkJpcnRoIERhdG K8HD59UB91bXGbj4U8rFF 2X6LjAXMqudyt hdmqlAI5VOPzZQDfxV97L g1ybWxxRa1vPSYtOLD9UE MsbZYlH8QioK3fSmWgXIV kOKMeZ3WxoBFs QAiuT222MMteBoK3TXIcs gWxW4SoPUCuaDpkRhZ4j5 W2Tz2WT8G5DC68CY60yNG zt3E7cFE8X3Qk RARbyrcnsakqdTT4IIMxL LYejD60Ig0abMfgYv4tUI MqLGO3BBIcaHFzA3PbxJ6 yOiAjMDAwMDAw H9XdaFXiOYxjP321TXebY gW5VPVqqxLsW7RnMUBhuY eaMxF9q6V7An0LRJn4QJ9 3PM43kVEyj7P8 bEJ6W2NyMFLnrzalmwxrg WX8RSUdUBOhzQ08Ih5ylW nrGf7fJQJhNVD7OHZvhBB zN5JawN2nAdFt VXZbJNMfX0DluEBdJMecZ 964DDftJiF8VHGaknReS3 OvONKazDezQkK6r4H2Sj3 HESXtXL32TWE4 kAL9RL30PX90C0WoHrkbt GFibGU+PHRhYmxlIHdpZH RoPScxMDAlJyBzdHlsZT0 yUt5oGDUnAVAq dXmdsTDoMlCkd8ktHFZeH OmlWV2trIolU2HzeFP9QB Ynf1y3Qn63P20bU5EdgKX +IQKieTG8kLM7 mM4kHhGhIsK9BXqoX489J aMetBFxThfqf2mra4lyuK g1XgZ4TZHieqSbnHuqCOR 1u5WwUa71S31m IHdpZHRoPSIxNSUiIHZhb Nuzmc4klN6dHt7+PGNvbC P6gHU1zW1dBjMyClF6HOa tA591PfOxwMAo Jsspx9svt7yyrGc1HcSzL JNkzjUanMigLES2s1EyGh 33I5CbmLesk8MtEms7hd0 7oAWnf5Z6xYO5 N9VkTQRkqvogfCXcaDyxD G8hWZHotxhnLBGufZ0iOX CqU4a7NrDlMtN8GAcpP8U iczR1SRPhjTUc UNdhAOT2U83wk2Y2UNSmX LEhYXZ1kQM6oJ2zmBzosb ogbGVmdDsgdmVydGljYWw tYCmjG272CMGn tXrkOTRplO0zQPKeuTSks NruIQ8hWDJxentdHs1AXZ xTLCBEQVNIQVkgTUFSSUU 3W1VqCeu8CSOj kDehKL6jgKUiAMwzPx5zo FvgdHliUF5qEUSdemltAE GdzG0wFVGdbUKetWaiUJ8 gCOGvjvjcj311 CrBiOTW5GCEoxRCgC6Cto D5xVmRvNCSuGORiG3VzeY NlGYofH913TYlpUqA3QYI nokRiU2IhKSKv kTxqVeA8h2P3En3gXA6cE O9sYGa9GC98RR41sJGvo0 G9aNO8H0PxQRPnzbqxhat cdAT6XDZoLYAu nC23oPUcAHfkXm2un3V1c 878HXXaNBCkeW75Si7anU xgSCEwzCJYjH9pdprqz9e vcjogIzAwMDAw AYf4AVg4NHOalYfrQaVzD MQ4KxL3UBA7xGElzC7bkR cvejffqB4eHyu+MjcgWWV helU3L3EtKsz4 PCGauRnmPA3yzJJtMOmiC d7itTeglVbyVL1kMIXluu uzUINjaO7sEIErtFPyyCr fGW4rNCIuvnrl d588MuCuOSU0BXZcwLQnX 2HfiB8oTdEbKAHeIEJyN8 NdqVPqKHmfY837UReoYvS 7DKRlkrIoC8Wy SXWntXbrGmW0q0M1Dm9VH T8LOZV9M6DwRcb1DCVurX zmDB1foDWiSSzyHt7mbIq qjOczRV2nCSDc efkiBUUznF6yXUEdhXLom FneLF6jAKSellwtf218Pn RiYKM8HGVdeBSoW4BpwP0 yOiAjMDAwMDAw R5GvkAFfDPnrJ292IFkkK rL6QGKgbbFnI1InHNMuuZ nyMgJ5a8O6Nt4CUByjuYJ +JG76ar52U4Vn DaurAqz7MMFvGKR9aDC1r J5kDPOjSMwpe0L6eHV1C2 NlfaQqaw4bl4waIZYkBQm bT36dfNGch4L9 WJKurMQ9FVBhdMrrCrXty G93Oyc+SUHupQcac6UzKb awp0bau8aieSg4CnHiSCT gdmFsaWduPSJ0 l6OtAx59J66iHEpaFGPrF KYoQFOaAHKuyDtvsu5ykP 9wIi8+RNRygDE7yAC6mY6 mUkPtXsR8KKwo I076ImSelOWdOfojq2wpw 1pfuXf0OnQiSDFrliYovO wgMCV5o4EdIj60I2EciHj wq4SrXap6vm58 wPLqa3K0eUY8S6JpJNBfy vdrdHNdiLihAJ9kIPDdgh gcSNPdqT1kMNEoE7p1SuP eHpI3OZsdS2Ic ocB0PWFsvBWxORZzdPQIc F4kebmga5cgjfxhYjYlLZ SgLLx2EFm4KVCloLlrLlG kLTR6GtG7CMJ0 mGQlyH7weBachyalrA2gR yc+EZh0a8eycHVuYR0yfP V9YY66ES63fZAaj2A0dXB 2O5EzOZUnlmvp sgjicOV5HQBuYFOmuR82B u5vgLrpGn0fNDWyFMI7LM WqzTJcA6FkvJ5hAhSpBZF cFZRaP2SszDIl AIcyT211OSvpCwP5CYYcz dPnH4AhAIPcpZlmAuD6o8 W7Sk3HPL61UR78UU69cEY hp2J7zDV4F8Zr NNRoaxasfdndaNT2TYLeE IMrvZ13Io1vgWllQc5eND MdSBO7JOVyjAWnC9JmpT7 yOiAjMDAwMDAw R9NtjPRtOHupP854YWoqW sB0EGIqnzEhK8NcZRGeuL idSpF1o6V1Df8DUj85WS9 8YY62oYEvb3B0 hBO1U0XpPHGfazhejcaba YQ3RJFySKFioI02Hz4oiN htYh5vRHTuUHT3DCPneAH hW3FozX4yYtYu WNTmRRZtB6GkiLQnTPzyU 213XWtfLjQ7JNAeptYxX7 JlAIRsqJeiWoJ4b1T4Xx7 QJBnusih2K6Sa PjwvdHI+XO10PUWhZL33m UDwgNMqe3rudXq2TaOyYT DkPXT8tSwrPKbgn3VbHJA bY97ikAKbd6U6 IGN (more content not included)... [facility] Coding Summary HTMLBase 64 GdizpcdqQIq2bDc+PGhlY WQ+XJ9OZDYnR89laBChmO 0PJ7xNQI5QFTEZNPFAKQ4 UOD3eyHH0OEccD8XbsjKn LsffhBNyPT51RKd1KLM8j UdnQDluaN0yeRAgV0b7Js FtQP01hY13KFabJORyZpQ 3LjZpbjsgbWFy H0epNbYgaGIyQjd+PHRhY mxlIHdpZHRoPScxMDAlJy KpgYecAB4fTt0aYRDgASE vbGxhcHNlOiBj b2vqTAJhXGcbRZ4lxYybC 4NypAQ1EHVew4t8Aj69bS I+DAAaDGJ5uSokASfoc96 3CsFfk0asYKV2 nTIeUTdfWES2J26gh2X7F HVyYMLrLKC5xDS2vM4jgF mbmxlwN9WdqGSiMaF5DDW 7rHKwbX8wmFny pwgwdW5qTws+R69ZDV6RL HBPMS1TDgp1B0YaKhcqoY I+BX97TYEkZQ30rXRcjJZ ls0khcFg8CeAz JTGeOJI8bDluCGsdm6CbL DByV11hkDEag0R0VLEnkV rudYAkKpSwsXA6mW5iXEx yhrkzz8jczyhy Jpkpx1figk06gS05Y55dX AppWMPsICL3ZAJpWDDczJ uztn5iuW4oJd5+RZzon9g jp3przIg8VxPu ZCAoiaWvzMxqRIJ4y2DgX a43A4CobYyxc4DjDfj1rm 73oUQfm2M0fID8VGamEHF yoY2pQJjeGvP6 EMEqEyZuzP80tTDnHBstW f4jpQzrpUkuTF9kEZClac ukDKDxkO0pILWabOAurVi oEU8aAZOutnsb p033GzNwBUJ2TRAphDBgL 7ThnH2hSeWgQTIsPAXzB6 BzyRMgHGwjI055SZdvTlG 4ECYuzhVlA7Ds GPRksWkwTxK2r5X7Az0Uc 9YgxcmfEHI7GZcqSSC8Hl R1NwKpUqV0R1WnSgb4VFV rnFalDP9lJ0Ow IWWqufsrfvcuqIP5QWXjT DWgfA32rCGkZPmfFr5on3 G8x579RZEkAHZndW12Ac8 udDogMTBwdCBU wG4lyuslp2yhpjepTcVbI VPgDWk0OYf2OLWjhIbjCt NbAMQ1AuT9RHB6bJIwfF7 ecYqpftukdJ6h Oyc+Q05dpF7pXNP6YSX2i xytHNRyunGmGW03RL64U8 RyPjwvdGFibGU+PGRpdiB leZtfHI4oYnGe f0lvd9IkUCvuV5JtPHOlE PvcMzl0DZAiFEG8eBN1iF 7bHSMqTWlwe5I0eXH1V6Z fxtOrdr4hg0jy MWEkFLshX25rqUKfz3S8D VDquTQ6FENaoCusFfRvoC 93Oyc+FVEhzCtao8LrHbx pw7kqo3lumIh1 WuMhDMEeoyXgsFfaAFB1d 9HkEl55X73zDLwxVNLsAW FbVQCoNEVypQzdfo1qvR5 wIi8+PGNvbCB3 mKH3aI9rVZNxJaN9BEhfZ 284HfFjdJIzKhdty1oid6 ilvOs4JuBtVVXzoxKrtEb mMNZ1i7NyCp66 M49nWCieLQDqKCJlNLCnP AVmkAuksz4biK9cWu8+PC 0vp8smmx53cG03mSL+PHR oEPJ6eMczJDgr KGTyzM1yMWktOtR3BHCsE kHyqN69iZTnQNtrHu0jsA nalUhjFV4yQYLzpoiff62 2DbAuh7btVIAk sIDdYMclGJH8M73ru1O7G YKtEGLxXZS0lUL7kG6yaK lnbjogbGVmdDsgdmVydGl tJVvfKVauF101 IHRvcDsnPlBhdGllbnQgT iYoEAh9H0HlLno5QABsgY pmXX8qpRGiCPvuHv7nyXp cmVycKY9nEHEb smfpe236XtIdm6qtHDEll JZeEGweXFM9Q30ly3A6XX JuWOXkTKB6pFL4pW6roWs nbjogbGVmdDsg bySbyGeaZWmrZQtqD699Q HRvcDsnPkJpcnRoIERhdG T4FZ71FC67zIHeg6H9cMT 4G8GxDUCunyuf unfbxOT4SIMgELRhwY89M a9rrFuaBu0cHWYbBEA7DO AzfQMlJ9TmbM8zHxBgWTH xNCRuA4DltVRa VWqhF547EPonMcO0TXMnk vGlQ0WwCXOmoVuvOwP8h3 R1Or1KG3Y9UX98HH93bBA uh7Y3xNU6I4Uu HLXwdaxpcdpldCF4BLAzR IDoqN21Ei8wbEegGs7rXJ EhFCI1FTGtbRMtK3TymB4 yOiAjMDAwMDAw S0HdiDKkHGjlM609VXkbV vD7YXKxzrRqV5PcUWEbwG neIrO4o1G4Qx0KZTa5SZ5 4GQ39fMUzp0T2 gEQ3V5QiDJEuwbmaokpsw ZF2JUPkIRTziM86Nf2veE vkGb2cBCXnKDL3PYXkyGP qW4OtwQ4zAvBn NZPuIAImP4KuxCWeRUoiD 747GBqiVwZ3PITazeWhZ1 GfIFNyyEzgIhL5t6Z7Qy6 TGVDhZA47MKD3 dCB9XQ43GL68W9ZcVywch GFibGU+PHRhYmxlIHdpZH RoPScxMDAlJyBzdHlsZT0 tDj3tISTfVTEn gSnuoALoZuPxv1wfQKWsG PheDR0ziDoxC1BqkER5GA Igh8t9Js68R67cN3QwkQO +WLHhlMT9hLL2 xK0kZeKoClR6XRnyZ993T rHaaFJoSubcn0ppr1abnM l4CmJ4HQGoppLtnPzmQXB 8s1HxFa03V71m IHdpZHRoPSIxNSUiIHZhb Lvqco1yxA2jMp5+PGNvbC Z0zED2dR9iXvWqOfI4QOd zP689VjXueIPr Jhdiy1tyv4whyPt9JjAlK ZUcrxHecLbtZRE1q7NqRg 90J7ZwnOfys6HgDsq7dd5 3nAUnk7F6xQH8 C0VrIQDtyssmnXMqeLhpB H7jJHMlqrwaUXQymF7rVA DpQ4g6UgSsGzM6CHoaM0N qdaK7TCNvpGPh FTybKGF5K81qw2Q2BEYwC UWhLCE9nOK9fT2bqZrbpv ogbGVmdDsgdmVydGljYWw jYUbaD052WRIy uSrwVATwwL2dTBYbtAPzw JtnTS6jCFCtrqhyYe1RLR xTLCBEQVNIQVkgTUFSSUU 8W0SeGhh4NPOq rHrmYN5jzSZgGNyrBa5kt RhicRspJV1kKROditoiNV CjhY3qRNIojEHiuZrjRG5 xOMGzgxnwp670 TdWeSPD3FJYfgUOcZ7Nyn T0bRdXaVGVwMQAzV7DqkN ToKUflQ647WRuzIzM3GEO rdvAnH2EfEQUi dNrwFqR8s7Q1Mf4mUS0uY C0uBPo0MB27DS17wMCfe8 R4dAB5H2OcQUJxqwuozao wcMI8URLdJQRw vE32eTGsVJogKj4yk1E1m 255SXIzZYAsdO63Cd7gcY svXOOhcUUAoF1ppzjyk7z vcjogIzAwMDAw RIb1YVs9XOZmiWalAsCzY BH0VqV8VOQ7iJXjjG9eiZ vlgtdxlG7mKos+MjcgWWV ufuD4L1PyAdz1 QXGchTktZB1eqJNlMZlmQ h1ykXbtiAwoPJ6wWVWnxo stOCNeyF1mZEOumXHjnJo aVJ3zXWTfwfdj z975OgEqARO8OFQykIQuA 8SifK8dPkHgKRYaKQXaK7 HorPMzKIqyT192LGyyEtD 3MVErnzNaE5St YTBmhSjhCaV3j1T7Ii9JE F7JNRV8Z3ApBey8PVPnpX mhVL9fjLRyZMicIc2qzBm jyHkaWW0oIVLy jvmgZFZgpL4eUVCvvBCuj ZjuDD9xYOTotxpvp767Cr CsURH0GPUpaFPqN1BdiF9 yOiAjMDAwMDAw Z0GuxAYhFDzvL813XQxkR iI3WDFisrQgJ4UaIVLllU fcScN8f1O3Vw0IkNVvL7Q cS5j2H5DjYeic dHI+CW82HZSpQL25bXKqk MUqh3socAs3XxEtEDAtUH S5nQalDKuqh9LvYOZsI89 rdSFzc1F0CZOt zDbdiLEyLnVbrRI4yS7pQ Lstmfoxt5lbibsxYhpuv5 oaee71rF99A36ePIdpPYL oPSIzMCUiIHZh rVwbku3nkG2tAk0+PGNvb MU3bBW4nT7hTaUkKxA3AK pbS375PvOxeFTcSwvbp3v rm3breOh6BbXx RAFllrUnkKnrZGA6j0HjX l30E23iUIyyVFWlKOLdMR KfKTSwmYanxh1yaV4fHc7 +GG6wy8ymws06 jY65ySW+NWWiJUB7wRwvX VekTFUkhF4oLIllNrS7LD ZaDaOijN32gRSuLHpxXg3 rcQksxMjvWZ3x UBQrbnjmz665XhUkv4poO NOicMXfQJzmOEU8Z56ma2 U1XHPwHJEaMQV0eJU6tT2 hbGlnbjogbGVm dDsgdmVydGljYWwtYWxpZ 655FVFofHulReIdjKLkH1 ifdrQEAY1vPqxjgYF+PHR hMFH9qNkcZTxf TNTeyP0uRIErE5t9CnTuT tU5TTjnJ7MmkcG1NTFkjS DlBLDojNJXsC9oaacaf8c vcjogIzAwMDAw ACv7BUx2NGHpiKcpUeFcI AJ0AaO8IEI6eWVtcE3zgJ lwkvgqvV6bHpl+RklOOjw vdGQ+PHRkIHN0 nShlUVyoGVXfmE6tPAUfO 2d2ThCoPkZ9EPywJ8Olpu Q4JHPesFDjASWfeIIXjX7 vergbt3oqstfn UdDgXCQbEKl4DCe4BFHul MevFcWlSAA6ZuL2GYQ9wY WduD0voTjhtqfhqU3kDyy +TVJOOjwvdGQ+ EWZzEHM5zErcRXvwACLqu G4qZXZhT1q5QfXgAmB5JJ otX5EyikL9PQDczTVeRQT xlWPRzQ5cwblt k1zjwwyqRfXkVLUdSPs6V Bc8LKPyxNcyDaTmXIF6Qf P6KNP0mIDxqU0ipXyqyox qnK2uZcp+UGF5 MSB0EO24UO19P7PjKfvcc GFibGU+PHRhYmxlIHdpZH RoPScxMDAlJyBzdHlsZT0 gQc1iKYNyDRHk bGx (more content not included)... Normal [facility] ED Clinical Summaryon 2020 ED Clinical Summary [facility] - Emergency Department [address] [place] [address] [id number] ED Clinical Summary PERSON INFORMATION Name: CARLOS ROCHA Age: 25 Years Sex: FEMALE : 1995 MRN: Acct#: Visit Reason: Skin rash; RASH Arrival: 02/22/2021 08:23:33 Discharge: 02/22/2021 09:27:00 LOS: 000 01:04 Check In: 02/22/2021 08:23:33 Checkout:02/22/2021 09:27:00 Address: [address] [facility] [id number] PCP: ZOLTAN COLE MD PROVIDER INFORMATION Provider [...] lymphadenopathy. Reexamin (more content not included)... Normal [facility] ED Note - Physicianon 2020 ED [...] be adequate. Encouraged also you to use upkk-bzu-ddnoabg hydrocortisone and/or Benadryl cream. Patient encouraged to return for any worsening or changes or persistence to symptoms. Impression and Plan Diagnosis Contact dermatitis ([id number] L25.9, Discharge, Medical) Plan Condition: Stable. Disposition: [...] Regarding diagnosi (more content not included)... Normal [facility] ED Note-Nursingon 02-22-2021 ED Note-Nursing Ambulates [...] ear and outer ear. Awaiting exam. Normal [facility] ED Patient Summaryon 021 ED Patient Summary [facility] - Emergency Department [address] [place] [address] PATIENT DISCHARGE INSTRUCTIONS Patient Information Name: CARLOS ROCHA Age: 25 Years Date of : 1995 Reason For Visit: Skin rash; RASH Arrival Time: 02/22/2021 08:23:33 Primary Care Physician: ZOLTAN COLE MD Attending Physician: Oscar Haley DO Comment: Visit Diagnosis: Diagnoses This Visit Contact dermatitis (L25.9) Skin rash ([id number]) Prescription Information: If you have been given a prescription for narcotics, seek immediate medical attention if you have any difficulty breathing or any sudden status changes such as confusion and sleepiness. If you or anyone you know is experiencing suicidal thoughts, mental health, alcohol and/or drug addiction problems; contact the [facility] 08/02 Crisis Hotline -Text 8SDPD ig 838254. If you received any narcotics, sedation, or [...] legal documents With: Address: When: [place] [address] [place], [place] [id number] Business (1) Within 3 to 5 days Comments: Call for follow up appointment Return if symptoms worsen Medication Information: The exam and treatment you received today in the [facility] Emergency Department were for an urgent problem and are not intended as complete care. It is important for you to follow up with a doctor, nurse practitioner, or physician?s costumer assistant for ongoing care. If your symptoms [...] so we can reach you if necessary. [facility] Emergency Department has provided you with a complete list of medications post discharge. Please inform your primary mill roller/provider of your visit and for further instruction [...] may devel (more content not included)... Normal [facility] CBC AUTO DIFFon 10-09-2019 Basophils (Bld) [#/Vol] 0.1 103/ul Normal 0.0-0.1 [facility] Comment on above: Performed By: #### C BC #### [facility] [address] [place] [id number] Ana Paula Diaz Basophils/100 WBC (Bld) 0.9 % Normal 0.2-2.0 [facility] Comment on above: Performed By: #### C BC #### [facility] [address] [place], [place] [address] Ana Paula Emily Eosinophils (Bld) [#/Vol] 0.1 103/ul Normal 0.0-0.7 [facility] Comment on above: Performed By: #### C BC #### [facility] [address] [place] [address] Ana Paula Emily Eosinophils/100 WBC (Bld) 1.4 % Normal 0.9-7.0 [facility] Comment on above: Performed By: #### C BC #### [facility] [address] [place] [address] Ana Paula Emily Erythrocyte distribution width (RBC) [Ratio] 12.7 % Normal 11.0-15.0 [facility] Comment on above: Performed By: #### C BC #### [facility] [address] [place] [address] Ana Paula Emily Hematocrit (Bld) [Volume fraction] 31.4 % Critically low 36.0-48.0 [facility] Comment on above: Performed By: #### C BC #### [facility] [address] [place] [address] Ana Paula Emily Hemoglobin (Bld) [Mass/Vol] 10.1 g/dL Critically low 12.0-16.0 [facility] Comment on above: Performed By: #### C BC #### [facility] [address] [place] [address] Ana Paula Emily IG # 0.05 10e3/ul Critically high 0.00-0.03 [facility] Comment on above: Performed By: #### C BC #### [facility] [address] [place] [address] Ana Paula Emily IG % 0.5 % Normal 0.0-0.5 [facility] Comment on above: Performed By: #### C BC #### [facility] [address] [place] [address] Ana Paula Emily Lymphocytes (Bld) [#/Vol] 2.1 103/ul Normal 1.2-3.8 [facility] Comment on above: Performed By: #### C BC #### [facility] [address] [place], [place] [phone] Ana Paulaterry Diaz Lymphocytes/100 WBC (Bld) 22.6 % Normal 20.5-60.0 [facility] Comment on above: Performed By: #### C BC #### [facility] [address] [place], [place] [phone] Ana Paula Diaz MANUAL DIFF REQ NO Normal [facility] Comment on above: Performed By: #### C BC #### [facility] [address] [place], [place] [phone] Ana Paulaterry Diaz MCH (RBC) [Entitic mass] 29.4 pg Normal 26.7-34.0 [facility] Comment on above: Performed By: #### C BC #### [facility] [address] [place], [place] [phone] Ana Paulaterry Diaz MCHC (RBC) [Mass/Vol] 32.2 g/dL Normal 29.9-35.2 [facility] Comment on above: Performed By: #### C BC #### [facility] [address] [place] [address] Ana Paulaterry Diaz MCV (RBC) [Entitic vol] 91.3 fL Normal 81.0-99.0 [facility] Comment on above: Performed By: #### C BC #### [facility] [address] [place] [address] Ana Paulaterry Diaz Monocytes (Bld) [#/Vol] 0.8 103/ul Normal 0.3-0.8 [facility] Comment on above: Performed By: #### C BC #### [facility] [address] [place] [address] Ana Paulaterry Diaz Monocytes/100 WBC (Bld) 8.4 % Normal 1.7-12.0 [facility] Comment on above: Performed By: #### C BC #### [facility] [address] [place], [place] [phone] Ana Paula Emily Neutrophils (Bld) [#/Vol] 6.1 103/ul Normal 1.4-6.5 [facility] Comment on above: Performed By: #### C BC #### [facility] [address] [place], [place] [address] Ana Paula Emily Neutrophils/100 WBC (Bld) 66.2 % Normal 43.0-75.0 [facility] Comment on above: Performed By: #### C BC #### [facility] [address] [place] [phone] Ana Paula Emily Platelet mean volume (Bld) [Entitic vol] 10.8 fL Normal 9.5-13.5 [facility] Comment on above: Performed By: #### C BC #### [facility] [address] [place], [place] [phone] Ana Paula Emily Platelets (Bld) [#/Vol] 167 103/ul Normal 150-450 [facility] Comment on above: Performed By: #### C BC #### [facility] [address] [place], [place] [phone] Ana Paula Emily RBC (Bld) [#/Vol] 3.44 106/ul Critically low 4.20-5.40 [facility] Comment on above: Performed By: #### C BC #### [facility] [address] [place], [place] [phone] Ana Paula Emily WBC (Bld) [#/Vol] 9.2 103/ul Normal 4.0-11.0 [facility] Comment on above: Performed By: #### C BC #### [facility] [address] [place], [place] [phone] Ana Paula Emily CBC AUTO DIFFon 10-08-2019 Basophils (Bld) [#/Vol] 0.1 103/ul Normal 0.0-0.1 [facility] Comment on above: Performed By: #### C BC #### [facility] [address] [place], [place] [phone] Ana Paula Emily Basophils/100 WBC (Bld) 0.7 % Normal 0.2-2.0 [facility] Comment on above: Performed By: #### C BC #### [facility] [address] [place] [id number] Ana Paula Emily Eosinophils (Bld) [#/Vol] 0.1 103/ul Normal 0.0-0.7 [facility] Comment on above: Performed By: #### C BC #### [facility] [address] [place] [id number] Ana Paula Emily Eosinophils/100 WBC (Bld) 1.3 % Normal 0.9-7.0 [facility] Comment on above: Performed By: #### C BC #### [facility] [address] [place] [id number] Ana Paula Emily Erythrocyte distribution width (RBC) [Ratio] 12.5 % Normal 11.0-15.0 [facility] Comment on above: Performed By: #### C BC #### [facility] [address] [place], [place] [phone] Ana Paula Emily Hematocrit (Bld) [Volume fraction] 34.8 % Critically low 36.0-48.0 [facility] Comment on above: Performed By: #### C BC #### [facility] [address] [place], [place] [phone] Ana Paula Emily Hemoglobin (Bld) [Mass/Vol] 11.2 g/dL Critically low 12.0-16.0 [facility] Comment on above: Performed By: #### C BC #### [facility] [address] [place], [place] [phone] Ana Paula Emily IG # 0.06 10e3/ul Critically high 0.00-0.03 [facility] Comment on above: Performed By: #### C BC #### [facility] [address] [place], [place] [phone] Ana Paula Emily IG % 0.7 % Critically high 0.0-0.5 [facility] Comment on above: Performed By: #### C BC #### [facility] [address] [place], [place] [phone] Ana Paula Emily Lymphocytes (Bld) [#/Vol] 2.0 103/ul Normal 1.2-3.8 [facility] Comment on above: Performed By: #### C BC #### [facility] [address] [place], [place] [phone] Ana Paula Emily Lymphocytes/100 WBC (Bld) 23.6 % Normal 20.5-60.0 [facility] Comment on above: Performed By: #### C BC #### [facility] [address] [place], [place] [address] Ana Paula Emily MANUAL DIFF REQ NO Normal [facility] Comment on above: Performed By: #### C BC #### [facility] [address] [place], [place] [address] Ana Paula Emily MCH (RBC) [Entitic mass] 28.7 pg Normal 26.7-34.0 [facility] Comment on above: Performed By: #### C BC #### [facility] [address] [place] [id number] Ana Paula Emily MCHC (RBC) [Mass/Vol] 32.2 g/dL Normal 29.9-35.2 [facility] Comment on above: Performed By: #### C BC #### [facility] [address] [place], [place] [phone] Ana Paula Emily MCV (RBC) [Entitic vol] 89.2 fL Normal 81.0-99.0 [facility] Comment on above: Performed By: #### C BC #### [facility] [address] [place] [phone] Ana Paula Emily Monocytes (Bld) [#/Vol] 0.8 103/ul Normal 0.3-0.8 [facility] Comment on above: Performed By: #### C BC #### [facility] [address] [place] [id number] Ana Paula Emily Monocytes/100 WBC (Bld) 8.7 % Normal 1.7-12.0 [facility] Comment on above: Performed By: #### C BC #### [facility] [address] [place] [phone] Ana Paula Emily Neutrophils (Bld) [#/Vol] 5.6 103/ul Normal 1.4-6.5 [facility] Comment on above: Performed By: #### C BC #### [facility] [address] [place] [phone] Ana Paula Emily Neutrophils/100 WBC (Bld) 65.0 % Normal 43.0-75.0 [facility] Comment on above: Performed By: #### C BC #### [facility] [address] [place] [phone] Ana Paula Emily Platelet mean volume (Bld) [Entitic vol] 10.9 fL Normal 9.5-13.5 [facility] Comment on above: Performed By: #### C BC #### [facility] [address] [place], [place] [phone] Ana Paula Emily Platelets (Bld) [#/Vol] 217 103/ul Normal 150-450 [facility] Comment on above: Performed By: #### C BC #### [facility] [address] [place] [address] Ana Paula Emily RBC (Bld) [#/Vol] 3.90 106/ul Critically low 4.20-5.40 Th [facility] Comment on above: Performed By: #### C BC #### [facility] [address] [place], [place] [id number] Ana Paula Emily WBC (Bld) [#/Vol] 8.7 103/ul Normal 4.0-11.0 [facility] Comment on above: Performed By: #### C BC #### [facility] [address] [place], [place] [id number] Ana Paula Emily DRUG SCREEN RAPID (URINE)on 10-08-2019 AMP Negative Normal NEGATIVE [facility] Comment on above: Performed By: #### C BC #### [facility] [address] [place], [place] [address] Ana Paula Emily BAR Negative Normal NEGATIVE [facility] Comment on above: Performed By: #### C BC #### [facility] [address] [place], [place] [address] Ana Paula Emily BUP Negative Normal NEGATIVE [facility] Comment on above: Performed By: #### C BC #### [facility] [address] [place], [place] [id number] Ana Paula Emily BZO Negative Normal NEGATIVE [facility] Comment on above: Performed By: #### C BC #### [facility] [address] [place], [place] [id number] Ana Paula Emily KAY Negative Normal NEGATIVE [facility] Comment on above: Performed By: #### C BC #### [facility] [address] [place] [address] CUT-OFFS SEE BELOW Normal [facility] Comment on above: Result Comment: AMP (Amphetamine): [...] ng/mL Performed By: #### C BC #### [facility] [address] [place] [address] DRUG CUT HEADER DRUG CLASS TEST SYSTEM CUT-OFF CONCENTRATIONS ARE FOLLOWS: Normal [facility] Comment on above: Performed By: #### C BC #### [facility] [address] [place] [address] Ana Paula Emily mAMP Negative Normal NEGATIVE [facility] Comment on above: Performed By: #### C BC #### [facility] [address] [place] [address] Ana Paula Emiyl MTD Negative Normal NEGATIVE [facility] Comment on above: Performed By: #### C BC #### [facility] [address] [place] [address] Ana Paula Emily OPI Negative Normal NEGATIVE [facility] Comment on above: Performed By: #### C BC #### [facility] [address] [place] [address] Ana Paula Emily OXY Negative Normal NEGATIVE [facility] Comment on above: Performed By: #### C BC #### [facility] [address] [place] [address] Ana Paula Emily PCP Negative Normal NEGATIVE [facility] Comment on above: Performed By: #### C BC #### [facility] [address] [place] [address] Ana Paula Emily PPX Negative Normal NEGATIVE [facility] Comment on above: Performed By: #### C BC #### [facility] [address] [place] [address] Ana Paula Emily TCA Negative Normal NEGATIVE [facility] Comment on above: Performed By: #### C BC #### [facility] [address] [place] [address] Ana Paula Emily THC Negative Normal NEGATIVE [facility] Comment on above: Performed By: #### C BC #### [facility] [address] [place] [address] Ana Paula Emily TYPE AND SCREENon 10-08-2019 TYPE AND SCREEN Negative Normal [facility] Comment on above: Performed By: #### C BC #### [facility] [address] [place] [address] Ana Paula Emily UA (CLEAN/CATCH) QUILT MAKER/MICRO I F IND.on 10-08-2019 Bilirubin [Mass/Vol] Negative Normal NEGATIVE [facility] Comment on above: Performed By: #### C BC #### [facility] [address] [place] [address] Ana Paula Emily BLOOD Negative Normal NEGATIVE [facility] Comment on above: Performed By: #### C BC #### [facility] [address] [place] [address] Ana Paula Emily Clarity (U) CLEAR Normal [facility] Comment on above: Performed By: #### C BC #### [facility] [address] [place] [address] Ana Paula Emily Color (U) LT. YELLOW Normal YELLOW [facility] Comment on above: Performed By: #### C BC #### [facility] [address] [place] [address] Ana Paula Emily Glucose [Mass/Vol] Negative Normal NEGATIVE [facility] Comment on above: Performed By: #### C BC #### [facility] [address] [place] [address] Ana Paula Emily Ketones Ql (U) Negative Normal NEGATIVE [facility] Comment on above: Performed By: #### C BC #### [facility] [address] [place], [place] [id number] Ana Paula Emily Nitrite Ql (U) Negative Normal NEGATIVE [facility] Comment on above: Performed By: #### C BC #### [facility] [address] [place] [address] Ana Paula Emily pH (Bld) 6.5 Normal 5-9 [facility] Comment on above: Performed By: #### C BC #### [facility] [address] [place] [address] Ana Paula Emily Protein [Mass/Vol] Negative Normal [facility] Comment on above: Performed By: #### C BC #### [facility] [address] [place] [address] Ana Paula Emily SPEC GRAVITY 1.025 Normal 1.005-<=1.025 [facility] Comment on above: Performed By: #### C BC #### [facility] [address] [place] [address] Ana Paulaterry Diaz UR MICRO IND NOT INDICATED Normal [facility] Comment on above: Performed By: #### C BC #### [facility] [address] [place] [address] Ana Paulaterry Diaz Urobilinogen Qn (U) 1.0 EU/dl Normal [facility] Comment on above: Performed By: #### C BC #### [facility] [address] [place] [address] Ana Paulaterry Diaz WBC (Bld) [#/Vol] Negative Normal NEGATIVE [facility] Comment on above: Performed By: #### C BC #### [facility] [address] [place], [place] [address] Ana Paulaterry Diaz GROUP B STREP CULTUREon S. agalactiae Ag Ql (Unsp spec) Culture Observations: Negative for Group B Streptococcus Normal [facility] Comment on above: Performed By: #### C BC #### [facility] [address] [place] [address] Ana Paulaterry Olsonen UA (CLEAN/CATCH) QUILT MAKER/MICRO I F IND.on 09-15-2019 Bilirubin [Mass/Vol] Negative Normal NEGATIVE [facility] Comment on above: Performed By: #### C BC #### [facility] [address] [place] [address] Ana Paula Emily BLOOD Negative Normal NEGATIVE [facility] Comment on above: Performed By: #### C BC #### [facility] [address] [place] [address] Ana Paula Emily Clarity (U) SL CLOUDY Normal [facility] Comment on above: Performed By: #### C BC #### [facility] [address] [place] [address] Ana Paula Emily Color (U) YELLOW Normal YELLOW [facility] Comment on above: Performed By: #### C BC #### [facility] [address] [place] [address] Ana Paula Emily Glucose [Mass/Vol] Negative Normal NEGATIVE [facility] Comment on above: Performed By: #### C BC #### [facility] [address] [place] [address] Ana Paula Emily Ketones Ql (U) TRACE Normal NEGATIVE [facility] Comment on above: Performed By: #### C BC #### [facility] [address] [place] [address] Ana Paula Emily Nitrite Ql (U) Negative Normal NEGATIVE [facility] Comment on above: Performed By: #### C BC #### [facility] [address] [place] [address] Ana Paula Emily pH (Bld) 6.0 Normal 5-9 [facility] Comment on above: Performed By: #### C BC #### [facility] [address] [place] [address] Ana Paula Emily Protein [Mass/Vol] Negative Normal [facility] Comment on above: Performed By: #### C BC #### [facility] [address] [place] [address] Ana Paula Emily SPEC GRAVITY 1.025 Normal 1.005-<=1.025 [facility] Comment on above: Performed By: #### C BC #### [facility] [address] [place] [address] Ana Paula Emily UR MICRO IND NOT INDICATED Normal [facility] Comment on above: Performed By: #### C BC #### [facility] [address] [place] [address] Ana Paula Emily Urobilinogen Qn (U) 1.0 EU/dl Normal [facility] Comment on above: Performed By: #### C BC #### [facility] [address] [place] [address] Ana Paula Emily WBC (Bld) [#/Vol] Negative Normal NEGATIVE [facility] Comment on above: Performed By: #### C BC #### [facility] [address] [place] [address] Ana Paula Emily CULTURE URINEon 08-30-2019 CULTURE URINE Culture Observations : No growth Normal [facility] Comment on above: Performed By: #### N BOX #### [facility] [address] [place] [address] Ana Paula Emily UA (CLEAN/CATCH) QUILT MAKER/MICRO I F IND.on 08-30-2019 Bilirubin [Mass/Vol] Negative Normal NEGATIVE [facility] Comment on above: Performed By: #### N BOX #### [facility] [address] [place] [address] Ana Paula Emily BLOOD Negative Normal NEGATIVE [facility] Comment on above: Performed By: #### N BOX #### [facility] [address] [place] [address] Ana Paula Emily Clarity (U) CLEAR Normal [facility] Comment on above: Performed By: #### N BOX #### [facility] [address] [place] [address] Ana Paula Emily Color (U) LT. YELLOW Normal YELLOW [facility] Comment on above: Performed By: #### N BOX #### [facility] [address] [place] [address] Ana Paula Emily Glucose [Mass/Vol] Negative Normal NEGATIVE [facility] Comment on above: Performed By: #### N BOX #### [facility] [address] [place] [address] Ana Paula Emily Ketones Ql (U) Negative Normal NEGATIVE [facility] Comment on above: Performed By: #### N BOX #### [facility] [address] [id number] Ana Paula Emily Nitrite Ql (U) Negative Normal NEGATIVE [facility] Comment on above: Performed By: #### N BOX #### [facility] [address] [place], [place] [address] Ana Paula Emily pH (Bld) 6.5 Normal 5-9 [facility] Comment on above: Performed By: #### N BOX #### [facility] [address] [place] [address] Ana Paula Emily Protein [Mass/Vol] Negative Normal [facility] Comment on above: Performed By: #### N BOX #### [facility] [address] [place] [address] Ana Paulaterry Diaz SPEC GRAVITY 1.020 Normal 1.005-<=1.025 [facility] Comment on above: Performed By: #### N BOX #### [facility] [address] [place], [place] [address] Ana Paulaterry Diaz UR MICRO IND INDICATED Normal [facility] Comment on above: Performed By: #### N BOX #### [facility] [address] [place], [place] [address] Ana Paulaterry Diaz Urobilinogen Qn (U) 1.0 EU/dl Normal [facility] Comment on above: Performed By: #### N BOX #### [facility] [address] [place], [place] [address] Ana Paulaterry Diaz WBC (Bld) [#/Vol] TRACE Normal NEGATIVE [facility] Comment on above: Performed By: #### N BOX #### [facility] [address] [place], [place] [address] Ana Paula Emily URINE MICROSCOPIC ONLYon Bacteria LM.HPF (Urine sed) [#/Area] LARGE Normal NONE SEEN [facility] Comment on above: Performed By: #### N BOX #### [facility] [address] [address] Ana Paula Emily CAST NONE SEEN Normal NONE SEEN [facility] Comment on above: Performed By: #### N BOX #### [facility] [address] [place] [address] Ana Paula Emily Crystals LM Nom (Urine sed) NONE SEEN Normal NONE SEEN [facility] Comment on above: Performed By: #### N BOX #### [facility] [address] [place] [address] Ana Paula Emily CULTURE INDICATED Normal [facility] Comment on above: Performed By: #### N BOX #### [facility] [address] [place] [address] Ana Paula Emily Epithelial cells LM.HPF (Urine sed) [#/Area] MODERATE Normal [facility] Comment on above: Performed By: #### N BOX #### [facility] [address] [place] [address] Ana Paula Emily MUCOUS NONE SEEN Normal NONE SEEN [facility] Comment on above: Performed By: #### N BOX #### [facility] [address] [place] [address] Ana Paula Emily RBC (U) [#/Vol] NONE SEEN Normal 0-2 [facility] Comment on above: Performed By: #### N BOX #### [facility] [address] [place] [address] Ana Paula Emily WBC (Bld) [#/Vol] 5-10 Normal NONE SEEN [facility] Comment on above: Performed By: #### N BOX #### [facility] [address] [place] [address] Ana Paula Emily GTT 3 HR PREGon 07-22-2019 Glucose [Mass/Vol] 120 mg/dL Normal [facility] Comment on above: Performed By: #### N BOX #### [facility] [address] [place] [address] Ana Paula Emily Glucose [Mass/Vol] 107 mg/dL Normal [facility] Comment on above: Performed By: #### N BOX #### [facility] [address] [place] [address] Ana Paula Emily Glucose [Mass/Vol] 87 mg/dL Normal 74-106 [facility] Comment on above: Performed By: #### N BOX #### [facility] [address] [place], [place] [address] Ana Paula Diaz Glucose [Mass/Vol] 144 mg/dL Normal [facility] Comment on above: Performed By: #### N BOX #### [facility] [address] [place], [place] [address] Ana Paula Diaz US PREG ANATOMY SINGLEon US PREG ANATOMY SINGLE Patient: CARLOS ROCHA Exam Date: 05/30/2019 : 1995 Gender:F Ordering : DR TESSA PEREZ . Admission #: [id number] Family : Order #: [id number] CLICK HERE TO VIEW EXAM RADIOLOGY REPORT [...] Rei Calles M.D. on 05/30/2019 at 13:14 [facility] PAP ACOG PANEL 2: 20 to 28on 05-08-2019 Age Gdln ACOG Testing Normal [facility] Comment on above: Performed By: #### N BOX #### [facility] [address] [address] Ana Paula Diaz COMMENT Comment [facility] Comment on above: Result Comment: Z01. [id number] Z11.51 Performed By: #### N BOX #### [facility] [address] [address] Ana Paula Diaz DIAGNOSIS: Comment Normal [facility] Comment on above: Result Comment: NEGA TIVE FOR INTRAEPITHELIAL LESION OR MALIGNANCY. Performed By: #### N BOX #### [facility] [address] [address] Ana Paula Diaz Methodology: Comment [facility] Comment on above: Result Comment: This liquid based SurePath(R) pap test was screened with the assistance of an image guided system. Performed By: #### N BOX #### [facility] [address] [address] Ana Paula Diaz Note: Comment Normal [facility] Comment on above: Result Comment: The Pap smear is a screening test designed to aid in the detection of premalignant and malignant conditions of the uterine cervix. It is not a diagnostic procedure and should not be used as the sole means of detecting cervical cancer. Both false-positive and false-negative reports do occur. . Performed By: #### N BOX #### [facility] [address] [address] Ana Paula Diaz Performed by: Comment Normal [facility] Comment on above: Result Comment: Enoc Mariee, Want Ad Receiver (ASCP) Performed By: #### N BOX #### [facility] [address] [address] Ana Paula Emily Reflex Criteria: Comment Normal [facility] Comment on above: Result Comment: The HPV DNA reflex criteria were not met with this specimen result therefore, no HPV testing was performed. . Performed By: #### N BOX #### [facility] [address] [place] [address] Ana Paula Emily Specimen adequacy: Comment Normal [facility] Comment on above: Result Comment: Sati sfactory for evaluation. Endocervical and/or squamous metaplastic cells (endocervical component) are present. Performed By: #### N BOX #### [facility] [address] [place] [address] Ana Paula Emily . . Normal [facility] Comment on above: Performed By: #### N BOX #### [facility] [address] [place] [address] Ana Paula Emily CHLAMYDIA/GONOCOCCUS MICHAEL (SW AB/URINE/PAPon 05-05-2019 Chlamydia trachomatis, MICHAEL Negative Normal Negative [facility] Comment on above: Performed By: #### N BOX #### [facility] [address] [place] [address] Ana Paula Emily Neisseria gonorrhoeae, MICHAEL Negative Normal Negative [facility] Comment on above: Performed By: #### N BOX #### [facility] [address] [place] [address] Ana Paula Emily VAGINITIS/VAGINOSIS DNA PROB Julito 05-05-2019 Samantha species Negative Normal Negative [facility] Comment on above: Performed By: #### N BOX #### [facility] [address] [place] [address] Ana Paula Emily Gardnerella vaginalis Negative Normal Negative [facility] Comment on above: Performed By: #### N BOX #### [facility] [address] [place] [address] Ana Paula Emily Trichomonas vaginalis Negative Normal Negative [facility] Comment on above: Performed By: #### N BOX #### [facility] [address] [place] [address] Ana Paula Emily HEP B SURFACE ANTIGEN SCREEN on 03-28-2019 HBsAg Screen Negative Normal Negative [facility] Comment on above: Performed By: #### H BSANS #### [facility] [address] [place] [address] Ana Paula Diaz HEPATITIS C VIRUS AB W/ REFL EX QUANTon 03-28-2019 HCV AB <0.1 Normal 0.0-0.9 [facility] Comment on above: Performed By: #### H CVPCRR #### [facility] [address] [place] [address] Ana Paula Diaz Interpretation: Comment Normal [facility] Comment on above: Result Comment: Nega tive Not infected with HCV, unless recent infection is suspected or other evidence exists to indicate HCV infection. Performed By: #### H CVPCRR #### [facility] [address] [place] [address] Ana Paula Diaz HIV 1 AND 2 WITH REFLEXon HIV Screen 4th Generation wRfx Non Reactive Normal Non Reactive [facility] Comment on above: Performed By: #### H IV12 #### [facility] [address] [place] [address] Ana Paula Diaz RPR QUANTon 03-28-2019 Rapid Plasma Reagin, Quant Non Reactive Normal NonRea<1:1 [facility] Comment on above: Performed By: #### R PRQ #### [facility] [address] [place] [address] Ana Paula Diaz RUBELLA AB IGGon 03-28-2019 Rubella Antibodies, IgG 3.01 index Normal Immune >0.99 [facility] Comment on above: Result Comment: Non- immune <0.90 Equivocal 0.90 - 0.99 Immune >0.99 Performed By: #### N BOX #### [facility] [address] [place] [address] Ana Paula Diaz CBC AUTO DIFFon 03-27-2019 Basophils (Bld) [#/Vol] 0.1 103/ul Normal 0.0-0.1 [facility] Comment on above: Performed By: #### C BC #### [facility] [address] [place] [address] Ana Paula Emily Basophils/100 WBC (Bld) 0.9 % Normal 0.2-2.0 [facility] Comment on above: Performed By: #### C BC #### [facility] [address] [address] Ana Paula Emily Eosinophils (Bld) [#/Vol] 0.4 103/ul Normal 0.0-0.7 [facility] Comment on above: Performed By: #### C BC #### [facility] [address] [place] [address] Ana Paula Emily Eosinophils/100 WBC (Bld) 5.8 % Normal 0.9-7.0 [facility] Comment on above: Performed By: #### C BC #### [facility] [address] [place] [address] Ana Paula Emily Erythrocyte distribution width (RBC) [Ratio] 12.2 % Normal 11.0-15.0 [facility] Comment on above: Performed By: #### C BC #### [facility] [address] [place] [address] Ana Paula Emily Hematocrit (Bld) [Volume fraction] 35.9 % Critically low 36.0-48.0 [facility] Comment on above: Performed By: #### C BC #### [facility] [address] [place] [address] Ana Paula Emily Hemoglobin (Bld) [Mass/Vol] 12.5 g/dL Normal 12.0-16.0 [facility] Comment on above: Performed By: #### C BC #### [facility] [address] [place] [address] Ana Paula Emily IG # 0.02 10e3/ul Normal 0.00-0.03 [facility] Comment on above: Performed By: #### C BC #### [facility] [address] [place] [address] Ana Paula Emily IG % 0.3 % Normal 0.0-0.5 [facility] Comment on above: Performed By: #### C BC #### [facility] [address] [place] [address] Ana Paula Emily Lymphocytes (Bld) [#/Vol] 1.5 103/ul Normal 1.2-3.8 [facility] Comment on above: Performed By: #### C BC #### [facility] [address] [place], [place] [address] Ana Paula Emily Lymphocytes/100 WBC (Bld) 21.6 % Normal 20.5-60.0 [facility] Comment on above: Performed By: #### C BC #### [facility] [address] [place] [address] Ana Paula Emily MANUAL DIFF REQ NO Normal [facility] Comment on above: Performed By: #### C BC #### [facility] [address] [place], [place] [address] Ana Paula Emily MCH (RBC) [Entitic mass] 31.2 pg Normal 26.7-34.0 [facility] Comment on above: Performed By: #### C BC #### [facility] [address] [place] [address] Ana Paula Emily MCHC (RBC) [Mass/Vol] 34.8 g/dL Normal 29.9-35.2 [facility] Comment on above: Performed By: #### C BC #### [facility] [address] [place] [address] Ana Paula Emily MCV (RBC) [Entitic vol] 89.5 fL Normal 81.0-99.0 [facility] Comment on above: Performed By: #### C BC #### [facility] [address] [place] [address] Ana Paula Emily Monocytes (Bld) [#/Vol] 0.5 103/ul Normal 0.3-0.8 [facility] Comment on above: Performed By: #### C BC #### [facility] [address] [place], [place] [address] Ana Paula Emily Monocytes/100 WBC (Bld) 7.5 % Normal 1.7-12.0 [facility] Comment on above: Performed By: #### C BC #### [facility] [address] [place], [place] [address] Ana Paula Emily Neutrophils (Bld) [#/Vol] 4.5 103/ul Normal 1.4-6.5 [facility] Comment on above: Performed By: #### C BC #### [facility] [address] [place], [place] [address] Ana Paula Emily Neutrophils/100 WBC (Bld) 63.9 % Normal 43.0-75.0 [facility] Comment on above: Performed By: #### C BC #### [facility] [address] [place], [place] [address] Ana Paula Emily Platelet mean volume (Bld) [Entitic vol] 9.6 fL Normal 9.5-13.5 [facility] Comment on above: Performed By: #### C BC #### [facility] [address] [place], [place] [id number] Ana Paula Emily Platelets (Bld) [#/Vol] 231 103/ul Normal 150-450 [facility] Comment on above: Performed By: #### C BC #### [facility] [address] [id number] Ana Paula Emily RBC (Bld) [#/Vol] 4.01 106/ul Critically low 4.20-5.40 Th [facility] Comment on above: Performed By: #### C BC #### [facility] [address] [place] [address] Ana Paula Emily WBC (Bld) [#/Vol] 7.0 103/ul Normal 4.0-11.0 [facility] Comment on above: Performed By: #### C BC #### [facility] [address] [place], [place] [address] Ana Paula Emily CULTURE URINEon 03-27-2019 CULTURE URINE Culture Observations : Heavy growth of mixed genital leann.No potential pathogens seen. Normal [facility] Comment on above: Performed By: #### N BOX #### [facility] [address] [place], [place] [address] Ana Paula Emily GLYCOHEMOGLOBIN A1Con 2018 Glucose [Mass/Vol] 105 mg/dL Normal [facility] Comment on above: Performed By: #### A 1C #### [facility] [address] [place] [address] Ana Paula Emily HbA1c (Bld) [Mass fraction] 5.3 % Normal <=6.0 [facility] Comment on above: Performed By: #### A 1C #### [facility] [address] [place] [address] Ana Paula Emily POLY BOX TEST PT SEND OUTo n 03-27-2019 SENT TO REF LAB 03/27/19 Normal [facility] Comment on above: Performed By: #### N BOX #### [facility] [address] [place] [address] Ana Paula Emily TYPE AND SCREENon 03-27-2019 TYPE AND SCREEN Negative Normal [facility] Comment on above: Performed By: #### T NS #### [facility] [address] [place] [address] Ana Paula Emily UA RANDOM W/MICROSCOPICon Bacteria LM.HPF (Urine sed) [#/Area] TRACE Normal NONE SEEN The [facility] Comment on above: Performed By: #### U AMIC #### [facility] [address] [place] [address] Ana Paula Emily Bilirubin [Mass/Vol] Negative Normal NEGATIVE [facility] Comment on above: Performed By: #### U AMIC #### [facility] [address] [place] [address] Ana Paula Emily BLOOD Negative Normal NEGATIVE [facility] Comment on above: Performed By: #### U AMIC #### [facility] [address] [place] [address] Ana Paula Emily CAST NONE SEEN Normal NONE SEEN [facility] Comment on above: Performed By: #### U AMIC #### [facility] [address] [place] [address] Ana Paula Emily Clarity (U) CLEAR Normal [facility] Comment on above: Performed By: #### U AMIC #### [facility] [address] [place] [address] Ana Paula Emily Color (U) LT. YELLOW Normal YELLOW [facility] Comment on above: Performed By: #### U AMIC #### [facility] [address] [place], [place] [address] Ana Paula Emily Crystals LM Nom (Urine sed) NONE SEEN Normal NONE SEEN [facility] Comment on above: Performed By: #### U AMIC #### [facility] [address] [id number] Ana Paula Emily Epithelial cells LM.HPF (Urine sed) [#/Area] FEW Normal [facility] Comment on above: Performed By: #### U AMIC #### [facility] [address] [id number] Ana Paula Emily Glucose [Mass/Vol] Negative Normal NEGATIVE [facility] Comment on above: Performed By: #### U AMIC #### [facility] [address] [address] Ana Paula Emiyl Ketones Ql (U) Negative Normal NEGATIVE [facility] Comment on above: Performed By: #### U AMIC #### [facility] [address] [id number] Ana Paula Emily MUCOUS TRACE Normal NONE SEEN [facility] Comment on above: Performed By: #### U AMIC #### [facility] [address] [id number] Ana Paula Emily Nitrite Ql (U) Negative Normal NEGATIVE [facility] Comment on above: Performed By: #### U AMIC #### [facility] [address] [id number] Ana Paula Emily pH (Bld) 6.0 Normal 5-9 [facility] Comment on above: Performed By: #### U AMIC #### [facility] [address] [id number] Ana Paula Emily Protein [Mass/Vol] Negative Normal [facility] Comment on above: Performed By: #### U AMIC #### [facility] [address] [id number] Ana Paula Emily RBC (Bld) [#/Vol] NONE SEEN Normal 0-2 [facility] Comment on above: Performed By: #### U AMIC #### [facility] [address] [place], [place] [address] Ana Paula Diaz SPEC GRAVITY 1.025 Normal 1.005-<=1.025 [facility] Comment on above: Performed By: #### U AMIC #### [facility] [address] [place], [place] [address] Ana Paula Diaz Urobilinogen Qn (U) 0.2 EU/dl Normal [facility] Comment on above: Performed By: #### U AMIC #### [facility] [address] [place], [place] [address] Ana Paula Diaz WBC (Bld) [#/Vol] Negative Normal NEGATIVE [facility] Comment on above: Performed By: #### U AMIC #### [facility] [address] [place], [place] [address] Ana Paula Diaz WBC (Bld) [#/Vol] 0-2 Normal NONE SEEN [facility] Comment on above: Performed By: #### U AMIC #### [facility] [address] [place], [place] [address] Ana Paula Diaz US PREG TVon 03-08-2019 US PREG TV Patient: CARLOS ROCHA Exam Date: 03/08/2019 : 1995 Gender:F Ordering : DR TESSA PEREZ . Admission #: [id number] Family : Order #: [id number] CLICK HERE TO VIEW EXAM RADIOLOGY REPORT [...] Calles M.D. on 03/08/2019 at 09:42 Normal [facility] Vital Signs Date Time Vital Sign Value Performing Clinician Laura del angely 08-31-2023 10:30-0500 Body mass index (BMI) [Ratio] 29.65 kg/m2 Tessa Ana DO Work Phone: [facility] 08-31-2023 10:30-0500 Body weight 75.93 kg Tessa Ana DO Work Phone: [facility] 08-31-2023 10:30-0500 Diastolic blood pressure 70 mm[Hg] Tessa Ana DO Work Phone: [facility] 08-31-2023 10:30-0500 Systolic blood pressure 114 mm[Hg] Tessa Ana DO Work Phone: [facility] Healthcare Encounters Encounter Date Encounter Type Care Provider Facility Start: 10-12-2023 End: 10-12-2023 ambulatory TESSA ANA Not Available Start: 10-05-2023 End: 10-05-2023 ambulatory TESSA ANA Not Available Start: 09-28-2023 End: 09-28-2023 ambulatory TESSA ANA Not Available Start: 09-14-2023 End: 09-14-2023 ambulatory TESSA ANA Not Available Start: 08-31-2023 End: 08-31-2023 ambulatory TESSA ANA Not Available Start: 08-31-2023 End: 08-31-2023 Office outpatient visit 15 minutes Tessa Ana DO Work Phone: [facility] Comment on above: Third trimester preg julian; Gestational diabetes mellitus (GDM), antepartum, gestational diabetes method of control unspecified; Elevated glucose tolerance test Start: 08-17-2023 End: 08-17-2023 ambulatory MELONY HANDLEY Not Available Start: 06-16-2023 End: 06-16-2023 ambulatory MELONY HANDLEY Not Available Start: 10-13-2019 Patient encounter procedure TESSA FA ZIO Facility:[facility] Start: 10-09-2019 Evaluation and manag ement [...] Routine [facility] [address] [place] [id number] Ana, Tessa, DO [address] [place], [place] [id number] [facility] Payers Date Payer Category Payer Medicaid [employer] [place] [id number] 2022-Present [address] [address] [place] [address] [id number] 1995 Unknown [id number] 2.16.840.1.373816.3.579.2.593 1995 Unknown [id number] 2.16.840.1.724046.3.579.2.593 1994 Unknown [id number] 2.16.840.1.172372.3.579.2.593 1994 Unknown [id number] 2.16.840.1.652300.3.579.2.593 1994 Unknown [id number] 2.16.840.1.207537.3.579.2.593 1994 Unknown [id number] 2.16.840.1.686213.3.579.2.593 1994 Unknown [id number] 2.16.840.1.594686.3.579.2.593 1994 Unknown [id number] 2.16.840.1.578293.3.579.2.593 1994 Unknown [id number] 2.16.840.1.540683.3.579.2.593 1994 Unknown [id number] 2.16.840.1.878588.3.579.2.593 1994 Unknown [id number] 2.16.840.1.807052.3.579.2.593 1994 Unknown [id number] 2.16.840.1.460923.3.579.2.593 1994 Unknown [id number] 2.16.840.1.950409.3.579.2.1259 1994 Unknown [id number] 2.16.840.1.758676.3.579.2.1259 1994 Unknown [id number] 2.16.840.1.675125.3.579.2.1259 1994 Unknown [id number] 2.16.840.1.022752.3.579.2.1259 1994 Unknown [id number] 2.16.840.1.002982.3.579.2.1259 1994 Unknown [id number] 2.16.840.1.472450.3.579.2.1259 1994 Unknown [id number] 2.16.840.1.300572.3.579.2.1259 1960 Self-pay 1960 Unknown [id number] 1960 Unknown [id number] Social History Date Type Detail Facility [facility] Start: [...] meal for a total of 4times daily.. [id number] Start: 08-31-2023 End: 09-30-2023 1 each by In Vit ro route in the morning. Use to check FSBS four times daily. [id number] Start: 08-31-2023 End: 09-30-2023 History of Present illness Narrative 08-31-2023 Emily GarciaTONY carroll - 08/31/2023 10:30 AM EST Note Date [...] Diagnosis Date Noted Adjustment disorder with anxiety (CMS/HCC) 04/17/2021 Resolved Ambulatory Problems Diagnosis Date Noted [...] nursing note reviewed. Exam conducted with a saw edge fuser circular present. Vitals: Estimated body mass index is 29.65 kg/m as calculated from the following: Height as of 03/25/23: 5' 3 . Weight as of this [...] Tessa Perez DO documented in this encounter [facility] Clinical Note 02-22-2021 Note Date & Type [...] job, you may need to see an occupational health coordinator. How is this treated? This condition is [...] and dyes. Medicines ? Take or apply aqro-vru-jdgdpud and prescription medicines only as told by [...] and water are not available, use hand director of family service center. General instructions ? Avoid the substance that [...] new symptoms. Get (more content not included)... [facility] Evaluation note Note Date & Type [...] glucose tolerance test Tessa Perez, DO [address] [facility] [place] [address] [place] [address] Referral ID Status Reason Start Date Expiration Date Visits Re quested Visits Authorized [id number] Closed 1 1 Additional Source Comments INFORMATION SOURCE (unrecogn ized section and content) DATE CREATED AUTHOR 10/16/2019 [facility] DATE CREATED AUTHOR AUTHOR'S ORGANIZ ATION 03/06/2021 [facility] DATE CREATED AUTHOR AUTHOR'S ORGANIZ ATION 10/13/2023 [facility] EPIC Reason for Visit (unrecogniz ed section and content) Reason Comments Routine Visit Care Teams (unrecognized sec tion and content) Cane Cutter Relationship Specialty Start Date End Date Zoltan Cole MD [address] [place] [phone] PCP - External PCP Family Medicine 12/26/22 [...] BE BASED ON THE PRIMARY CLINICAL RECORDS. [facility]. provides no warranty or guarantee of the accuracy or completeness of information in this document.
[2023-10-18] MEDS: 0.9 % SODIUM CHLORIDE 1,000 ML 1000 ML IV ×2 (06:22→07:11)
[2023-10-18 06:32] LABS: Basophils Absolute Auto 0.1 10^3/uL (0.0-0.1); Basophils Percent Auto 0.7 % (0.2-2.0); Eosinophils Absolute Auto 0.1 10^3/uL (0.0-0.7); Eosinophils Percent Auto 1.2 % (0.9-7.0); Hematocrit 32.8 % (36.0-48.0); Hemoglobin 10.7 g/dL (12.0-16.0); Immature Granulocytes Abs Auto 0.02 10^3/uL (0.00-0.03); Immature Granulocytes Pct Auto 0.3 % (0.0-0.5); Lymphocytes Percent Auto 29.5 % (20.5-60.0); Mean Corpuscular HGB Conc 32.6 g/dL (29.9-35.2); Mean Corpuscular Hemoglobin 28.6 pg (26.7-34.0); Mean Corpuscular Volume 87.7 fL (81.0-99.0); Mean Platelet Volume 10.4 fL (9.5-13.5); Monocytes Absolute Auto 0.7 10^3/uL (0.3-0.8); Monocytes Percent Auto 10.8 % (1.7-12.0); Neutrophils Absolute Auto 3.8 10^3/uL (1.4-6.5); Neutrophils Percent Auto 57.5 % (43.0-75.0); Platelet Count 307 10^3/uL (150-450); Red Blood Count 3.74 10^6/uL (4.20-5.40); Red Cell Distribution Width 13.3 % (11.0-15.0); White Blood Count 6.7 10^3/uL (4.0-11.0)
[2023-10-18 06:34] LABS: Bilirubin Urine NEGATIVE (NEGATIVE); Blood Urine NEGATIVE (NEGATIVE); Clarity Urine CLEAR (CLEAR); Color Urine LT. YELLOW (YELLOW); Glucose Urine UA NEGATIVE (NEGATIVE); Ketones Urine NEGATIVE (NEGATIVE); Leukocyte Esterase Urine NEGATIVE (NEGATIVE); Nitrite Urine NEGATIVE (NEGATIVE); Protein Urine NEGATIVE (NEG/TRACE); Urobilinogen Urine 0.2 EU/dL (0.2-1.0); pH Urine 6.5 (5.0-9.0)
[2023-10-18 06:52] LABS: Cannabinoid Screen Urine POSITIVE (NEGATIVE)
[2023-10-18 06:53] LABS: Amphetamine Screen Urine NEGATIVE (NEGATIVE); Barbiturates Screen Urine NEGATIVE (NEGATIVE); Benzodiazepines Screen Urine NEGATIVE (NEGATIVE); Buprenorphine Screen Urine NEGATIVE (NEGATIVE); Cocaine Screen Urine NEGATIVE (NEGATIVE); Methadone Screen Urine NEGATIVE (NEGATIVE); Methamphetamines Screen Urine NEGATIVE (NEGATIVE); Opiate Screen Urine NEGATIVE (NEGATIVE); Oxycodone Screen Urine NEGATIVE (NEGATIVE); Phencyclidine Screen Urine NEGATIVE (NEGATIVE); Tricyclic Antidepressant Urine NEGATIVE (NEGATIVE)
[2023-10-18 07:03] LABS: Bacteria Urine NONE SEEN #/HPF (NONE SEEN); Cast Seen? NONE SEEN #/LPF (NONE SEEN); Crystals Seen? None Seen #/HPF (None Seen); Mucus Urine NONE SEEN (NONE SEEN); RBC Urine NONE SEEN #/HPF (0-2); Squamous Epithelial Cell Urine RARE #/LPF (NONE/RARE); WBC Urine NONE SEEN #/HPF (NONE SEEN)
[2023-10-18] MEDS: FAMOTIDINE/PF 20 MG/2 ML VIAL IV (08:38)
[2023-10-18] MEDS: METOCLOPRAMIDE HCL 10 MG/2 ML VIAL IVP (08:38)
[2023-10-18] MEDS: CITRIC ACID/SODIUM CITRATE 30 ML SOLUTION ORACIT SHOHL'S SOLN PO (08:38)
[2023-10-18] MEDS: CEFAZOLIN SODIUM/DEXTROSE,ISO 2 GM/50 ML PIGGYBACK IV ×2 (08:39→14:53)
[2023-10-18] MEDS: LACTATED RINGER'S SOLUTION 1,000 ML 50 ML IV ×2 (09:11→09:27)
--- NOTE | 2023-10-18 09:35 | PM.ONB ---
Brief Operative Note Date of procedure: 10/18/23 Pre-op diagnosis general: iup at 39wks, previous c/s Post-op diagnosis: same as pre-op Procedure: NAME OF PROCEDURE: [ section ] PROCEDURE: Patient was taken back to the Operating Room where she was given a spinal anesthesia with Duramorph without difficulty. She was prepped and draped in the normal sterile fashion. A Pfannenstiel skin incision was then made 2 cm above the symphysis pubis and carried down to underlying rectus fascia using a Bovie. The fascia was incised in the midline and extended laterally using Mathew scissors. Two Jose C clamps were placed on the superior aspect of the fascia and dissected off the underlying rectus muscles. The same was performed on the inferior aspect as well. The muscles were then in the midline. Peritoneum was identified and entered bluntly. The peritoneum was then extended superiorly and inferiorly with good visualization of the bladder. The bladder blade was inserted. A low transverse incision was made on the patient's uterus and extended laterally digitally. The was then delivered atraumatically after the bladder blade was removed in the cephalic position. The cord was clamped and cut. Cord blood was obtained. The was handed off to awaiting team. The patient's placenta was spontaneously delivered. The uterus was then exteriorized. The uterus was cleared of all clots and debris. The bladder blade was reinserted. The patient's uterine incision was closed using #0 Vicryl in a running lock fashion. Excellent hemostasis was assured. The uterus was then returned to the patient's abdomen. The patient's abdomen was copiously irrigated using warm saline. Peritoneal gutters were cleared of all clots and debris. Again excellent hemostasis was assured. The patient's peritoneum was closed using 3-0 Vicryl in a running fashion. The patient's fascia was closed using #0 Vicryl in a running fashion. The patient's skin was closed using 4-0 Vicryl subcuticularly. The patient tolerated the procedure well. Sponge, lap, and needle counts were correct x2. The patient was taken to the Recovery Room in stable condition. Anesthesia: spinal Surgeon: Tc Perez [facility] Director: Crista Lopez Estimated blood loss (mL): 600 Pathology: none sent Condition: stable Disposition: PACU Urinary Catheter Management Urinary Catheter Management Urethral: Cath placed during this visit: yes Urethral indwelling: No Insertion date: 10/18/23 Insertion time: 06:35
--- NOTE | 2023-10-18 09:36 | P.OBPRC_ITS ---
Procedure Pre-op/Post-op diagnoses: Pre-Op/Post-Op Diagnoses Operation Date: 10/18/23 07:50 <No data on this case meets the specified criteria> Procedure: Procedures Operation Date: 10/18/23 07:50 Actual Procedure Side Surgeon p REPEAT Not Applicable Tc Perez DO Production Solderer: Crista Lopez Estimated blood loss (mL): 600 Disposition: floor Anesthesia type: Spinal
[2023-10-18] MEDS: BUPIVACAINE HCL 0.5% PF 50 MG/10 ML VIAL 30 ML INJ (09:55)
[2023-10-18] MEDS: BUPIVACAINE LIPOSOME/PF 266 MG/13.3 ML VIAL INJ (09:56)
[2023-10-18] MEDS: 0.9 % SODIUM CHLORIDE 10 ML VIAL 30 ML INJ (09:58)
[2023-10-18] MEDS: OXYTOCIN/0.9 % SODIUM CHLORIDE 20 UNITS/1,000 ML PLAST..BAG 125 UNIT IV (10:09)
[2023-10-18] MEDS: KETOROLAC TROMETHAMINE 30 MG/ML VIAL IVP ×2 (14:54→21:19)
[2023-10-18] MEDS: ENOXAPARIN SODIUM 40 MG/0.4 ML SYRINGE SUBQ (21:20)
[2023-10-19] MEDS: ACETAMINOPHEN 500 MG TABLET 1000 MG PO ×3 (01:45→17:19)
[2023-10-19] MEDS: KETOROLAC TROMETHAMINE 30 MG/ML VIAL IVP (05:12)
[2023-10-19 05:15] VITALS: BP 99/53; TEMP 36.7
[2023-10-19 06:09] LABS: Basophils Absolute Auto 0.1 10^3/uL (0.0-0.1); Basophils Percent Auto 0.5 % (0.2-2.0); Eosinophils Percent Auto 0.4 % (0.9-7.0); Hematocrit 26.5 % (36.0-48.0); Hemoglobin 8.6 g/dL (12.0-16.0); Immature Granulocytes Abs Auto 0.04 10^3/uL (0.00-0.03); Immature Granulocytes Pct Auto 0.4 % (0.0-0.5); Lymphocytes Absolute Auto 2.2 10^3/uL (1.2-3.8); Lymphocytes Percent Auto 20.1 % (20.5-60.0); Mean Corpuscular HGB Conc 32.5 g/dL (29.9-35.2); Mean Corpuscular Volume 89.2 fL (81.0-99.0); Mean Platelet Volume 10.5 fL (9.5-13.5); Monocytes Absolute Auto 0.9 10^3/uL (0.3-0.8); Monocytes Percent Auto 8.3 % (1.7-12.0); Neutrophils Absolute Auto 7.8 10^3/uL (1.4-6.5); Neutrophils Percent Auto 70.3 % (43.0-75.0); Platelet Count 230 10^3/uL (150-450); Red Blood Count 2.97 10^6/uL (4.20-5.40); Red Cell Distribution Width 13.3 % (11.0-15.0); White Blood Count 11.2 10^3/uL (4.0-11.0)
--- NOTE | 2023-10-19 08:07 | P.OBPN_ITS ---
OB - PN: Subj Subjective Patient comments: no complaints [employer] status: doing well [employer] feeding status: exclusively bottle feeding Exam Constitutional Vital Signs, click to edit/add: Last Vital Signs Temp 98.0 F 10/19/23 05:15 Pulse 72 10/18/23 23:20 Resp 18 10/19/23 05:15 BP 99/53 10/19/23 05:15 Pulse Ox 98 10/18/23 23:20 O2 Del Method Room Air 10/19/23 05:15 Documenting provider has reviewed patient's vital signs: yes Common normals: no apparent distress General appearance: cooperative Orientation/consciousness: Yes awake, Yes oriented to person, Yes oriented to place and Yes oriented to time HENMT Common normals: normocephalic Eye Common normals: EOMs intact bilaterally Neck & C-Spine Common normals: full ROM Lymph Lymphatic: no lymphadenopathy noted Chest Common normals: inspection of chest normal Respiratory Common normals: normal respiratory effort Effort & inspection: able to speak in complete sentences Cardio Common normals: regular rate and regular rhythm Rate: regular rate Rhythm: regular rhythm GI Common normals: Normal to inspection, nondistended, normoactive bowel sounds present Inspection: normal to inspection Auscultation: normoactive bowel sounds Palpation: soft Common normals: no CVA tenderness Back & Pelvis Common normals: no CVA tenderness Extremity Common normals: normal to inspection and full ROM Neuro Common normals: oriented x3 Sensorium/orientation: awake, alert, oriented to person, oriented to place and oriented to time Speech: speech normal Psych Psychiatry clinicians, please identify where your Mental Status Exam is documented: Mental Status Exam documented in the separate MSE Common normals: mental status grossly normal, thought process normal and cooperative Results Labs Labs: Short CBC 10/19/23 Range/Units 06:01 WBC 11.2 H (4.0-11.0) 10^3/uL Hgb 8.6 L (12.0-16.0) g/dL Hct 26.5 L (36.0-48.0) % Plt Count 230 (150-450) 10^3/uL Urinary Catheter Management Urinary Catheter Management Urethral: Cath placed during this visit: yes, but has since been removed by the nurse Urethral indwelling: No Insertion date: 10/18/23 Insertion time: 06:35 Removal date: 10/18/23 Removal time: 17:30 OB - PN: A/P Plan - day: 1 Plan: routine postop care Time Spent with Patient Time: Total time spent is greater than 50% in coordination of care (as documented) at patient's floor/unit and/or counseling patient: Total time spent with greater than 50% in coordination of care (as documented) at patient's floor/unit and/or counseling patient: less than 15 minutes
[2023-10-19 08:58] VITALS: O2SAT 99
[2023-10-19 09:20] VITALS: BP 107/63; TEMP 36.6
[2023-10-19] MEDS: SERTRALINE HCL 50 MG TABLET 25 MG PO (10:21)
[2023-10-19] MEDS: DOCUSATE SODIUM 100 MG CAPSULE PO ×2 (10:22→20:25)
[2023-10-19] MEDS: IBUPROFEN 400 MG TABLET 800 MG PO ×2 (12:03→20:25)
[2023-10-19 16:50] VITALS: BP 118/75; TEMP 36.4
[2023-10-19] MEDS: ENOXAPARIN SODIUM 40 MG/0.4 ML SYRINGE SUBQ (20:25)
[2023-10-20] MEDS: ACETAMINOPHEN 500 MG TABLET 1000 MG PO ×2 (00:26→08:34)
[2023-10-20 01:20] VITALS: TEMP 36.8
[2023-10-20] MEDS: IBUPROFEN 400 MG TABLET 800 MG PO ×2 (03:03→09:36)
--- NOTE | 2023-10-20 07:26 | P.OBPN_ITS ---
OB - PN: Subj Subjective Patient comments: no complaints and pain well controlled [place] status: doing well Exam Constitutional Vital Signs, click to edit/add: Last Vital Signs Temp 98.3 F 10/20/23 01:20 Pulse 72 10/18/23 23:20 Resp 16 10/19/23 16:50 BP 118/75 10/19/23 16:50 Pulse Ox 99 10/19/23 08:58 O2 Del Method Room Air 10/20/23 01:20 Documenting provider has reviewed patient's vital signs: yes Common normals: no apparent distress Respiratory Common normals: normal respiratory effort and clear to auscultation bilaterally Cardio Common normals: regular rate and regular rhythm GI Common normals: Normal to inspection, nondistended, normoactive bowel sounds present Extremity Common normals: no clubbing, cyanosis or edema and no calf tenderness Results Labs Labs: Urine 10/18/23 Range/Units 05:35 Urine Color Lt. yellow (YELLOW) Urine Clarity Clear (CLEAR) Urine pH 6.5 (5.0-9.0) Ur Specific [place] 1.020 (1.005-1.025) Urine Protein Negative (NEG/TRACE) mg/dL Urine Glucose (UA) Negative (NEGATIVE) mg/dL Urinary Catheter Management Urinary Catheter Management Urethral: Cath placed during this visit: yes, but has since been removed by the nurse Urethral indwelling: No Insertion date: 10/18/23 Insertion time: 06:35 Removal date: 10/18/23 Removal time: 17:30 OB - PN: A/P Plan - day: 2 Plan: routine postop care, discharge home and other (1wk) Time Spent with Patient Time: Total time spent is greater than 50% in coordination of care (as documented) at patient's floor/unit and/or counseling patient: Total time spent with greater than 50% in coordination of care (as documented) at patient's floor/unit and/or counseling patient: less than 15 minutes
[2023-10-20 08:15] VITALS: TEMP 36.6
[2023-10-20 08:29] VITALS: BP 117/70; PULSE 87
--- NOTE | 2023-10-20 09:11 | PC.NURSE ---
discussed mental health and hx ppd at length-Preston states was recently given a diagnosis and sees her physician to resume medications for bipolar disorder on and sees therapist next week. Preston also relays that her personal situation is improved with this delivery with different and more supportive partner. Encouraged to be alert for s and s of depression or anxiety and to reach out for help at first sign
[2023-10-20] MEDS: SERTRALINE HCL 50 MG TABLET 25 MG PO (09:35)
[2023-10-20] MEDS: DOCUSATE SODIUM 100 MG CAPSULE PO (09:36)
--- NOTE | 2023-10-20 11:46 | DS_ITS ---
DISCHARGE DATE: ??10/20/2023 PRIMARY DIAGNOSES: 1.? Intrauterine at 39 weeks. 2.? Previous . PROCEDURE:? section. HOSPITAL COURSE:? As expected.? Please see chart for full details.? LABORATORY DATA:? Please see chart. COMPLICATIONS:? None. DISCHARGE CONDITION:? Stable. CONSULTATION:? Anesthesia. DISCHARGE INSTRUCTIONS: 1.? Diet:? Regular. 2.? Medications: a.? Percocet 5/325 one to two p.o. every 4-6 hours p.r.n. pain. b.? Motrin 800 one p.o. every 8 hours p.r.n. pain. 3.? Followup in one week. Restrictions:? Pelvic rest for 6 weeks.? No heavy lifting.? May drive when pain free and no longer on narcotics. ЕКАТЕРИНАD
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
[2023-10-21 16:09] LABS: Cannabinoid Negative (Cutoff=10)
== END 2023-10-20 11:46 | disposition home or self-care (01) | DRG 540 ==
PROVIDERS: Admitting Provider Obstetrics & Gynecology; Visit Provider Obstetrics & Gynecology
PROC: 10D00Z1 Extraction of Products of Conception, Low, Open Approach (ICD-10-PCS; CPT 59514; principal; 2023-10-18 07:50)
DX: O34.219 Maternal care for unspecified type scar from previous cesarean delivery (principal); O99.324 Drug use complicating childbirth; F12.90 Cannabis use, unspecified, uncomplicated; O99.344 Other mental disorders complicating childbirth; F31.9 Bipolar disorder, unspecified; O99.334 Smoking (tobacco) complicating childbirth; F17.210 Nicotine dependence, cigarettes, uncomplicated; Z3A.39 39 weeks gestation of pregnancy; Z79.899 Other long term (current) drug therapy; Z37.0 Single live birth
CPT/HCPCS: 36415; 51702; 64488; 80307; 80349; 81001; 85025; 86850; 86900; 86901; 94667; 94668; 96372; 96374; 96375; 96376; J1094

== ENCOUNTER 2024-04-18 17:49 | Emergency (ER) | payer OTHER, SELFPAY ==
[2024-04-18 17:51] VITALS: BP 116/77; PULSE 68; TEMP 36.7; O2SAT 99; BMI 27.6
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
--- OUTSIDE RECORDS SUMMARY | 2024-04-18 17:58 | XMS_ITS | CCD ---
Author Organization [facility] Care Team Providers Care Machine Maintenance Technician Name Role Phone ANA, TESSA Admitting Unavailable [...] TESSA Attending Unavailable Zoltan Cole MD Unavailable MELONY HANDLEY Attending Unavailable TESSA PEREZ Attending Unavailable TESSA PEREZ Attending Unavailable TESSA PEREZ Attending Unavailable TESSA PEREZ Attending Unavailable TESSA PEREZ Attending Unavailable MELONY HANDLEY Attending Unavailable Medications Current Medications Medication Drug Class(es) Dates Sig (Normalized) Sig (Original) [id number] 200 actuat albuterol 0.09 mg/actuat metered dose [...] 0.4-25 MG chewable tablet (2 sources) Start: 08-01-2023 MV & Min w/FA-DHA ( Adult Gummy/DHA/FA) [...] Interpretation and review of laboratory results Abnormal [facility] Work Phone: Ketones, UA Negative Negative - 160(16) ++++ mg/dL [facility] Work Phone: Leukocytes, UA Positive Negative - 500+++ Jean/mcL [facility] Work Phone: Nitrite, UA Negative Negative - Positive [facility] Work Phone: pH, UA 5.5 5 - 9 [facility] Work Phone: Protein, UA Negative Negative - 2000(20) ++++ mg/dL [facility] Work Phone: Spec Grav, UA 1.020 1 - 1.03 [facility] Work Phone: Urobilinogen, UA 1.0 0.2 - 12 mg/dL [facility] Work Phone: [facility] Work Phone: Coding Summaryon 03-05-2021 Coding Summary HTMLBase 64 HwjppcxxLBv6jSk+PGhlY WQ+[id number] [id number] TDE9mvEY4EThlJ0AhamVe VqmbdMSrMI23XEs0XHR1z NqiSApbsL8tfQFzU2i9He UeUH23xC10UHquPRRqSiP 3LjZpbjsgbWFy P3yiZcBnvESuNvz+PHRhY mxlIHdpZHRoPScxMDAlJy BofZxnZY5qDl1oRFZqCWH vbGxhcHNlOiBj s1kaSLLrIBekBV8ebWjcN 6MfnTA1BZIrb3n5Pu06tD I+OLMqBAX2kJxdSMdzq90 7NwKrq6bbUER4 tTMvRBubKNL4G19bn7C2N KLuLIBdAID4jVS5nP2skH ofrdgeN7OziXUoIuV7DUU 5zVGpyS9acAue cpjedS4fHxb+I55UPD4VB BWYDA1AHjl9E1LyVyjeyH I+FR24VRViKG65kZOqwIA kw1ogoAr9NzIx VLAjJBJ8jDmdTEdvn0UgS ZKrM57bfPUrs0R9VNSicS yhcKByIvJkzBK5hJ5uACa mfietl0mcdpnz Eyiwz9bojq79xT17F79nW ColNCTdKOE1IZSyWJTboR ijht7itJ2wFx4+IPioh0x yl0nybJp6WmJs XJRorwBehSgbNJE2f5HjZ y52B3EeiDcbx4GvUll3sz 74iXXyb6B8mQB7NRfgSNG eeQ3vSYzvZsI7 GGEhTzZbnG54pKStNRwhK y5kgKigdZzjIU5mLOIjwb ndTYYazO0wEXFjhEJpgSz lIU7uHYBcfjaz w075BlHxEMS5LBPksEMmA 2SjeG1pHzVqKGTmUXUoU4 EsyQQtKSqlV511IVvaWgO 5UKRollKwD5Ak JVKtxTgdEjN8m8R1Rd2No 4QvcgdqICS4DZhxJJH3Gt V0EySaXjU2V2HdAda3RPC naFqoPH2oH6Re GRBmkrfeqfpwrWE9GYUfV QDbhT17wXTmNZxxHp3hk2 G5d152RMJiDOSlpC78Um2 udDogMTBwdCBU mQ3algavl0pbibuiJfYrW MKjIGr6ACo0TUUnpMzqPp RvCYC0ZbQ8QJU5sZDkpD6 ruMnihuobyJ4i Oyc+A19khU2jHRL0YBG4d dliDRVtqhRuJI93XN54U8 RyPjwvdGFibGU+PGRpdiB feAwkPW9lXfCw u7qrh3PkDWmhM9LgLCUzX YujOlq0EFMoBTH1oWB4uH 1uUISiHEvbh6I9xRV7W9Y cbiQgck7ym4qp TZTiIOnpC23biNMfl1W4S RNhfHO3JIOqdNjiCyPawE 93Oyc+BNTysGzrw4VgMdh jh8tue4cbiMg7 AlMhSKNcjwZfaPwnSLH7t 9XxZa32C87gSZbgCBBwIY HtLPZgFTLxnWbwgu1vjB5 wIi8+PGNvbCB3 qUP6xF3lCCMwHbU9RRwkA 294LdZdyHCnZpxxz6wnr2 bcjNl7JyXpWLEnvfPkbOd rNRN2e7CbBj90 X05qFGzfTNUuMWDoLXWeF IOrjBkaiy3spP4dPz2+PC 7hw1zlyy53fA67uCW+PHR qARC6qEooMFwk LVHhvX7ePWioUvL7PUSwM bQcoI97eUQzELsvNe6dpK jmkDoyBI0dCYAtxkvib27 8RjRax7vbDUBr sUYlLFddJNW6M92bm7Z2P CRcMJJvHXZ8wLM3vD5qsD lnbjogbGVmdDsgdmVydGl tRZsgQTtzS339 IHRvcDsnPlBhdGllbnQgT wFhGMu8K0UeHli9ZTXavF fzEX7mgFQkLBfyDd3wpXc rxKfsDH4hRHKn ietda582LkDgh6jtLRDbp NEzRStqMWG9Y70zq2V8PR CbVHDtVOY7qRM2nR2xoRl nbjogbGVmdDsg ffRqhJwjMJqwFXaaI310D HRvcDsnPkJpcnRoIERhdG C3UF00SO19dHRyh5B8gLX 3E1UwSJHnrcmd ztqdtIO3EYMrNPClbJ67N b7ieSnuQx9xXSNeAUY0XJ EotQFeN3OhfT8eOiXiDAZ eLFOaH4VrjMUs FPefE850TEnbIwC4TVIat nDnO6ZvBRKiwEaqJvC0u2 Z2Eo1AT2V6UL45NV25wMP ka7L0yHA1I5Ag RXDweercgprzvOZ7FNUuH OZjiO64Vs2hjPixJq0qMF ZdCXI8ZRBrwUUqM4EgxF0 yOiAjMDAwMDAw V3YheIMqXPzyS963TDcwB gK1EJAheqBxN3CqIAAgoQ qdDkL9w3J1Lu3NXQp6QR6 2PH77cPYxs5H7 zEC8D6YuGDIbwsmnnehbh OE0ULVnTTEkpY75Rx9tuN mqMf5xIUYzDXS2TIZmzSP jF4YgeG9nJeJa VESkOTUkV4MdwVEaEYhkR 849MWlaPrW6WXZjyoOcD5 UaYXZniWpbKwO6h8B3Ox7 XANGuAP88WEV1 dLX0WX90JQ43X9OaSdqou GFibGU+PHRhYmxlIHdpZH RoPScxMDAlJyBzdHlsZT0 wVw6cZSTfHBNa nPsjePDaYqHjw9vfFOThQ TriVU9dsSktG9JknYY9FZ Tze8e4Fe85P43dM6HkdLE +NMHomXQ6qZG9 qL7jAoQpMnA4BDlbF088E vInwJBzOwngk9iys6jskV b3HwK2UFXplxCguAgpLXW 7u7WcAc22L09m IHdpZHRoPSIxNSUiIHZhb Ckmyx2xvU9lWs7+PGNvbC K2oYF1oB7vRqDeYlS6FIq bU958EaMliZPa Fmwkw2xau0svxAa4NnHcD KCjalLoxRtaQJS8t1XpXg 23Y2YdmWhzy3VoYqs5wg1 1oMChv1J6nCY0 V2FcNRPcbsfocYNtpLenA J5gHJRwubetBCZuxH2fKR VnY3b1KyGqTjY2ERerI4R blsK4HHVtiHPm FBoyTNM5B95dd4V4QYVbH VLyHVO3fCA9iA9dbAjhfb ogbGVmdDsgdmVydGljYWw pDLuuJ343LYJr qVopPUSthB2xPBEsaDRwg JeuGH5mMXYbhfijZf7WQG xTLCBEQVNIQVkgTUFSSUU 2B1OrGpb3FFMu wTeyNS6kwVCfJVbzLd2sd DcbdFpqUG9wDRTcztvrOV KylK8kVEHvdMCqmWogOR5 gPPQknyfrn377 BiHfIHT5OEPfwLFiF5Slr W6kUjHhXUVvUBNnX1WmbD ArFBxbA594SGkxXvS5VFH mqgIwY8LxEOFt iWqcJzM0j0L2Ef5qFD5aV W9dEPv7VC89IH14eDMhq6 D1qYO7L1WzPQJmbwzuqrn oaIP2SVGzUDRq wH71rWOiRJtnBn5kc4D4u 195WFNlARNhaF40Or9upS obDZGsgOUYiD3ybmxyc2t vcjogIzAwMDAw RHh9WPd9GQIwyUqfRqJwD AV6KpI7WWO1uGHftI4roX bwsizluI3fGas+MjcgWWV fjmY9R6UyYna8 HKKtgTrcCK4hnVCwQStdM u4urDqgmBqqAS8lTROixs jtTKFttI9vRWWigDSntLn sBT5hRYQcjyuv w124AzErCHW0YNYmoMItH 4TfdO7bIfUlZEXoDCMoD3 DhiQApFIsqQ887RMfxDvP 3GSQpbhCrB1Mf NSGhyEmsCxC3e2B9Oq6OI V8AKZM1H7AjZlk0RMVlzJ syVU8cmNReOCzzFy6ejPf ebTqsTV2mHWWj fzcdZVMicW6aQZIswRYtf TwnTU9pCLZtciynj270Zn MkPAN0WROmnXVwL2NyzQ5 yOiAjMDAwMDAw H4MceSQyTAvoB431TKmbQ yS7NUJxlpEdB8UmZFMhiA yjNzH2a1M9Ye8NSKmfkNW +YL84uv64Y8Hf FvbnUjg4YKDhCDA9kYJ6i K7vTKMeQWqjj5A3xYF9G0 LtmsZdhs8nk2weJDEwDNb dG29stWBrw7C3 ULJolVQ4PAHpdQkuKaUmw G93Oyc+GQHsdRhrw1DlDm ngg2yry8rqvAv1JbOjCHE gdmFsaWduPSJ0 e3XwEk05X28fBJrxEJOaX WCqIRHvYYPypOtfmy1zoW 9wIi8+ZNZllYW5wAY3pH1 kNsWwIsC1RZqr O170StXtiQEsYownr3vrj 9vhsYd8EaEdUETvbfQynA zwXGG3q1XzCv72L3KrmGg ko4FjUxg8yf46 kLLdy3O1uOJ4M1VcYCYbv nhfrYSbcJxpKC9rGVPykr wmNZEfkG1cFFYgY3y3YiX zBlV6OJaqR2St bwJ6IHBsdKGoYPKtoTLWy H2casbrf8wmxvnxJnDoKT BrWJs8KBz0TWPrmAgqSpZ mYNF2UkK4DFT4 gFJfgP4uzCjfxfgmdB6aU yc+OKg2g6aljQGuYY9zhD P8AU73JR06gYQbg6C5kQB 8D0GxEHJeupnw geebiEF1TEZdWCIqgD95B c0wqAtgEu2vJAPuBXX1FK YfdROlR0MfpJ9dKaEsENH wSDWjQ8CbsZGu XTwcB276SUbzReP5MNYyu aVyK5DmNVVjfIikYpP2h1 G7Ny3OTM02OF46TK51aJW lu5D3hLS9F9Hg CUVexzpjuvrbiMT6QVElP IFyaS93Er5asSohYt6iMZ FgVWB8EKSjcYUfW6LxtD8 yOiAjMDAwMDAw W9LorMIhETziS122OGkrN pI9LMYiviOrA0XbWBPhaQ jrLqE8o1O5Lr6YGe02OL6 9UM17wYJwd5M1 nPV6S8XhYZOqftgvlulku UF5MTXnXWImvR38Yo4ftD ovMi4zYUOzYVA1KUUxaZX kE9JxoV6hRrCo LAUkPHQrD7FulTYcIVogH 413NSvaNyO5DOUvgzMaX9 GcQNLttVmfZrF2z0R3Fe5 SECxbtjt5D1Jt PjwvdHI+NW21DWGfMH98n PZklTKvx9njzZp2QsVmEJ BrXBC1rLzdKWecy0AfGYR mF99xsHKfu5L7 IGN (more content not included)... [facility] Coding Summary HTMLBase 64 SnckccglGRf1hZh+PGhlY WQ+UZ6OETFuR64zkJPizC 4KG7cTUZ3TOTFMFYYFCP4 GKC5ykWY5CIkoU7TlrwNm UblzbXXfBK26PKf7TBC8y AdmGFtjiV6dhXZhN5t2Zq LzGA25nU56UVizOITbGbO 3LjZpbjsgbWFy H5keCtMekRXrNdn+PHRhY mxlIHdpZHRoPScxMDAlJy BndDxpVK7lWv3kTAXpGBO vbGxhcHNlOiBj e5fiXUDrVXbiUC9jzIquW 9RqjDS8AGVbw7z7Ko92qP I+IYGpROP5bVumGVmrq07 0EoSao1yvXRJ9 cTTtVEtoPOB1U29zz8A8I GPoZZHcDAH1kMJ1mT2swP qasuxmL0HvzMRrFbV3YVL 6qUWlwO1zgAsg fgrerJ1bZah+K16UYU8TW VPRCX7DOnr1E5RgReeqmG I+QA99OEMiEK14jGOzcEI bi2yuwEe5AvGh OHRpOJM0kXnvWXjsm5CrA YZbU22zoATxd3W4JGCuzK htdFBiZwQlvPT8fZ0cZFr uyqmjg0hbqrdi Moahg4czyd49eC18U45fM DtrCUCgHJF2BSQcMXJwwF rnsr6maD0zAi4+QPamg5g ek7typIq1LbPk JWToohEsaKrhDTK2p6UxG f45U6TctFxud7KsGoz2xo 03vQHao7C2lCS0MKykOWT ibI3tMUkvNiC8 GSOwKdKtkQ75rMPsCVkfE f4mrMagjUoeKY2fUSEmdo vbVVMkaC6jARUvuZVxmCt bFH6bAAMgnxvm j358TkTmIDM6FZDaqMCuY 1WrqH1yQgKtZFVoHVQrJ8 VdvJAwSQslK413KEegKrU 6RTSzqrYcC5Uv NIOifKghAvK5r5W7Fn2Mb 7ToilinLCZ2TSvtADR2Uq B0CdNwTjL2R2DkDdf8ADK rqMezYH0nG1Uq FBQxflrwcevimXI0HAByC KGgeD94pGDlLNweLh3xy9 T0y419QRGdWKSnqA57Mv2 udDogMTBwdCBU tK9kvxqyv4wofpnyQjAxM DJbVUj1JZh8AQPfeRvlAu JnGXU2KgR2NUF1iYKkwS7 lpRuomsirqR4c Oyc+Y15tcR0tDDB0THJ4q pklGZWvqnVxDY95KL62F8 RyPjwvdGFibGU+PGRpdiB tlUdbSL1vMjRr a3ura5RlWNbvE3KwNOAhF MxhXmw7HHLhNTN0lVP1rG 0wPLBtLXoxr7O7mYP6S6U zyrDxdq0pf4tk RWMxEXrbZ27yoMRyq4D9E VItjZP0RYDrpVicJiCbnC 93Oyc+DQIxmAsaj3MzYto ho7sic3xmgZu6 JlXiJGFuxfWupZbnHWD6n 1WkIt51X79oTZfwUPPkKY YxGSHaUAStgUbkyp8faJ4 wIi8+PGNvbCB3 yRQ2bV2uMMLpKvJ5YXapH 868PaSndUCgMoods5awm7 xmvQs9EdQhAGYtqoZcgZo sNSY0i2UcOr18 F93nSEwhXYKsDUWgXPCtI QYigOrcnn7roW5lQg8+PC 9bh6zmfh74lR08cNQ+PHR sXJE0aTtlNHyb MKJluI6mGDqzWnP8GUTbT uSkkD12vIZjUFsvMt4afH gxoImbWW1cWSEasfrig16 4PmBhv3wsQPQc zWJaHAjaHSY4I38hn1Z1V XNwUEHkTIW1mEW1uK7tkM lnbjogbGVmdDsgdmVydGl aJVfrAUtpM466 IHRvcDsnPlBhdGllbnQgT eBzYIx6Q0ZeZfa6JJNxyB pbBS7nfYUqAAlqNi6ctFg jyImuYF8jLVQq phwxg549LdUvx5ufEIWmo ZTzJTlsZJI4Y17ly3G4SI MsWRFcROO7mHB9uH9vsTv nbjogbGVmdDsg srHiyZzzFYmgKPgvD028E HRvcDsnPkJpcnRoIERhdG W4JI25MR95iVRcj4T6tQP 1T1FbJPHmerad pabhfDN7KWDoPMGfjW28Y x9koPfsVa8rXRQrBLL2WX QdwOVbQ5BcoU6bZuAyHDY fDGEtR2LlmCSe LOukQ297BNxaVkB2AKUgc fZjK3IvVAErtCqeJlW6q4 L8Fk1DX2W4TT80HP76jTO uc9Z9rDZ1P3Mb AJAuqhhywjkfkNO7AFWvW AVylM54Nb8atRddZg5aYB DqTFS5TXYnwTOxL7TjyS5 yOiAjMDAwMDAw E7QwtGDzUFnuX937KTnpD nJ2RBIvthSrX4TzZRAllN yzLiV0i9N6Eb8WWCw2AX2 9YO06vRCgt0W3 aZO3W9IjWPSqninuwxonh ZJ4RJXnJINrtS30Jt6snJ vsMg9eWMDcUUI1TUKdkAA kG1LkdT2wLyAd CVWsLVWlD3YmfGPqQGdwT 197BGlsNgF3OOOlypXlC6 VySCWuaOyrEyP2f1E6Ep9 VHWJrZQ58OFZ1 lVI8UY03AP88F4YhAitwz GFibGU+PHRhYmxlIHdpZH RoPScxMDAlJyBzdHlsZT0 oZd9qHPPhQILb gYuvjAGhRkPla3dhRUSqJ IbcYR5esBquK4TfhTA7YD Jya2x0Yj50V81aI8WdoQY +NAHqcGL1mDD0 eN1hBoZyHsZ6TIhpA189X fWmwNZlVoesa4nao9mohE n1KkK7IHRotgBtlQrcGKY 8z0YcYf04W87m IHdpZHRoPSIxNSUiIHZhb Nuoxs3tnB0iHn4+PGNvbC V7tAZ0hH4dNtDfEvE9HTv aK287BaFldLRg Jvudo7tek2krsSt7ZtSlU WPqprJyjInaWUQ8c6HgDn 49I6KlpUctb3RfWvs2to6 4cXXwn5Z9yDA6 F4CbWKKxdjhhyMJruNlzG R3wFUZymmcrRDYhcR7oXE BhN3m5QlDiNoY4PQeuO9J maoI0YMQocGNm IOjwJYX7X34nh1Z9CMWiB WQmVVD7oOA3aG6ygFxtqp ogbGVmdDsgdmVydGljYWw eINwpX520AXEf tXpqBWGpdY2sNBHvhILje SllFM6wVRSiotftVj0TMB xTLCBEQVNIQVkgTUFSSUU 4A8TkHer2CAIp kIimZT1yqRLeIVyiTp1qu TlpcJelLB6uCCAacwnoSN WniR5rFZXmgCNcuYqvON4 yIBQrslmis132 LuPeTVL9BGPznNDdB1Gpq U1mHtUnXGSdAJDiH5KxuH AaIOvuE576CFpfOxN2FJB gcpBdU1XlWQGu zEgrZaT7o5Q6Ah1oHU7aA I9nKYt7QU73WB02tXRtr5 Q1vER6R4SzXMSbnxfcdfz biAN3VBBfQZNr kJ74hZAoXYukFr4eh9I1b 498MFUaHEVdpT29Ha8mcG hnUQMqgZLMdO5lwlspf8d vcjogIzAwMDAw TAo3GEi1LTOtcRrkYlCtR QG8JeV5HAD4jSYuiN9rsX mptrafzS1hCje+MjcgWWV sgaN9M1CsYec2 GKOymJxdAR0otVUhNZalG o3bdCqdrYtcGJ0wOSHeho mhAJWdtQ2mANEyjTAzjWy oUS8lOBHjudmv r818MhWjZXC5LNXxrIHkG 1AsqN3uHeDiYUUiPPDtE8 PpdYPcENgzE769EBrxPlM 3IVRlshHrH1Eu YAKstKtwAlI0g3E8Oo7MU V1OICE1M6BdQjf9LIUdrS uxYP3myJNlXEjhOo3qxQs lnGqkAD9oVSRm syazECSxeS9iQSSlzVPeb BzkXH2uHVUyviqzr858Rh XjWGC5PKHzwIUeO0SnkG8 yOiAjMDAwMDAw Y6MqmMNiKRogA055EBmmB cD8OSKsrlCbR7CvXMNreJ ynRsI1j4A7Rb3JjRBnI6K vV4z7U8JrAoeh dHI+TZ13CAEsWK01mEIfa EIhb0hhjRb9YfQuEVMcVB B5xKhqNFjpn4JnQCTpC72 vhPVkh5G8FWJq xXjojYRrDsZrvZM0tC4zI Qcrrielo4skkplhAfysp1 dixg83oM55N09uWTaxXYH oPSIzMCUiIHZh zVgzzt5akC3lIy0+PGNvb JQ2zZK0rM6cJcThZvL0GI onP309IvCbtLUyRveuc2p ff2nktIf7CeFd THKyiiGcrVgpLAX1o9ZkG p59F26tDTtvURNvPYFiBI WqTRDyuUgask6mkO5mFv1 +QV5qq5vfjk48 wU93nZA+QFErPCQ9jXbiV VxzZVOimC8dQIoqTxT2GN DcKlBnhO84bALyZUxiIw4 pcCateVojAX8u XAIymhdpu823NsFzy7kdA MFbnCQxYKeoUDJ0Q70ul5 I1JHCoNCGhGHR5mWB9aE1 hbGlnbjogbGVm dDsgdmVydGljYWwtYWxpZ 898PGKttVimUtIllHDuH2 fzpoWLHZ4pOfaldOA+PHR vQZX6tIqePIdb VIAgkO3aWWKcV3p3CqSwX dN7ZIdiU6IrkdG7DLCquV QiQGRovIDAvW0ekxdnx6e vcjogIzAwMDAw ELx4GUp8IFUaiDhtUlGjX BV8AaE0JBI7gEKtqR4xaC pueaxlgK6kJms+RklOOjw vdGQ+PHRkIHN0 uNmqTZevJGJjeI8zZQVxF 7q2StMqHcG4CHgaR6Aeln I6GIDsoNLzYFZcoIBMrI2 gwszua3hwutzd ZjJtORQeQPs2GZf1GYEfg GkfZlVpETU5XyE3MKT6iS QtcG5flZwhixkkxI3aRtj +TVJOOjwvdGQ+ YZEfYMU0pJznKHdoSAVuu C2hROKiB9u1HmVsTdZ7CV cuV1PppmJ8JXGxbBDgGVO wyTYOyM4yaudx p0sskuajNmJpVLJkOKi4U Ia9YHEfxOnaUfGjSKV4Ni E0HAY4vHVazW0ngJvzcwn glG3nDxd+UGF5 DUO0AT02BX37P8DeZsbjo GFibGU+PHRhYmxlIHdpZH RoPScxMDAlJyBzdHlsZT0 yYm4rZOGtHFVz bGx (more content not included)... Normal [facility] ED Clinical Summaryon 2020 ED Clinical Summary [facility] - Emergency Department [address] [place], [place] [id number] ED Clinical Summary PERSON INFORMATION Name: CARLOS ROCHA Age: 25 Years Sex: FEMALE : 1995 MRN: Acct#: Visit Reason: Skin rash; RASH Arrival: 02/22/2021 08:23:33 Discharge: 02/22/2021 09:27:00 LOS: 000 01:04 Check In: 02/22/2021 08:23:33 Checkout:02/22/2021 09:27:00 Address: [address] [facility] [address] PCP: ZOLTAN COLE MD PROVIDER INFORMATION Provider [...] (more content not included)... Normal [facility] ED Note - Physicianon 2020 ED Note [...] be adequate. Encouraged also you to use [id number] hydrocortisone and/or Benadryl cream. Patient encouraged to return for any worsening or changes or persistence to symptoms. Impression and Plan Diagnosis Contact dermatitis ([id number] L25.9, Discharge, Medical) Plan Condition: Stable. Disposition: [...] Regarding diagnosi (more content not included)... Normal [facility] ED Note-Nursingon 02-22-2021 ED Note-Nursing Ambulates to [...] outer ear. Awaiting exam. Normal [facility] ED Patient Summaryon 021 ED Patient Summary [facility] - Emergency Department [address] [place] [address] PATIENT DISCHARGE INSTRUCTIONS Patient Information Name: CARLOS ROCHA Age: 25 Years Date of : 1995 Reason For Visit: Skin rash; RASH Arrival Time: 02/22/2021 08:23:33 Primary Care Physician: PARAMJIT HSU, ZOLTAN Cooley Attending Physician: Oscar Haley DO Comment: Visit Diagnosis: Diagnoses This Visit Contact dermatitis (L25.9) Skin rash ([id number]) Prescription Information: If you have been given a prescription for narcotics, seek immediate medical attention if you have any difficulty breathing or any sudden status changes such as confusion and sleepiness. If you or anyone you know is experiencing suicidal thoughts, mental health, alcohol and/or drug addiction problems; contact the [facility] 08/02 Crisis Hotline -Text 4HCXK wm 398634. If you received any narcotics, sedation, or [...] legal documents With: Address: When: ZOLTAN COLE [address] [place], [place] [id number] Business (1) Within 3 to 5 days Comments: Call for follow up appointment Return if symptoms worsen Medication Information: The exam and treatment you received today in the [facility] were for an urgent problem and are not intended as complete care. It is important for you to follow up with a doctor, nurse practitioner, or physician?s restaurant assistant manager for ongoing care. If your symptoms become [...] can reach you if necessary. [facility] has provided you with a complete list of medications post discharge. Please inform your database designer/provider of your visit and for further instruction [...] (more content not included)... Normal [facility] CBC AUTO DIFFon 10-09-2019 Basophils (Bld) [#/Vol] 0.1 103/ul Normal 0.0-0.1 [facility] Comment on above: Performed By: #### C BC #### [facility] [address] [place], [place] [address] Ana Paula Emily Basophils/100 WBC (Bld) 0.9 % Normal 0.2-2.0 [facility] Comment on above: Performed By: #### C BC #### [facility] [address] [place], [place] [address] Ana Paula Emily Eosinophils (Bld) [#/Vol] 0.1 103/ul Normal 0.0-0.7 [facility] Comment on above: Performed By: #### C BC #### [facility] [address] [place], [place] [id number] Ana Paula Emily Eosinophils/100 WBC (Bld) 1.4 % Normal 0.9-7.0 [facility] Comment on above: Performed By: #### C BC #### [facility] [address] [place], [place] [id number] Ana Paula Emily Erythrocyte distribution width (RBC) [Ratio] 12.7 % Normal 11.0-15.0 [facility] Comment on above: Performed By: #### C BC #### [facility] [address] [place] [address] Ana Paula Emily Hematocrit (Bld) [Volume fraction] 31.4 % Critically low 36.0-48.0 [facility] Comment on above: Performed By: #### C BC #### [facility] [address] [place], [place] [id number] Ana Paula Emily Hemoglobin (Bld) [Mass/Vol] 10.1 g/dL Critically low 12.0-16.0 [facility] Comment on above: Performed By: #### C BC #### [facility] [address] [place] [address] Ana Paula Emily IG # 0.05 10e3/ul Critically high 0.00-0.03 [facility] Comment on above: Performed By: #### C BC #### [facility] [address] [place] [address] Ana Paula Emily IG % 0.5 % Normal 0.0-0.5 [facility] Comment on above: Performed By: #### C BC #### [facility] [address] [place], [place] [id number] Ana Paula Emily Lymphocytes (Bld) [#/Vol] 2.1 103/ul Normal 1.2-3.8 [facility] Comment on above: Performed By: #### C BC #### [facility] [address] [place], [place] [id number] Ana Paula Emily Lymphocytes/100 WBC (Bld) 22.6 % Normal 20.5-60.0 [facility] Comment on above: Performed By: #### C BC #### [facility] [address] [place], [place] [id number] Ana Paulaterry Olsonen MANUAL DIFF REQ NO Normal [facility] Comment on above: Performed By: #### C BC #### [facility] [address] [place], [place] [id number] Ana Paula Emily MCH (RBC) [Entitic mass] 29.4 pg Normal 26.7-34.0 [facility] Comment on above: Performed By: #### C BC #### [facility] [address] [place], [place] [id number] Ana Paula Emily MCHC (RBC) [Mass/Vol] 32.2 g/dL Normal 29.9-35.2 [facility] Comment on above: Performed By: #### C BC #### [facility] [address] [place], [place] [id number] Ana Paula Emily MCV (RBC) [Entitic vol] 91.3 fL Normal 81.0-99.0 [facility] Comment on above: Performed By: #### C BC #### [facility] [address] [place], [place] [id number] Ana Paula Emily Monocytes (Bld) [#/Vol] 0.8 103/ul Normal 0.3-0.8 [facility] Comment on above: Performed By: #### C BC #### [facility] [address] [place], [place] [id number] Ana Paula Emily Monocytes/100 WBC (Bld) 8.4 % Normal 1.7-12.0 [facility] Comment on above: Performed By: #### C BC #### [facility] [address] [place], [place] [id number] Ana Paula Emily Neutrophils (Bld) [#/Vol] 6.1 103/ul Normal 1.4-6.5 [facility] Comment on above: Performed By: #### C BC #### [facility] [address] [place], [place] [id number] Ana Paula Emily Neutrophils/100 WBC (Bld) 66.2 % Normal 43.0-75.0 [facility] Comment on above: Performed By: #### C BC #### [facility] [address] [place] [address] Ana Paula Emily Platelet mean volume (Bld) [Entitic vol] 10.8 fL Normal 9.5-13.5 [facility] Comment on above: Performed By: #### C BC #### [facility] [address] [place], [place] [id number] Ana Paula Emily Platelets (Bld) [#/Vol] 167 103/ul Normal 150-450 [facility] Comment on above: Performed By: #### C BC #### [facility] [address] [place], [place] [id number] Ana Paula Emily RBC (Bld) [#/Vol] 3.44 106/ul Critically low 4.20-5.40 [facility] Comment on above: Performed By: #### C BC #### [facility] [address] [place], [place] [id number] Ana Paula Emily WBC (Bld) [#/Vol] 9.2 103/ul Normal 4.0-11.0 [facility] Comment on above: Performed By: #### C BC #### [facility] [address] [place], [place] [id number] Ana Paula Emily CBC AUTO DIFFon 10-08-2019 Basophils (Bld) [#/Vol] 0.1 103/ul Normal 0.0-0.1 [facility] Comment on above: Performed By: #### C BC #### [facility] [address] [place], [place] [id number] Ana Paula Emily Basophils/100 WBC (Bld) 0.7 % Normal 0.2-2.0 [facility] Comment on above: Performed By: #### C BC #### [facility] [address] [place] [address] Ana Paula Emily Eosinophils (Bld) [#/Vol] 0.1 103/ul Normal 0.0-0.7 [facility] Comment on above: Performed By: #### C BC #### [facility] [address] [place], [place] [address] Ana Paula Emily Eosinophils/100 WBC (Bld) 1.3 % Normal 0.9-7.0 [facility] Comment on above: Performed By: #### C BC #### [facility] [address] [place], [place] [address] Ana Paula Emily Erythrocyte distribution width (RBC) [Ratio] 12.5 % Normal 11.0-15.0 [facility] Comment on above: Performed By: #### C BC #### [facility] [address] [place], [place] [id number] Ana Paula Emily Hematocrit (Bld) [Volume fraction] 34.8 % Critically low 36.0-48.0 [facility] Comment on above: Performed By: #### C BC #### [facility] [address] [place], [place] [id number] Ana Paula Emily Hemoglobin (Bld) [Mass/Vol] 11.2 g/dL Critically low 12.0-16.0 [facility] Comment on above: Performed By: #### C BC #### [facility] [address] [place], [place] [id number] Ana Paula Emily IG # 0.06 10e3/ul Critically high 0.00-0.03 [facility] Comment on above: Performed By: #### C BC #### [facility] [address] [place], [place] [id number] Ana Paula Emily IG % 0.7 % Critically high 0.0-0.5 [facility] Comment on above: Performed By: #### C BC #### [facility] [address] [place], [place] [id number] Ana Paula Emily Lymphocytes (Bld) [#/Vol] 2.0 103/ul Normal 1.2-3.8 [facility] Comment on above: Performed By: #### C BC #### [facility] [address] [place], [place] [id number] Ana Paula Emily Lymphocytes/100 WBC (Bld) 23.6 % Normal 20.5-60.0 [facility] Comment on above: Performed By: #### C BC #### [facility] [address] [place] [address] Ana Paula Emily MANUAL DIFF REQ NO Normal [facility] Comment on above: Performed By: #### C BC #### [facility] [address] [place], [place] [id number] Ana Paula Emily MCH (RBC) [Entitic mass] 28.7 pg Normal 26.7-34.0 [facility] Comment on above: Performed By: #### C BC #### [facility] [address] [place], [place] [id number] Ana Paula Emily MCHC (RBC) [Mass/Vol] 32.2 g/dL Normal 29.9-35.2 [facility] Comment on above: Performed By: #### C BC #### [facility] [address] [place], [place] [id number] Ana Paula Emily MCV (RBC) [Entitic vol] 89.2 fL Normal 81.0-99.0 [facility] Comment on above: Performed By: #### C BC #### [facility] [address] [place], [place] [id number] Ana Paula Emily Monocytes (Bld) [#/Vol] 0.8 103/ul Normal 0.3-0.8 [facility] Comment on above: Performed By: #### C BC #### [facility] [address] [place], [place] [id number] Ana Paula Emily Monocytes/100 WBC (Bld) 8.7 % Normal 1.7-12.0 [facility] Comment on above: Performed By: #### C BC #### [facility] [address] [place], [place] [id number] Ana Paula Emily Neutrophils (Bld) [#/Vol] 5.6 103/ul Normal 1.4-6.5 [facility] Comment on above: Performed By: #### C BC #### [facility] [address] [place], [place] [id number] Ana Paula Emily Neutrophils/100 WBC (Bld) 65.0 % Normal 43.0-75.0 [facility] Comment on above: Performed By: #### C BC #### [facility] [address] [place] [place], [place] [address] Ana Paula Emily Platelet mean volume (Bld) [Entitic vol] 10.9 fL Normal 9.5-13.5 [facility] Comment on above: Performed By: #### C BC #### [facility] [address] [id number] Ana Paula Emily Platelets (Bld) [#/Vol] 217 103/ul Normal 150-450 [facility] Comment on above: Performed By: #### C BC #### [facility] [address] [place] [address] Ana Paula Emily RBC (Bld) [#/Vol] 3.90 106/ul Critically low 4.20-5.40 [facility] Comment on above: Performed By: #### C BC #### [facility] [address] [place], [place] [id number] Ana Paula Emily WBC (Bld) [#/Vol] 8.7 103/ul Normal 4.0-11.0 [facility] Comment on above: Performed By: #### C BC #### [facility] [address] [id number] Ana Paula Emily DRUG SCREEN RAPID (URINE)on 10-08-2019 AMP Negative Normal NEGATIVE [facility] Comment on above: Performed By: #### C BC #### [facility] [address] [place], [place] [id number] Ana Paula Emily BAR Negative Normal NEGATIVE [facility] Comment on above: Performed By: #### C BC #### [facility] [address] [place] [address] Ana Paula Emily BUP Negative Normal NEGATIVE [facility] Comment on above: Performed By: #### C BC #### [facility] [address] [place] [address] Ana Paula Emily BZO Negative Normal NEGATIVE [facility] Comment on above: Performed By: #### C BC #### [facility] [address] [place], [place] [id number] Ana Paula Emily KAY Negative Normal NEGATIVE [facility] Comment on above: Performed By: #### C BC #### [facility] [address] [place] [address] Ana Paula Emily CUT-OFFS SEE BELOW Normal [facility] Comment on above: Result Comment: [...] ng/mL Performed By: #### C BC #### [facility] [address] [place] [address] DRUG CUT HEADER DRUG CLASS TEST SYSTEM CUT-OFF CONCENTRATIONS ARE FOLLOWS: Normal [facility] Comment on above: Performed By: #### C BC #### [facility] [address] [place] [address] Ana Paula Emily mAMP Negative Normal NEGATIVE [facility] Comment on above: Performed By: #### C BC #### [facility] [address] [place] [address] Ana Paula Emily MTD Negative Normal NEGATIVE [facility] Comment on above: Performed By: #### C BC #### [facility] [address] [place] [address] Ana Paula Emily OPI Negative Normal NEGATIVE [facility] Comment on above: Performed By: #### C BC #### [facility] [address] [place] [address] Ana Paula Emily OXY Negative Normal NEGATIVE [facility] Comment on above: Performed By: #### C BC #### [facility] [address] [place] [address] Ana Paula Emily PCP Negative Normal NEGATIVE [facility] Comment on above: Performed By: #### C BC #### [facility] [address] [place] [address] Ana Paula Emily PPX Negative Normal NEGATIVE [facility] Comment on above: Performed By: #### C BC #### [facility] [address] [place] [address] Ana Paula Emily TCA Negative Normal NEGATIVE [facility] Comment on above: Performed By: #### C BC #### [facility] [address] [place] [address] Ana Paula Emily THC Negative Normal NEGATIVE [facility] Comment on above: Performed By: #### C BC #### [facility] [address] [place] [address] Ana Paula Emily TYPE AND SCREENon 10-08-2019 TYPE AND SCREEN Negative Normal [facility] Comment on above: Performed By: #### C BC #### [facility] [address] [place] [address] Ana Paula Emily UA (CLEAN/CATCH) SCRAPER BURRER/MICRO I F IND.on 10-08-2019 Bilirubin [Mass/Vol] Negative Normal NEGATIVE [facility] Comment on above: Performed By: #### C BC #### [facility] [address] [place] [address] Ana Paula Emily BLOOD Negative Normal NEGATIVE [facility] Comment on above: Performed By: #### C BC #### [facility] [address] [place] [address] Ana Paula Emily Clarity (U) CLEAR Normal [facility] Comment on above: Performed By: #### C BC #### [facility] [address] [place] [address] Ana Paula Emily Color (U) LT. YELLOW Normal YELLOW [facility] Comment on above: Performed By: #### C BC #### [facility] [address] [place] [address] Ana Paula Emily Glucose [Mass/Vol] Negative Normal NEGATIVE [facility] Comment on above: Performed By: #### C BC #### [facility] [address] [place] [address] Ana Paula Emily Ketones Ql (U) Negative Normal NEGATIVE [facility] Comment on above: Performed By: #### C BC #### [facility] [address] [place] [address] Ana Paulaterry Diaz Nitrite Ql (U) Negative Normal NEGATIVE [facility] Comment on above: Performed By: #### C BC #### [facility] [address] [place], [place] [phone] Ana Paulaterry Diaz pH (Bld) 6.5 Normal 5-9 [facility] Comment on above: Performed By: #### C BC #### [facility] [address] [place] [address] Ana Paula Diaz Protein [Mass/Vol] Negative Normal [facility] Comment on above: Performed By: #### C BC #### [facility] [address] [place] [address] Ana Paula Diaz SPEC GRAVITY 1.025 Normal 1.005-<=1.025 [facility] Comment on above: Performed By: #### C BC #### [facility] [address] [place] [address] Ana Paula Diaz UR MICRO IND NOT INDICATED Normal [facility] Comment on above: Performed By: #### C BC #### [facility] [address] [place] [address] Ana Paula Diaz Urobilinogen Qn (U) 1.0 EU/dl Normal [facility] Comment on above: Performed By: #### C BC #### [facility] [address] [place] [address] Ana Paula Diaz WBC (Bld) [#/Vol] Negative Normal NEGATIVE [facility] Comment on above: Performed By: #### C BC #### [facility] [address] [place], [place] [phone] Ana Paula Diaz GROUP B STREP CULTUREon S. agalactiae Ag Ql (Unsp spec) Culture Observations: Negative for Group B Streptococcus Normal [facility] Comment on above: Performed By: #### C BC #### [facility] [address] [place] [address] Ana Paula Diaz UA (CLEAN/CATCH) SCRAPER BURRER/MICRO I F IND.on 09-15-2019 Bilirubin [Mass/Vol] Negative Normal NEGATIVE [facility] Comment on above: Performed By: #### C BC #### [facility] [address] [place] [address] Ana Paula Emily BLOOD Negative Normal NEGATIVE [facility] Comment on above: Performed By: #### C BC #### [facility] [address] [place] [address] Ana Paula Emily Clarity (U) SL CLOUDY Normal [facility] on above: Performed By: #### C BC #### [facility] [address] [place] [address] Ana Paula Emily Color (U) YELLOW Normal YELLOW [facility] Comment on above: Performed By: #### C BC #### [facility] [address] [place] [address] Ana Paula Emily Glucose [Mass/Vol] Negative Normal NEGATIVE [facility] Comment on above: Performed By: #### C BC #### [facility] [address] [place] [address] Ana Paula Emily Ketones Ql (U) TRACE Normal NEGATIVE [facility] Comment on above: Performed By: #### C BC #### [facility] [address] [place] [address] Ana Paula Emily Nitrite Ql (U) Negative Normal NEGATIVE [facility] Comment on above: Performed By: #### C BC #### [facility] [address] [place] [address] Ana Paula Emily pH (Bld) 6.0 Normal 5-9 [facility] on above: Performed By: #### C BC #### [facility] [address] [place] [address] Ana Paula Emily Protein [Mass/Vol] Negative Normal [facility] Comment on above: Performed By: #### C BC #### [facility] [address] [place] [address] Ana Paula Emily SPEC GRAVITY 1.025 Normal 1.005-<=1.025 [facility] Comment on above: Performed By: #### C BC #### [facility] [address] [place] [address] Ana Paula Emily UR MICRO IND NOT INDICATED Normal [facility] Comment on above: Performed By: #### C BC #### [facility] [address] [place] [address] Ana Paulaterry Olsonen Urobilinogen Qn (U) 1.0 EU/dl Normal [facility] Comment on above: Performed By: #### C BC #### [facility] [address] [place] [address] Ana Paula Emily WBC (Bld) [#/Vol] Negative Normal NEGATIVE [facility] Comment on above: Performed By: #### C BC #### [facility] [address] [place] [address] Ana Paula Emily CULTURE URINEon 08-30-2019 CULTURE URINE Culture Observations : No growth Normal [facility] Comment on above: Performed By: #### N BOX #### [facility] [address] [place] [address] Ana Paula Emily UA (CLEAN/CATCH) SCRAPER BURRER/MICRO I F IND.on 08-30-2019 Bilirubin [Mass/Vol] Negative Normal NEGATIVE [facility] Comment on above: Performed By: #### N BOX #### [facility] [address] [place] [address] Ana Paula Emily BLOOD Negative Normal NEGATIVE [facility] Comment on above: Performed By: #### N BOX #### [facility] [address] [place] [address] Ana Paula Emily Clarity (U) CLEAR Normal [facility] Comment on above: Performed By: #### N BOX #### [facility] [address] [place] [address] Ana Paula Emily Color (U) LT. YELLOW Normal YELLOW [facility] on above: Performed By: #### N BOX #### [facility] [address] [place] [address] Ana Paula Emily Glucose [Mass/Vol] Negative Normal NEGATIVE [facility] Comment on above: Performed By: #### N BOX #### [facility] [address] [place], [place] [id number] Ana Paula Emily Ketones Ql (U) Negative Normal NEGATIVE [facility] Comment on above: Performed By: #### N BOX #### [facility] [address] [address] Ana Paula Emily Nitrite Ql (U) Negative Normal NEGATIVE [facility] Comment on above: Performed By: #### N BOX #### [facility] [address] [address] Ana Paula Emily pH (Bld) 6.5 Normal 5-9 [facility] Comment on above: Performed By: #### N BOX #### [facility] [address] [address] Ana Paula Emily Protein [Mass/Vol] Negative Normal [facility] Comment on above: Performed By: #### N BOX #### [facility] [address] [place] [address] Ana Paula Emily SPEC GRAVITY 1.020 Normal 1.005-<=1.025 [facility] Comment on above: Performed By: #### N BOX #### [facility] [address] [place] [address] Ana Paual Emily UR MICRO IND INDICATED Normal [facility] Comment on above: Performed By: #### N BOX #### [facility] [address] [place] [address] Ana Paulaterry Diaz Urobilinogen Qn (U) 1.0 EU/dl Normal [facility] Comment on above: Performed By: #### N BOX #### [facility] [address] [place] [address] Ana Paula Emily WBC (Bld) [#/Vol] TRACE Normal NEGATIVE [facility] Comment on above: Performed By: #### N BOX #### [facility] [address] [place] [address] Ana Paula Emily URINE MICROSCOPIC ONLYon Bacteria LM.HPF (Urine sed) [#/Area] LARGE Normal NONE SEEN [facility] Comment on above: Performed By: #### N BOX #### [facility] [address] [place] [address] Ana Paula Emily CAST NONE SEEN Normal NONE SEEN [facility] Comment on above: Performed By: #### N BOX #### [facility] [address] [address] Ana Paula Emily Crystals LM Nom (Urine sed) NONE SEEN Normal NONE SEEN [facility] Comment on above: Performed By: #### N BOX #### [facility] [address] [address] Ana Paula Emily CULTURE INDICATED Normal [facility] Comment on above: Performed By: #### N BOX #### [facility] [address] [address] Ana Paula Emily Epithelial cells LM.HPF (Urine sed) [#/Area] MODERATE Normal [facility] Comment on above: Performed By: #### N BOX #### [facility] [address] [place] [address] Ana Paula Emily MUCOUS NONE SEEN Normal NONE SEEN [facility] Comment on above: Performed By: #### N BOX #### [facility] [address] [place] [address] Ana Paula Emily RBC (U) [#/Vol] NONE SEEN Normal 0-2 [facility] Comment on above: Performed By: #### N BOX #### [facility] [address] [place] [address] Ana Paula Emily WBC (Bld) [#/Vol] 5-10 Normal NONE SEEN [facility] Comment on above: Performed By: #### N BOX #### [facility] [address] [place] [address] Ana Paula Emily GTT 3 HR PREGon 07-22-2019 Glucose [Mass/Vol] 120 mg/dL Normal [facility] Comment on above: Performed By: #### N BOX #### [facility] [address] [place] [address] Ana Paula Emily Glucose [Mass/Vol] 107 mg/dL Normal [facility] Comment on above: Performed By: #### N BOX #### [facility] [address] [place] [address] Ana Paula Emily Glucose [Mass/Vol] 87 mg/dL Normal 74-106 [facility] Comment on above: Performed By: #### N BOX #### [facility] [address] [place], [place] [address] Ana Paula Diaz Glucose [Mass/Vol] 144 mg/dL Normal [facility] Comment on above: Performed By: #### N BOX #### [facility] [address] [place] [place], [place] [address] Ana Paula Diaz US PREG ANATOMY SINGLEon US PREG ANATOMY SINGLE Patient: CARLOS ROCHA Exam Date: 05/30/2019 : 1995 Gender:F Ordering : DR TESSA PEREZ . Admission #: [id number] Family : Order #: [id number] CLICK HERE TO VIEW EXAM RADIOLOGY REPORT [...] Rei Calles M.D. on 05/30/2019 at 13:14 [facility] PAP ACOG PANEL 2: 21 to 28on 05-08-2019 Age Gdln ACOG Testing - Normal [facility] Comment on above: Performed By: #### N BOX #### [facility] [address] [address] Ana Paula Diaz COMMENT Comment Normal [facility] Comment on above: Result Comment: [id number]. [id number] [id number] Performed By: #### N BOX #### [facility] [address] [address] Ana Paula Diaz DIAGNOSIS: Comment Normal [facility] Comment on above: Result Comment: NEGA TIVE FOR INTRAEPITHELIAL LESION OR MALIGNANCY. Performed By: #### N BOX #### [facility] [address] [address] Ana Paula Diaz Methodology: Comment [facility] Comment on above: Result Comment: This liquid based SurePath(R) pap test was screened with the assistance of an image guided system. Performed By: #### N BOX #### [facility] [address] [address] Ana Paula Diaz Note: Comment Normal [facility] Comment on above: Result Comment: The Pap smear is a screening test designed to aid in the detection of premalignant and malignant conditions of the uterine cervix. It is not a diagnostic procedure and should not be used as the sole means of detecting cervical cancer. Both false-positive and false-negative reports do occur. . Performed By: #### N BOX #### [facility] [address] [address] Ana Paula Diaz Performed by: Comment Normal [facility] Comment on above: Result Comment: Enoc Mariee, Supervisor [employer] (ASCP) Performed By: #### N BOX #### [facility] [address] [address] Ana Paula Emily Reflex Criteria: Comment Normal [facility] Comment on above: Result Comment: The HPV DNA reflex criteria were not met with this specimen result therefore, no HPV testing was performed. . Performed By: #### N BOX #### [facility] [address] [place] [address] Ana Paula Emily Specimen adequacy: Comment Normal [facility] Comment on above: Result Comment: Sati sfactory for evaluation. Endocervical and/or squamous metaplastic cells (endocervical component) are present. Performed By: #### N BOX #### [facility] [address] [place] [address] Ana Paula Emily . . Normal [facility] Comment on above: Performed By: #### N BOX #### [facility] [address] [place] [address] Ana Paula Emily CHLAMYDIA/GONOCOCCUS MICHAEL (SW AB/URINE/PAPon 05-05-2019 Chlamydia trachomatis, MICHAEL Negative Normal Negative [facility] Comment on above: Performed By: #### N BOX #### [facility] [facility] [address] [place] [address] Ana Paula Emily Neisseria gonorrhoeae, MICHAEL Negative Normal Negative [facility] Comment on above: Performed By: #### N BOX #### [facility] [address] [place] [address] Ana Paula Emily VAGINITIS/VAGINOSIS DNA PROB Julito 05-05-2019 Samantha species Negative Normal Negative [facility] Comment on above: Performed By: #### N BOX #### [facility] [address] [place] [address] Ana Paula Emily Gardnerella vaginalis Negative Normal Negative [facility] Comment on above: Performed By: #### N BOX #### [facility] [address] [place] [address] Ana Paula Emily Trichomonas vaginalis Negative Normal Negative [facility] Comment on above: Performed By: #### N BOX #### [facility] [address] [place] [address] Ana Paulaterry Diaz HEP B SURFACE ANTIGEN SCREEN on 03-28-2019 HBsAg Screen Negative Normal Negative [facility] Comment on above: Performed By: #### H BSANS #### [facility] [address] [place] [address] Ana Paula Diaz HEPATITIS C VIRUS AB W/ REFL EX QUANTon 03-28-2019 HCV AB <0.1 Normal 0.0-0.9 [facility] Comment on above: Performed By: #### H CVPCRR #### [facility] [address] [place] [address] Ana Paula Diaz Interpretation: Comment Normal [facility] Comment on above: Result Comment: Nega tive Not infected with HCV, unless recent infection is suspected or other evidence exists to indicate HCV infection. Performed By: #### H CVPCRR #### [facility] [address] [place] [address] Ana Paula Diaz HIV 1 AND 2 WITH REFLEXon HIV Screen 4th Generation wRfx Non Reactive Normal Non Reactive [facility] Comment on above: Performed By: #### H IV12 #### [facility] [address] [place] [address] Ana Paula Diaz RPR QUANTon 03-28-2019 Rapid Plasma Reagin, Quant Non Reactive Normal NonRea<1:1 [facility] Comment on above: Performed By: #### R PRQ #### [facility] [address] [place] [address] Ana Paula Diaz RUBELLA AB IGGon 03-28-2019 Rubella Antibodies, IgG 3.01 index Normal Immune >0.99 The [facility] Comment on above: Result Comment: Non- immune <0.90 Equivocal 0.90 - 0.99 Immune >0.99 Performed By: #### N BOX #### [facility] [address] [place] [address] Ana Paula Diaz CBC AUTO DIFFon 03-27-2019 Basophils (Bld) [#/Vol] 0.1 103/ul Normal 0.0-0.1 [facility] Comment on above: Performed By: #### C BC #### [facility] [address] [place] [address] Ana Paula Emily Basophils/100 WBC (Bld) 0.9 % Normal 0.2-2.0 [facility] Comment on above: Performed By: #### C BC #### [facility] [address] [place] [address] Ana Paula Emily Eosinophils (Bld) [#/Vol] 0.4 103/ul Normal 0.0-0.7 [facility] Comment on above: Performed By: #### C BC #### [facility] [address] [place] [address] Ana Paula Emily Eosinophils/100 WBC (Bld) 5.8 % Normal 0.9-7.0 [facility] Comment on above: Performed By: #### C BC #### [facility] [address] [place] [address] Ana Paula Emily Erythrocyte distribution width (RBC) [Ratio] 12.2 % Normal 11.0-15.0 [facility] Comment on above: Performed By: #### C BC #### [facility] [address] [place] [address] Ana Paula Emily Hematocrit (Bld) [Volume fraction] 35.9 % Critically low 36.0-48.0 [facility] Comment on above: Performed By: #### C BC #### [facility] [address] [place] [address] Ana Paula Emily Hemoglobin (Bld) [Mass/Vol] 12.5 g/dL Normal 12.0-16.0 [facility] Comment on above: Performed By: #### C BC #### [facility] [address] [place] [address] Ana Paula Emily IG # 0.02 10e3/ul Normal 0.00-0.03 [facility] Comment on above: Performed By: #### C BC #### [facility] [address] [place] [address] Ana Paula Emily IG % 0.3 % Normal 0.0-0.5 The [facility] Comment on above: Performed By: #### C BC #### [facility] [address] [place] [address] Ana Paula Emily Lymphocytes (Bld) [#/Vol] 1.5 103/ul Normal 1.2-3.8 [facility] Comment on above: Performed By: #### C BC #### [facility] [address] [place], [place] [id number] Ana Paula Emily Lymphocytes/100 WBC (Bld) 21.6 % Normal 20.5-60.0 The [facility] Comment on above: Performed By: #### C BC #### [facility] [address] [place], [place] [id number] Ana Paulaterry Diaz MANUAL DIFF REQ NO Normal [facility] Comment on above: Performed By: #### C BC #### [facility] [address] [place], [place] [id number] Ana Paulaterry Olsonen MCH (RBC) [Entitic mass] 31.2 pg Normal 26.7-34.0 The [facility] Comment on above: Performed By: #### C BC #### [facility] [address] [place] [address] Ana Paulaterry Olsonen MCHC (RBC) [Mass/Vol] 34.8 g/dL Normal 29.9-35.2 The [facility] Comment on above: Performed By: #### C BC #### [facility] [address] [place], [place] [id number] Ana Paulaterry Olsonen MCV (RBC) [Entitic vol] 89.5 fL Normal 81.0-99.0 The [facility] Comment on above: Performed By: #### C BC #### [facility] [address] [place], [place] [id number] Ana Paula Emily Monocytes (Bld) [#/Vol] 0.5 103/ul Normal 0.3-0.8 The [facility] Comment on above: Performed By: #### C BC #### [facility] [address] [place] [address] Ana Paula Emily Monocytes/100 WBC (Bld) 7.5 % Normal 1.7-12.0 The [facility] Comment on above: Performed By: #### C BC #### [facility] [address] [place], [place] [id number] Ana Paula Emily Neutrophils (Bld) [#/Vol] 4.5 103/ul Normal 1.4-6.5 [facility] Comment on above: Performed By: #### C BC #### [facility] [address] [place], [place] [address] Ana Paula Diaz Neutrophils/100 WBC (Bld) 63.9 % Normal 43.0-75.0 [facility] Comment on above: Performed By: #### C BC #### [facility] [address] [place], [place] [id number] Ana Paulaterry Diaz Platelet mean volume (Bld) [Entitic vol] 9.6 fL Normal 9.5-13.5 [facility] Comment on above: Performed By: #### C BC #### [facility] [address] [place], [place] [id number] Ana Paulaterry Olsonen Platelets (Bld) [#/Vol] 231 103/ul Normal 150-450 [facility] Comment on above: Performed By: #### C BC #### [facility] [address] [place], [place] [id number] Ana Paula Diaz RBC (Bld) [#/Vol] 4.01 106/ul Critically low 4.20-5.40 [facility] Comment on above: Performed By: #### C BC #### [facility] [address] [place], [place] [id number] Ana Paula Diaz WBC (Bld) [#/Vol] 7.0 103/ul Normal 4.0-11.0 [facility] Comment on above: Performed By: #### C BC #### [facility] [address] [place], [place] [id number] Ana Paulaterry Diaz CULTURE URINEon 03-27-2019 CULTURE URINE Culture Observations : Heavy growth of mixed genital leann.No potential pathogens seen. Normal The [facility] Comment on above: Performed By: #### N BOX #### [facility] [address] [place], [place] [id number] Ana Paula Diaz GLYCOHEMOGLOBIN A1Con 2018 Glucose [Mass/Vol] 105 mg/dL Normal [facility] Comment on above: Performed By: #### A 1C #### [facility] [address] [place] [address] Ana Paula Emily HbA1c (Bld) [Mass fraction] 5.3 % Normal <=6.0 [facility] Comment on above: Performed By: #### A 1C #### [facility] [address] [place] [address] Ana Paula Emily POLY BOX TEST PT SEND OUTo n 03-27-2019 SENT TO REF LAB 03/27/19 Normal [facility] Comment on above: Performed By: #### N BOX #### [facility] [address] [place] [address] Ana Paula Emily TYPE AND SCREENon 03-27-2019 TYPE AND SCREEN Negative Normal [facility] Comment on above: Performed By: #### T NS #### [facility] [address] [place] [address] Ana Paula Emily UA RANDOM W/MICROSCOPICon Bacteria LM.HPF (Urine sed) [#/Area] TRACE Normal NONE SEEN [facility] Comment on above: Performed By: #### U AMIC #### [facility] [address] [place] [address] Ana Paula Emily Bilirubin [Mass/Vol] Negative Normal NEGATIVE [facility] Comment on above: Performed By: #### U AMIC #### [facility] [address] [place] [address] Ana Paula Emily BLOOD Negative Normal NEGATIVE The [facility] Comment on above: Performed By: #### U AMIC #### [facility] [address] [place] [address] Ana Paula Emily CAST NONE SEEN Normal NONE SEEN [facility] Comment on above: Performed By: #### U AMIC #### [facility] [address] [place] [address] Ana Paula Emily Clarity (U) CLEAR Normal [facility] Comment on above: Performed By: #### U AMIC #### [facility] [address] [place] [address] Ana Paula Emily Color (U) LT. YELLOW Normal YELLOW [facility] Comment on above: Performed By: #### U AMIC #### [facility] [address] [place] [id number] Ana Paula Emily Crystals LM Nom (Urine sed) NONE SEEN Normal NONE SEEN [facility] Comment on above: Performed By: #### U AMIC #### [facility] [address] [id number] Ana Paula Emily Epithelial cells LM.HPF (Urine sed) [#/Area] FEW Normal [facility] Comment on above: Performed By: #### U AMIC #### [facility] [address] [place] [address] Ana Paula Emily Glucose [Mass/Vol] Negative Normal NEGATIVE The [facility] Comment on above: Performed By: #### U AMIC #### [facility] [address] [place] [address] Ana Paula Emily Ketones Ql (U) Negative Normal NEGATIVE [facility] Comment on above: Performed By: #### U AMIC #### [facility] [address] [place] [address] Ana Paula Emily MUCOUS TRACE Normal NONE SEEN The [facility] Comment on above: Performed By: #### U AMIC #### [facility] [address] [place] [address] Ana Paula Emily Nitrite Ql (U) Negative Normal NEGATIVE [facility] Comment on above: Performed By: #### U AMIC #### [facility] [address] [place] [address] Ana Paula Emily pH (Bld) 6.0 Normal 5-9 [facility] Comment on above: Performed By: #### U AMIC #### [facility] [address] [place] [address] Ana Paula Emily Protein [Mass/Vol] Negative Normal [facility] Comment on above: Performed By: #### U AMIC #### [facility] [address] [place] [address] Ana Paula Emily RBC (Bld) [#/Vol] NONE SEEN Normal 0-2 The [facility] Comment on above: Performed By: #### U AMIC #### [facility] [address] [place], [place] [address] Ana Paula Diaz SPEC GRAVITY 1.025 Normal 1.005-<=1.025 [facility] Comment on above: Performed By: #### U AMIC #### [facility] [address] [place], [place] [address] Ana Paula Diaz Urobilinogen Qn (U) 0.2 EU/dl Normal [facility] Comment on above: Performed By: #### U AMIC #### [facility] [address] [place], [place] [address] Ana Paula Diaz WBC (Bld) [#/Vol] Negative Normal NEGATIVE [facility] Comment on above: Performed By: #### U AMIC #### [facility] [address] [place], [place] [address] Ana Paula Diaz WBC (Bld) [#/Vol] 0-2 Normal NONE SEEN [facility] Comment on above: Performed By: #### U AMIC #### [facility] [address] [place], [place] [address] Ana Paula Diaz US PREG TVon 03-08-2019 US PREG TV Patient: CARLOS ROCHA Exam Date: 03/08/2019 : 1995 Gender:F Ordering : DR TESSA PEREZ . Admission #: [id number] Family : Order #: [id number] CLICK HERE TO VIEW EXAM RADIOLOGY REPORT [...] Calles M.D. on 03/08/2019 at 09:42 Normal [facility] Vital Signs Date Time Vital Sign [...] 15 minutes Tessa Ana DO Work Phone: [facility] Comment on above: Third [...] [facility] [address] [place] [id number] Tessa Perez, DO [address] [place] [address] [facility] Payers Date Payer Category Payer Medicaid [employer] [place] [id number] 2022-Present [address] [address] [place] [address] [id number] 1995 Unknown [id number] [id number]3 1994 Unknown [id number] 2.16.840.1.889649.3.579.2.593 1994 Unknown [id number] 2.16.840.1.987493.3.579.2.593 1994 Unknown [id number] 2.16.840.1.851208.3.579.2.593 1994 Unknown [id number] 2.16.840.1.440418.3.579.2.593 1994 Unknown [id number] 2.16.840.1.254939.3.579.2.593 1994 Unknown [id number] 2.16.840.1.502626.3.579.2.593 1994 Unknown [id number] 2.16.840.1.407176.3.579.2.593 1994 Unknown [id number] 2.16.840.1.715804.3.579.2.593 1994 Unknown [id number] 2.16.840.1.051350.3.579.2.593 1994 Unknown [id number] 2.16.840.1.786200.3.579.2.593 1994 Unknown [id number] 2.16.840.1.580958.3.579.2.593 1994 Unknown [id number] 2.16.840.1.395851.3.579.2.1259 1994 Unknown [id number] 2.16.840.1.278968.3.579.2.1259 1994 Unknown [id number] 2.16.840.1.928878.3.579.2.1259 1994 Unknown [id number] 2.16.840.1.090124.3.579.2.1259 1994 Unknown [id number] 2.16.840.1.238425.3.579.2.1259 1994 Unknown [id number] 2.16.840.1.988104.3.579.2.1259 1994 Unknown [id number] 2.16.840.1.672337.3.579.2.1259 1960 Self-pay 1960 Unknown [id number] 1960 Unknown [id number] Social History Date Type Detail Facility Tobacco smoking stat [facility] Tobacco smoking consumption unknown [facility] Start: 01-31-2023 [facility] Start: 1995 Sex Assigned At Not on file [facility] Gender identity Not on file [facility] Medical Equipment Procedure Code Equipment Code Equipment Origin al Text Equipment Identifier Dates 1 strip by In Vi tro route in the morning. Use in the morning prior to breakfast, 1 hour after each meal for a total of 4times daily.. [id number] Start: 08-31-2023 End: 09-30-2023 1 each by In Vit ro route in the morning. Use to check FSBS four times daily. [id number] Start: 08-31-2023 End: 09-30-2023 History of Present illness Narrative 08-31-2023 Emily TONY Benites - 08/31/2023 10:30 AM EST Note Date [...] nursing note reviewed. Exam conducted with a deputy city clerk present. Vitals: Estimated body mass index is [...] job, you may need to see an clinical nurse specialist. How is this treated? This condition [...] and dyes. Medicines ? Take or apply jikq-hbr-bwqrfgs and prescription medicines only as told by [...] and water are not available, use hand defence intelligence analyst. General instructions ? Avoid the substance that [...] Get (more content not included)... [facility] Evaluation note Note Date & Type Note [...] glucose tolerance test Tessa Perez, DO [address] [place] [address] Referral ID Status Reason Start Date Expiration Date Visits Re quested Visits Authorized [id number] Closed 1 1 Additional Source Comments INFORMATION SOURCE (unrecogn ized section and content) DATE CREATED AUTHOR 10/16/2019 [facility] DATE CREATED AUTHOR AUTHOR'S ORGANIZ ATION 03/06/2021 [facility] DATE CREATED AUTHOR AUTHOR'S ORGANIZ ATION 10/13/2023 [facility] EPIC Reason for Visit (unrecogniz ed section and content) Reason Comments Routine Visit Care Teams (unrecognized sec tion and content) Machine Maintenance Technician Relationship Specialty Start Date End Date Zoltan Cole MD [address] [place] [id number] PCP - External PCP Family Medicine 12/26/22 [...] BE BASED ON THE PRIMARY CLINICAL RECORDS. [facility] [employer] [facility]. provides no warranty or guarantee of the accuracy or completeness of information in this document.
[2024-04-18] MEDS: HYDROCODONE/ACET 5-325 MG TABLET 1 TAB PO (18:29)
[2024-04-18 18:34] VITALS: BMI 27.6
--- NOTE | 2024-04-18 18:36 | PC.NURSE ---
Pain, swelling bleeding noted to nose. Ice to site.
== END 2024-04-18 18:54 | disposition home or self-care (01) ==
PROVIDERS: Emergency Provider Emergency Medicine
DX: S00.83XA Contusion of other part of head, initial encounter (principal); Y04.0XXA Assault by unarmed brawl or fight, initial encounter; Z87.891 Personal history of nicotine dependence
CPT/HCPCS: 70486; 99284